=== PATIENT | male | born 1950 | race Caucasian/White ===

== ENCOUNTER 2019-09-06 13:37 | Outpatient (CLI) | payer MEDICARE, SELFPAY ==
--- NOTE | 2019-09-06 13:44 | MR_ITS ---
WS: [id number] MRI CERVICAL SPINE HISTORY: NECK PAIN COMPARISON: 11/29/2018 Very mild straightening of the normal cervical lordosis. Less than 2 mm retrolisthesis of C4. No simeon ow edema or fracture. Signal within the cervical cord is normal. Visualized posterior fossa is unremarkable. Craniocervical junction, C1 and C2 relationship, odontoid process and soft tissues are normal. C2-C3: Normal. C3-C4: Mild hypertrophic osteophytic ridging and diffuse disc bulging. Mild encroachment upon the sabrina tral thecal sac with mild bilateral foraminal stenosis. C4-C5: Mild osteophytic ridging and annular disc bulging. Mild contact on the ventral thecal sac. No displacement. Mild central with moderate bilateral foraminal narrowing. C5-C6: Mild osteophytic ridging. No significant central stenosis. Mild narrowing of the RIGHT foramen due to osteophyte and facet disease. C6-C7: Mild osteophytic ridging without significant stenosis. C7-T1: Normal. Paraspinal soft tissue are normal. Subcutaneous cyst in the posterior soft tissues at the C4 level is unchanged. MR/MR cervical spin wo con* [id number] IMPRESSION: 1. Multilevel mild spondylitic changes throughout the cervical spine. 2. Osteophytic ridging at C4-5 with mild contact on the ventral cervical cord. Similar to the prior studies. 3. Moderate bilateral foraminal stenosis at C4-5 and mild central stenosis. 4. Mild bilateral foraminal narrowing at C3-4 and on the RIGHT at C5-6.
--- NOTE | 2019-09-06 15:30 | XR_ITS ---
WS: [id number] LATERAL CERVICAL SPINE: 3 view. Lateral radiographs are performed in upright neutral, flexion and extension to the patient's toleranc e. HISTORY: Neck pain COMPARISON: 09/11/2018 Mild straightening of the normal cervical lordosis. Less than 2 mm retrolisthesis of C4. Severe disc space narrowing at C5-6 and C6-7 with moderate osteophytes. With flexion and extension C4 extends pos teriorly by 2.3 mm. There is no significant instability. Very slight retrolisthesis of C5 with extens ion. XR/XR cervical spine fl/ex [id number] IMPRESSION: 1. Minimal retrolisthesis of C4 on neutral imaging. No significant instability with flexion or extension. 2. Severe degenerative disc disease and spondylosis at C5-6 and C6-7.
== END 2019-09-06 13:38 | disposition home or self-care (01) ==
PROVIDERS: PCP Nurse Practitioner Family; Visit Provider Licensed Practical Nurse
DX: M25.78 Osteophyte, vertebrae (principal); M48.02 Spinal stenosis, cervical region; M50.323 Other cervical disc degeneration at C6-C7 level
CPT/HCPCS: 72040; 72141

== ENCOUNTER → 2019-09-20 13:16 | Outpatient (BNVA) | payer MEDICARE, SELFPAY | PROVIDERS: Referring Provider Licensed Practical Nurse; Visit Provider Anesthesiology Pain Medicine | DX: G89.29 Other chronic pain (principal); M47.812 Spondylosis without myelopathy or radiculopathy, cervical region; F17.210 Nicotine dependence, cigarettes, uncomplicated; Z79.891 Long term (current) use of opiate analgesic | CPT/HCPCS: 99204; 99999 ==

== ENCOUNTER → 2020-01-16 10:57 | Outpatient (BNVA) | payer MEDICARE, SELFPAY | PROVIDERS: Visit Provider Nurse Practitioner Family | DX: E11.9 Type 2 diabetes mellitus without complications (principal); I10 Essential (primary) hypertension | CPT/HCPCS: 80053; 80061; 82607; 83036; 84443; 85025 ==

== ENCOUNTER → 2020-01-22 15:20 | Outpatient (BNVA) | payer MEDICARE, SELFPAY | PROVIDERS: Visit Provider Nurse Practitioner Family | DX: D72.829 Elevated white blood cell count, unspecified (principal); E11.9 Type 2 diabetes mellitus without complications; E78.2 Mixed hyperlipidemia; I10 Essential (primary) hypertension; M54.30 Sciatica, unspecified side | CPT/HCPCS: 80500; 85025 ==

== ENCOUNTER 2020-02-26 14:49 | Outpatient (CLI) | payer MEDICARE, SELFPAY ==
--- NOTE | 2020-02-26 15:00 | USCV_ITS ---
Aram Alva Age: 69 Gender: M : 1950 Exam Date: 02/26/2020 14:58 Ordering Phys: Arturo Matamoros MD ([email or web address]) Technologist: Scarlett Burnham Exam Location: [facility] [place] Indication: LT LOWER EXTREMITY SWELLING HISTORY: Lower extremity swelling. PROCEDURES: Venous duplex imaging was performed in only the left lower extremity. The following venous structures were evaluated: common femoral vein, profunda vein, proximal portion of the greater saphenous vein, superficial femoral vein, and the popliteal vein. In addition, the posterior tibial and peroneal trunk were evaluated. FINDINGS: Normal 2-D Doppler and augmentation and compressibility throughout the left lower extremity venous structures. Additional imaging through the proximal calf veins also reveals no thrombus. Limited evaluation of the greater saphenous vein is patent with no thrombus.. CONCLUSIONS No evidence of left lower extremity DVT. Zurdo Echevarria MD (Electronically Signed) Final Date: 26 February 2020 17:15 S
== END 2020-02-26 14:50 | disposition home or self-care (01) ==
LOC: US 14:50
PROVIDERS: PCP Family Medicine; Visit Provider Internal Medicine Cardiovascular Disease
DX: M79.89 Other specified soft tissue disorders (principal)
CPT/HCPCS: 93971

== ENCOUNTER 2020-05-06 16:40 | Emergency (ER) | payer MEDICARE, SELFPAY ==
[2020-05-06 17:17] VITALS: BP 136/86; PULSE 73; RESP 20; TEMP 36.7; O2SAT 99; BMI 29.1
--- NOTE | 2020-05-06 17:48 | XRR_ITS ---
PROCEDURE INFORMATION: Exam: XR Chest, 1 View Exam date and time: 05/06/2020 6:33 PM Age: 69 years old Clinical indication: Type not specified; Patient HX: Chest pain and burning down left arm x 2 days TECHNIQUE: Imaging protocol: XR of the chest Views: 1 view. COMPARISON: CR Chest 1 [place] [id number] 07/10/2019 9:30 AM FINDINGS: Lungs: Unremarkable. No consolidation. Pleural space: Unremarkable. No pleural effusion. No pneumothorax. Heart/Mediastinum: Unremarkable. No cardiomegaly. Bones/joints: Unremarkable. XR/XR chest 1V portable [id number] IMPRESSION: No acute findings.
--- NOTE | 2020-05-06 17:59 | ED_ITS ---
HPI - Chest Pain General: Chief Complaint: Chest Pain Stated Complaint: cp/ sent from doc Time Seen by Provider: 05/06/20 17:38 Source: patient Mode of arrival: ambulatory Limitations: no limitations History of Present Illness: HPI narrative: 69-year-old male states he been having some burning type chest pain over the last 2 days. He states pain is been burning down his arm. He denies any shortness of breath. He denies any worsening or improving factors. Denies vomiting or diarrhea. Denies any fevers. Does have a history of a stent 2 years ago. complaint: chest pain Associated symptoms: Deny abdominal pain, dyspnea, fever(s), nausea or vomiting Review of Systems Const: Denies: fever(s), chills, body aches or change in appetite Eyes: Denies: blurry vision or eye discomfort ENMT: Denies: throat pain or dental pain Card: Reports: chest pain Resp: Denies: dyspnea GI: Denies: abdominal pain, nausea, vomiting or diarrhea : Denies: dysuria Musc: Denies: neck pain or back pain Skin/Breast: Denies: rash Neuro: Denies: headache(s) Psych: Denies: depression Clarke/Lymph: Denies: easy bruising All/Imm: Denies: urticaria PFSH ED PFSH: Medical History (Updated 05/06/20 @ 18:41 by Corazon Cummings MD) CAD (coronary artery disease) Cervical spondylosis Castillo angioma Diabetes mellitus Essential hypertension GERD (gastroesophageal reflux disease) History of colon cancer History of small bowel obstruction Hyperglycemia Migraine-cluster headache syndrome Mixed hyperlipidemia Syncope Surgical History History of angioplasty History of heart artery stent Family History Father CAD (coronary artery disease) Mother CAD (coronary artery disease) Other Heart disease Social History Smoking and tobacco status: current every day smoker cigarettes Years cigarettes smoked: 53 Alcohol intake: never Household members: spouse Marital status: Current occupational status: unemployed History of recent travel: No Physical Exam Const: COMMON NORMALS: no acute distress, patient oriented x3 and healthy appearing HENMT: COMMON NORMALS: normocephalic and atraumatic HEAD & SCALP: normocephalic and atraumatic Eye: COMMON NORMALS: Equal, round and reactive pupils present and EOMs intact bilaterally PUPIL: Yes Equal, round and reactive pupils present Neck/C-Spine: COMMON NORMALS: full ROM and supple Chest: COMMONS NORMALS: normal inspection of the chest and normal palpation of entire chest wall Resp: COMMON NORMALS: normal respiratory effort, No retractions, No use of accessory muscles and clear to auscultation bilaterally AUSCULTATION: clear to auscultation bilaterally Cardio: COMMON NORMALS: regular rate, regular rhythm and No murmurs present (Cardio) RATE: regular rate RHYTHM: regular rhythm GI: COMMON NORMALS: Normal to inspection, nondistended, normoactive bowel sounds present, Soft to palpation, non-tender and no masses PALPATION: Yes Soft to palpation Extremity: COMMON NORMALS: normal to inspection and full ROM Neuro: COMMON NORMALS: patient oriented x3, moves all extremities and no focal motor deficits Psych: COMMON NORMALS: mental status grossly normal, Normal thought process present and cooperative THOUGHT PROCESS: Normal thought process present Skin: COMMON NORMALS: no rashes or lesions noted and no wounds GENERAL SKIN EXAM: no rashes or lesions noted Course Vital Signs: Vital signs: Vital Signs Temperature 98.1 F 05/06/20 17:17 Pulse Rate 73 05/06/20 17:17 Respiratory Rate 20 H 05/06/20 17:17 Blood Pressure 136/86 05/06/20 17:17 Pulse Oximetry 99 05/06/20 17:17 MDM - Chest Pain MDM Narrative: Medical decision making narrative: Patient presents here with chest pain. His EKG and x-ray are normal. He has been pain-free here. Patient did allow us to draw his labs and he stated he had to leave. He states that he has to get up at 2 [address] to [address] a truck. I informed him he could be having a heart attack and strongly recommended him staying. He refused has decision make capacity and signed out AMA. Lab Data: Labs: Lab Results 05/06/20 Range/Units 18:15 WBC 8.3 (4.0-10.0) 10^3/ uL RBC 4.76 (4.1-5.3) 10^6/u L Hgb 15.7 (11.7-16.6) g/dL Hct 45.8 (42.0-52.0) % MCV 96.2 H (80-94) fL MCH 33.0 (28.0-34.0) pg MCHC 34.3 (30.0-36.0) g/dL RDW 11.8 L (12.1-15.1) % Plt Count 236 (130-400) 10^3/c mm MPV 11.3 H (7.4-10.4) fL Neut % (Auto) 66.9 % Lymph % (Auto) 19.2 % [place] % (Auto) 9.3 % Eos % (Auto) 2.9 % Baso % (Auto) 1.2 % Neut # (Auto) 5.57 (1.8-7.7) 10^3/u L Lymph # (Auto) 1.6 (0.8-4.8) 10^3/u L [place] # (Auto) 0.8 (0.2-0.9) 10^3/u L Eos # (Auto) 0.2 (0.0-0.8) 10^3/u L Baso # (Auto) 0.1 (0.0-0.1) 10^3/u L Nucleated RBC % (a uto) 0 % Nucleated RBCs # 0.0 /100WBC Imaging Data^: CXR: Attestation: I personally reviewed and interpreted this imaging study as follows: My impression: no acute abnormality EKG Data^: EKG 1: Attestation: I personally reviewed and interpreted this EKG as follows: EKG interpretation date: 05/06/20 EKG interpretation time: 17:21 Interpretation: nsr hr [address] or t wave abnormalities qrs 91 qtc 414 Discharge Plan Discharge Patient Disposition: Left Against Medical Advice Clinical Impression: Chest pain Qualifiers: Chest pain type: unspecified Qualified Code(s): R07.9 - Chest pain, unspecified Condition: Stable Prescriptions: No Action aspirin 81 mg tablet,delayed release (DR/EC) 81 mg PO DAILY RF: 0 tizanidine 4 mg capsule 4 mg PO BID PRN (Reason: muscle spasticity) Qty: 20 RF: 0 gabapentin 300 mg capsule 600 mg PO DAILY Qty: 60 RF: 0 methylprednisolone [Medrol (Jacob)] 4 mg tablets,dose pack See Rx Instructions PO PER PKG DIR Qty: 21 RF: 0 sulfamethoxazole-trimethoprim [Bactrim DS] 800-160 mg tablet 1 tab PO BID Qty: 3 RF: 0 tizanidine 4 mg tablet 4 mg PO BID MDD 2 PRN (Reason: muscle spasticity) Qty: 60 RF: 0 lidocaine 5 % adhesive patch,medicated 1 patch TOPICAL DAILY MDD 1 Qty: 30 RF: 0 metoprolol succinate 25 mg capsule,sprinkle,ER 24hr 25 mg PO DAILY Qty: 90 RF: 1 tramadol 50 mg tablet 50 mg PO BID PRN (Reason: pain) Qty: 20 RF: 0 clopidogrel [Plavix] 75 mg tablet 75 mg PO DAILY Qty: 90 RF: 3 Referrals: Tip Box MD [Primary Care Provider] - Discharge Date/Time: 05/06/20 18:42 Coding Level of Care Code ED Solar Energy Systems Engineer for Chg 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
[2020-05-06 18:39] LABS: Basophils # 0.1 10^3/uL (0.0-0.1); Basophils % 1.2 %; Eosinophils # 0.2 10^3/uL (0.0-0.8); Eosinophils % 2.9 %; Hematocrit 45.8 % (42.0-52.0); Hemoglobin 15.7 g/dL (11.7-16.6); Lymphocytes # 1.6 10^3/uL (0.8-4.8); Lymphocytes % 19.2 %; Mean Corpuscular HGB Conc 34.3 g/dL (30.0-36.0); Mean Corpuscular Volume 96.2 fL (80-94); Mean Platelet Volume 11.3 fL (7.4-10.4); Monocytes # 0.8 10^3/uL (0.2-0.9); Monocytes % 9.3 %; Neutrophils # 5.57 10^3/uL (1.8-7.7); Neutrophils % 66.9 %; Nucleated Red Blood Cells % 0 %; Platelet Count 236 10^3/cmm (130-400); Red Blood Count 4.76 10^6/uL (4.1-5.3); Red Cell Distribution Width 11.8 % (12.1-15.1); White Blood Count 8.3 10^3/uL (4.0-10.0)
[2020-05-06 18:59] LABS: Alanine Aminotransferase 19 U/L (0-41); Albumin Level 4.4 g/dL (3.5-5.2); Alkaline Phosphatase 79 IU/L (40-130); Anion Gap 14.1 (5-19); Aspartate Amino Transferase 21 U/L (0-40); Blood Urea Nitrogen 16 mg/dL (8-23); Calcium 9.5 mg/dL (8.5-10.5); Carbon Dioxide 24 mmol/L (22-29); Chloride 102 mmol/L (98-107); Glomerular Filtration Rate 74.5 mL/min (90-130); Glucose 95 mg/dL (65-115); Osmolality Calculated 283 mOsm/kg (285-295); Potassium 4.1 mmol/L (3.5-5.1); Sodium 136 mmol/L (136-145); Total Bilirubin 0.3 mg/dL (0.15-1.2); Total Protein 6.4 g/dL (6.6-8.7)
[2020-05-06 19:00] LABS: Troponin(5th) Baseline 6 ng/L (0-15)
--- NOTE | 2020-05-06 19:49 | ECG_ITS ---
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 Measurements Intervals [place] Rate: 69 P: 57 UT: 129 QRS: 81 QRSD: 91 T: 38 QT: 394 QTc: 424 Interpretive Statements SINUS RHYTHM Compared to ECG 07/10/2019 09:40:34 Ventricular premature complex(es) no longer present Electronically Signed On 05-06-2020 20:15:00 CDT by Kary Mcgraw M.D. [email or web address].[email or web address]/store/[id number]
== END 2020-05-06 18:42 | disposition left against medical advice (07) ==
PROVIDERS: Family Medicine; Emergency Provider Emergency Medicine; PCP Internal Medicine Cardiovascular Disease
DX: R07.9 Chest pain, unspecified (principal); Z53.21 Procedure and treatment not carried out due to patient leaving prior to being seen by health care provider; Z79.82 Long term (current) use of aspirin; Z79.02 Long term (current) use of antithrombotics/antiplatelets; I25.10 Atherosclerotic heart disease of native coronary artery without angina pectoris; E11.9 Type 2 diabetes mellitus without complications; I10 Essential (primary) hypertension; Z85.038 Personal history of other malignant neoplasm of large intestine; E78.2 Mixed hyperlipidemia; F17.210 Nicotine dependence, cigarettes, uncomplicated
CPT/HCPCS: 12345; 71045; 80053; 84484; 85025; 93005; 99282; 99283

== ENCOUNTER 2020-06-17 07:35 | Outpatient (CLI) | payer MEDICARE, SELFPAY ==
--- NOTE | 2020-06-17 07:49 | ECG_ITS ---
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 Interpretive Statements NAME OF STUDY: EXERCISE SESTAMIBI STRESS TEST INDICATION: Chest Pain, PROCEDURE: The baseline electrocardiogram showed [normal sinus rhythm with some nonspecific T wave changes and occasional supraventricular ectopics. At the baseline, the patient's blood pressure was 139/59 mm Hg with a heart rate of 89. The patient exercised for 5 minutes and 35 seconds on a standard Tavon protocol. Patient attained a maximum heart rate of 129 beats per minute(84% of the maximum predicted heart rate) with a blood pressure at the peak exercise of 167/75 mm Hg. The EKG at the peak exercise revealed no significant changes. Patient did not have any chest pain or any significant arrhythmis with the exercise Sestamibi was injected 1 minute prior to the peak exercise During the recovery phase, there were no new changes. Blood pressure at the end of the recovery phase was 155/75 mm Hg with a heart rate of 97 per minute. CONCLUSION: 1. No significant EKG changes with the treadmill exercise 2. No exercise-induced chest pain or cardiac arrhythmia 3. Good impaired exercise tolerance, attained a maximum of METs 4. Sestamibi/Sestamibi perfusion results pending; see separate report. Electronically Signed On 06-20-2020 16:36:23 DISTRIBUTION ENGINEERING TECHNOLOGIST by Tip Box M.D. [id number]
--- NOTE | 2020-06-17 07:49 | NMCV_ITS ---
NM madelin perf SPECT r/s* [id number] Aram Alva Age: 69 Gender: M : 1950 Exam Date: 06/17/2020 07:49 Ordering Phys: Tip Box MD ([email or web address]) Technologist: VINNY Urban Exam Location: [facility] Indications: SHORTNESS OF BREATH STRESS TEST Please see separate stress test report in [facility] for full findings IMAGE PROTOCOL Rest/Stress 2 Exercise Day Radiopharmaceutical Dose (mCi) Administration Site Administered by Rest: Tc-99m 10.7 IV VINNY Crowley Sestamibi Stress:Tc-99m 30.0 IV VINNY Crowley Sestamisarah Rest: 17-Jun-2020 60 Discovery 630 Stress: 18-Jun-2020 15 Discovery 630 Radiopharmaceutical was injected at 85 % maximum heart rate. Images obtained in supine and prone position. SPECT RESULTS Technical Quality: Excellent Raw Data Analysis: Normal Image Corrections: No attenuation or motion correction applied Summed Stress Score: 0 Summed Rest Score: 0 Summed Difference Score: 0 PERFUSION FINDINGS Myocardial perfusion imaging revealing, uniform tracer uptake. No significant perfusion normalities. FUNCTIONAL RESULTS (calculated via Gated SPECT) Stress Image LV EF (%): 56 Stress EDV (mL):117 TID: 1.06 Stress ESV (mL):52 FUNCTIONAL FINDINGS: Segmental wall motion analysis revealing no gross wall motion normalities IMPRESSIONS 1. Unremarkable myocardial perfusion imaging. 2. Segmental wall motion analysis revealing no gross wall motion normalities. 3. LV ejection fraction estimated to be 56%. 4. Normal LV volume. No significant coronary ischemia, based on the above findings Dr Tip Box MD [facility] (Electronically Signed) Final Date: 18 June 2020 12:07 S
[2020-06-17 07:50] VITALS: BMI 26.3
--- NOTE | 2020-06-17 08:00 | USCV_ITS ---
Anthony Alvar Age: 69 Gender: M : 1950 Exam Date: 06/17/2020 08:08 Ordering Phys: Tip Box MD ([email or web address]/[email or web address]) Technologist: Lisa Gonzalez Exam Location: [facility] [place] Indication: Bruit, ASHD Risk Factors: Unknown Previous Vascular Surgery: None Right Brachial BP: / Left Brachial BP: / Right Left Velocity (cm/s) Spectral Plaque Velocity (cm/s) Spectral Plaque Syst/Diast Broadening Syst/Diast Broadening 67.30/ 23.20 Prox CCA 76.10 / 22.10 63.90/ 24.30 Mid CCA 62.40 / 18.80 58.40/ 19.80 Distal CCA 46.10 / 17.90 52.80/ 22.50 Prox ICA 26.90 / 11.20 78.30/ 36.40 Mid ICA 53.80 / 21.40 Hetro 54.40/ 23.30 Distal ICA 83.80 / 33.10 49.70 ECA 52.00 1.16 ICA/CCA 1.10 Antegrade Vertebral Antegrade 41.90/ 17.90 cm/s 41.20/ 16.30 cm/s Bi Subclavian Bi 45.80 44.30 FINDINGS No comparison. See measurements listed above. Minimal scattered plaques of the bifurcations and internal carotid arteries bilaterally Antegrade flow in the vertebral arteries bilaterally Normal Doppler flow velocities in the external carotid arteries bilaterally CONCLUSIONS Minimal scattered plaques at the bifurcations and internal carotid arteries bilaterally. No significant stenosis, based on the above findings Dr Tip Box MD [facility] (Electronically Signed) Final Date: 18 June 2020 17:13 S
[2020-06-17 10:05] VITALS: BP 133/80; PULSE 99
--- NOTE | 2020-06-17 12:05 | PC.NURSE ---
STRESS TEST NOTE THIS NURSE WAS NOTIFIED BY LARRY ELKINS [employer] THAT THE PATIENT'S IV HAD INFILTRATED DURING HIS STRESS INJECTION. THEREFORE, THE PATIENT'S STRESS PORTION OF THE EXERCISE SESTAMIBI WILL HAVE TO BE REPEATED. THIS WAS EXPLAINED TO THE PATIENT BY INÉS NAIK [employer]. THE PATIENT WAS AGREEABLE TO COME BACK thursday JUNE 18, 2020 AT 0730 TO FINISH THE TEST. SCHEDULING AND DR METCALF WERE NOTIFIED.
--- NOTE | 2020-06-18 07:12 | ECG_ITS ---
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 Interpretive Statements NAME OF STUDY: EXERCISE SESTAMIBI STRESS TEST INDICATION: Atypical Chest Pain, PROCEDURE: The baseline electrocardiogram showed [normal sinus rhythm with some nonspecific T wave changes in the inferior leads. At the baseline, the patient's blood pressure was 139/81 mm Hg with a heart rate of 61. The patient exercised for 6 minutes on a standard Tavon protocol. Patient attained a maximum heart rate of 136 beats per minute( 88 % of the maximum predicted heart rate) with a blood pressure at the peak exercise of 176/91 mm Hg. The EKG at the peak exercise revealed no significant changes. Patient did not have any chest pain or any significant arrhythmis with the exercise Sestamibi was injected 1 minute prior to the peak exercise During the recovery phase, there were no new changes. Blood pressure at the end of the recovery phase was 161/95 mm Hg with a heart rate of 91 per minute. CONCLUSION: 1. No significant EKG changes with the EKG response to treadmill exercise 2. No exercise-induced chest pain or cardiac arrhythmia 3. Good impaired exercise tolerance, attained a maximum of METs 4. Sestamibi/Sestamibi perfusion results pending; see separate report. Electronically Signed On 06-20-2020 16:49:44 TIRE REGROOVING MACHINE OPERATOR by Tip Box M.D. [id number]
[2020-06-18 08:01] VITALS: BP 161/95; PULSE 96
== END 2020-06-17 07:36 | disposition home or self-care (01) ==
PROVIDERS: PCP Internal Medicine Cardiovascular Disease; Visit Provider Internal Medicine Cardiovascular Disease
DX: R06.02 Shortness of breath (principal); R07.89 Other chest pain; I65.29 Occlusion and stenosis of unspecified carotid artery; R09.89 Other specified symptoms and signs involving the circulatory and respiratory systems; I25.10 Atherosclerotic heart disease of native coronary artery without angina pectoris
CPT/HCPCS: 78452; 93017; 93880; A9500

== ENCOUNTER 2020-06-26 10:24 | Emergency (ER) | payer MEDICARE, SELFPAY ==
--- NOTE | 2020-06-26 10:28 | XR_ITS ---
WS: [id number] XR chest 1V portable [id number] REASON FOR EXAM: cp FINDINGS: Chest is unchanged compared to previous examination of 05/06/2020. The chest is Mild tortuosity thoracic aorta without significant dilatation. Heart size is normal. No active pulmonary parenchymal or pleural disease noted. Mild degenerative changes in the thoracic spine. XR/XR chest 1V portable [id number] IMPRESSION: No acute chest abnormality.
--- NOTE | 2020-06-26 10:28 | ECG_ITS ---
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 Measurements Intervals [place] Rate: 89 P: 69 DE: 118 QRS: 77 QRSD: 92 T: 57 QT: 382 QTc: 466 Interpretive Statements SINUS RHYTHM WITH SHORT DE INTERVAL Compared to ECG 05/06/2020 17:21:17 Short DE interval now present Electronically Signed On 06-26-2020 21:23:02 BITUMINOUS PAVING MACHINE OPERATOR by Kary Mcgraw M.D. [id number]
[2020-06-26 10:31] VITALS: BP 135/93; PULSE 89; RESP 16; TEMP 36.3; O2SAT 98; BMI 29.2
--- NOTE | 2020-06-26 10:39 | ED_ITS ---
HPI - Chest Pain General: Chief Complaint: Chest Pain Stated Complaint: CP Time Seen by Provider: 06/26/20 10:28 Source: patient Mode of arrival: ambulatory Limitations: no limitations History of Present Illness: HPI narrative: 69-year-old male states has been having chest pain over the last 2 days. He states been a burning type pain in the center of his chest is been constant. He did have a stress test couple months ago it was normal. He denies any fever. Denies any worsening improving factors. He denies any shortness of breath. 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 CAD (coronary artery disease) Carotid bruit present Cervical spondylosis Castillo angioma Diabetes mellitus Essential hypertension GERD (gastroesophageal reflux disease) History of colon cancer History of small bowel obstruction Hyperglycemia Migraine-cluster headache syndrome Mixed hyperlipidemia Syncope Surgical History History of angioplasty History of heart artery stent Family History Father CAD (coronary artery disease) Mother CAD (coronary artery disease) Other Heart disease Social History Smoking and tobacco status: current every day smoker cigarettes Years cigarettes smoked: 53 Alcohol intake: never Household members: spouse Marital status: Current occupational status: unemployed History of recent travel: No Physical Exam Const: COMMON NORMALS: no acute distress, patient oriented x3 and healthy appearing HENMT: COMMON NORMALS: normocephalic and atraumatic HEAD & SCALP: normocephalic and atraumatic Eye: COMMON NORMALS: Equal, round and reactive pupils present and EOMs intact bilaterally PUPIL: Yes Equal, round and reactive pupils present Neck/C-Spine: COMMON NORMALS: full ROM and supple Chest: COMMONS NORMALS: normal inspection of the chest and normal palpation of entire chest wall Resp: COMMON NORMALS: normal respiratory effort, No retractions, No use of accessory muscles and clear to auscultation bilaterally AUSCULTATION: clear to auscultation bilaterally Cardio: COMMON NORMALS: regular rate, regular rhythm and No murmurs present (Cardio) RATE: regular rate RHYTHM: regular rhythm GI: COMMON NORMALS: Normal to inspection, nondistended, normoactive bowel sounds present, Soft to palpation, non-tender and no masses PALPATION: Yes Soft to palpation Extremity: COMMON NORMALS: normal to inspection and full ROM Neuro: COMMON NORMALS: patient oriented x3, moves all extremities and no focal motor deficits Psych: COMMON NORMALS: mental status grossly normal, Normal thought process present and cooperative THOUGHT PROCESS: Normal thought process present Skin: COMMON NORMALS: no rashes or lesions noted and no wounds GENERAL SKIN EXAM: no rashes or lesions noted Course Vital Signs: Vital signs: Vital Signs Temperature 97.3 F L 06/26/20 10:31 Pulse Rate 97 06/26/20 12:22 Respiratory Rate 18 06/26/20 12:22 Blood Pressure 110/44 06/26/20 12:22 Pulse Oximetry 97 06/26/20 12:22 MDM - Chest Pain MDM Narrative: Medical decision making narrative: Patient presents here with chest pain. His initial troponin here is normal. He states that he has got to get to work and does not want to stay. He would not stay for 2-hour troponin. I explained to him that with just one troponin I cannot appropriately rule him out he understands the risks. 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 Lab Data: Labs: Lab Results 06/26/20 06/26/20 06/26/20 Range/Units 11:07 11:07 11:07 WBC 10.1 H (4.0-10.0) 10^3/ uL RBC 4.54 (4.1-5.3) 10^6/u L Hgb 14.9 (11.7-16.6) g/dL Hct 43.4 (42.0-52.0) % MCV 95.6 H (80-94) fL MCH 32.8 (28.0-34.0) pg MCHC 34.3 (30.0-36.0) g/dL RDW 11.9 L (12.1-15.1) % Plt Count 215 (130-400) 10^3/c mm MPV 11.2 H (7.4-10.4) fL Neut % (Auto) 73.7 % Lymph % (Auto) 13.7 % [place] % (Auto) 9.5 % Eos % (Auto) 1.9 % Baso % (Auto) 0.9 % Neut # (Auto) 7.44 (1.8-7.7) 10^3/u L Lymph # (Auto) 1.4 (0.8-4.8) 10^3/u L [place] # (Auto) 1.0 H (0.2-0.9) 10^3/u L Eos # (Auto) 0.2 (0.0-0.8) 10^3/u L Baso # (Auto) 0.1 (0.0-0.1) 10^3/u L Nucleated RBC % (a uto) 0 % Nucleated RBCs # 0.0 /100WBC Sodium 138 (136-145) mmol/L Potassium 3.9 (3.5-5.1) mmol/L Chloride 104 (98-107) mmol/L Carbon Dioxide 26 (22-29) mmol/L Anion Gap 11.9 (5-19) BUN 14 (8-23) mg/dL Creatinine 1.1 (0.7-1.2) mg/dL GFR Calculation 66.8 L (90-130) mL/min Glucose 104 (65-115) mg/dL Calculated Osmolal ity 287 (285-295) mOsm/k g Calcium 9.1 (8.5-10.5) mg/dL Total Bilirubin 0.3 (0.15-1.2) mg/dL AST 14 (0-40) U/L ALT 11 (0-41) U/L Alkaline Phosphata se 77 (40-130) IU/L Troponin T Baselin e 6 (0-15) ng/L Total Protein 6.1 L (6.6-8.7) g/dL Albumin 4.0 (3.5-5.2) g/dL Globulin 2.1 (1.3-4.6) g/dL Imaging Data^: CXR: Radiologist's impression: Order #: [id number] Report Status: Finalized Reason: cp [place] [employer] [address] XRay Report Signed Patient: Aram Alva Unit #: [id number] : 1950 Age/Sex: 69 / M ADM Date: 06/26/20 Loc: ER Room/Bed: Attending Dr: Ordering Provider/Ordering MD: Corazon Cummings MD Date of Service: 06/26/20 Procedure(s): XR chest 1V portable [id number] Accession Number(s): [id number] Report Number: [id number] WS: [id number] XR chest 1V portable [id number] REASON FOR EXAM: cp FINDINGS: Chest is unchanged compared to previous examination of 05/06/2020. The chest is Mild tortuosity thoracic aorta without significant dilatation. Heart size is normal. No active pulmonary parenchymal or pleural disease noted. Mild degenerative changes in the thoracic spine. XR/XR chest 1V portable [id number] IMPRESSION: No acute chest abnormality. EKG Data^: EKG 1: Attestation: I personally reviewed and interpreted this EKG as follows: EKG interpretation date: 06/26/20 EKG interpretation time: 10:37 Interpretation: nsr hr [address] or t wave abnormalities qrs 92 qtc 429 EKG 2: Attestation: I personally reviewed and interpreted this EKG as follows: EKG interpretation date: 06/26/20 EKG interpretation time: 10:49 Interpretation: nsr hr [address] or t wave abnormalities qrs 193 qtc 461 Discharge Plan Discharge Patient Disposition: Left Against Medical Advice Clinical Impression: Chest pain Qualifiers: Chest pain type: unspecified Qualified Code(s): R07.9 - Chest pain, unspecified Condition: Stable Prescriptions: No Action aspirin 81 mg tablet,delayed release (DR/EC) 81 mg PO DAILY RF: 0 tizanidine 4 mg capsule 4 mg PO BID PRN (Reason: muscle spasticity) Qty: 20 RF: 0 gabapentin 300 mg capsule 600 mg PO DAILY Qty: 60 RF: 0 methylprednisolone [Medrol (Jacob)] 4 mg tablets,dose pack See Rx Instructions PO PER PKG DIR Qty: 21 RF: 0 sulfamethoxazole-trimethoprim [Bactrim DS] 800-160 mg tablet 1 tab PO BID Qty: 3 RF: 0 lidocaine 5 % adhesive patch,medicated 1 patch TOPICAL DAILY MDD 1 Qty: 30 RF: 0 metoprolol succinate 25 mg capsule,sprinkle,ER 24hr 25 mg PO DAILY Qty: 90 RF: 1 nitroglycerin 0.4 mg tablet, sublingual 0.4 mg sublingual Q5M PRN (Reason: chest pain) 30 Days Qty: 30 RF: 3 tramadol 50 mg tablet 50 mg PO BID PRN (Reason: pain) Qty: 20 RF: 0 clopidogrel [Plavix] 75 mg tablet 75 mg PO DAILY Qty: 90 RF: 3 Referrals: Tip Box MD [Primary Care Provider] - 1-3 days Discharge Diet: Advance as tolerated Discharge Activity: Resume usual activity Patient Instructions: Chest Pain (ED) Coding Level of Care Code 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
[2020-06-26 11:19] LABS: Basophils # 0.1 10^3/uL (0.0-0.1); Basophils % 0.9 %; Eosinophils # 0.2 10^3/uL (0.0-0.8); Eosinophils % 1.9 %; Hematocrit 43.4 % (42.0-52.0); Hemoglobin 14.9 g/dL (11.7-16.6); Lymphocytes # 1.4 10^3/uL (0.8-4.8); Lymphocytes % 13.7 %; Mean Corpuscular HGB Conc 34.3 g/dL (30.0-36.0); Mean Corpuscular Hemoglobin 32.8 pg (28.0-34.0); Mean Corpuscular Volume 95.6 fL (80-94); Mean Platelet Volume 11.2 fL (7.4-10.4); Monocytes % 9.5 %; Neutrophils # 7.44 10^3/uL (1.8-7.7); Neutrophils % 73.7 %; Nucleated Red Blood Cells % 0 %; Platelet Count 215 10^3/cmm (130-400); Red Blood Count 4.54 10^6/uL (4.1-5.3); Red Cell Distribution Width 11.9 % (12.1-15.1); White Blood Count 10.1 10^3/uL (4.0-10.0)
[2020-06-26 11:38] LABS: Alanine Aminotransferase 11 U/L (0-41); Alkaline Phosphatase 77 IU/L (40-130); Anion Gap 11.9 (5-19); Aspartate Amino Transferase 14 U/L (0-40); Blood Urea Nitrogen 14 mg/dL (8-23); Calcium 9.1 mg/dL (8.5-10.5); Carbon Dioxide 26 mmol/L (22-29); Chloride 104 mmol/L (98-107); Globulin 2.1 g/dL (1.3-4.6); Glomerular Filtration Rate 66.8 mL/min (90-130); Glucose 104 mg/dL (65-115); Osmolality Calculated 287 mOsm/kg (285-295); Potassium 3.9 mmol/L (3.5-5.1); Sodium 138 mmol/L (136-145); Total Bilirubin 0.3 mg/dL (0.15-1.2); Total Protein 6.1 g/dL (6.6-8.7)
[2020-06-26 11:40] LABS: Troponin(5th) Baseline 6 ng/L (0-15)
[2020-06-26 12:22] VITALS: BP 110/44; PULSE 97; RESP 18; O2SAT 97
== END 2020-06-26 12:28 | disposition left against medical advice (07) ==
PROVIDERS: Emergency Provider Emergency Medicine; PCP Internal Medicine Cardiovascular Disease
DX: R07.9 Chest pain, unspecified (principal); Z53.21 Procedure and treatment not carried out due to patient leaving prior to being seen by health care provider; Z79.82 Long term (current) use of aspirin; Z79.02 Long term (current) use of antithrombotics/antiplatelets; I25.10 Atherosclerotic heart disease of native coronary artery without angina pectoris; I25.118 Atherosclerotic heart disease of native coronary artery with other forms of angina pectoris; E11.9 Type 2 diabetes mellitus without complications; I10 Essential (primary) hypertension; Z85.038 Personal history of other malignant neoplasm of large intestine; E78.2 Mixed hyperlipidemia; F17.210 Nicotine dependence, cigarettes, uncomplicated
CPT/HCPCS: 12345; 71045; 80053; 84484; 85025; 93005; 99282; 99283

== ENCOUNTER → 2020-11-07 12:28 | Outpatient (BNVA) | payer MEDICARE, SELFPAY | PROVIDERS: PCP Family Medicine; Visit Provider Anesthesiology Pain Medicine | DX: G89.29 Other chronic pain (principal); M79.18 Myalgia, other site; M54.12 Radiculopathy, cervical region; M47.812 Spondylosis without myelopathy or radiculopathy, cervical region; F17.210 Nicotine dependence, cigarettes, uncomplicated | CPT/HCPCS: 20553; 99215; J1030; J3490 ==

== ENCOUNTER 2020-11-21 15:34 | Outpatient (CLI) | payer MEDICARE, SELFPAY ==
--- NOTE | 2020-11-21 16:00 | MR_ITS ---
WS: [id number] MRI CERVICAL SPINE NONCONTRAST HISTORY: M54.12 - Radiculopathy, cervical region COMPARISON: 09/06/2019 Technique: Multiplanar, multisequence noncontrast imaging of the cervical spine. Mild straightening and LEFT curvature of the cervical spine. 2 mm retrolisthesis of C4. No marrow vaishali ma or acute fracture. Signal within the cervical cord is normal. Visualized posterior fossa is unremarkable. Mild to modera te degeneration of the discs and narrowing throughout the cervical spine. Minimal progression since t he prior study. Craniocervical junction, C1 and C2 relationship, odontoid process and soft tissues are normal. C2-C3: Normal. C3-C4: Mild annular disc bulging and osteophytic ridging. Hypertrophic osteophytes with mild encroach ment upon the ventral thecal sac and bilateral foraminal stenosis. No change. C4-C5: Diffuse annular disc bulging with a central disc protrusion. There is disc contact upon the ve ntral cervical cord and minimal deformity of the ventral cord. Mild bilateral facet joint arthritis a nd moderate bilateral foraminal narrowing. Central disc protrusion is slightly greater compared to th e prior study. C5-C6: Mild annular disc bulging and osteophytic ridging. There is very mild central and bilateral fo raminal stenosis and facet arthritis. C6-C7: Mild annular disc bulging and osteophytic ridging with moderate facet joint arthritis. There i s increase fluid surrounding the RIGHT facet joint. Mild central and bilateral foraminal stenosis. Mi ld progression of stenosis since the prior study. C7-T1: Normal. Paraspinal soft tissue are normal. MR/MR cervical spin wo con* [id number] IMPRESSION: 1. Mild progression of degenerative facet joint arthritis and spondylosis sinc e the prior study. 2. Mild central and and moderate bilateral foraminal stenosis at C4-5. Stenosi s has not significantly changed but there is very slight increase in size of a central disc protrusion. 3. Mild central and bilateral foraminal stenosis at C3-4, C5-6 and C6-7.
== END 2020-11-21 15:35 | disposition home or self-care (01) ==
LOC: RADSHAW 15:37
PROVIDERS: PCP Family Medicine; Visit Provider Anesthesiology Pain Medicine
DX: M54.12 Radiculopathy, cervical region (principal); M48.02 Spinal stenosis, cervical region; M13.88 Other specified arthritis, other site; M47.812 Spondylosis without myelopathy or radiculopathy, cervical region
CPT/HCPCS: 72141

== ENCOUNTER → 2020-11-28 11:01 | Outpatient (BNVA) | payer MEDICARE, SELFPAY | PROVIDERS: PCP Family Medicine; Visit Provider Anesthesiology Pain Medicine | DX: G89.29 Other chronic pain (principal); M50.90 Cervical disc disorder, unspecified, unspecified cervical region; M47.812 Spondylosis without myelopathy or radiculopathy, cervical region; F17.210 Nicotine dependence, cigarettes, uncomplicated | CPT/HCPCS: 99214 ==

== ENCOUNTER → 2020-12-09 08:55 | Outpatient (BNVA) | payer MEDICARE, SELFPAY | PROVIDERS: PCP Family Medicine; Referring Provider Dermatology; Visit Provider Orthopaedic Surgery | DX: M50.90 Cervical disc disorder, unspecified, unspecified cervical region (principal); G89.29 Other chronic pain | CPT/HCPCS: 72050 ==

== ENCOUNTER → 2021-01-16 11:38 | Outpatient (BNVA) | payer MEDICARE, SELFPAY | PROVIDERS: PCP Family Medicine; Visit Provider Orthopaedic Surgery | DX: Z01.812 Encounter for preprocedural laboratory examination (principal); Z20.822 Contact with and (suspected) exposure to COVID-19 | CPT/HCPCS: 87635 ==

== ENCOUNTER 2021-01-21 05:29 | Day surgery (SDC) | payer MEDICARE, SELFPAY ==
[2021-01-16 10:55] VITALS: BMI 29.7
--- NOTE | 2021-01-16 11:31 | ANES.PREANE2 ---
Pre-Anesthetic Assessment Pre-Anesthetic Assessment: Height/Weight: Height 1.7 m Weight 86.183 kg Proposed Procedure: Operation Date: 01/21/21 07:00 Proposed Procedures p acdf 10/20/058051, 59482, 67768, 45723, 59590 M47.12(Not Applicable) - Rod Arce Jeri, DO Was Beta Elizabeth taken within 24 hours: N/A Was Clonidine taken within 24 hours: N/A Social: Social History: Tobacco and No alcohol Exam: Pre-Anes Outpt Exam: alert, oriented x 3, clear to auscultation bilaterally and regular rate & rhythm Airway: Submandibular: WNL Cervical ROM: WNL MP: 2 Additional comments: Missing several CV/HEM: CV/HEM: CAD (Stents, seen by Dr. Box for clearance 12/30), HTN, PR and PVD Comments: No CP or SOB Metabolic: Metabolic: DM and Hyperlipidemia Musc/skel: Musc/skel: OA/DJD Neuropsych: Neuropsych: Neuropathy Anesthetic Plan: ASA status: 3 Anesthesia: General Risk of > 500 ml blood loss (7ml/kg in children): No PFSH Anesthesia PFSH: Medical History Atherosclerotic heart disease of [place] coronary artery with other forms of angina pectoris Atypical chest pain The EKG done in the emergency room revealed normal sinus rhythm with a normal ST-T's. CAD (coronary artery disease) Carotid bruit present Cervical spondylosis Castillo angioma Diabetes mellitus Essential hypertension GERD (gastroesophageal reflux disease) History of colon cancer History of small bowel obstruction Hyperglycemia Migraine-cluster headache syndrome Mixed hyperlipidemia Syncope Surgical History History of angioplasty History of heart artery stent Family History Father CAD (coronary artery disease) Cancer Mother CAD (coronary artery disease) Cancer Brother Cancer Sister Cancer Other Heart disease Denies family history of Diabetes Clotting disorder Dementia Chronic kidney disease (CKD) Suicide Anesthesia complication Bleeding disorder Lung disease Stroke Social History Smoking and tobacco status: current every day smoker cigarettes Years cigarettes smoked: 53 Alcohol intake: never Household members: spouse Marital status: Current occupational status: unemployed History of recent travel: No Data Anesthesia Cardiac Studies: No Data to Display
[2021-01-21] VITALS (9 sets, daily range): BP systolic 105–147; BP diastolic 78–96; PULSE 76–90; RESP 14–20; TEMP 36.2–36.5; O2SAT 90–95
--- NOTE | 2021-01-21 | SCC_ITS ---
Procedure Done: 1. Anterior diskectomy C4/5 2. Anterior discectomy C5/6 3. Insertion of cage C4/5 4. Insertion of Cage C5/6 5. Instrumentation with anterior plate from C4-C6 6. Use of allograft 32.8 seconds of fluoroscopic guidance, for a cumulative dose of 2.39 mGy, was provided to Dr. Wilcox by the radiology department. C-arm images of the cervical spine were saved for the patient's permanent record. CASEYD
--- NOTE | 2021-01-21 06:35 | P.ANESUD_ITS ---
Pre-Anesthetic Update Pre-Anesthetic Assessment: Date of Surgery/Procedure: 01/21/21 Preop Disha gnosis: cervical spondylosi with myelopathy Proposed Procedure: Operation Date: 01/21/21 12:25 Proposed Procedures p acdf 10/[id number], 54572, 91200, 80625, 02271 M47.12(Not Applicable) - Rod Wilcox, DO Any changes to Pre-Anesthetic Assessment?: No Last Intake: Intake Last Liquid Date 01/20/21 Last Liquid Time 19:00 Last Solid Date 01/20/21 Last Solid Time 18:00 Vitals: Temperature 97.2 F L 01/21/21 06:19 Pulse Rate 76 01/21/21 06:19 Respiratory Rate 18 01/21/21 06:19 Blood Pressure 126/78 01/21/21 06:19 Blood Pressure Brianna n 94 01/21/21 06:19 Pulse Oximetry 94 01/21/21 06:19 Oxygen Delivery Me thod 01/21/21 06:19 Exam: Pre-Anes Outpt Exam: alert, oriented x 3, clear to auscultation bilaterally and regular rate & rhythm Cardiac Studies: No Data to Display
[2021-01-21] MEDS: sodium chloride 0.9% 1,000 ML 30 ML IV (06:38)
--- NOTE | 2021-01-21 06:47 | P.HP_ITS ---
Providers/Chief Complaint Primary Care Provider: Jaquelin Cee MD Chief Complaint: acdf 10/20/667412, 42503, 81369, 59588, 37122 History of Present Illness [place] Mariza Alva is a 70 year old male New 70 year old male here for evaluation of neck pain. He is ambulating with a cane at todays visit and walks with an unsteady gait. He describes multiple falls that are becoming more frequent. He states his neck pain is worse than his leg pain. Chief Complaint: Neck pain Onset: in 2019 he fell off of a 4ft retaining wall Duration: months Characteristics: constant sharp pain Severity: 10 Location: neck Radiating symptoms: leg pain and swelling Aggravating factors: getting in and out of truck Alleviating factors: nothing Neuro deficits:denies numbness, tingling, incontinence of bowel/bladder, saddle anesthesia. Prior tx: trigger point injections with no relief Review of Systems Narrative: General ROS: negative for weight changes, fever ENT ROS: negative for nasal congestion, drainage or bleeding, sore throat, dysphagia or ear pain Eyes: PERRL Hematological and Lymphatic ROS: negative for swollen glands or abnormal bleeding Endocrine ROS: negative for polyuria/polydpsia or new changes in weight Respiratory ROS: negative for cough, shortness of breath, or wheezing Cardiovascular ROS: negative for chest pain or dyspnea on exertion Gastrointestinal ROS: negative for reflux, abdominal pain, change in bowel habits, or black or bloody stools Musculoskeletal ROS: negative for back pain, neck pain, or joint pain or swelling except for current problem Neurological ROS: negative for TIA or stoke symptoms Skin: no rashes Medications/Allergies Home Medications Medication Instructions Recorded Confirmed Last Taken Type aspirin 81 mg tablet,delayed 81 mg PO DAILY tab 07/25/19 01/21/21 01/16/21 History release clopidogrel 75 mg tablet 75 mg PO DAILY #90 tab 02/27/20 01/21/21 01/16/21 Rx Allergies Allergy/AdvReac Type Severity Reaction Status Date / Time No Known Allergies Allergy Verified 01/21/21 06:19 PFSH Acute PFSH: Medical History Atherosclerotic heart disease of [place] coronary artery with other forms of angina pectoris Atypical chest pain The EKG done in the emergency room revealed normal sinus rhythm with a normal ST-T's. CAD (coronary artery disease) Carotid bruit present Cervical spondylosis Castillo angioma Diabetes mellitus Essential hypertension GERD (gastroesophageal reflux disease) History of colon cancer History of small bowel obstruction Hyperglycemia Migraine-cluster headache syndrome Mixed hyperlipidemia Syncope Surgical History History of angioplasty History of heart artery stent Family History Father CAD (coronary artery disease) Cancer Mother CAD (coronary artery disease) Cancer Brother Cancer Sister Cancer Other Heart disease Denies family history of Diabetes Clotting disorder Dementia Chronic kidney disease (CKD) Suicide Anesthesia complication Bleeding disorder Lung disease Stroke Social History Smoking and tobacco status: current every day smoker cigarettes Years ciga rettes smoked: 53 Alcohol intake: never Household members: spouse Marital status: Current occupational status: unemployed History of recent travel: No Vitals/I&O/Wt Last Vital Signs Temp 97.2 F L 01/21/21 06:19 Pulse 76 01/21/21 06:19 Resp 18 01/21/21 06:19 BP 126/78 01/21/21 06:19 Pulse Ox 94 01/21/21 06:19 Physical Exam Narrative: EXAM NARRATIVE: CONSTITUTIONAL: The patient is a normal appearing [] in no apparent distress. GENERAL: Patient in no acute distress. CARDIAC: Regular rate and rhythm. CHEST: Normal inspiratory effort, normal respiratory rate. ABDOMEN: Soft and nontender. SKIN: Clear, warm and intact. NEURO?PSYCH: The patient is alert and oriented to person, place and time. Sensorv /SILT Motor StrengthShoulder abduction C5 5/5Wrist extension C6 5/5Elbow extension C7 5/5Hand Backup Engineer C8 5/5Finger abduction T15/5 Radial/ Ulnar/ Median n intact LowerSensory (SILT)Motor StrengthHin flexion L2/3Ant/inner thigh 5/5Hip adduction L2/3 5/5Knee extension L4 Lat thigh, 5/5Toe dorsiflexion L5 5/5Ankle dorsiflexion L5/ [id number] flexion S1 5/5 DTRBleeps 2+Triceps 2+Brachioradialis 2+Patellar 2+Achilles 2+ MUSCULOSKELETAL: [] UPPEREXTREMITIES: The patient had full active ROM in fingers, wrist, elbow, and shoulder. The patient demonstrated ability to fully flex/extend/abduct/adduct fingers, make ok sign, cross 2nd/3rd digits, extend 1st digit fully.. Radial pulse 2+, CR<2 seconds. LOWER EXTREMITIES: Pt has full, active ROM of toes, ankle, knee, and hip. Dorsalis pedis/posterior tibialis pulses 2+, CR<2 seconds. SPINE: Skin warm, dry, intact. 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
--- NOTE | 2021-01-21 09:17 | XR_ITS ---
WS: [id number] Cervical spine, C-arm fluoroscopy views, 01/21/2021 Clinical Data: ACDF [id number], 06934, 26660, 43990, 86788 Comparison: Cervical spine, 12/09/2020. Findings: There is an anterior cervical disc fusion from C4 through C6. Disc spacers at C4-C5 and C5- C6 are seen. XR/XR cervical spine 3V* [id number] Impression: Anterior cervical disc fusion.
--- NOTE | 2021-01-21 09:41 | SUR.PHASEI ---
PT REMAINS SLEEPY WITH GOOD RESP EFFORT, PT AWAKES TO TOUCH BUT QUICKLY BACK TO SLEEP C COLLAR IN PLACE, DRESSING TO ANTERIOR NECK D/I NO SWELLING OR HEMATOMA NOTED PT ABLE TO MOVE BILAT HANDS AND FEET TO COMMAND, PT IS A SMOKER SO PT PLACED ON 3LNC TO KEEP SATS OVER 94% PT ENCOURAGED TO COUGH AND DEEP BREATHE.
--- NOTE | 2021-01-21 09:46 | PM.OP ---
Operative Report Date of procedure: January 21, 2021 Pre-op Diagnosis: cervical spondylosi with myelopathy Post-op diagnosis: same Procedure Done: 1. Anterior diskectomy C4/5 2. Anterior discectomy C5/6 3. Insertion of cage C4/5 4. Insertion of Cage C5/6 5. Instrumentation with anterior plate from C4-C6 6. Use of allograft Surgeon: Rod Wilcox Anesthesia: General Estimated blood loss (mL): 10 Condition: stable Disposition: PACU Procedure: 1. Anterior diskectomy C4/5 2. Anterior discectomy C5/6 3. Insertion of cage C4/5 4. Insertion of Cage C5/6 5. Instrumentation with anterior plate from C4-C6 6. Use of allograft The patient was taken to the operating room, where he underwent general endotracheal anesthesia without complications. He was then positioned supine on the operating table, and all areas of impingement were well padded. The arms were carefully padded and tucked at his sides. A roll was placed between the shoulder blades.. An x-ray was done to determine the appropriate level for the skin incision. The entire neck was then sterilely prepped and draped in the usual fashion. Neuromonitoring was attached prior to prepping. A transverse skin incision was made and carried down to the platysma muscle. This was then split in line with its fibers. Blunt dissection was carried down medial to the carotid sheath and lateral to the trachea and esophagus until the anterior cervical spine was visualized. A needle was placed into a disc and an x-ray was done to determine its location. The longus colli muscles were then elevated bilaterally with the electrocautery unit. Self-retaining retractors were placed deep to the longus colli muscle. Attention was brought to the C5/6 level that was confirmed on x-ray. A caspar pin was placed into the C5 vertebrae and the C6 vertebrae. The disk space was then distracted. The microscope was then brought in. A radical anterior discectomies were performed at C5/6. This included complete removal of the anterior annulus, nucleus, and posterior annulus. The posterior longitudinal ligament was removed as were the posterior osteophytes. Foraminotomies were then accomplished bilaterally. This was done using a high speed cheli, kerrison rongeurs and curretes Once all of this was accomplished, the curved currette was used to check for any residual compression. The central canal was wide open as were the foramen. A high-speed bur was used to remove the cartilaginous endplates above and below the interspace. Bleeding cancellous bone was exposed. The disc space were measured and appropriate size cage were placed sterilely onto the field. Allograft graft was packed into the cages. The cage was then placed and there was good juxtaposition against the bleeding decorticated surfaces and good distraction of each interspace. Attention was brought to the next interspace. Attention was brought to the C4/5 level that was confirmed on x-ray. The microscope was then brought in. A radical anterior discectomies were performed at C4/5. This included complete removal of the anterior annulus, nucleus, and posterior annulus. The posterior longitudinal ligament was removed as were the posterior osteophytes. Foraminotomies were then accomplished bilaterally. This was done using a high speed cheli, kerrison rongeurs and curretes Once all of this was accomplished, the curved currette was used to check for any residual compression. The central canal was wide open as were the foramen. A high-speed bur was used to remove the cartilaginous endplates above and below the interspace. Bleeding cancellous bone was exposed. The disc space were measured and appropriate size cage were placed sterilely onto the field. Allograft graft was packed into the cages. The cage was then placed and there was good juxtaposition against the bleeding decorticated surfaces and good distraction of each interspace. Attention was brought to the next interspace. The [place] pins were removed. Bone wax was used to prevent any bleeding from occurring at the pin sites. The appropriate size anterior cervical locking plate was chosen and bent into gentle lordosis. One screws were then placed into each of the vertebral bodies at C4, C5 and C6. There was excellent purchase. A final x-ray was done confirming good position of the hardware and Cages. The locking screws were then applied, also with excellent purchase. Following a final copious irrigation, there was good hemostasis and no dural leaks. The carotid pulse was strong. The wounds were then closed in layers using 2-0 Vicryl suture for the platysma muscle, 2-0 Vicryl suture for the subcutaneous tissue, and 4-0 monocryl suture in a subcuticular skin closure. Glue was placed followed by application of a sterile dressing. The drain was hooked to bulb suction. A soft collar was applied. The patient was then carefully returned to the supine position on his hospital bed where he was reversed and extubated and taken to the recovery room having tolerated the procedure well.
[2021-01-21] MEDS: HYDROcodone-acetaminophen 5-325 mg Tablet 1 TAB PO (10:35)
--- NOTE | 2021-01-21 14:35 | ANE.PACU2 ---
Inpatient post-anesthesia follow up: Airway intact: Yes Vital signs: Temperature 97.7 F Pulse Rate 84 Respiratory Rate 18 Blood Pressure 138/79 Pulse Oximetry 95 Oxygen Delivery Me thod Room Air Oxygen Flow Rate 2 Fraction of Inspir ed Oxygen Hydration adequate: Yes Nausea and vomiting: No Pain level: 2 Mental status: Baseline
== END 2021-01-21 10:59 | disposition home or self-care (01) ==
PROVIDERS: PCP Family Medicine; Visit Provider Orthopaedic Surgery
PROC: 0RB30ZZ Excision of Cervical Vertebral Disc, Open Approach (ICD-10-PCS; CPT 22551; principal; 2021-01-21 12:25)
DX: M47.12 Other spondylosis with myelopathy, cervical region (principal); I25.10 Atherosclerotic heart disease of native coronary artery without angina pectoris; Z95.5 Presence of coronary angioplasty implant and graft; E11.40 Type 2 diabetes mellitus with diabetic neuropathy, unspecified; I10 Essential (primary) hypertension; I25.2 Old myocardial infarction; M19.90 Unspecified osteoarthritis, unspecified site; Z80.0 Family history of malignant neoplasm of digestive organs; E78.2 Mixed hyperlipidemia; Z82.49 Family history of ischemic heart disease and other diseases of the circulatory system; F17.210 Nicotine dependence, cigarettes, uncomplicated
CPT/HCPCS: 20930; 22551; 22552; 22845; 22853; 72040; 76000; C1713; C9359; J0330; J0690; J1100; J1170; J2250; J2370; J2405; J2704; J3010; J3490; J7030; L0174

== ENCOUNTER → 2021-03-12 16:08 | Outpatient (BNVA) | payer MEDICARE, SELFPAY | PROVIDERS: PCP Family Medicine; Visit Provider Orthopaedic Surgery | DX: M50.90 Cervical disc disorder, unspecified, unspecified cervical region (principal); M54.2 Cervicalgia; G89.29 Other chronic pain; M47.12 Other spondylosis with myelopathy, cervical region; Z01.818 Encounter for other preprocedural examination; Z48.89 Encounter for other specified surgical aftercare; M50.20 Other cervical disc displacement, unspecified cervical region | CPT/HCPCS: 72040 ==

== ENCOUNTER 2021-03-20 06:24 | Emergency (ER) | payer MEDICARE, SELFPAY ==
[2021-03-20 06:38] VITALS: BP 143/87; PULSE 67; RESP 18; TEMP 36.6; O2SAT 94; BMI 28.7
[2021-03-20] MEDS: lidocaine 2% viscous 15 ML, aluminum-mag hydrox-simethicon 30 ML, sucralfate oral liq 1 GM PO (07:43)
--- NOTE | 2021-03-20 07:56 | PC.NURSE ---
patient stated felt better at this time
[2021-03-20 08:00] VITALS: BP 131/87; PULSE 60; RESP 18; O2SAT 96
--- NOTE | 2021-03-20 08:10 | W.ED.ABDPA2 ---
HPI - Abdominal Pain General: Chief Complaint: Abdominal Pain Stated Complaint: abd pain Time Seen by Provider: 03/20/21 06:55 History of Present Illness: HPI narrative: 70-year-old male with a history of reflux disease. Comes in today complaining of abdominal pain burning in nature along with diarrhea and some increasing in severity the last couple of days. No hematochezia hematemesis or coffee-ground emesis. Patient has a history of colon cancer with a resection 20+ years ago he had an incidental appendectomy at that time as well. He denies dysuria urgency or frequency. MD elicited complaint: abdominal pain Pertinent past history: none Onset (ago): day(s) Pain Consistency: constant Location: Epigastric Quality: aching Radiation: none Migration to: no migration Exacerbating factors: eating Relieving factors: nothing Associated Symptoms: Reports GI cramping, heartburn and nausea; Denies anorexia, belching, bloating, change in bowel habits, change in stool character, chills, coffee ground emesis, constipation, diarrhea, dyspepsia, dysuria, excessive flatus, fever(s), hematochezia, hematuria, hematemesis, fecal incontinence, loose stools, melena, poor appetite, syncope and vomiting Review of Systems Const: Denies: fever(s) or chills ENMT: Denies: throat pain, ear or mastoid pain, nasal discharge or nasal congestion Card: Denies: syncope Resp: Denies: dyspnea, productive cough or non-productive cough GI: Reports: nausea, heartburn and GI cramping; Denies: vomiting, hematemesis, coffee ground emesis, diarrhea, constipation, bloating, belching, excessive flatus, fecal incontinence, change in bowel habits, change in stool character, hematochezia or melena : Denies: dysuria or hematuria Skin/Breast: Denies: rash or pruritus PFSH ED PFSH: Medical History Atherosclerotic heart 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 CAD (coronary artery disease) Carotid bruit present Cervical spondylosis Castillo angioma Diabetes mellitus Essential hypertension GERD (gastroesophageal reflux disease) History of colon cancer History of small bowel obstruction Hyperglycemia Migraine-cluster headache syndrome Mixed hyperlipidemia Syncope Surgical History History of angioplasty History of heart artery stent Family History Father CAD (coronary artery disease) Cancer Mother CAD (coronary artery disease) Cancer Brother Cancer Sister Cancer Other Heart disease Denies family history of Diabetes Clotting disorder Dementia Chronic kidney disease (CKD) Suicide Anesthesia complication Bleeding disorder Lung disease Stroke Social History Smoking and tobacco status: former smoker Alcohol intake: never Household members: spouse Marital status: Current occupational status: unemployed History of recent travel: No Physical Exam Const: COMMON NORMALS: no acute distress GENERAL APPEARANCE: cooperative and comfortable ORIENTATION/CONSCIOUSNESS: Yes awake, Yes oriented to person, Yes oriented to place and Yes oriented to time HENMT: COMMON NORMALS: normocephalic, atraumatic and hearing grossly normal bilaterally HEAD & SCALP: normocephalic and atraumatic Neck/C-Spine: COMMON NORMALS: no JVD Lymph: LYMPHATIC: no lymphadenopathy noted and no lymphedema noted Resp: COMMON NORMALS: normal respiratory effort, No retractions, No use of accessory muscles and clear to auscultation bilaterally AUSCULTATION: clear to auscultation bilaterally Cardio: COMMON NORMALS: no JVD, regular rate, regular rhythm and No murmurs present (Cardio) RATE: regular rate RHYTHM: regular rhythm GI: COMMON NORMALS: Soft to palpation and No hepatosplenomegaly present AUSCULTATION: Yes normoactive bowel sounds PALPATION: Yes Soft to palpation, No Tenderness to palpation present (GI), No Guarding due to palpation present (GI) and Yes No hepatosplenomegaly present Extremity: COMMON NORMALS: normal to inspection, capillary refill normal, no clubbing, cyanosis or edema, no calf tenderness and no pedal edema Neuro: SENSORIUM/ORIENTATION: Yes oriented to person, Yes oriented to place and Yes oriented to time Skin: COMMON NORMALS: no rashes or lesions noted GENERAL SKIN EXAM: no rashes or lesions noted Course Vital Signs: Vital signs: Vital Signs Temperature 97.8 F 03/20/21 06:38 Pulse Rate 68 03/20/21 10:44 Respiratory Rate 16 03/20/21 10:44 Blood Pressure 115/78 03/20/21 10:44 Pulse Oximetry 98 03/20/21 10:44 MDM - Abdominal Pain MDM Narrative: Medical decision making narrative: Reviewed labs with the patient. He is feeling somewhat better. Working to go and start on pantoprazole and Carafate as needed. If he has any worsening or change symptoms recheck. Have him follow-up with his primary care doctor within the week. Lab Data: Labs: Lab Results 03/20/21 03/20/21 03/20/21 Range/Units 07:48 08:32 08:32 WBC 9.7 (4.0-10.0) 10^3/ uL RBC 4.73 (4.1-5.3) 10^6/u L Hgb 15.8 (11.7-16.6) g/dL Hct 46.1 (42.0-52.0) % MCV 97.5 H (80-94) fl MCH 33.4 (28.0-34.0) pg MCHC 34.3 (30.0-36.0) g/dL RDW 12.5 (12.1-15.1) % Plt Count 234 (130-400) 10^3/c mm MPV 11.3 H (7.4-10.4) fL Neut % (Auto) 77.2 % Lymph % (Auto) 12.9 % [place] % (Auto) 7.9 % Eos % (Auto) 1.2 % Baso % (Auto) 0.5 % Neut # (Auto) 7.45 (1.8-7.7) 10^3/u L Lymph # (Auto) 1.3 (0.8-4.8) 10^3/u L [place] # (Auto) 0.8 (0.2-0.9) 10^3/u L Eos # (Auto) 0.1 (0.0-0.8) 10^3/u L Baso # (Auto) 0.1 (0.0-0.1) 10^3/u L Nucleated RBC % (a uto) 0 % Nucleated RBCs # 0.0 /100WBC Sodium 138 (136-145) mmol/L Potassium 4.6 (3.5-5.1) mmol/L Chloride 102 (98-107) mmol/L Carbon Dioxide 26 (22-29) mmol/L Anion Gap 14.6 (5-19) BUN 11 (8-23) mg/dL Creatinine 1.0 (0.7-1.2) mg/dL GFR Calculation 74.3 L (90-130) mL/min Glucose 74 (65-115) mg/dL Calculated Osmolal ity 284 L (285-295) mOsm/k g Calcium 9.1 (8.5-10.5) mg/dL Total Bilirubin 0.3 (0.15-1.2) mg/dL AST 16 (0-40) U/L ALT 14 (0-41) U/L Alkaline Phosphata se 78 (40-130) IU/L Creatine Kinase 72 (39-308) U/L Total Protein 6.8 (6.6-8.7) g/dL Albumin 4.1 (3.5-5.2) g/dL Globulin 2.7 (1.3-4.6) g/dL Lipase 15 (13-60) U/L Urine Color Straw (Yellow) Urine Appearance Clear (CLEAR) Urine pH 5 (5-7) Ur Specific Gravit y 1.005 (1.005-1.030) Urine Protein Neg (Negative) Urine Glucose (UA) Norm (Normal) Urine Ketones Negative (Negative) Urine Blood 2+ H (Negative) Urine Nitrate Negative (Negative) Urine Bilirubin Neg (Negative) Urine Urobilinogen Norm (Negative) mg/dL Ur Leukocyte Liz ase Negative (Negative) Urine RBC 0-4 H (0-2) /hpf Urine WBC 0-4 H (0-5) /hpf Ur Squamous Epith Cells 0-4 H (0-5) /hpf Amorphous Sediment Not Reportable Urine Bacteria Trace (NONE) /hpf Discharge Plan Discharge Patient Disposition: Home Clinical Impression: Reflux esophagitis Condition: Stable Prescriptions: New pantoprazole 40 mg tablet,delayed release (DR/EC) 40 mg PO BID 14 Days Qty: 28 RF: 0 Carafate 1 gram tablet 1 g PO Q6H PRN (Reason: dyspepsia) Qty: 90 RF: 0 No Action aspirin 81 mg tablet,delayed release (DR/EC) 81 mg PO DAILY RF: 0 (DME) Bone Growth Stimulator E0748 See Rx Instructions .Route .MEDSUPPLY Qty: 1 RF: 0 hydrocodone-acetaminophen 5-325 mg tablet 1 - 2 tab PO .Q4-6H PRN (Reason: pain) 7 Days Qty: 40 RF: 0 clopidogrel 75 mg tablet See Rx Instructions .ROUTE .COMPLEX Qty: 90 RF: 3 Discharge Orders: Discharge ED (Routine); Ordered 03/20/21 Ordered By: Guille Lopez Referrals: Jaquelin Cee MD [Primary Care Provider] - Discharge Diet: As Directed Discharge Activity: Resume usual activity Patient Instructions: Opioid Safety Coding Level of Care Code ED Senior Automation Engineer for Chg 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
--- NOTE | 2021-03-20 08:44 | PC.NURSE ---
patient denied any pain at this time .no acute distress noted.
[2021-03-20 09:20] LABS: Basophils # 0.1 10^3/uL (0.0-0.1); Basophils % 0.5 %; Eosinophils # 0.1 10^3/uL (0.0-0.8); Eosinophils % 1.2 %; Hematocrit 46.1 % (42.0-52.0); Hemoglobin 15.8 g/dL (11.7-16.6); Lymphocytes # 1.3 10^3/uL (0.8-4.8); Lymphocytes % 12.9 %; Mean Corpuscular HGB Conc 34.3 g/dL (30.0-36.0); Mean Corpuscular Hemoglobin 33.4 pg (28.0-34.0); Mean Corpuscular Volume 97.5 fl (80-94); Mean Platelet Volume 11.3 fL (7.4-10.4); Monocytes # 0.8 10^3/uL (0.2-0.9); Monocytes % 7.9 %; Neutrophils # 7.45 10^3/uL (1.8-7.7); Neutrophils % 77.2 %; Nucleated Red Blood Cells % 0 %; Platelet Count 234 10^3/cmm (130-400); Red Blood Count 4.73 10^6/uL (4.1-5.3); Red Cell Distribution Width 12.5 % (12.1-15.1); White Blood Count 9.7 10^3/uL (4.0-10.0)
[2021-03-20 09:22] LABS: Urine Color Straw (Yellow)
[2021-03-20 09:23] LABS: Add Urine Microscopic? YES; Bilirubin Urine Neg (Negative); Blood Urine 2+ (Negative); Glucose Urine UA Norm (Normal); Ketones Urine Negative (Negative); Leukocyte Esterase Urine Negative (Negative); Nitrate Urine Negative (Negative); Protein Urine Neg (Negative); Specific Gravity, Urine 1.005 (1.005-1.030); Urine Appearance Clear (CLEAR); Urobilinogen Urine Norm (Negative); pH Urine 5 (5-7)
[2021-03-20 09:24] LABS: Add Urine Culture? No; Bacteria Urine TRACE /hpf; RBC Urine 0-4 /hpf (0-2); Squamous Epithelial Cell Urine 0-4 /hpf (0-5); WBC Urine 0-4 /hpf (0-5)
[2021-03-20 09:52] LABS: Alanine Aminotransferase 14 U/L (0-41); Albumin Level 4.1 g/dL (3.5-5.2); Alkaline Phosphatase 78 IU/L (40-130); Anion Gap 14.6 (5-19); Aspartate Amino Transferase 16 U/L (0-40); Blood Urea Nitrogen 11 mg/dL (8-23); Calcium 9.1 mg/dL (8.5-10.5); Carbon Dioxide 26 mmol/L (22-29); Chloride 102 mmol/L (98-107); Creatine Phosphokinase 72 U/L (39-308); Globulin 2.7 g/dL (1.3-4.6); Glomerular Filtration Rate 74.3 mL/min (90-130); Glucose 74 mg/dL (65-115); Lipase 15 U/L (13-60); Osmolality Calculated 284 mOsm/kg (285-295); Potassium 4.6 mmol/L (3.5-5.1); Sodium 138 mmol/L (136-145); Total Bilirubin 0.3 mg/dL (0.15-1.2); Total Protein 6.8 g/dL (6.6-8.7)
[2021-03-20 10:00] VITALS: BP 116/80; PULSE 65; RESP 16; O2SAT 97
[2021-03-20 10:44] VITALS: BP 115/78; PULSE 68; RESP 16; O2SAT 98
== END 2021-03-20 10:31 | disposition home or self-care (01) ==
PROVIDERS: Emergency Provider Family Medicine; PCP Family Medicine
DX: K21.00 Gastro-esophageal reflux disease with esophagitis, without bleeding (principal); Z79.82 Long term (current) use of aspirin; I25.10 Atherosclerotic heart disease of native coronary artery without angina pectoris; E11.9 Type 2 diabetes mellitus without complications; I10 Essential (primary) hypertension; Z85.038 Personal history of other malignant neoplasm of large intestine; E78.2 Mixed hyperlipidemia; Z87.891 Personal history of nicotine dependence
CPT/HCPCS: 80053; 81001; 82550; 83690; 85025; 99283

== ENCOUNTER → 2021-04-17 11:12 | Outpatient (BNVA) | payer MEDICARE, SELFPAY | PROVIDERS: PCP Family Medicine; Visit Provider Family Medicine | DX: M25.562 Pain in left knee (principal) | CPT/HCPCS: 73562; 73630 ==

== ENCOUNTER → 2021-04-21 15:55 | Outpatient (BNVA) | payer MEDICARE, SELFPAY | PROVIDERS: PCP Family Medicine; Visit Provider Orthopaedic Surgery | DX: Z47.89 Encounter for other orthopedic aftercare (principal); Z98.1 Arthrodesis status | CPT/HCPCS: 72040 ==

== ENCOUNTER 2021-05-26 15:59 | Outpatient (CLI) | payer MEDICARE, SELFPAY | END 2021-05-26 16:00 | disposition home or self-care (01) | LOC: SPT 15:59 | PROVIDERS: PCP Family Medicine; Visit Provider Podiatrist Foot & Ankle Surgery | DX: Z46.89 Encounter for fitting and adjustment of other specified devices (principal); M77.42 Metatarsalgia, left foot; M72.2 Plantar fascial fibromatosis; M79.673 Pain in unspecified foot | CPT/HCPCS: 97760; L4397 ==

== ENCOUNTER → 2021-07-06 13:03 | Outpatient (BNVA) | payer MEDICARE, SELFPAY | PROVIDERS: PCP Family Medicine; Referring Provider Family Medicine; Visit Provider Orthopaedic Surgery | DX: S82.209A Unspecified fracture of shaft of unspecified tibia, initial encounter for closed fracture (principal); X58.XXXA Exposure to other specified factors, initial encounter | CPT/HCPCS: 73590 ==

== ENCOUNTER → 2021-08-04 13:02 | Outpatient (BNVA) | payer MEDICARE, SELFPAY | PROVIDERS: PCP Family Medicine; Visit Provider Orthopaedic Surgery | DX: S82.122A Displaced fracture of lateral condyle of left tibia, initial encounter for closed fracture (principal); S82.209A Unspecified fracture of shaft of unspecified tibia, initial encounter for closed fracture; S82.409A Unspecified fracture of shaft of unspecified fibula, initial encounter for closed fracture; X58.XXXA Exposure to other specified factors, initial encounter | CPT/HCPCS: 73562 ==

== ENCOUNTER → 2021-09-08 13:17 | Outpatient (BNVA) | payer MEDICARE, SELFPAY | PROVIDERS: PCP Family Medicine; Visit Provider Orthopaedic Surgery | DX: S82.122A Displaced fracture of lateral condyle of left tibia, initial encounter for closed fracture (principal); X58.XXXA Exposure to other specified factors, initial encounter | CPT/HCPCS: 73560; 73565 ==

== ENCOUNTER → 2021-09-29 13:40 | Outpatient (BNVA) | payer MEDICARE, SELFPAY | PROVIDERS: PCP Family Medicine; Visit Provider Orthopaedic Surgery | DX: S82.122A Displaced fracture of lateral condyle of left tibia, initial encounter for closed fracture (principal); X58.XXXA Exposure to other specified factors, initial encounter | CPT/HCPCS: 73560 ==

== ENCOUNTER 2021-10-28 08:45 | Emergency (ER) | payer MEDICARE, SELFPAY ==
[2021-10-28 08:56] VITALS: BP 144/92; PULSE 94; RESP 15; O2SAT 99
--- NOTE | 2021-10-28 09:06 | CT_ITS ---
WS: [id number] CT HEAD NONCONTRAST HISTORY: L arm numbness yesterday; resolved now TECHNIQUE: Contiguous axial imaging performed through the brain in 2.5 mm imaging. Bone and soft tiss ue windows. Sagittal and coronal reformats reviewed. All CT scans at [facility] use at least one of these dose optimization techniques: automated exposure control; mA and/or kV adjustment per pa tient size (includes targeted exams where dose is matched to clinical indication); or iterative recon struction. DLP: 825.09 mGy.cm COMPARISON: 07/10/2019 No acute intracranial hemorrhage, midline shift or mass effect. Very mild atrophy and chronic microvascular ischemic disease. No acute or subacute infarct identified . No prior infarct. Ventricles: Normal size with no hydrocephalus. No inferior displacement of cerebellar tonsils. Paranasal sinuses: As visualized are clear. Mastoid air cells: Well pneumatized. Calvarium and scalp: Skull is intact with no soft tissue edema or swelling. CT/CT head wo con* [id number] IMPRESSION: No acute intracranial hemorrhage or edema. Very mild atrophy and small vessel ischemic disease.
--- NOTE | 2021-10-28 09:06 | ECG_ITS ---
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 Measurements Intervals [place] Rate: 99 P: 54 MN: 104 QRS: 73 QRSD: 112 T: 40 QT: 364 QTc: 468 Interpretive Statements SINUS RHYTHM WITH SHORT MN INTERVAL WITH OCCASIONAL SUPRAVENTRICULAR PREMATURE COMPLEXES MODERATE INTRAVENTRICULAR CONDUCTION DELAY [110+ ms QRS DURATION] Compared to ECG 06/26/2020 10:37:11 Intraventricular conduction delay now present Electronically Signed On 10-28-2021 23:16:57 CDT by Tip Box M.D. [email or web address]
--- NOTE | 2021-10-28 09:07 | ED_ITS ---
Documented by User: JAIME Mensah 10/28/21 11:01 HPI - Neuro Symptoms/Deficit General: Chief Complaint: General Medical Stated Complaint: sent to ER per Dr. Box's nurse Time Seen by Provider: 10/28/21 08:52 Source: patient Mode of arrival: ambulatory Limitations: no limitations History of Present Illness: Patient is a nice 71-year-old male who presents to ED today after he was seen by a nurse at Dr. Box's office and referred to the ED. Patient states he was seen Dr. Box for routine cardiology visit. He mentioned to the nurse yesterday evening around 11 PM he noticed numbness to his left arm that was present for approximately 30 minutes and then completely resolved on its own. Patient states he never had any other symptoms with the arm numbness including chest pain, shortness of breath, difficulty breathing. He did not notice any slurred speech, trouble walking, facial drooping, altered mental status, or altered sensation to right arm or legs. Patient states he has remained completely asymptomatic since. Patient states he is only here because Dr. Box's nurse told him to come here. Onset (ago): hour(s) Time: 23:00 Location: left arm History of same: No Quality: numb Relieving factors: time Exacerbating factors: none Associated symptoms: Deny chest pain, headache(s), malaise, nausea, syncope or vomiting Treatments Prior to Arrival: none Review of Systems Const: Denies: fever(s), chills, body aches, fatigue or malaise Eyes: Denies: change in vision or blurry vision Card: Denies: chest pain, palpitations, irregular heart rhythm, edema, swelling of feet/ankles, lightheadedness, syncope, pre-syncope, dyspnea on exertion or leg pain with exertion Resp: Denies: dyspnea, productive cough or pain on inspiration GI: Denies: abdominal pain, nausea, vomiting, heartburn or diarrhea : Denies: difficulty urinating, dysuria or hematuria Musc: Denies: neck pain, back pain, extremity pain, extremity swelling, joint pain, joint swelling, joint redness, joint warmth, joint stiffness, limited range of motion, muscle cramps, muscle weakness or decrease in muscle mass Skin/Breast: Denies: rash Neuro: Reports: numbness in extremities (L arm-resolved now); Denies: headache(s), weakness in extremities, difficulty walking, dizziness, confusion, behavioral changes, Slurred speech present, difficulty communicating thoughts or seizure-like activity PFSH ED PFSH: Medical History Atherosclerotic heart disease of [place] coronary artery with other forms of angina pectoris Atypical chest pain The EKG done in the emergency room revealed normal sinus rhythm with a normal ST-T's. CAD (coronary artery disease) Carotid bruit present Cervical spondylosis Castillo angioma Diabetes mellitus Essential hypertension GERD (gastroesophageal reflux disease) History of colon cancer History of small bowel obstruction Hyperglycemia Migraine-cluster headache syndrome Mixed hyperlipidemia Syncope Surgical History History of angioplasty History of heart artery stent Family History Father CAD (coronary artery disease) Cancer Mother CAD (coronary artery disease) Cancer Brother Cancer Sister Cancer Other Heart disease Denies family history of Diabetes Clotting disorder Dementia Chronic kidney disease (CKD) Suicide Anesthesia complication Bleeding disorder Lung disease Stroke Social History Smoking and tobacco status: current some day smoker cigarettes Years cigarettes smoked: 53 Alcohol intake: never Household members: spouse Marital status: Current occupational status: unemployed History of recent travel: No NIH stroke score NIHSS: Level Of Consciousness - 1a: 0 Level Of Consciousness Questions - 1b: Both Correct Level Of Consciousness Commands - 1c: Both Correct Best Gaze - 2: Normal Visual Benito - 3: No Visual Loss Facial Palsy - 4: No rmal Motor Arm Right - 5: No Drift Motor Arm Left - 5: No Drift Motor Leg Right - 6: No Drift Motor Leg Left - 6: No Drift Limb Ataxia - 7: Absent Sensory - 8: Normal Best Language - 9: No Aphasia Dysarthia - 10: Normal Extinction And Inattention - 11: 0 Score: Total Score: 0 Physical Exam Const: COMMON NORMALS: no acute distress, patient oriented x3, no limitations, alert and well nourished GENERAL APPEARANCE: cooperative ORIENTATION/CONSCIOUSNESS: Yes awake, Yes oriented to person, Yes oriented to place and Yes oriented to time HENMT: COMMON NORMALS: normocephalic and atraumatic HEAD & SCALP: normal to inspection, normocephalic and atraumatic FACE & SINUS: normal facial exam Eye: GENERAL EYE: appearance normal, both eyes and all related structures Neck/C-Spine: COMMON NORMALS: full ROM, no lymphadenopathy, supple and no me ningeal signs Chest: COMMONS NORMALS: normal inspection of the chest and normal palpation of entire chest wall Resp: COMMON NORMALS: normal respiratory effort and clear to auscultation bilaterally AUSCULTATION: clear to auscultation bilaterally Cardio: COMMON NORMALS: regular rate and regular rhythm RATE: regular rate RHYTHM: regular rhythm GI: COMMON NORMALS: Normal to inspection, nondistended, normoactive bowel sounds present, Soft to palpation, non-tender, No hepatosplenomegaly present and no masses PALPATION: Yes Soft to palpation and Yes No hepatosplenomegaly present Back/Pelvis: COMMON NORMALS: thoracic and lumbar spine normal to inspection, no thoracic nor lumbar tenderness and thoraco-lumbar ROM normal Extremity: COMMON NORMALS: normal to inspection, full ROM, capillary refill normal and no clubbing, cyanosis or edema GENERAL: Yes normal exam except as noted Neuro: ENEIDA COMA SCALE: document GCS findings Eneida coma scale eye opening: Spontaneous Eneida coma scale verbal response: Orientated Terry coma scale motor response: Obey commands Eneida coma scale total score: 15 COMMON NORMALS: patient oriented x3, CN's II-XII intact bilaterally, moves all extremities, no focal motor deficits, no sensory deficits noted and gait normal SENSORIUM/ORIENTATION: Yes alert, Yes oriented to person, Yes oriented to place and Yes oriented to time MENINGEAL SIGNS: Yes no meningeal signs COORDINATION/BALANCE: [id number] test normal SPEECH: speech normal GAIT: Yes Normal gait present MOTOR EXAM: 5/5 motor strength present throughout COORDINATION: [id number] test normal Skin: COMMON NORMALS: no rashes or lesions noted GENERAL SKIN EXAM: no rashes or lesions noted Course Vital Signs: Vital signs: Vital Signs Pulse Rate 80 10/28/21 10:27 Respiratory Rate 18 10/28/21 10:27 Blood Pressure 131/72 10/28/21 10:27 Pulse Oximetry 94 10/28/21 10:27 MDM - Neuro Symptoms/Deficit Medical Decision Making Patient is a 71-year-old male who presented to the ED today with a complaint of an episode of arm numbness occurring around 11 PM yesterday evening that lasted approximately 30 minutes before completely subsiding. He had no other neurologic symptoms at the time and has continued to be completely asymptomatic. He has an NIHSS of 0 at this time. Blood work including cardiac work-up and head CT are all negative here. Recommend patient follow-up with his primary care provider as soon as possible for further evaluation and any further outpatient work-up that needs to be completed. Strict return to ED precautions verbally given to patient. Lab Data : 10/28/21 09:11 10/28/21 09:[address] 10/28/21 09:06 IMPRESSION: No acute intracranial hemorrhage or edema. Very mild atrophy and small vessel ischemic disease. Chest X-Ray 10/28/21 09:10 IMPRESSION: Unremarkable portable chest. Laboratory Results WBC 10.1 10^3/uL (4.0-10.0) H 10/28/21 09:11 RBC 4.88 10^6/uL (4.1-5.3) 10/28/21 09:11 Hgb 16.0 g/dL (11.7-16.6) 10/28/21 09:11 Hct 46.4 % (42.0-52.0) 10/28/21 09:11 MCV 95.1 fl (80-94) H 10/28/21 09:11 MCH 32.8 pg (28.0-34.0) 10/28/21 09:11 MCHC 34.5 g/dL (30.0-36.0) 10/28/21 09:11 RDW 12.3 % (12.1-15.1) 10/28/21 09:11 Plt Count 244 10^3/cmm (130-400) 10/28/21 09:11 MPV 11.0 fL (7.4-10.4) H 10/28/21 09:11 Neut % (Auto) 75.0 % 10/28/21 09:11 Lymph % (Auto) 14.2 % 10/28/21 09:11 Towns % (Auto) 7.8 % 10/28/21 09:11 Eos % (Auto) 1.8 % 10/28/21 09:11 Baso % (Auto) 0.8 % 10/28/21 09:11 Neut # (Auto) 7.55 10^3/uL (1.8-7.7) 10/28/21 09:11 Lymph # (Auto) 1.4 10^3/uL (0.8-4.8) 10/28/21 09:11 Towns # (Auto) 0.8 10^3/uL (0.2-0.9) 10/28/21 09:11 Eos # (Auto) 0.2 10^3/uL (0.0-0.8) 10/28/21 09:11 Baso # (Auto) 0.1 10^3/uL (0.0-0.1) 10/28/21 09:11 Nucleated RBC % (auto) 0 % 10/28/21 09:11 Nucleated RBCs # 0.0 /100WBC 10/28/21 09:11 Sodium 139 mmol/L (136-145) 10/28/21 09:11 Potassium 4.0 mmol/L (3.5-5.1) 10/28/21 09:11 Chloride 103 mmol/L (98-107) 10/28/21 09:11 Carbon Dioxide 25 mmol/L (22-29) 10/28/21 09:11 Anion Gap 15.0 (5-19) 10/28/21 09:11 BUN 14 mg/dL (8-23) 10/28/21 09:11 Creatinine 1.0 mg/dL (0.7-1.2) 10/28/21 09:11 GFR Calculation 74.1 mL/min (90-130) L 10/28/21 09:11 Glucose 92 mg/dL (65-115) 10/28/21 09:11 Calculated Osmolality 288 mOsm/kg (285-295) 10/28/21 09:11 Calcium 9.3 mg/dL (8.5-10.5) 10/28/21 09:11 Total Bilirubin 0.2 mg/dL (0.15-1.2) 10/28/21 09:11 AST 19 U/L (0-40) 10/28/21 09:11 ALT 17 U/L (0-41) 10/28/21 09:11 Alkaline Phosphatase 84 IU/L (40-130) 10/28/21 09:11 Troponin T Baseline 6 ng/L (0-15) 10/28/21 09:11 Total Protein 7.2 g/dL (6.6-8.7) 10/28/21 09:11 Albumin 4.2 g/dL (3.5-5.2) 10/28/21 09:11 Globulin 3.0 g/dL (1.3-4.6) 10/28/21 09:11 Discharge Plan Discharge Patient Disposition: Home Clinical Impression: Left arm numbness Condition: Stable Prescriptions: No Action aspirin 81 mg tablet,delayed release (DR/EC) 81 mg PO DAILY 0RF (DME) Night splint to left See Rx Instructions .Route .MEDSUPPLY Qty: 1 0RF Rx Instructions: As directed (DME) Custom Molded Orthotics See Rx Instructions .Route .MEDSUPPLY Qty: 1 0RF Rx Instructions: As directed hydrocodone-acetaminophen 5-325 mg tablet 1 tab PO Q4H PRN (Reason: pain) 7 Days Qty: 30 0RF gabapentin 300 mg capsule 300 mg PO TID Qty: 90 0RF clopidogrel 75 mg tablet See Rx Instructions .ROUTE .COMPLEX Qty: 90 3RF Dose Instruction: Take 1 tablet by mouth once daily Rx Instructions: Take 1 tablet by mouth once daily Discharge Orders: Discharge ED (Routine); Ordered 10/28/21 Ordered By: Tomasa Queen Referrals: Jaquelin Cee MD [Primary Care Provider] - Coding Level of Care Code ED Director Of Adult Epilepsy for Chg 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 Documented by User: Guille Lopez DO 10/28/21 11:04 HPI - Neuro Symptoms/Deficit General: Chief Complaint: General Medical Stated Complaint: sent to ER per Dr. Box's nurse Time Seen by Provider: 10/28/21 08:52 [facility] ED PFSH: Medical History Atherosclerotic heart disease of [place] coronary artery with other forms of angina pectoris Atypical chest pain The EKG done in the emergency room revealed normal sinus rhythm with a normal ST-T's. CAD (coronary artery disease) Carotid bruit present Cervical spondylosis Castillo angioma Diabetes mellitus Essential hypertension GERD (gastroesophageal reflux disease) History of colon cancer History of small bowel obstruction Hyperglycemia Migraine-cluster headache syndrome Mixed hyperlipidemia Syncope Surgical History History of angioplasty History of heart artery stent Family History Father CAD (coronary artery disease) Cancer Mother CAD (coronary artery disease) Cancer Brother Cancer Sister Cancer Other Heart disease Denies family history of Diabetes Clotting disorder Dementia Chronic kidney disease (CKD) Suicide Anesthesia complication Bleeding disorder Lung disease Stroke Social History Smoking and tobacco status: current some day smoker cigarettes Years cigarettes smoked: 53 Alcohol intake: never Household members: spouse Marital status: Current occupational status: unemployed History of recent travel: No NIH stroke score Score: Total Score: 0 Physical Exam Neuro: ENEIDA COMA SCALE: document GCS findings Terry coma scale total score: 15 Course Vital Signs: Vital signs: Vital Signs Pulse Rate 80 10/28/21 10:27 Respiratory Rate 18 10/28/21 10:27 Blood Pressure 131/72 10/28/21 10:27 Pulse Oximetry 94 10/28/21 10:27 MDM - Neuro Symptoms/Deficit Medical Decision Making Patient is a 71-year-old male who presented to the ED today with a complaint of an episode of arm numbness occurring around 11 PM yesterday evening that lasted approximately 30 minutes before completely subsiding. He had no other neurologic symptoms at the time and has continued to be completely asymptomatic. He has an NIHSS of 0 at this time. Blood work including cardiac work-up and head CT are all negative here. Recommend patient follow-up with his primary care provider as soon as possible for further evaluation and any further outpatient work-up that needs to be completed. Strict return to ED precautions verbally given to patient. Chart reviewed and patient discussed with midlevel. Agree with assessment and plan. Lab Data : 10/28/21 09:11 10/28/21 09:[address] 10/28/21 09:06 IMPRESSION: No acute intracranial hemorrhage or edema. Very mild atrophy and small vessel ischemic disease. Chest X-Ray 10/28/21 09:10
--- NOTE | 2021-10-28 09:10 | XR_ITS ---
WS: [id number] PORTABLE CHEST HISTORY: L arm numbness COMPARISON: 06/26/2020 Lungs are clear and well expanded. No pleural effusion or pneumothorax. Cardiac size: Normal. Mediastinum/Aorta: Mild ectasia aorta. No osseous abnormality seen. XR/XR chest 1V portable [id number] IMPRESSION: Unremarkable portable chest.
[2021-10-28 09:24] LABS: Basophils # 0.1 10^3/uL (0.0-0.1); Basophils % 0.8 %; Eosinophils # 0.2 10^3/uL (0.0-0.8); Eosinophils % 1.8 %; Hematocrit 46.4 % (42.0-52.0); Lymphocytes # 1.4 10^3/uL (0.8-4.8); Lymphocytes % 14.2 %; Mean Corpuscular HGB Conc 34.5 g/dL (30.0-36.0); Mean Corpuscular Hemoglobin 32.8 pg (28.0-34.0); Mean Corpuscular Volume 95.1 fl (80-94); Monocytes # 0.8 10^3/uL (0.2-0.9); Monocytes % 7.8 %; Neutrophils # 7.55 10^3/uL (1.8-7.7); Nucleated Red Blood Cells % 0 %; Platelet Count 244 10^3/cmm (130-400); Red Blood Count 4.88 10^6/uL (4.1-5.3); Red Cell Distribution Width 12.3 % (12.1-15.1); White Blood Count 10.1 10^3/uL (4.0-10.0)
[2021-10-28 10:06] LABS: Troponin(5th) Baseline 6 ng/L (0-15)
[2021-10-28 10:07] LABS: Alanine Aminotransferase 17 U/L (0-41); Albumin Level 4.2 g/dL (3.5-5.2); Alkaline Phosphatase 84 IU/L (40-130); Aspartate Amino Transferase 19 U/L (0-40); Blood Urea Nitrogen 14 mg/dL (8-23); Calcium 9.3 mg/dL (8.5-10.5); Carbon Dioxide 25 mmol/L (22-29); Chloride 103 mmol/L (98-107); Glomerular Filtration Rate 74.1 mL/min (90-130); Glucose 92 mg/dL (65-115); Osmolality Calculated 288 mOsm/kg (285-295); Sodium 139 mmol/L (136-145); Total Bilirubin 0.2 mg/dL (0.15-1.2); Total Protein 7.2 g/dL (6.6-8.7)
[2021-10-28 10:27] VITALS: BP 131/72; PULSE 80; RESP 18; O2SAT 94
== END 2021-10-28 10:29 | disposition home or self-care (01) ==
PROVIDERS: Emergency Provider Physician Assistant; PCP Family Medicine
DX: G57.62 Lesion of plantar nerve, left lower limb (principal); R20.0 Anesthesia of skin; F17.210 Nicotine dependence, cigarettes, uncomplicated
CPT/HCPCS: 64455; 70450; 71045; 80053; 84484; 85025; 93005; 99283

== ENCOUNTER → 2021-11-25 14:07 | Outpatient (BNVA) | payer MEDICARE, SELFPAY | PROVIDERS: PCP Family Medicine; Visit Provider Orthopaedic Surgery | DX: M94.262 Chondromalacia, left knee (principal); S82.122D Displaced fracture of lateral condyle of left tibia, subsequent encounter for closed fracture with routine healing; X58.XXXD Exposure to other specified factors, subsequent encounter; F17.210 Nicotine dependence, cigarettes, uncomplicated | CPT/HCPCS: 99212 ==

== ENCOUNTER → 2021-12-07 14:01 | Outpatient (BNVA) | payer MEDICARE, SELFPAY | PROVIDERS: PCP Family Medicine; Visit Provider Internal Medicine Cardiovascular Disease | DX: I25.118 Atherosclerotic heart disease of native coronary artery with other forms of angina pectoris (principal); R60.9 Edema, unspecified; E11.9 Type 2 diabetes mellitus without complications; I10 Essential (primary) hypertension; E78.5 Hyperlipidemia, unspecified; F17.210 Nicotine dependence, cigarettes, uncomplicated; Z79.84 Long term (current) use of oral hypoglycemic drugs | CPT/HCPCS: 99214 ==

== ENCOUNTER → 2021-12-30 13:19 | Outpatient (BNVA) | payer MEDICARE, SELFPAY | PROVIDERS: PCP Family Medicine; Visit Provider Podiatrist Foot & Ankle Surgery | DX: M79.672 Pain in left foot (principal); G57.62 Lesion of plantar nerve, left lower limb | CPT/HCPCS: 99213; 99214 ==

== ENCOUNTER 2022-01-13 09:05 | Outpatient (CLI) | payer MEDICARE, SELFPAY ==
--- NOTE | 2022-01-13 09:30 | MR_ITS ---
WS: [id number] MRI LEFT KNEE NONCONTRAST TECHNIQUE: Axial PD, coronal PD fat sat, coronal PD, sagittal PD, and sagittal PD fat-sat images obta ined. CLINICAL INFORMATION: pain COMPARISON: None. FINDINGS: Again seen is the healing nondisplaced fracture involving the anterior medial tibial platea u extending posterior laterally. Mild edema within the proximal tibia and tibial plateau. Mild depres erin laterally measuring 2 mm with associated edema. Tiny amount of depression anterior medially michelle uring 1 mm. Small joint effusion. Distal quadriceps and patella tendons are intact. Hypertrophic patella. Mucoid degeneration ACL appea rs intact. Normal PCL. Mild chronic thinning of the medial and lateral meniscus. No acute appearing meniscal tears. Moderate joint space narrowing medial and lateral joint compartments. Grade II chondromalacia. Moderate chond romalacia patella. Medial and lateral patellar retinaculum appear intact. Normal medial and lateral c ollateral ligaments. Normal popliteal fossa. Normal popliteus. MR/MR knee LT wo con* [id number] IMPRESSION: 1. Again seen is the healing fracture involving the tibial plateau extending a nteromedial the posterior lateral. Residual visualized fracture line with mild residual edema worse involving the lateral tibial plateau. Mild compression inv olving the lateral tibial plateau measuring 2 mm with associated edema. 2. ACL and PCL appear intact. Mucoid degeneration of the ACL. 3. Chronic thinning of the medial and lateral meniscus. No acute appearing men iscal tears. 4. 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 5. MCL and LCL appear intact. 6. Normal popliteal fossa. Outbridge grading: grade II: blister-like swelling/fraying of articular cartila ge extending to surface
== END 2022-01-13 09:06 | disposition home or self-care (01) ==
LOC: RAD 09:07
PROVIDERS: PCP Family Medicine; Visit Provider Orthopaedic Surgery
DX: M94.262 Chondromalacia, left knee (principal); M25.562 Pain in left knee; S82.145D Nondisplaced bicondylar fracture of left tibia, subsequent encounter for closed fracture with routine healing; X58.XXXD Exposure to other specified factors, subsequent encounter
CPT/HCPCS: 73721

== ENCOUNTER → 2022-01-19 14:44 | Outpatient (BNVA) | payer MEDICARE, SELFPAY | PROVIDERS: PCP Family Medicine; Visit Provider Orthopaedic Surgery | DX: S82.102K Unspecified fracture of upper end of left tibia, subsequent encounter for closed fracture with nonunion (principal); X58.XXXD Exposure to other specified factors, subsequent encounter; M25.562 Pain in left knee | CPT/HCPCS: 73560; 99212; 99213 ==

== ENCOUNTER 2022-02-07 09:54 | Emergency (ER) | payer MEDICARE, SELFPAY ==
[2022-02-07 10:45] VITALS: BP 100/75; PULSE 74; RESP 16; TEMP 36.8; O2SAT 96; BMI 29.4
--- NOTE | 2022-02-07 12:23 | XRR_ITS ---
PROCEDURE INFORMATION: Exam: XR Lumbosacral Spine Exam date and time: 02/07/2022 12:45 PM Age: 71 years old Clinical indication: Injury or trauma; Fall; Blunt trauma (contusions or hematomas); Additional info: Back pain, fall TECHNIQUE: Imaging protocol: Radiologic exam of the lumbosacral spine. Views: 2 or 3 views. COMPARISON: CR Lumbar Spine 2-3 views* [id number] 06/16/2018 10:02 AM FINDINGS: Bones/joints: 7 degree lumbar levoscoliosis. There are degenerative changes throughout the visualized spine including marginal osteophyte formations, endplate degenerative changes, and facet arthropathy. Multilevel disc space narrowing. No visualized acute fracture. Soft tissues: Unremarkable. XR/XR lumbar spine 2-3V* [id number] IMPRESSION: There are degenerative changes as described above and a 7 degree lumbar levoscoliosis. No evidence for acute fracture.
[2022-02-07 12:24] VITALS: BP 133/81; PULSE 71; RESP 18; O2SAT 95
--- NOTE | 2022-02-07 12:24 | W.ED.BACK ---
HPI - Back Pain/Injury General: Chief Complaint: Back Pain/Injury Stated Complaint: back pain Time Seen by Provider: 02/07/22 12:18 History of Present Illness: 71-year-old presents with low back pain. States that it has been intermittent for the last 2 days. States currently has no pain. States that last week he had a mechanical fall where he fell to his knees but denies any back or head injury. Denies any IV drug use or active malignancy. Denies any fevers or chills. Denies any focal numbness weakness or tingling. Denies any urinary or fecal incontinence or retention. Denies any chest pain or anterior abdominal pain or flank pain. Review of Systems Narrative: - CONSTITUTIONAL: Denies weight loss, fever and chills. - HEENT: Denies changes in vision and hearing. - RESPIRATORY: Denies SOB and cough. - CV: Denies palpitations and CP. - GI: Denies abdominal pain, nausea, vomiting and diarrhea. - : Denies dysuria and urinary frequency. - MSK: Denies myalgia and joint pain. - SKIN: Denies rash and pruritus. - NEUROLOGICAL: Denies headache, weakness, numbness and syncope. - PSYCHIATRIC: Denies suicidal ideation PFSH ED PFSH: Medical History Atherosclerotic heart disease of [place] coronary artery with other forms of angina pectoris Atypical chest pain The EKG done in the emergency room revealed normal sinus rhythm with a normal ST-T's. CAD (coronary artery disease) Carotid bruit present Cervical spondylosis Castillo angioma Diabetes mellitus Essential hypertension GERD (gastroesophageal reflux disease) History of colon cancer History of small bowel obstruction Hyperglycemia Migraine-cluster headache syndrome Mixed hyperlipidemia Syncope Surgical History History of angioplasty History of heart artery stent Family History Father CAD (coronary artery disease) Cancer Mother CAD (coronary artery disease) Cancer Brother Cancer Sister Cancer Other Heart disease Denies family history of Diabetes Clotting disorder Dementia Chronic kidney disease (CKD) Suicide Anesthesia complication Bleeding disorder Lung disease Stroke Social History Smoking and tobacco status: current some day smoker cigarettes Years cigarettes smoked: 53 Alcohol intake: never Household members: spouse Marital status: Current occupational status: unemployed History of recent travel: No Physical Exam Narrative: EXAM NARRATIVE: - GENERAL: Alert and oriented x 3. No acute distress. Well-nourished. - EYES: EOMI. Anicteric. - HENT: Atraumatic, no C-spine tenderness. Moist mucous membranes. No scleral icterus. No cervical lymphadenopathy. - LUNGS: Clear to auscultation bilaterally. No accessory muscle use. Equal lung sounds bilaterally. No respiratory distress. - CARDIOVASCULAR: Regular rate and rhythm. No murmur. No JVD. - ABDOMEN: Soft, non-tender and non-distended. Negative CVA tenderness bilaterally, no rebound or guarding, negative Ott sign. No palpable masses. -MSK: Mild midline lumbar tenderness to palpation. No saddle anesthesia, lower extremity strength sensation reflexes intact. - SKIN: No rashes or lesions. Warm. - NEUROLOGIC: No meningismus or focal neurological deficits. CN II-XII grossly intact. - PSYCHIATRIC: Cooperative. Appropriate mood and affect. Course Vital Signs: Vital signs: Vital Signs Temperature 98.2 F 02/07/22 10:45 Pulse Rate 71 02/07/22 12:24 Respiratory Rate 18 02/07/22 12:24 Blood Pressure 133/81 02/07/22 12:24 Pulse Oximetry 95 02/07/22 12:24 MDM - Back Pain/Injury Medical Decision Making 71-year-old presents with intermittent back pain. Does report recent fall. However denies any back or head injury during the fall. Nonfocal neurologic exam. Do not see any sign of cord compression. He denies any chest pain or intra-abdominal pain. X-rays revealed degenerative changes but no fracture or dislocation. Prescription for Lidoderm patches provided. At this time I believe patient would be safe for discharge and outpatient follow-up. Return precautions provided. Plan was reviewed with the patient who expressed understanding. Questions answered. Patient will follow up with PCP. Patient discharged in stable condition. Labs Radiology Impressions Lumbar Spine X-Ray 02/07/22 12:23 IMPRESSION: There are degenerative changes as described above and a 7 degree lumbar levoscoliosis. No evidence for acute fracture. Discharge Plan Discharge Condition: Stable Prescriptions: No Action aspirin 81 mg tablet,delayed release (DR/EC) 81 mg PO DAILY 0RF (DME) Night splint to left See Rx Instructions .Route .MEDSUPPLY Qty: 1 0RF Rx Instructions: As directed (DME) Custom Molded Orthotics See Rx Instructions .Route .MEDSUPPLY Qty: 1 0RF Rx Instructions: As directed gabapentin 300 mg capsule 300 mg PO TID PRN0RF sucralfate 1 gram tablet 1 g PO Q6H PRN0RF hydrocodone-acetaminophen 10-325 mg tablet 1 tab PO Q4H PRN (Reason: pain) 0RF (DME) bone stimulator See Rx Instructions .Route .MEDSUPPLY Qty: 1 0RF Rx Instructions: As directed clopidogrel 75 mg tablet See Rx Instructions .ROUTE .COMPLEX Qty: 90 3RF Dose Instruction: Take 1 tablet by mouth once daily Rx Instructions: Take 1 tablet by mouth once daily Referrals: Jaquelin Cee MD [Primary Care Provider] - Coding Level of Care Code ED [employer]k Plant Supervisor for Lance Tavarez
[2022-02-07 13:33] VITALS: BP 137/75; PULSE 61; RESP 18; O2SAT 97
== END 2022-02-07 13:36 | disposition home or self-care (01) ==
PROVIDERS: Emergency Provider Emergency Medicine; PCP Family Medicine
DX: M54.50 Low back pain, unspecified (principal); Z79.82 Long term (current) use of aspirin; F17.210 Nicotine dependence, cigarettes, uncomplicated; I25.10 Atherosclerotic heart disease of native coronary artery without angina pectoris; E11.9 Type 2 diabetes mellitus without complications; I10 Essential (primary) hypertension; Z85.038 Personal history of other malignant neoplasm of large intestine; E78.2 Mixed hyperlipidemia
CPT/HCPCS: 72100; 99283

== ENCOUNTER → 2022-03-02 16:01 | Outpatient (BNVA) | payer MEDICARE, SELFPAY | PROVIDERS: PCP Family Medicine; Visit Provider Orthopaedic Surgery | DX: M25.562 Pain in left knee (principal) | CPT/HCPCS: 73560; 73565; 99212 ==

== ENCOUNTER → 2022-04-20 13:30 | Outpatient (BNVA) | payer MEDICARE, SELFPAY | PROVIDERS: PCP Family Medicine; Visit Provider Orthopaedic Surgery | DX: S82.102A Unspecified fracture of upper end of left tibia, initial encounter for closed fracture (principal); X58.XXXA Exposure to other specified factors, initial encounter | CPT/HCPCS: 73560; 73565; 99213 ==

== ENCOUNTER → 2022-05-11 11:15 | Outpatient (BNVA) | payer MEDICARE, SELFPAY | PROVIDERS: PCP Family Medicine; Visit Provider Orthopaedic Surgery | DX: S82.102A Unspecified fracture of upper end of left tibia, initial encounter for closed fracture (principal); X58.XXXA Exposure to other specified factors, initial encounter | CPT/HCPCS: 73560; 99213 ==

== ENCOUNTER 2022-06-03 13:19 | Emergency (ER) | payer MEDICARE, SELFPAY ==
[2022-06-03 13:59] VITALS: BMI 30.2
[2022-06-03 14:02] VITALS: BP 137/80; PULSE 83; RESP 18; TEMP 36.4; O2SAT 97
--- NOTE | 2022-06-03 14:02 | ECG_ITS ---
[facility] Test Date: 2022-06-03 Pat Name: Aram Alva Department: Room: Gender: Male Gravel Wheeler: : 1950 Requested By: Guille Haley Order Number: [id number] Karen MD: Vince Neil M.D. Measurements Intervals [place] Rate: 84 P: 70 CO: 104 QRS: 85 QRSD: 94 T: 27 QT: 389 QTc: 460 Interpretive Statements SINUS RHYTHM WITH SHORT CO INTERVAL WITH OCCASIONAL SUPRAVENTRICULAR PREMATURE COMPLEXES Compared to ECG 10/28/2021 09:00:02 Intraventricular conduction delay no longer present Electronically Signed On 06-04-2022 6:25:18 SHORE HAND DREDGE OR BARGE by Vince Neil M.D. [id number]
--- NOTE | 2022-06-03 14:43 | PC.NURSE ---
pt reports he came to ER because his left arm started burning around 0500 and then fingers went numb and then right hand fingers went numb as well. Resports symptoms lasted around 45 min and then resolved on their own. Reports cardiac hx, has 1 stent placed. Denies hx of anxiety. denies chest pain, dyspnea, dizziness, lightheadedness, nausea, vomiting, diarrhea, fevers, abdominal pain, MANDUJANO or complaints. Pt denies any current symptoms. Pt A&O, speech clear, face symmetrical, no arm or leg drift, speaking in complete sentences without difficulty, lung sounds clear bilat, bowel sounds present, skin pink/warm/dry.
--- NOTE | 2022-06-03 14:55 | ED_ITS ---
HPI - Neuro Symptoms/Deficit General: Chief Complaint: Neuro Symptoms/Deficit Stated Complaint: arms numb/burning Time Seen by Provider: 06/03/22 14:34 Source: patient Mode of arrival: ambulatory History of Present Illness: 71-year-old male presents to the emergency room with complaint of left arm numbness and burning began around 5:00 this morning. He has had this in the past. He has previously had problems with left arm rad iculopathy associated with cervical disc disease he did have a surgery at the C5-6 level. He had pain radiating down his arm all the way into his thumb and index finger burning pain sensation then became numb for a while then resolved symptoms have completely resolved now. He has had a previous coronary event and has a stent in place and is still on Plavix. His neck surgery within the last 18 months previous MRI reviewed he did have some disc disease at the C7 level as well with some central stenosis. Onset (ago): hour(s) Location: left arm History of same: Yes Severity: moderate Quality: other (Burning pain) Relieving factors: time Exacerbating factors: none Context: gradual onset On Anticoagulants: No Associated symptoms: Reports tingling; Deny chest pain, cough, diaphoresis, fevers/chills, headache(s), anorexia, malaise, nausea, seizures, short of breath, syncope, vertigo, vomiting or weakness Treatments Prior to Arrival: none Review of Systems Const: Denies: fever(s), chills, fatigue, malaise or diaphoresis ENMT: Denies: throat pain, ear or mastoid pain, nasal discharge or nasal congestion Card: Denies: chest pain or syncope Resp: Denies: dyspnea, productive cough or non-productive cough GI: Denies: abdominal pain, nausea or vomiting : Denies: flank pain, difficulty urinating, dysuria, urinary frequency or urinary urgency Musc: Reports: neck pain and extremity pain Skin/Breast: Denies: rash or pruritus Neuro: Denies: headache(s) or vertigo PFS ED PFSH: Medical History Atherosclerotic heart disease of [place] coronary artery with other forms of angina pectoris Atypical chest pain The EKG done in the emergency room revealed normal sinus rhythm with a normal ST-T's. CAD (coronary artery disease) Carotid bruit present Cervical spondylosis Castillo angioma Diabetes mellitus Essential hypertension GERD (gastroesophageal reflux disease) History of colon cancer History of small bowel obstruction Hyperglycemia Migraine-cluster headache syndrome Mixed hyperlipidemia Syncope Surgical History History of angioplasty History of heart artery stent Family History Father CAD (coronary artery disease) Cancer Mother CAD (coronary artery disease) Cancer Brother Cancer Sister Cancer Other Heart disease Denies family history of Diabetes Clotting disorder Dementia Chronic kidney disease (CKD) Suicide Anesthesia complication Bleeding disorder Lung disease Stroke Social History Smoking and tobacco status: current every day smoker (1 PPD) cigarettes Years cigarettes smoked: 53 Alcohol intake: never Household members: spouse Marital status: Current occupational status: unemployed History of recent travel: No NIH stroke score NIHSS: Level Of Consciousness - 1a: 0 Level Of Consciousness Questions - 1b: Both Correct Level Of Consciousness Commands - 1c: Both Correct Best Gaze - 2: Normal Visual [place] - 3: No Visual Loss Facial Palsy - 4: Normal Motor Arm Right - 5: No Drift Motor Arm Left - 5: No Drift Motor Leg Right - 6: No Drift Motor Leg Left - 6: No Drift Limb Ataxia - 7: Absent Sensory - 8: Normal Best Language - 9: No Aphasia Dysarthia - 10: Normal Extinction And Inattention - 11: 0 Score: Total Score: 0 Physical Exam Const: GENERAL APPEARANCE: cooperative and comfortable ORIENTATION/CONSCIOUSNESS: Yes awake, Yes oriented to person, Yes oriented to place and Yes oriented to time HENMT: COMMON NORMALS: normocephalic, atraumatic and hearing grossly normal bilaterally HEAD & SCALP: normocephalic and atraumatic Neck/C-Spine: COMMON NORMALS: full ROM, no lymphadenopathy, supple and no JVD Resp: COMMON NORMALS: normal respiratory effort, No retractions, No use of accessory muscles and clear to auscultation bilaterally AUSCULTATION: clear to auscultation bilaterally Cardio: COMMON NORMALS: no JVD, regular rate, regular rhythm and No murmurs present (Cardio) RATE: regular rate RHYTHM: regular rhythm Extremity: COMMON NORMALS: normal to inspection, capillary refill normal, no clubbing, cyanosis or edema, no calf tenderness and no pedal edema Neuro: SENSORIUM/ORIENTATION: Yes oriented to person, Yes oriented to place and Yes oriented to time Skin: COMMON NORMALS: no rashes or lesions noted GENERAL SKIN EXAM: no rashes or lesions noted Course Vital Signs: Vital signs: Vital Signs Temperature 97.5 F L 06/03/22 14:02 Pulse Rate 83 06/03/22 14:02 Respiratory Rate 18 06/03/22 14:02 Blood Pressure 137/80 06/03/22 14:02 Pulse Oximetry 97 06/03/22 14:02 Oxygen Delivery Me thod 06/03/22 14:02 MDM - Neuro Symptoms/Deficit Medical Decision Making Symptoms resolved now. He never had any chest pain. He is having arm radiculopathy. We want a course of prednisone. Have him follow-up with his primary care doctor or with Dr. Wilcox if his symptoms persist. Medical Records I reviewed the patient's medical records. Lab Data I reviewed the patient's lab results. Discharge Plan Discharge Patient Disposition: Home Clinical Impression: Cervical disc disorder with radiculopathy Condition: Stable Prescriptions: New prednisone 20 mg tablet 20 mg PO TID Qty: 15 0RF Rx Instructions: 1 p.o. 3 times daily x3 days, 1 p.o. twice daily x2 days, 1 p.o. daily x2 days No Action aspirin 81 mg tablet,delayed release (DR/EC) 81 mg PO DAILY (DME) Night splint to left See Rx Instructions .Route .MEDSUPPLY Qty: 1 0RF Rx Instructions: As directed (DME) Custom Molded Orthotics See Rx Instructions .Route .MEDSUPPLY Qty: 1 0RF Rx Instructions: As directed gabapentin 300 mg capsule 300 mg PO TID PRN sucralfate 1 gram tablet 1 g PO Q6H PRN (DME) bone stimulator See Rx Instructions .Route .MEDSUPPLY Qty: 1 0RF Rx Instructions: As directed clopidogrel 75 mg tablet See Rx Instructions .ROUTE .COMPLEX Qty: 90 3RF Dose Instruction: Take 1 tablet by mouth once daily Rx Instructions: Take 1 tablet by mouth once daily dexlansoprazole [Dexilant] 60 mg capsule,biphase delayed releas 60 mg PO DAILY Qty: 30 1RF Rx Instructions: 340 B Lidoderm 5 % adhesive patch,medicated 1 patch topical DAILY Qty: 5 0RF Rx Instructions: leave on most painful area for up to 12 hrs Discharge Orders: Discharge ED (Routine); Ordered 06/03/22 Ordered By: Guille Lopez Referrals: Jaquelin Cee MD [Primary Care Provider] - Discharge Diet: Usual diet Discharge Activity: Limit activity as instructed Patient Instructions: Opioid Safety, Pain Management Activity Restrictions/Additional Instructions: Avoid heavy lifting or straining. Start steroid pack tomorrow. Follow-up with your primary care doctor or with Dr. Wilcox if symptoms do not improve or recur. Coding Level of Care Code ED Insurance Claims Representative for Lance Tavarez
[2022-06-03] MEDS: dexamethasone 10 mg/mL INJ IM (15:08)
[2022-06-03 15:26] VITALS: BP 135/83; PULSE 60; RESP 16; O2SAT 97
== END 2022-06-03 15:28 | disposition home or self-care (01) ==
PROVIDERS: Emergency Provider Family Medicine; PCP Family Medicine
DX: M50.10 Cervical disc disorder with radiculopathy, unspecified cervical region (principal); Z79.82 Long term (current) use of aspirin; Z79.02 Long term (current) use of antithrombotics/antiplatelets; F17.210 Nicotine dependence, cigarettes, uncomplicated; I25.10 Atherosclerotic heart disease of native coronary artery without angina pectoris; E11.9 Type 2 diabetes mellitus without complications; I10 Essential (primary) hypertension; Z85.038 Personal history of other malignant neoplasm of large intestine; E78.2 Mixed hyperlipidemia
CPT/HCPCS: 93005; 96372; 99284; J1100

== ENCOUNTER → 2022-06-07 15:44 | Outpatient (BNVA) | payer MEDICARE, SELFPAY | PROVIDERS: PCP Family Medicine; Visit Provider Internal Medicine Cardiovascular Disease | DX: I25.118 Atherosclerotic heart disease of native coronary artery with other forms of angina pectoris (principal); E11.9 Type 2 diabetes mellitus without complications; Z79.84 Long term (current) use of oral hypoglycemic drugs; E78.2 Mixed hyperlipidemia; I10 Essential (primary) hypertension; M50.90 Cervical disc disorder, unspecified, unspecified cervical region; F17.210 Nicotine dependence, cigarettes, uncomplicated | CPT/HCPCS: 99214 ==

== ENCOUNTER → 2022-06-08 16:01 | Outpatient (BNVA) | payer MEDICARE, SELFPAY | PROVIDERS: PCP Family Medicine; Visit Provider Orthopaedic Surgery | DX: M50.323 Other cervical disc degeneration at C6-C7 level (principal); M48.02 Spinal stenosis, cervical region; M54.6 Pain in thoracic spine; W10.9XXA Fall (on) (from) unspecified stairs and steps, initial encounter; Z98.1 Arthrodesis status | CPT/HCPCS: 72040; 99214 ==

== ENCOUNTER 2022-06-14 05:38 | Emergency (ER) | payer MEDICARE, SELFPAY ==
[2022-06-14 05:44] VITALS: BP 155/111; PULSE 110; RESP 18; TEMP 36.4; O2SAT 96; BMI 29.1
--- NOTE | 2022-06-14 05:55 | XRR_ITS ---
PROCEDURE INFORMATION: Exam: XR Thoracic Spine Exam date and time: 06/14/2022 6:20 AM Age: 71 years old Clinical indication: Pain in thoracic spine TECHNIQUE: Imaging protocol: Radiologic exam of the thoracic spine. Views: 3 views. AP Lateral Swimmer's COMPARISON: CR (C SPINE AP, CSPINE, C-SPINE AP) 06/08/2022 4:05 PM FINDINGS: Bones/joints: There is mild rightward curvature of the mid thoracic spine. There are no fractures or subluxations. The disc spaces are unremarkable. The visualized posterior elements are unremarkable. The costovertebral junctions show mild degenerative changes. Mild degenerative disc disease changes are seen in the upper thoracic spine. Soft tissues: The anterior paraspinal soft tissues are unremarkable. Notes: If there is further concern or neurological abnormalities on clinical exam, recommend CT or MRI of the thoracic spine for complete assessment. XR/XR thoracic spine 3V* [id number] IMPRESSION: No fractures or subluxations of the thoracic spine.
[2022-06-14] MEDS: ketorolac 30 mg/mL INJ IVP (06:11)
[2022-06-14] MEDS: dexamethasone 10 mg/mL INJ IM (06:11)
--- NOTE | 2022-06-14 06:16 | XRR_ITS ---
PROCEDURE INFORMATION: Exam: XR Lumbosacral Spine Exam date and time: 06/14/2022 6:27 AM Age: 71 years old Clinical indication: Low back pain; Additional info: Pain/fall trauma TECHNIQUE: Imaging protocol: Radiologic exam of the lumbosacral spine. Views: 2 or 3 views. AP Lateral and Con[place] down lateral COMPARISON: CR XR lumbar spine 2-3V* [id number] 02/07/2022 12:45 PM FINDINGS: Bones/joints: There are 5 nonrib-bearing lumbar-type vertebrae. Mild levoconvex scoliosis of the lumbar spine is seen with apex at the L5 level. There is 0.5 cm anterolisthesis of L4 on L5. No radiographically evident fracture. The spinous processes and transverse processes appear unremarkable. Moderate to severe L4-L5 and L5-S1 degenerative facet disease changes are seen. Mild bilateral sacroiliac joint degenerative changes are seen. Soft tissues: Paraspinal soft tissues are unremarkable. Severe L4-L5 and L5-S1 disc space narrowing is seen, consistent with degenerative disc disease change. Notes: If there is further concern or neurological abnormalities on clinical exam, CT or MRI of the lumbar spine may be performed for complete assessment. XR/XR lumbar spine 2-3V* [id number] IMPRESSION: No fractures of the lumbar spine. Degenerative changes, as noted above.
--- NOTE | 2022-06-14 06:17 | XRR_ITS ---
PROCEDURE INFORMATION: Exam: XR Chest Exam date and time: 06/14/2022 6:27 AM Age: 71 years old Clinical indication: Cough; Additional info: Dyspnea/cough TECHNIQUE: Imaging protocol: Radiologic exam of the chest. Views: 1 view. COMPARISON: CR XR chest 1V portable [id number] 10/28/2021 9:23 AM FINDINGS: Lungs: Normal lung volumes. No interstitial or airspace opacities. Pleural spaces: No pleural effusion. No pneumothorax. Heart/Mediastinum: Normal heart size. There is a mildly tortuous thoracic aorta. Midline trachea. Bones/joints: No acute abnormalities. The patient is status post prior lower cervical disc fusion. XR/XR chest 1V portable [id number] IMPRESSION: No chest radiographic evidence of acute cardiopulmonary disease.
--- NOTE | 2022-06-14 06:17 | W.ED.BACK ---
HPI - Back Pain/Injury General: Chief Complaint: Back Pain/Injury Stated Complaint: Back pain Time Seen by Provider: 06/14/22 05:52 Source: patient Mode of arrival: ambulatory History of Present Illness: 71-year-old male presents emergency room complaining of mid back pain. It began about 9 days ago he fell while going down the stairs at the back of his house he landed on his left side he was not seen after this happened he denies striking his head denied any other injury. He is previously had injury to his back. Since it is progressively worsened has not really taken anything for it other than [id number] medications such as Tylenol and ibuprofen. Noted during the history and exam that the patient also had a mild nonproductive cough. He denies any chest pain. Patient is a very heavy smoker has significant amount of nicotine staining on his fingers. No hemoptysis. MD elicited complaint: back pain Pertinent past history: recent trauma Onset (ago): day(s) (9) Timing: constant Severity: moderate Quality: dull and aching Location: lumbar spine and thoracic spine Radiation: none Exacerbating factors: movement Relieving factors: supine Associated symptoms: Deny abdominal pain, arthralgias, chills, change in bowel habits, difficulty walking, dysuria, fatigue, fecal incontinence, fever(s), hematuria, myalgias, nausea, numbness, syncope, tingling/numbness/burning, urinary frequency, urinary urgency, vomiting or weakness Review of Systems Const: Denies: fever(s), chills, fatigue or malaise ENMT: Denies: throat pain, ear or mastoid pain, nasal discharge or nasal congestion Card: Denies: chest pain, palpitations or syncope Resp: Denies: dyspnea, productive cough or non-productive cough GI: Denies: abdominal pain, nausea, vomiting, fecal incontinence or change in bowel habits : Denies: difficulty urinating, dysuria, urinary frequency, urinary urgency or hematuria Musc: Reports: back pain Skin/Breast: Denies: rash or pruritus Neuro: Denies: difficulty walking PFSH ED PFSH: Medical History Atherosclerotic heart disease of [place] coronary artery with other forms of angina pectoris Atypical chest pain The EKG done in the emergency room revealed normal sinus rhythm with a normal ST-T's. CAD (coronary artery disease) Carotid bruit present Cervical spondylosis Castillo angioma Diabetes mellitus Essential hypertension GERD (gastroesophageal reflux disease) History of colon cancer History of small bowel obstruction Hyperglycemia Migraine-cluster headache syndrome Mixed hyperlipidemia Syncope Surgical History History of angioplasty History of heart artery stent Family History Father CAD (coronary artery disease) Cancer Mother CAD (coronary artery disease) Cancer Brother Cancer Sister Cancer Other Heart disease Denies family history of Diabetes Clotting disorder Dementia Chronic kidney disease (CKD) Suicide Anesthesia complication Bleeding disorder Lung disease Stroke Social History Smoking and tobacco status: current every day smoker (1 PPD) cigarettes Years cigarettes smoked: 53 Alcohol intake: never Household members: spouse Marital status: Current occupational status: unemployed History of recent travel: No Physical Exam Back/Pelvis: OTHER: Mild tenderness palpation only thoracolumbar junction no crepitus. No sign of varicella skin. Course Vital Signs: Vital signs: Vital Signs Temperature 97.6 F 06/14/22 05:44 Pulse Rate 110 H 06/14/22 05:44 Respiratory Rate 18 06/14/22 05:44 Blood Pressure 155/111 06/14/22 05:44 Pulse Oximetry 96 06/14/22 05:44 Oxygen Delivery Me thod 06/14/22 05:44 MDM - Back Pain/Injury Medical Decision Making Better after Toradol and steroids. Discharge patient home on steroid pack can use diclofenac and start Lyrica follow-up with primary care Medical Records I reviewed the patient's medical records. Labs I reviewed the patient's lab results. Radiology Impressions Thoracic Spine X-Ray 06/14/22 05:55 IMPRESSION: No fractures or subluxations of the thoracic spine. Lumbar Spine X-Ray 06/14/22 06:16 IMPRESSION: No fractures of the lumbar spine. Degenerative changes, as noted above. Chest X-Ray 06/14/22 06:17 IMPRESSION: No chest radiographic evidence of acute cardiopulmonary disease. Discharge Plan Discharge Patient Disposition: Home Clinical Impression: Back pain, thoracic Condition: Stable Prescriptions: New prednisone 20 mg tablet 20 mg PO TID Qty: 15 0RF Rx Instructions: 1 p.o. 3 times daily x3 days, 1 p.o. twice daily x2 days, 1 p.o. daily x2 days diclofenac sodium 75 mg tablet,delayed release (DR/EC) 75 mg PO Q12H PRN (Reason: pain) Qty: 20 0RF Lyrica 75 mg capsule 75 mg PO BID Qty: 60 0RF No Action aspirin 81 mg tablet,delayed release (DR/EC) 81 mg PO DAILY (DME) Night splint to left See Rx Instructions .Route .MEDSUPPLY Qty: 1 0RF Rx Instructions: As directed (DME) Custom Molded Orthotics See Rx Instructions .Route .MEDSUPPLY Qty: 1 0RF Rx Instructions: As directed gabapentin 300 mg capsule 300 mg PO TID PRN sucralfate 1 gram tablet 1 g PO Q6H PRN prednisone 20 mg tablet 20 mg PO DAILY Qty: 15 0RF Rx Instructions: 60mg on day 1,2,3 40mg 4,5 20mg 6,7 (DME) bone stimulator See Rx Instructions .Route .MEDSUPPLY Qty: 1 0RF Rx Instructions: As directed clopidogrel 75 mg tablet See Rx Instructions .ROUTE .COMPLEX Qty: 90 3RF Dose Instruction: Take 1 tablet by mouth once daily Rx Instructions: Take 1 tablet by mouth once daily dexlansoprazole [Dexilant] 60 mg capsule,biphase delayed releas 60 mg PO DAILY Qty: 30 1RF Rx Instructions: 340 B prednisone 20 mg tablet 20 mg PO TID Qty: 15 0RF Rx Instructions: 1 p.o. 3 times daily x3 days, 1 p.o. twice daily x2 days, 1 p.o. daily x2 days Discharge Orders: Discharge ED (Routine); Ordered 06/14/22 Ordered By: Guille Lopez Referrals: Jaquelin Cee MD [Primary Care Provider] - Patient Instructions: Opioid Safety, Pain Management Activity Restrictions/Additional Instructions: You were seen today for back pain. Suspect it is mostly musculoskeletal strain from the fall that you had. Start the medications prescribed if it persist follow-up with your primary care doctor. Coding Level of Care Code ED Electrician Assistant for Lance Tavarez
== END 2022-06-14 07:55 | disposition home or self-care (01) ==
PROVIDERS: Emergency Provider Family Medicine; PCP Family Medicine
DX: M54.6 Pain in thoracic spine (principal)
CPT/HCPCS: 71045; 72072; 72100; 96372; 96374; 99284; J1100; J1885

== ENCOUNTER 2022-06-18 07:33 | Outpatient (CLI) | payer MEDICARE, SELFPAY ==
--- NOTE | 2022-06-18 08:00 | CT_ITS ---
WS: [id number] NONCONTRAST CT LEFT KNEE TECHNIQUE: Noncontrast CT LEFT knee with coronal and sagittal reformatted images. CLINICAL INFORMATION: pain COMPARISON: None. DLP: 400.[address] scans at [facility] use at least one of these dose optimization techniques: automated e xposure control; mA and/or kV adjustment per patient size (includes targeted exams where dose is matc hed to clinical indication); or iterative reconstruction. FINDINGS: History of prior fracture involving the tibial plateau. Persistent visualized fracture lines involvin g the anteromedial tibial plateau and posterior lateral tibial plateau fractures. Associated subchond ral sclerosis involving the depressed lateral tibial plateau fracture. Depression measures approximat nghia 3 mm. Minimal depression involving the anterior medial tibial plateau. Associated subchondral scl erosis in this area. Slight irregularity at the tibial spines likely degenerative. No significant ruperto nt effusion. Diffuse demineralization involving the femoral condyles and tibial plateau as well as th e patella likely due to disuse osteopenia. Recommend correlation with history of metabolic bone disea se. This appears increased since the prior MRI. Subchondral cystic changes involving the medial and lateral joint compartments worse in lateral joint compartment. Advanced joint narrowing medial joint compartment with associated sclerosis. Mild soft tissue edema. CT/CT knee LT wo con* [id number] IMPRESSION: 1. Again seen is the nondisplaced tibial plateau fracture involving the anteri or medial tibial plateau extending posteriorly and laterally with incomplete he aling. 3 mm associated depression involving the posterior lateral tibial platea u. Visualized persistent fracture cleft along the anterior medial tibial platea u and posterior lateral tibial plateau. 2. Subchondral sclerosis involving the lateral tibial plateau at the area of d epression. 3. Diffuse demineralization involving the femoral condyles and tibial plateau and patella likely due to osteopenia and disuse. Recommend correlation with his tory of metabolic bone abnormalities. This appears progressed since the prior M RI. 4. No other significant changes.
== END 2022-06-18 07:34 | disposition home or self-care (01) ==
PROVIDERS: PCP Family Medicine; Visit Provider Orthopaedic Surgery
DX: M25.562 Pain in left knee (principal); S82.145A Nondisplaced bicondylar fracture of left tibia, initial encounter for closed fracture; X58.XXXA Exposure to other specified factors, initial encounter
CPT/HCPCS: 73700

== ENCOUNTER → 2022-06-22 07:35 | Outpatient (BNVA) | payer MEDICARE, SELFPAY | PROVIDERS: PCP Family Medicine; Visit Provider Nurse Practitioner Family | DX: S82.102A Unspecified fracture of upper end of left tibia, initial encounter for closed fracture; W10.9XXA Fall (on) (from) unspecified stairs and steps, initial encounter | CPT/HCPCS: 99213 ==

== ENCOUNTER 2022-06-22 10:03 | Outpatient (CLI) | payer MEDICARE, SELFPAY | END 2022-06-22 10:04 | disposition home or self-care (01) | LOC: SPT 10:04 | PROVIDERS: PCP Family Medicine; Visit Provider Nurse Practitioner Family | DX: Z46.89 Encounter for fitting and adjustment of other specified devices (principal); M25.562 Pain in left knee | CPT/HCPCS: 97760; L1812 ==

== ENCOUNTER 2022-07-13 10:51 | Outpatient (CLI) | payer MEDICARE, SELFPAY ==
--- NOTE | 2022-07-13 11:00 | MR_ITS ---
WS: [id number] MRI CERVICAL SPINE NONCONTRAST HISTORY: pain COMPARISON: 11/21/2020 Technique: Multiplanar, multisequence noncontrast imaging of the cervical spine. Mild LEFT curvature of the cervical spine. Cervical spine is straightened with anterior fusion hardwa re at C4-C6. Hardware is new since the prior study. Very mild retrolisthesis by 2 mm of C4 encroachin g upon the ventral cord. There is disc space narrowing and desiccation throughout the cervical spine. Signal within the cervical cord is normal. Visualized posterior fossa is unremarkable. Craniocervical junction, C1 and C2 relationship, odontoid process and soft tissues are normal. C2-C3: Normal. C3-C4: Mild diffuse annular disc bulging with osteophytic ridging. Facet joint arthritis is mild. Mil d central and bilateral foraminal stenosis. Similar to the prior study. C4-C5: Diffuse disc bulging and osteophytic ridging. Encroachment upon the ventral thecal sac with ef facement of CSF. Mild central and LEFT foraminal stenosis. Not significantly progressed since the [place] or study. C5-C6: Mild osteophytic ridging and facet arthritis. Mild central stenosis and foraminal stenosis. C6-C7: Mild osteophytic ridging with mild foraminal stenosis. C7-T1: Negative. Paraspinal soft tissue are normal. MR/MR cervical spin wo con* [id number] IMPRESSION: 1. New since the prior examination is an anterior cervical fusion from C4 to C 6 with interbody spacers. 2. No significant progression of stenoses since the prior examination. No foca l disc protrusions. 3. Mild central and bilateral foraminal stenosis at C3-4, C4-5 and C5-6. Mild foraminal stenosis at C6-7. No focal disc protrusions or high-grade stenosis.
== END 2022-07-13 10:52 | disposition home or self-care (01) ==
PROVIDERS: PCP Family Medicine; Visit Provider Orthopaedic Surgery
DX: M48.02 Spinal stenosis, cervical region
CPT/HCPCS: 72141

== ENCOUNTER 2022-09-15 15:01 | Outpatient (CLI) | payer MEDICARE, SELFPAY ==
--- NOTE | 2022-09-15 | MR_ITS ---
WS: [id number] MRI THORACIC SPINE WITH CONTRAST TECHNIQUE: Sagittal T1, T2 and STIR imaging. Axial T2 imaging. Post gadolinium imaging was obtained. CLINICAL INFORMATION: TUMOR ON SPINE COMPARISON: None. FINDINGS: Mild thoracic curve. No acute compression. No high-grade central canal stenosis. A few Schmorl's node s in the mid thoracic spine with mild degenerative endplate edema. No acute compression fractures. Again seen is the expansile intramedullary thoracic cord T2 hyperintense lesion extending from T7 thr ough T9 measuring approximately 6.5 cm in craniocaudal dimension. Associated peripheral thinning of t he thoracic cord. Post gadolinium images demonstrates small amount of peripheral enhancement. Low-gra de if any central enhancement. Thoracic cord signal proximal and distal to the lesion and is otherwis e normal. No significant syrinx formation. Partially visualized postoperative changes in the lower ce rvical spine. Normal caliber thoracic aorta. Adrenal glands appear normal. Normal paravertebral soft tissues. MR/MR thoracic spine wo/w [id number] IMPRESSION: 1. T2 hyperintense intramedullary lesion at T7-T9 suspicious for neoplasm. Sug gestion of a small amount of peripheral and minimal if any low-grade central en hancement. Differential considerations include ependymoma. Less likely astrocyt [place]. Consider intramedullary metastasis or intramedullary lymphoma in a patient this age. Transverse myelitis also a consideration considering relative lack o f enhancement and lack of cord edema. 2. No other acute findings. Mild thoracic curve. Mild thoracic kyphosis. No ac hopi compression fractures. 3. No other suspicious findings.
[2022-09-15] MEDS: gadobenate dimeglumine 20 mL vial IV (16:09)
== END 2022-09-15 15:02 | disposition home or self-care (01) ==
PROVIDERS: PCP Family Medicine; Visit Provider Orthopaedic Surgery
DX: D49.2 Neoplasm of unspecified behavior of bone, soft tissue, and skin (principal)
CPT/HCPCS: 72157; A9577

== ENCOUNTER → 2022-09-23 14:40 | Outpatient (BNVA) | payer MEDICARE, SELFPAY | PROVIDERS: PCP Family Medicine; Visit Provider Physician Assistant | DX: D49.7 Neoplasm of unspecified behavior of endocrine glands and other parts of nervous system (principal); C71.9 Malignant neoplasm of brain, unspecified | CPT/HCPCS: 99213 ==

== ENCOUNTER 2022-12-07 11:40 | Emergency (ER) | payer MEDICARE, SELFPAY ==
[2022-12-07 11:54] VITALS: BP 128/84; PULSE 98; RESP 16; TEMP 36.4; O2SAT 95
--- NOTE | 2022-12-07 11:59 | XRR_ITS ---
PROCEDURE INFORMATION: Exam: XR Right Ribs with PA Chest Exam date and time: 12/07/2022 12:15 PM Age: 72 years old Clinical indication: Chest wall pain; Right; Patient HX: History of colon cancer TECHNIQUE: Imaging protocol: Radiologic exam of the right ribs with PA chest. Views: 3 views COMPARISON: CR XR chest 1V portable [id number] 06/14/2022 6:27 AM FINDINGS: Lungs: Unremarkable. No consolidation. Pleural spaces: Unremarkable. No pleural effusion. No pneumothorax. Heart/Mediastinum: Unremarkable. No cardiomegaly. Bones/joints: Metallic surgical hardware is seen in the cervical spine XR/XR ribs RT mn 3V w CXR1V [id number] IMPRESSION: 1. No acute findings. 2. Metallic hardware cervical spine
--- NOTE | 2022-12-07 12:03 | ED_ITS ---
HPI - General Adult General: Chief complaint: General Medical Stated complaint: Right side rib pain Time Seen by Provider: 12/07/22 11:59 Source: patient Mode of arrival: ambulatory History of Present Illness: 72-year-old male presents emergency room planing of right-sided rib pain he refers to rib pain anterior axillary line at the level of the nipple. He was leaning over something yesterday thinks he may have leaned into his rib he does not remember any particular trauma or being hit he denies any hemoptysis denies productive cough greater than his normal baseline patient is a smoker. Denies any fever sweats or chills. Pain is reproducible with palpation he can pinpoint the area during exam. Onset (ago): day(s) Location: chest Severity: mild Quality: sharp Pain Consistency: intermittent Exacerbating factors: other (Palpation) Associated symptoms: Reports chest pain; Deny confusion, cough, diaphoresis, decreased appetite, dyspnea, fevers/chills, headache(s), malaise, nausea, rash, palpitations, seizures, short of breath, syncope, vomiting or weakness Treatments prior to arrival: none Review of Systems Const: Denies: fever(s), chills, fatigue, malaise or diaphoresis Card: Reports: chest pain; Denies: palpitations, irregular heart rhythm, edema or syncope Resp: Denies: dyspnea, productive cough or non-productive cough GI: Denies: nausea or vomiting Skin/Breast: Denies: rash Neuro: Denies: headache(s) or confusion PFSH ED PFSH: Medical History Atherosclerotic heart disease of [place] coronary artery with other forms of angina pectoris Atypical chest pain The EKG done in the emergency room revealed normal sinus rhythm with a normal ST-T's. CAD (coronary artery disease) Carotid bruit present Cervical spondylosis Castillo angioma Diabetes mellitus Essential hypertension GERD (gastroesophageal reflux disease) History of colon cancer History of small bowel obstruction Hyperglycemia Migraine-cluster headache syndrome Mixed hyperlipidemia Syncope Surgical History History of angioplasty History of heart artery stent Family History Father CAD (coronary artery disease) Cancer Mother CAD (coronary artery disease) Cancer Brother Cancer Sister Cancer Other Heart disease Denies family history of Diabetes Clotting disorder Dementia Chronic kidney disease (CKD) Suicide Anesthesia complication Bleeding disorder Lung disease Stroke Social History Smoking and tobacco status: current every day smoker (1 PPD) cigarettes Years cigarettes smoked: 53 Alcohol intake: never Substance/Drug Use: never Household members: spouse Marital status: Current occupational status: unemployed Physical Exam Const: GENERAL APPEARANCE: cooperative and comfortable ORIENTATION/CONSCIOUSNESS: Yes awake, Yes oriented to person, Yes oriented to place and Yes oriented to time HENMT: COMMON NORMALS: normocephalic, atraumatic and hearing grossly normal bilaterally HEAD & SCALP: normocephalic and atraumatic Chest: OTHER: Reproducible pain with palpation along the fourth fifth rib and anterior axillary line on the right. Resp: COMMON NORMALS: normal respiratory effort, No retractions, No use of accessory muscles and clear to auscultation bilaterally AUSCULTATION: clear to auscultation bilaterally Cardio: COMMON NORMALS: regular rate, regular rhythm and No murmurs present (Cardio) RATE: regular rate RHYTHM: regular rhythm GI: COMMON NORMALS: Soft to palpation and No hepatosplenomegaly present AUSCULTATION: Yes normoactive bowel sounds PALPATION: Yes Soft to palpation, No Tenderness to palpation present (GI), No Guarding due to palpation present (GI) and Yes No hepatosplenomegaly present Extremity: COMMON NORMALS: normal to inspection, capillary refill normal, no clubbing, cyanosis or edema, no calf tenderness and no pedal edema Neuro: SENSORIUM/ORIENTATION: Yes oriented to person, Yes oriented to place and Yes oriented to time Skin: COMMON NORMALS: no rashes or lesions noted GENERAL SKIN EXAM: no rashes or lesions noted Course Vital Signs: Vital signs: Vital Signs Temperature 97.5 F L 12/07/22 11:54 Pulse Rate 99 12/07/22 12:21 Respiratory Rate 16 12/07/22 12:21 Blood Pressure 128/84 12/07/22 12:21 Pulse Oximetry 97 12/07/22 12:21 Oxygen Delivery Me thod Room Air 12/07/22 12:21 MDM - General Adult Medical Decision Making Questionable fracture at 6/7 rib. We will gave patient few hydrocodone and diclofenac to use as needed follow-up with his primary care doctor as needed return if is worsening or changes symptoms. Medical Records I reviewed the patient's medical records. Lab Data I reviewed the patient's lab results. Radiology Impressions Ribs X-Ray 12/07/22 11:59 IMPRESSION: 1. No acute findings. 2. Metallic hardware cervical spine Discharge Plan Discharge Patient Disposition: Home Clinical Impression: Fracture of rib Condition: Stable Prescriptions: New hydrocodone-acetaminophen 5-325 mg tablet 1 tab PO Q6H PRN (Reason: pain) Qty: 10 0RF diclofenac sodium 75 mg tablet,delayed release (DR/EC) 75 mg PO Q12H PRN (Reason: pain) Qty: 20 0RF No Action aspirin 81 mg tablet,delayed release (DR/EC) 81 mg PO DAILY (DME) Night splint to left See Rx Instructions .Route .MEDSUPPLY Qty: 1 0RF Rx Instructions: As directed (DME) Custom Molded Orthotics See Rx Instructions .Route .MEDSUPPLY Qty: 1 0RF Rx Instructions: As directed gabapentin 300 mg capsule 300 mg PO TID PRN sucralfate 1 gram tablet 1 g PO Q6H PRN prednisone 20 mg tablet 20 mg PO DAILY Qty: 15 0RF Rx Instructions: 60mg on day 1,2,3 40mg 4,5 20mg 6,7 (DME) small hinge brace See Rx Instructions .Route .MEDSUPPLY Qty: 1 0RF Rx Instructions: As directed (DME) bone stimulator See Rx Instructions .Route .MEDSUPPLY Qty: 1 0RF Rx Instructions: As directed clopidogrel 75 mg tablet See Rx Instructions .ROUTE .COMPLEX Qty: 90 3RF Dose Instruction: Take 1 tablet by mouth once daily Rx Instructions: Take 1 tablet by mouth once daily dexlansoprazole [Dexilant] 60 mg capsule,biphase delayed releas 60 mg PO DAILY Qty: 30 1RF Rx Instructions: 340 B prednisone 20 mg tablet 20 mg PO TID Qty: 15 0RF Rx Instructions: 1 p.o. 3 times daily x3 days, 1 p.o. twice daily x2 days, 1 p.o. daily x2 days prednisone 20 mg tablet 20 mg PO TID Qty: 15 0RF Rx Instructions: 1 p.o. 3 times daily x3 days, 1 p.o. twice daily x2 days, 1 p.o. daily x2 days diclofenac sodium 75 mg tablet,delayed release (DR/EC) 75 mg PO Q12H PRN (Reason: pain) Qty: 20 0RF Lyrica 75 mg capsule 75 mg PO BID Qty: 60 0RF Discharge Orders: Discharge ED (Routine); Ordered 12/07/22 Ordered By: Guille Lopez Referrals: Jaquelin Cee MD [Primary Care Provider] - Discharge Diet: Usual diet Discharge Activity: Increase activity as tolerated Patient Instructions: Opioid Safety, Pain Management Activity Restrictions/Additional Instructions: You are seen today for rib pain. On the x-ray there appears to be 1 fractured rib but is nondisplaced. Radiology will overread. You are given hydrocodone and diclofenac to use as needed for the rib pain. Follow-up with your primary care doctor if you have worsening or changes symptoms. Coding Level of Care Code ED [employer] for Lance Tavarez
[2022-12-07] MEDS: HYDROcodone-acetaminophen 5-325 mg Tablet 2 TAB PO (12:19)
[2022-12-07 12:21] VITALS: BP 128/84; PULSE 99; RESP 16; O2SAT 97
== END 2022-12-07 13:09 | disposition home or self-care (01) ==
PROVIDERS: Emergency Provider Family Medicine; PCP Family Medicine
DX: S22.41XA Multiple fractures of ribs, right side, initial encounter for closed fracture (principal); Z79.82 Long term (current) use of aspirin; Z79.02 Long term (current) use of antithrombotics/antiplatelets; X58.XXXA Exposure to other specified factors, initial encounter; I25.10 Atherosclerotic heart disease of native coronary artery without angina pectoris; E11.9 Type 2 diabetes mellitus without complications; I10 Essential (primary) hypertension; Z85.038 Personal history of other malignant neoplasm of large intestine; E78.2 Mixed hyperlipidemia; F17.210 Nicotine dependence, cigarettes, uncomplicated
CPT/HCPCS: 71101; 99283

== ENCOUNTER → 2023-01-03 13:45 | Outpatient (BNVA) | payer MEDICARE, SELFPAY | PROVIDERS: PCP Family Medicine; Visit Provider Specialist | DX: I10 Essential (primary) hypertension (principal); I25.10 Atherosclerotic heart disease of native coronary artery without angina pectoris; E78.2 Mixed hyperlipidemia; F17.210 Nicotine dependence, cigarettes, uncomplicated; Z79.82 Long term (current) use of aspirin | CPT/HCPCS: 99214 ==

== ENCOUNTER 2023-03-10 14:57 | Outpatient (CLI) | payer MEDICARE, SELFPAY ==
--- NOTE | 2023-03-10 15:15 | USCV_ITS ---
Aram Alva Age: 72 Gender: M : 1950 Exam Date: 03/10/2023 15:12 Ordering Phys: Kary Mcgraw MD ([email or web address]) Technologist: Lucinda Crowder Exam Location: [facility] – [place] Indication: sob, cad, BP: 140 / 90 HR: 92 Rhythm: Other Technical Quality: Adequate MEASUREMENTS (Male / Female) Normal Values 2D ECHO LV Diastolic Diameter PLAX 4.0 cm 4.2 - 5.9 / 3.9 - 5.3 cm LV Systolic Diameter PLAX 2.7 cm IVS Diastolic Thickness 1.7 cm 0.6 - 1.0 / 0.6 - 0.9 cm IVS Systolic Thickness 1.6 cm LVPW Diastolic Thickness 1.3 cm 0.6 - 1.0 / 0.6 - 0.9 cm LVPW Systolic Thickness 2.1 cm LVOT Diameter 2.0 cm LV Ejection Fraction 2D Teich 62.1 % LV Ejection Fraction MOD 2C 71.2 % LV Ejection Fraction 2C AL 71.1 % LA Diameter 3.5 cm LA Width 3.4 cm LA Height 5.0 cm RA Width 4.2 cm RA Height 4.5 cm Aorta at Sinotubular Diameter 2.9 cm IVC Diameter 1.2 cm M-MODE Aortic Annulus Diameter 3.7 cm LA Ao Ratio MM 1.1 MV E Point Septal Separation 0.7 cm DOPPLER AV Peak Velocity 131.0 cm/s LVOT Peak Velocity 129.0 cm/s AV Area Cont Eq vti 3.2 cm squared AV Area Cont Eq pk 3.2 cm squared MV Peak Velocity 97.0 cm/s MV Area PHT 2.6 cm squared Mitral E to A Ratio 1.1 MV E' Velocity 44.0 cm/s Mitral E to MV E' Ratio 6.5 Mitral E to LV E' Lateral Ratio 5.5 Mitral E to LV E' Septal Ratio 8.0 TR Peak Velocity 114.3 cm/s TR Peak Gradient 5.2 mmHg Right Atrial Pressure 5.0 mmHg Pulmonary Artery Systolic Pressu 10.2 mmHg PV Peak Velocity 98.0 cm/s RV Acceleration Time 0.1 s RV Ejection Time 0.3 s RV AcT/ET 0.4 FINDINGS Left Ventricle Normal left ventricular cavity size and systolic function. Left ventricular ejection fraction is estimated at 60-65 %. No regional wall motion abnormalities. Normal diastolic function. Right Ventricle Normal right ventricular size and systolic function. Normal right ventricular systolic function. Right Atrium Normal right atrial size. Left Atrium Normal left atrial size. Mitral Valve Structurally normal mitral valve. No mitral valve stenosis. No mitral valve regurgitation. Aortic Valve Aortic valve not well visualized. No aortic valve stenosis. No aortic valve regurgitation. Tricuspid Valve Structurally normal tricuspid valve. Pulmonic Valve Pulmonic valve not well visualized. Pericardium No pericardial effusion. Aorta Normal size aortic root. IVC Normal IVC dimension with >50% respiratory change of the inferior vena cava. CONCLUSIONS 1. The technically difficult study. 2. Normal left ventricular cavity size and systolic function. Left ventricular ejection fraction is estimated at 65 %. No regional wall motion abnormalities. Normal diastolic function. 3. Normal right ventricular size and systolic function. 4. There may not have been any significant change when compared to study dated 07/05/2019. Kary Mcgraw MD (Electronically Signed) Final Date: 16 March 2023 16:45 S
== END 2023-03-10 14:58 | disposition home or self-care (01) ==
PROVIDERS: PCP Family Medicine; Visit Provider Internal Medicine Cardiovascular Disease
DX: R06.02 Shortness of breath (principal); I25.10 Atherosclerotic heart disease of native coronary artery without angina pectoris
CPT/HCPCS: 93306

== ENCOUNTER → 2023-04-04 18:25 | Outpatient (BNVA) | payer MEDICARE, SELFPAY | PROVIDERS: PCP Family Medicine; Visit Provider Emergency Medicine | DX: R30.0 Dysuria (principal); N20.1 Calculus of ureter; R39.9 Unspecified symptoms and signs involving the genitourinary system | CPT/HCPCS: 81003 ==

== ENCOUNTER → 2023-06-22 11:42 | Outpatient (BNVA) | payer MEDICARE, SELFPAY | PROVIDERS: PCP Family Medicine; Visit Provider Internal Medicine Cardiovascular Disease | DX: R07.9 Chest pain, unspecified (principal); I25.10 Atherosclerotic heart disease of native coronary artery without angina pectoris; E78.2 Mixed hyperlipidemia; I10 Essential (primary) hypertension; M25.562 Pain in left knee; G89.29 Other chronic pain; F17.200 Nicotine dependence, unspecified, uncomplicated; R94.31 Abnormal electrocardiogram [ECG] [EKG] | CPT/HCPCS: 93005; 99214 ==

== ENCOUNTER 2023-07-10 17:18 | Emergency (ER) | payer MEDICARE, SELFPAY ==
[2023-07-10 17:22] VITALS: BP 121/70; PULSE 79; RESP 17; TEMP 36.7; O2SAT 96
--- NOTE | 2023-07-10 17:56 | ED_ITS ---
HPI - Male Genitourinary General: Chief complaint: Urogenital-Male Stated complaint: urinary Time Seen by Provider: 07/10/23 17:54 Source: patient Mode of arrival: ambulatory Limitations: no limitations History of Present Illness: 73-year-old male who with knee replaceme nt little over a week ago states he had a Baron placed for the surgery states he has been having dysuria along with feeling like cannot control his bladder at times since then. States his dysuria is worse and he is concerned he may have a UTI denies any hematuria denies any abdominal pain denies any fevers. Associated symptoms: Reports dysuria; Deny nausea or vomiting Review of Systems Const: Denies: fever(s) or chills ENMT: Denies: throat pain or dental pain Card: Denies: chest pain Resp: Denies: dyspnea GI: Denies: abdominal pain, nausea, vomiting or diarrhea : Reports: dysuria Musc: Denies: neck pain or back pain Skin/Breast: Denies: rash Neuro: Denies: headache(s) PFSH ED PFSH: Medical History Carotid bruit present Atherosclerotic heart disease of [place] coronary artery with other forms of angina pectoris Atypical chest pain The EKG done in the emergency room revealed normal sinus rhythm with a normal ST-T's. Migraine-cluster headache syndrome History of small bowel obstruction Hyperglycemia Castillo angioma GERD (gastroesophageal reflux disease) Cervical spondylosis Syncope CAD (coronary artery disease) Essential hypertension Mixed hyperlipidemia Diabetes mellitus History of colon cancer Surgical History History of heart artery stent History of angioplasty Family History Father CAD (coronary artery disease) Cancer Mother CAD (coronary artery disease) Cancer Brother Cancer Sister Cancer Other Heart disease Denies family history of Diabetes Clotting disorder Dementia Chronic kidney disease (CKD) Suicide Anesthesia complication Bleeding disorder Lung disease Stroke Social History Smoking and tobacco/nicotine status: current every day tobacco/nicotine user (1 PPD) cigarettes Years cigarettes smoked: 53 Alcohol intake: never Substance/Drug Use: never Household members: spouse Marital status: Current occupational status: unemployed Physical Exam Const: COMMON NORMALS: no acute distress, patient oriented x3 and healthy appearing HENMT: COMMON NORMALS: normocephalic and atraumatic HEAD & SCALP: normocephalic and atraumatic Eye: COMMON NORMALS: conjunctivae normal CONJUNCTIVA: Yes conjunctivae normal Neck/C-Spine: COMMON NORMALS: full ROM and supple Chest: COMMONS NORMALS: normal inspection of the chest Resp: COMMON NORMALS: normal respiratory effort GI: COMMON NORMALS: Normal to inspection, nondistended, normoactive bowel sounds present, Soft to palpation, non-tender and no masses PALPATION: Yes Soft to palpation Extremity: COMMON NORMALS: normal to inspection and full ROM Neuro: COMMON NORMALS: patient oriented x3, moves all extremities and no focal motor deficits Psych: COMMON NORMALS: mental status grossly normal, Normal thought process present and cooperative THOUGHT PROCESS: Normal thought process present Skin: COMMON NORMALS: no rashes or lesions noted and no wounds GENERAL SKIN EXAM: no rashes or lesions noted Course Vital Signs: Vital signs: Vital Signs Temperature 98.0 F 07/10/23 17:22 Pulse Rate 79 07/10/23 17:22 Respiratory Rate 17 07/10/23 17:22 Blood Pressure 121/70 07/10/23 17:22 Pulse Oximetry 96 07/10/23 17:22 Oxygen Delivery Me thod Room Air 07/10/23 17:22 MDM - Male Medical Decision Making Patient presents here with acute cystitis did give him IM dose of Rocephin here will prescribe him Keflex for home he is stable for discharge he is to follow-up with PCP and return if worsening. Medical Records I reviewed the patient's medical records. Lab Data I reviewed the patient's lab results. Laboratory Results Urine Color Yellow (Yellow) 07/10/23 18:25 Urine Appearance Cloudy (CLEAR) A 07/10/23 18:25 Urine pH 5 (5-7) 07/10/23 18:25 Ur Specific [place] 1.015 (1.005-1.030) 07/10/23 18:25 Urine Protein 3+ (Negative) H 07/10/23 18:25 Urine Glucose (UA) Norm (Normal) 07/10/23 18:25 Urine Ketones 1+ (Negative) H 07/10/23 18:25 Urine Blood 3+ (Negative) H 07/10/23 18:25 Urine Nitrate Positive (Negative) H 07/10/23 18:25 Urine Bilirubin Neg (Negative) 07/10/23 18:25 Urine Urobilinogen Norm mg/dL (Negative) 07/10/23 18:25 Ur Leukocyte Esterase 2+ (Negative) H 07/10/23 18:25 Urine RBC 25-40 /hpf (0-2) H 07/10/23 18:25 Urine WBC 80-100 /hpf (0-5) H 07/10/23 18:25 Ur Squamous Epith Cells 0-4 /hpf (0-5) H 07/10/23 18:25 Amorphous Sediment 2+ /hpf 07/10/23 18:25 Urine Bacteria 2+ /hpf (NONE) H 07/10/23 18:25 Urine Mucus 3+ /hpf 07/10/23 18:25 No radiology studies performed this visit Discharge Plan Discharge Patient Disposition: Home Clinical Impression: Acute cystitis Condition: Stable Prescriptions: New cephalexin 500 mg capsule 500 mg PO TID 7 Days Qty: 21 0RF No Action aspirin 81 mg tablet,delayed release (DR/EC) 81 mg PO DAILY (DME) Night splint to left See Rx Instructions .Route .MEDSUPPLY Qty: 1 0RF Rx Instructions: As directed (DME) Custom Molded Orthotics See Rx Instructions .Route .MEDSUPPLY Qty: 1 0RF Rx Instructions: As directed gabapentin 300 mg capsule 300 mg PO TID PRN sucralfate 1 gram tablet 1 g PO Q6H PRN (DME) small hinge brace See Rx Instructions .Route .MEDSUPPLY Qty: 1 0RF Rx Instructions: As directed hydrocodone-acetaminophen 5-325 mg tablet 1 tab PO Q4H PRN (Reason: pain) 5 Days Qty: 20 0RF tamsulosin [Flomax] 0.4 mg capsule 0.4 mg PO Q24H Qty: 20 0RF metoprolol succinate [Toprol XL] 25 mg tablet extended release 24 hr 25 mg PO DAILY Qty: 90 2RF clopidogrel 75 mg tablet 75 mg PO DAILY Qty: 90 3RF lisinopril 10 mg tablet 10 mg PO DAILY Qty: 90 3RF hydrocodone-acetaminophen 5-325 mg tablet 1 tab PO Q6H PRN (Reason: pain) Qty: 10 0RF Discharge Orders: Discharge ED (Routine); Ordered 07/10/23 Ordered By: Corazon Cummings Referrals: Jaquelin Cee MD [Primary Care Provider] - 1-3 days Discharge Diet: Advance as tolerated Discharge Activity: Resume usual activity Patient Instructions: Urinary Tract Infection in Men (ED) Coding Level of Care Code ED [employer] for Lance Tavarez
[2023-07-10 18:52] LABS: Urine Color Yellow (Yellow)
[2023-07-10 18:53] LABS: Add Urine Microscopic? YES; Bilirubin Urine Neg (Negative); Blood Urine 3+ (Negative); Glucose Urine UA Norm (Normal); Ketones Urine 1+ (Negative); Leukocyte Esterase Urine 2+ (Negative); Nitrate Urine Positive (Negative); Protein Urine 3+ (Negative); RBC Urine 25-40 /hpf (0-2); Specific Gravity, Urine 1.015 (1.005-1.030); Urine Appearance Cloudy (CLEAR); Urobilinogen Urine Norm (Negative); pH Urine 5 (5-7)
[2023-07-10 18:54] LABS: Add Urine Culture? Yes; Amorphous Sediment Urine 2+ /hpf; Bacteria Urine 2+ /hpf; Mucus Urine 3+ /hpf; Squamous Epithelial Cell Urine 0-4 /hpf (0-5); WBC Urine 80-100 /hpf (0-5)
[2023-07-10] MEDS: cefTRIAXone 1,000 MG in water for injection-sterile 2.1 ML 1 MG IM (19:00)
[2023-07-10 19:16] VITALS: BP 125/78; PULSE 78; RESP 16; O2SAT 96
== END 2023-07-10 19:18 | disposition home or self-care (01) ==
PROVIDERS: Emergency Provider Emergency Medicine; PCP Family Medicine
DX: N30.00 Acute cystitis without hematuria (principal); Z79.02 Long term (current) use of antithrombotics/antiplatelets; Z79.82 Long term (current) use of aspirin; F17.210 Nicotine dependence, cigarettes, uncomplicated; I25.10 Atherosclerotic heart disease of native coronary artery without angina pectoris; I10 Essential (primary) hypertension; E11.9 Type 2 diabetes mellitus without complications; Z85.038 Personal history of other malignant neoplasm of large intestine; E78.2 Mixed hyperlipidemia
CPT/HCPCS: 81001; 87077; 87086; 87186; 96372; 99284; J0696

== ENCOUNTER 2023-09-13 01:14 | Emergency (ER) | payer MEDICARE, SELFPAY ==
[2023-09-13 01:48] VITALS: BP 153/89; PULSE 104; RESP 18; TEMP 36.7; O2SAT 97; BMI 28.8
--- NOTE | 2023-09-13 01:54 | ED_ITS ---
HPI - Male Genitourinary 2 General: Chief complaint: Urogenital-Male Stated complaint: Blood In Urine Time Seen by Provider: 09/13/23 01:20 History of Present Illness: Patient presents to the ER with complaints of right flank pain and gross hematuria. He says he started about 9 PM last night. Patient denies any nausea vomiting diarrhea constipation fevers chills cough cold sore throats. Patient says never had any gross hematuria like this before. 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 Patient does have a history of kidney stones in the distant past. Patient is on Plavix and aspirin. Review of Systems 2 General: Reports: 10 or more systems reviewed and unremarkable except in HPI and below PFSH ED 2 PFSH: Medical History Carotid bruit present Atherosclerotic heart disease of [place] coronary artery with other forms of angina pectoris Atypical chest pain The EKG done in the emergency room revealed normal sinus rhythm with a normal ST-T's. Migraine-cluster headache syndrome History of small bowel obstruction Hyperglycemia Castillo angioma GERD (gastroesophageal reflux disease) Cervical spondylosis Syncope CAD (coronary artery disease) Essential hypertension Mixed hyperlipidemia Diabetes mellitus History of colon cancer Surgical History History of heart artery stent History of angioplasty Family History Father CAD (coronary artery disease) Cancer Mother CAD (coronary artery disease) Cancer Brother Cancer Sister Cancer Other Heart disease Denies family history of Diabetes Clotting disorder Dementia Chronic kidney disease (CKD) Suicide Anesthesia complication Bleeding disorder Lung disease Stroke Social History Smoking and tobacco/nicotine status: current every day tobacco/nicotine user (1 PPD) cigarettes Years cigarettes smoked: 53 Alcohol intake: never Substance/Drug Use: never Household members: spouse Marital status: Current occupational status: unemployed Physical Exam 2 HENMT: COMMON NORMALS: normocephalic, atraumatic, hearing grossly normal bilaterally, external ears normal, EAC's normal, Normal external nose present, moist oral mucous membranes and oropharynx normal HEAD & SCALP: normocephalic and atraumatic NOSE: Normal external nose present EXTERNAL EAR: Yes external ears normal EXTERNAL AUDITORY CANAL: EAC's normal Neck/C-Spine: COMMON NORMALS: no JVD Chest: COMMONS NORMALS: normal inspection of the chest and normal palpation of entire chest wall Resp: COMMON NORMALS: normal respiratory effort, No retractions, No use of accessory muscles and clear to auscultation bilaterally AUSCULTATION: clear to auscultation bilaterally Cardio: COMMON NORMALS: no JVD, regular rate, regular rhythm, S1 normal heart sound present, S2 normal heart sound present, No gallops present (Cardio), No clicks present (Cardio), No murmurs present (Cardio) and No rub (Cardio) R ATE: regular rate RHYTHM: regular rhythm HEART SOUNDS: S1 normal heart sound present and S2 normal heart sound present GI: COMMON NORMALS: Normal to inspection, nondistended, normoactive bowel sounds present, Soft to palpation, non-tender, No hepatosplenomegaly present and no masses PALPATION: Yes Soft to palpation and Yes No hepatosplenomegaly present Course 2 Vital Signs: Vital signs: Vital Signs Temperature 98.0 F 09/13/23 01:48 Pulse Rate 104 H 09/13/23 01:48 Respiratory Rate 18 09/13/23 01:48 Blood Pressure 153/89 09/13/23 01:48 Pulse Oximetry 97 09/13/23 01:48 Oxygen Delivery Me thod Room Air 09/13/23 01:48 MDM - Male Medical Decision Making Patient had physical exam as well as lab work including CBC CMP PT/INR urinalysis and noncontrast CT scan of the abdomen pelvis. Blood work was essentially unremarkable except for mildly elevated creatinine 1.4 urinalysis showed 2+ leukocyte Estrace 25-40 white blood cells red blood cells too numerous to count, CT scan of the abdomen pelvis showed masslike density in the bladder marked distended urinary bladder favored to be secondary to bladder outlet obstruction by enlarged prostate or bladder neoplasm as well as a 7 mm density in the distal esophagus. These results was described and discussed with the patient in great detail. Patient says he already has a urologist in [place] and he just wants to call him up to schedule an appointment. Patient cannot remember his name. Patient be placed on antibiotics for possible urinary tract infection he was told to stop his Plavix for the next 3 to 5 days and follow-up with his urologist [facility]. Differential Diagnosis Unlikely urinary tract infection, priapism, urethritis, epididymitis, genital herpes simplex, prostatitis, acute retention of urine or inguinal hernia Medical Records I reviewed the patient's medical records. Lab Data I reviewed the patient's lab results. 09/13/23 02:01 09/13/23 02:01 Radiology Impressions Abdomen/Pelvis CT 09/13/23 02:05 IMPRESSION: 1. Masslike density in the bladder that may represent neoplasm and/or thrombus with resultant chronic obstruction of the right ureter. 2. Markedly distended urinary bladder favored to be secondary to bladder outlet obstruction by an enlarged prostate or bladder neoplasm. 3. A 7 mm nodular density in the right lateral wall of the distal esophagus or herniated gastric cardia concerning for an inflammatory or neoplastic polyp (axial image 13/4; coronal images 68-71/9). Endoscopy may be helpful for further characterization if clinically indicated. ADDENDUM: 09/13/23 0519 As of 5:14 a.m. on 09/13/2023, Florence Figueredo confirmed that Dr. Allen has received the exam report, is aware of the critical finding, and indicated no conference call was necessary to discuss the exam findings. Laboratory Results WBC 11.21 10^3/uL (3.29-11.43) 09/13/23 02:01 RBC 4.17 10^6/uL (3.85-5.65) 09/13/23 02:01 Hgb 13.60 g/dL (11.27-16.99) 09/13/23 02:01 Hct 40.8 % (37-53) 09/13/23 02:01 MCV 97.8 fl (82-101) 09/13/23 02:01 MCH 32.6 pg (27-33) 09/13/23 02:01 MCHC 33.3 g/dL (30-55) 09/13/23 02:01 RDW 13.5 % (12.1-15.1) 09/13/23 02:01 Plt Count 307 10^3/cmm (157-399) 09/13/23 02:01 MPV 9.9 fL (7.4-10.4) 09/13/23 02:01 Neut % (Auto) 79.9 % 09/13/23 02:01 Lymph % (Auto) 9.0 % 09/13/23 02:01 Whitman % (Auto) 8.0 % 09/13/23 02:01 Eos % (Auto) 2.0 % 09/13/23 02:01 Baso % (Auto) 0.7 % 09/13/23 02:01 Neut # (Auto) 8.96 10^3/uL (1.8-7.7) H 09/13/23 02:01 Lymph # (Auto) 1.0 10^3/uL (0.8-4.8) 09/13/23 02:01 Whitman # (Auto) 0.9 10^3/uL (0.2-0.9) 09/13/23 02:01 Eos # (Auto) 0.2 10^3/uL (0.0-0.8) 09/13/23 02:01 Baso # (Auto) 0.1 10^3/uL (0.0-0.1) 09/13/23 02:01 Nucleated RBC % (auto) 0 % 09/13/23 02:01 Nucleated RBCs # 0.0 /100WBC 09/13/23 02:01 PT 13.20 SECONDS (12.1-14.9) 09/13/23 02:01 INR 0.97 (0.8-1.2) 09/13/23 02:01 Sodium 140 mmol/L (136-145) 09/13/23 02:01 Potassium 4.4 mmol/L (3.5-5.1) 09/13/23 02:01 Chloride 104 mmol/L (98-107) 09/13/23 02:01 Carbon Dioxide 26 mmol/L (22-29) 09/13/23 02:01 Anion Gap 14.4 (5-19) 09/13/23 02:01 BUN 20 mg/dL (8-23) 09/13/23 02:01 Creatinine 1.4 mg/dL (0.7-1.2) H 09/13/23 02:01 GFR Calculation Not Reportable 09/13/23 02:01 Glucose 124 mg/dL (65-115) H 09/13/23 02:01 Calculated Osmolality 294 mOsm/kg (285-295) 09/13/23 02:01 Calcium 9.4 mg/dL (8.5-10.5) 09/13/23 02:01 Total Bilirubin 0.2 mg/dL (0.15-1.2) 09/13/23 02:01 AST 15 U/L (0-40) 09/13/23 02:01 ALT 16 U/L (0-41) 09/13/23 02:01 Alkaline Phosphatase 84 U/L (40-130) 09/13/23 02:01 Total Protein 7.4 g/dL (6.6-8.7) 09/13/23 02:01 Albumin 4.1 g/dL (3.5-5.2) 09/13/23 02:01 Globulin 3.3 g/dL (1.3-4.6) 09/13/23 02:01 Urine Color Red (Yellow) A 09/13/23 01:49 Urine Appearance Turbid (CLEAR) A 09/13/23 01:49 Urine pH 7 (5-7) 09/13/23 01:49 Ur Specific [place] 1.010 (1.005-1.030) 09/13/23 01:49 Urine Protein 3+ (Negative) H 09/13/23 01:49 Urine Glucose (UA) Norm (Normal) 09/13/23 01:49 Urine Ketones Negative (Negative) 09/13/23 01:49 Urine Blood 3+ (Negative) H 09/13/23 01:49 Urine Nitrate Negative (Negative) 09/13/23 01:49 Urine Bilirubin Neg (Negative) 09/13/23 01:49 Urine Urobilinogen Neg mg/dL (Negative) 09/13/23 01:49 Ur Leukocyte Esterase 2+ (Negative) H 09/13/23 01:49 Urine RBC Too numerous to cnt /hpf (0-2) H 09/13/23 01:49 Urine WBC 25-40 /hpf (0-5) H 09/13/23 01:49 Ur Squamous Epith Cells None /hpf (0-5) 09/13/23 01:49 Amorphous Sediment Not Reportable 09/13/23 01:49 Urine Bacteria 1+ /hpf (NONE) H 09/13/23 01:49 Urine Mucus 2+ /hpf 09/13/23 01:49 All radiology interpretation(s) finalized by discharge Discharge Plan Discharge Patient Disposition: Home Clinical Impression: Bladder mass, Gross hematuria, Acute kidney injury Condition: Stable Prescriptions: New ciprofloxacin HCl 500 mg tablet 500 mg PO Q12H Qty: 20 0RF No Action aspirin 81 mg tablet,delayed release (DR/EC) 81 mg PO DAILY (DME) Night splint to left See Rx Instructions .Route .MEDSUPPLY Qty: 1 0RF Rx Instructions: As directed (DME) Custom Molded Orthotics See Rx Instructions .Route .MEDSUPPLY Qty: 1 0RF Rx Instructions: As directed gabapentin 300 mg capsule 300 mg PO TID PRN sucralfate 1 gram tablet 1 g PO Q6H PRN (DME) small hinge brace See Rx Instructions .Route .MEDSUPPLY Qty: 1 0RF Rx Instructions: As directed hydrocodone-acetaminophen 5-325 mg tablet 1 tab PO Q4H PRN (Reason: pain) 5 Days Qty: 20 0RF tamsulosin [Flomax] 0.4 mg capsule 0.4 mg PO Q24H Qty: 20 0RF metoprolol succinate [Toprol XL] 25 mg tablet extended release 24 hr 25 mg PO DAILY Qty: 90 2RF clopidogrel 75 mg tablet 75 mg PO DAILY Qty: 90 3RF lisinopril 10 mg tablet 10 mg PO DAILY Qty: 90 3RF hydrocodone-acetaminophen 5-325 mg tablet 1 tab PO Q6H PRN (Reason: pain) Qty: 10 0RF Discharge Orders: Discharge ED (Routine); Ordered 09/13/23 Ordered By: Deo Allen Referrals: Jaquelin Cee MD [Primary Care Provider] - 1 week Patient Instructions: Hematuria (ED), Flank Pain (ED) Activity Restrictions/Additional Instructions: Your CT scan showed you have a large bladder mass that may be obstructing your ureter backing of urine into your kidney. This may represent cancer. Please call your urologist tomorrow tell them this and that you need a an appointment with them [facility] for further evaluation and treatment. He will be given a CD that includes the CT and radiology report please take that with you when you go to your appointment. Please stop your Plavix for the next 3 to 5 days as this makes your blood thinner makes you bleed easier. You are placed on antibiotics because you also may have a potential urinary tract infection. If your bleeding gets worse or you feel lightheaded or dizzy or feel like you are going to pass out please return to the ER Coding Level of Care Code ED Meters Superintendent for Lance Tavarez
--- NOTE | 2023-09-13 02:05 | CTR_ITS ---
PROCEDURE INFORMATION: Exam: CT Abdomen And Pelvis Without Contrast Exam date and time: 09/13/2023 2:14 AM Age: 73 years old Clinical indication: Abdominal pain; Right; Patient HX: RT flank pain with gross hematuria. History of colon cancer. ; Additional info: Gross hematuria right flank pain x 6 hours TECHNIQUE: Imaging protocol: Computed tomography of the abdomen and pelvis without contrast. Radiation optimization: All CT scans at this facility use at least one of these dose optimization techniques: automated exposure control; mA and/or kV adjustment per patient size (includes targeted exams where dose is matched to clinical indication); or iterative reconstruction. COMPARISON: CT abdomen pelvis w con* [id number] 08/07/2017 3:03 PM RADIATION DOSE METRICS: Total DLP (mGy-cm): 536.86 FINDINGS: Lungs: The visualized lung balderrama show mild bibasilar atelectasis. Mediastinal space: There is thickening of the visualized distal esophagus that may be secondary to reflux esophagitis. Diaphragm: There is a small sliding hiatal hernia. Liver: The liver is normal in size and homogeneous density. Gallbladder and bile ducts: There are multiple calcified gallstones. There is no significant gallbladder wall thickening or pericholecystic fluid. Pancreas: The pancreas is normal. Spleen: The spleen is normal in size and density. Adrenal glands: The adrenal glands are normal. Kidneys and ureters: Mild right hydronephrosis with a tortuous, moderately dilated right ureter without any obstructing calculus. Stomach and bowel: A 7 mm nodular density in the right lateral wall of the distal esophagus or herniated gastric cardia concerning for an inflammatory or neoplastic nodule (axial image 13/4; coronal images 68-71/9). There is no evidence of small bowel or colonic obstruction. Prior right hemicolectomy with a patent ileocolic anastomosis in the area of the hepatic flexure. Appendix: The appendix is surgically absent. Intraperitoneal space: No free air. No significant fluid collection. Vasculature: No abdominal aortic aneurysm. Lymph nodes: No enlarged retroperitoneal or mesenteric lymph nodes. Urinary bladder: The bladder is severely distended and contains a mass-like increased density in the dependent position at the trigone that is likely obstructing the left ureter at the ureterovesical (UVJ). (axial image 142/4) Reproductive: The prostate is enlarged, measuring 6.4 cm in transverse dimension. Bones/joints: No acute fracture. No aggressive bone lesions. Multilevel degenerative disc disease without significant spinal canal stenosis. Mild levoconvex lumbar rotoscoliosis. There are multilevel facet arthrosis and posterior hypertrophic bony changes with corresponding neural foraminal narrowing. Soft tissues: There are small bilateral nonobstructing inguinal hernias containing adipose tissue. CT/CT kidney stone [id number] IMPRESSION: 1. Masslike density in the bladder that may represent neoplasm and/or thrombus with resultant chronic obstruction of the right ureter. 2. Markedly distended urinary bladder favored to be secondary to bladder outlet obstruction by an enlarged prostate or bladder neoplasm. 3. A 7 mm nodular density in the right lateral wall of the distal esophagus or herniated gastric cardia concerning for an inflammatory or neoplastic polyp (axial image 13/4; coronal images 68-71/9). Endoscopy may be helpful for further characterization if clinically indicated.
[2023-09-13 02:06] LABS: Basophils # 0.1 10^3/uL (0.0-0.1); Basophils % 0.7 %; Eosinophils # 0.2 10^3/uL (0.0-0.8); Hematocrit 40.8 % (37-53); Mean Corpuscular HGB Conc 33.3 g/dL (30-55); Mean Corpuscular Hemoglobin 32.6 pg (27-33); Mean Corpuscular Volume 97.8 fl (82-101); Mean Platelet Volume 9.9 fL (7.4-10.4); Monocytes # 0.9 10^3/uL (0.2-0.9); Neutrophils # 8.96 10^3/uL (1.8-7.7); Neutrophils % 79.9 %; Nucleated Red Blood Cells % 0 %; Platelet Count 307 10^3/cmm (157-399); Red Blood Count 4.17 10^6/uL (3.85-5.65); Red Cell Distribution Width 13.5 % (12.1-15.1); White Blood Count 11.21 10^3/uL (3.29-11.43)
[2023-09-13 02:16] LABS: INR 0.97 (0.8-1.2)
[2023-09-13 02:24] LABS: Urine Appearance Turbid (CLEAR); Urine Color Red (Yellow)
[2023-09-13 02:25] LABS: Add Urine Microscopic? YES; Bilirubin Urine Neg (Negative); Blood Urine 3+ (Negative); Glucose Urine UA Norm (Normal); Ketones Urine Negative (Negative); Leukocyte Esterase Urine 2+ (Negative); Nitrate Urine Negative (Negative); Protein Urine 3+ (Negative); Urobilinogen Urine Neg (Negative); pH Urine 7 (5-7)
[2023-09-13 02:25] LABS: Alanine Aminotransferase 16 U/L (0-41); Albumin Level 4.1 g/dL (3.5-5.2); Alkaline Phosphatase 84 U/L (40-130); Anion Gap 14.4 (5-19); Aspartate Amino Transferase 15 U/L (0-40); Blood Urea Nitrogen 20 mg/dL (8-23); Calcium 9.4 mg/dL (8.5-10.5); Carbon Dioxide 26 mmol/L (22-29); Chloride 104 mmol/L (98-107); Creatinine Clr Calc Pharmacy 50.0006; Globulin 3.3 g/dL (1.3-4.6); Glucose 124 mg/dL (65-115); Osmolality Calculated 294 mOsm/kg (285-295); Potassium 4.4 mmol/L (3.5-5.1); Sodium 140 mmol/L (136-145); Total Bilirubin 0.2 mg/dL (0.15-1.2); Total Protein 7.4 g/dL (6.6-8.7)
[2023-09-13 02:26] LABS: RBC Urine TOO NUMEROUS TO CNT /hpf (0-2); WBC Urine 25-40 /hpf (0-5)
[2023-09-13 02:27] LABS: Add Urine Culture? Yes; Bacteria Urine 1+ /hpf; Mucus Urine 2+ /hpf
[2023-09-13 03:00] VITALS: BP 146/91; PULSE 101; O2SAT 100
[2023-09-13 03:30] VITALS: BP 145/95; PULSE 106; O2SAT 100
[2023-09-13 05:35] VITALS: BP 127/105; PULSE 139; RESP 18; O2SAT 95
== END 2023-09-13 05:35 | disposition home or self-care (01) ==
PROVIDERS: Emergency Provider Emergency Medicine; PCP Family Medicine
DX: R31.0 Gross hematuria (principal); N32.9 Bladder disorder, unspecified; Z79.82 Long term (current) use of aspirin; N17.9 Acute kidney failure, unspecified; Z79.02 Long term (current) use of antithrombotics/antiplatelets; F17.210 Nicotine dependence, cigarettes, uncomplicated; I25.10 Atherosclerotic heart disease of native coronary artery without angina pectoris; I10 Essential (primary) hypertension; E78.2 Mixed hyperlipidemia; E11.9 Type 2 diabetes mellitus without complications; Z85.038 Personal history of other malignant neoplasm of large intestine
CPT/HCPCS: 74176; 80053; 81001; 85025; 85610; 87077; 87086; 87186; 99284

== ENCOUNTER 2023-10-04 08:04 | Emergency (ER) | payer MEDICARE, SELFPAY ==
--- NOTE | 2023-10-04 08:07 | CT_ITS ---
WS: [id number] CT HEAD TECHNIQUE: Noncontrast CT of the head obtained from the skullbase to the vertex. CLINICAL INFORMATION: Symptoms of acute stroke COMPARISON: CT head 10/28/2021 DLP: [address] scans at [facility] use at least one of these dose optimization techniques: automated e xposure control; mA and/or kV adjustment per patient size (includes targeted exams where dose is matc hed to clinical indication); or iterative reconstruction. FINDINGS: No evidence of intracranial hemorrhage or mass effect. Ventricular system and basal cisterns are hunt nt. Mild small vessel changes with mild parenchymal volume loss. No extra-axial fluid collections. No evidence of mass or mass effect. Paranasal sinuses and mastoid air cells are well aerated. .Normal visualized soft tissues. IMPRESSION: 1. No evidence of intracranial hemorrhage or mass effect. 2. No acute intracranial findings. Notified Guille Lopez DO at 10/04/2023 8:42 AM.
--- NOTE | 2023-10-04 08:07 | ECG_ITS ---
[facility] Test Date: 2023-10-04 Pat Name: Aram Alva Department: Room: Gender: Male Special Delivery Messenger: : [phone] Requested By: Guille Haley Order Number: [id number] Karen MD: Vince Neil M.D. Measurements Intervals [place] Rate: 75 P: 75 MS: 136 QRS: 73 QRSD: 78 T: 56 QT: 388 QTc: 433 Interpretive Statements SINUS RHYTHM WITH OCCASIONAL SUPRAVENTRICULAR PREMATURE COMPLEXES Compared to ECG 06/22/2023 11:46:03 T-wave abnormality no longer present Electronically Signed On 10-04-2023 21:34:02 CDT by Vince Neil M.D. [id number]
[2023-10-04 08:35] VITALS: BP 144/90; PULSE 87; RESP 16; TEMP 36.8; O2SAT 100; BMI 29.0
--- NOTE | 2023-10-04 08:56 | ED_ITS ---
HPI - Headache 2 General: Chief Complaint: Headache Stated Complaint: headache, left arm tingle Time Seen by Provider: 10/04/23 08:06 Source: patient Mode of arrival: ambulatory History of Present Illness: 73-year-old male presents to the emergen cy room with complaints of headache and shakes began this morning. He had a similar symptoms yesterday got better after he took his blood pressure medicines. Denies chest pain or abdominal pain. He recently did have a left knee arthroplasty has some pain in the left knee but denies any shortness of breath no fever sweats or chills. MD elicited complaint: headache Associated symptoms: Deny chest pain, fever(s) or rash Review of Systems 2 Const: Denies: fever(s) or chills Card: Denies: chest pain Resp: Denies: dyspnea GI: Denies: abdominal pain : Denies: dysuria, urinary frequency or urinary urgency Musc: Denies: neck pain or back pain Skin/Breast: Denies: rash PFSH ED 2 PFSH: Medical History Carotid bruit present Atherosclerotic heart disease of [place] coronary artery with other forms of angina pectoris Atypical chest pain The EKG done in the emergency room revealed normal sinus rhythm with a normal ST-T's. Migraine-cluster headache syndrome History of small bowel obstruction Hyperglycemia Castillo angioma GERD (gastroesophageal reflux disease) Cervical spondylosis Syncope CAD (coronary artery disease) Essential hypertension Mixed hyperlipidemia Diabetes mellitus History of colon cancer Surgical History History of heart artery stent History of angioplasty Family History Father CAD (coronary artery disease) Cancer Mother CAD (coronary artery disease) Cancer Brother Cancer Sister Cancer Other Heart disease Denies family history of Diabetes Clotting disorder Dementia Chronic kidney disease (CKD) Suicide Anesthesia complication Bleeding disorder Lung disease Stroke Social History Smoking and tobacco/nicotine status: current every day tobacco/nicotine user (1 PPD) cigarettes Years cigarettes smoked: 53 Alcohol intake: never Substance/Drug Use: never Household members: spouse Marital status: Current occupational status: unemployed Physical Exam 2 Const: COMMON NORMALS: no acute distress GENERAL APPEARANCE: cooperative and comfortable ORIENTATION/CONSCIOUSNESS: Yes awake, Yes oriented to person, Yes oriented to place and Yes oriented to time HENMT: COMMON NORMALS: normocephalic, atraumatic and hearing grossly normal bilaterally HEAD & SCALP: normocephalic and atraumatic Resp: COMMON NORMALS: normal respiratory effort, No retractions, No use of accessory muscles and clear to auscultation bilaterally AUSCULTATION: clear to auscultation bilaterally Cardio: COMMON NORMALS: regular rate, regular rhythm and No murmurs present (Cardio) RATE: regular rate RHYTHM: regular rhythm GI: COMMON NORMALS: Soft to palpation and No hepatosplenomegaly present A USCULTATION: Yes normoactive bowel sounds PALPATION: Yes Soft to palpation, No Tenderness to palpation present (GI), No Guarding due to palpation present (GI) and Yes No hepatosplenomegaly present Extremity: COMMON NORMALS: normal to inspection, capillary refill normal, no clubbing, cyanosis or edema, no calf tenderness and no pedal edema Neuro: SENSORIUM/ORIENTATION: Yes oriented to person, Yes oriented to place and Yes oriented to time Skin: COMMON NORMALS: no rashes or lesions noted GENERAL SKIN EXAM: no rashes or lesions noted Course 2 Vital Signs: Vital signs: Vital Signs Temperature 98.2 F 10/04/23 08:35 Pulse Rate 87 10/04/23 08:35 Respiratory Rate 16 10/04/23 08:35 Blood Pressure 144/90 10/04/23 08:35 Pulse Oximetry 100 10/04/23 08:35 Oxygen Delivery Me thod Room Air 10/04/23 08:35 MDM - Headache Medical Decision Making Symptoms are completely resolved blood pressure is elevated while he is here improved with medications given will increase his lisinopril to 20 mg daily he is currently on aspirin and clopidogrel. Follow-up with his primary care doctor. He had no focal neurologic deficits while here. No chest pain. EKG done in the emergency room today showed normal sinus rhythm with occasional PACs heart rate of 75 normal [place] and QT intervals no acute ST changes. Encouraged to return if he has recurrent symptoms Medical Records I reviewed the patient's medical records. Lab Data I reviewed the patient's lab results. 10/04/23 09:02 10/04/23 09:02 Laboratory Results WBC 10.34 10^3/uL (3.29-11.43) 10/04/23 09:02 RBC 3.55 10^6/uL (3.85-5.65) L 10/04/23 09:02 Hgb 11.50 g/dL (11.27-16.99) 10/04/23 09:02 Hct 34.7 % (37-53) L 10/04/23 09:02 MCV 97.7 fl (82-101) 10/04/23 09:02 MCH 32.4 pg (27-33) 10/04/23 09:02 MCHC 33.1 g/dL (30-55) 10/04/23 09:02 RDW 13.2 % (12.1-15.1) 10/04/23 09:02 Plt Count 302 10^3/cmm (157-399) 10/04/23 09:02 MPV 10.2 fL (7.4-10.4) 10/04/23 09:02 Neut % (Auto) 80.1 % 10/04/23 09:02 Lymph % (Auto) 10.6 % 10/04/23 09:02 [place] % (Auto) 6.8 % 10/04/23 09:02 Eos % (Auto) 1.4 % 10/04/23 09:02 Baso % (Auto) 0.8 % 10/04/23 09:02 Neut # (Auto) 8.29 10^3/uL (1.8-7.7) H 10/04/23 09:02 Lymph # (Auto) 1.1 10^3/uL (0.8-4.8) 10/04/23 09:02 [place] # (Auto) 0.7 10^3/uL (0.2-0.9) 10/04/23 09:02 Eos # (Auto) 0.1 10^3/uL (0.0-0.8) 10/04/23 09:02 Baso # (Auto) 0.1 10^3/uL (0.0-0.1) 10/04/23 09:02 Nucleated RBC % (auto) 0 % 10/04/23 09:02 Nucleated RBCs # 0.0 /100WBC 10/04/23 09:02 PT 13.10 SECONDS (12.1-14.9) 10/04/23 09:02 INR 0.96 (0.8-1.2) 10/04/23 09:02 APTT 30.7 SECONDS (23.9-36.7) 10/04/23 09:02 Sodium 138 mmol/L (136-145) 10/04/23 09:02 Potassium 4.8 mmol/L (3.5-5.1) 10/04/23 09:02 Chloride 105 mmol/L (98-107) 10/04/23 09:02 Carbon Dioxide 25 mmol/L (22-29) 10/04/23 09:02 Anion Gap 12.8 (5-19) 10/04/23 09:02 BUN 13 mg/dL (8-23) 10/04/23 09:02 Creatinine 1.1 mg/dL (0.7-1.2) 10/04/23 09:02 GFR Calculation Not Reportable 10/04/23 09:02 Glucose 100 mg/dL (65-115) 10/04/23 09:02 POC Glucose 100 mg/dL (70-110) 10/04/23 09:08 Calculated Osmolality 286 mOsm/kg (285-295) 10/04/23 09:02 Calcium 9.2 mg/dL (8.5-10.5) 10/04/23 09:02 Total Bilirubin 0.2 mg/dL (0.15-1.2) 10/04/23 09:02 AST 21 U/L (0-40) 10/04/23 09:02 ALT 18 U/L (0-41) 10/04/23 09:02 Alkaline Phosphatase 85 U/L (40-130) 10/04/23 09:02 Total Protein 6.8 g/dL (6.6-8.7) 10/04/23 09:02 Albumin 4.1 g/dL (3.5-5.2) 10/04/23 09:02 Globulin 2.7 g/dL (1.3-4.6) 10/04/23 09:02 Urine Color Yellow (Yellow) 10/04/23 09:19 Urine Appearance Clear (CLEAR) 10/04/23 09:19 Urine pH 6 (5-7) 10/04/23 09:19 Ur Specific [place] 1.005 (1.005-1.030) 10/04/23 09:19 Urine Protein Neg (Negative) 10/04/23 09:19 Urine Glucose (UA) Norm (Normal) 10/04/23 09:19 Urine Ketones Negative (Negative) 10/04/23 09:19 Urine Blood Neg (Negative) 10/04/23 09:19 Urine Nitrate Negative (Negative) 10/04/23 09:19 Urine Bilirubin Neg (Negative) 10/04/23 09:19 Urine Urobilinogen Norm mg/dL (Negative) 10/04/23 09:19 Ur Leukocyte Esterase Trace (Negative) H 10/04/23 09:19 Urine RBC 0-4 /hpf (0-2) H 10/04/23 09:19 Urine WBC 10-15 /hpf (0-5) H 10/04/23 09:19 Ur Squamous Epith Cells 0-4 /hpf (0-5) H 10/04/23 09:19 Amorphous Sediment Not Reportable 10/04/23 09:19 Urine Bacteria Trace /hpf (NONE) 10/04/23 09:19 Urine Opiates Screen Negative ng/mL (Negative) 10/04/23 09:19 Ur Barbiturates Screen Negative ng/mL (Negative) 10/04/23 09:19 Ur Phencyclidine Scrn Negative ng/mL (Negative) 10/04/23 09:19 Ur Amphetamines Screen Negative ng/mL (Negative) 10/04/23 09:19 U Benzodiazepines Scrn Negative ng/mL (Negative) 10/04/23 09:19 Urine Cocaine Screen Negative ng/mL (Negative) 10/04/23 09:19 U Marijuana (THC) Screen Negative ng/mL (Negative) 10/04/23 09:19 All radiology interpretation(s) finalized by discharge Discharge Plan Discharge Patient Disposition: Home Clinical Impression: Essential hypertension Condition: Stable Prescriptions: New lisinopril 20 mg tablet 20 mg PO DAILY Qty: 30 0RF Discontinued lisinopril 10 mg tablet 10 mg PO QAM No Action aspirin 81 mg tablet,delayed release (DR/EC) 81 mg PO QAM (DME) Night splint to left See Rx Instructions .Route .MEDSUPPLY Qty: 1 0RF Rx Instructions: As directed (DME) Custom Molded Orthotics See Rx Instructions .Route .MEDSUPPLY Qty: 1 0RF Rx Instructions: As directed (DME) small hinge brace See Rx Instructions .Route .MEDSUPPLY Qty: 1 0RF Rx Instructions: As directed tamsulosin [Flomax] 0.4 mg capsule 0.4 mg PO Q24H Qty: 20 0RF clopidogrel 75 mg tablet 75 mg PO QAM metoprolol succinate 25 mg tablet extended release 24 hr 25 mg PO QAM Discharge Orders: Discharge ED (Routine); Ordered 10/04/23 Ordered By: Guille Lopez Referrals: Jaquelin Cee MD [Primary Care Provider] - Discharge Diet: Usual diet Discharge Activity: Increase activity as tolerated Patient Instructions: Opioid Safety, Pain Management Activity Restrictions/Additional Instructions: Thank you for choosing [facility] for your healthcare needs today. Please realize this is an emergency room and that we are providing you with a medical screening exam and this may not be complete and all inclusive of all the testing and or work up that you may need to determine your ailment or severity of your illness. It is very important that you follow up as instructed or that you return to the Emergency Department should you have concerns or if your condition changes or worsens in any way. You were seen today for headache and tremor. These symptoms resolved as her blood pressure improved. Recommend continuing metoprolol increasing her lisinopril to 20 mg daily continue all of your other medications and follow-up with your primary care doctor within the next week to reevaluate your blood pressure. Return to the emergency room if you have any further problems. Coding Level of Care Code ED Math And Physics Instructor for Lance Tavarez NIH stroke score NIHSS Level Of Consciousness - 1a: 0 Level Of Consciousness Questions - 1b: Both Correct Level Of Consciousness Commands - 1c: Both Correct Best Gaze - 2: Normal Visual [place] - 3: No Visual Loss Facial Palsy - 4: Normal Motor Arm Right - 5: No Drift Motor Arm Left - 5: No Drift Motor Leg Right - 6: No Drift Motor Leg Left - 6: No Drift Limb Ataxia - 7: Absent Sensory - 8: Normal Best Language - 9: No Aphasia Dysarthia - 10: Normal Extinction And Inattention - 11: 0 Score Total Score: 0
[2023-10-04 09:14] LABS: Basophils # 0.1 10^3/uL (0.0-0.1); Basophils % 0.8 %; Eosinophils # 0.1 10^3/uL (0.0-0.8); Eosinophils % 1.4 %; Hematocrit 34.7 % (37-53); Lymphocytes # 1.1 10^3/uL (0.8-4.8); Lymphocytes % 10.6 %; Mean Corpuscular HGB Conc 33.1 g/dL (30-55); Mean Corpuscular Hemoglobin 32.4 pg (27-33); Mean Corpuscular Volume 97.7 fl (82-101); Mean Platelet Volume 10.2 fL (7.4-10.4); Monocytes # 0.7 10^3/uL (0.2-0.9); Monocytes % 6.8 %; Neutrophils # 8.29 10^3/uL (1.8-7.7); Neutrophils % 80.1 %; Nucleated Red Blood Cells % 0 %; Platelet Count 302 10^3/cmm (157-399); Red Blood Count 3.55 10^6/uL (3.85-5.65); Red Cell Distribution Width 13.2 % (12.1-15.1); White Blood Count 10.34 10^3/uL (3.29-11.43)
[2023-10-04 09:17] LABS: Glucose Point of Care 100 mg/dL (70-110)
[2023-10-04 09:24] LABS: INR 0.96 (0.8-1.2)
[2023-10-04 09:25] LABS: Partial Thromboplastin Time 30.7 SECONDS (23.9-36.7)
[2023-10-04 09:34] LABS: Alanine Aminotransferase 18 U/L (0-41); Albumin Level 4.1 g/dL (3.5-5.2); Alkaline Phosphatase 85 U/L (40-130); Anion Gap 12.8 (5-19); Aspartate Amino Transferase 21 U/L (0-40); Blood Urea Nitrogen 13 mg/dL (8-23); Calcium 9.2 mg/dL (8.5-10.5); Carbon Dioxide 25 mmol/L (22-29); Chloride 105 mmol/L (98-107); Creatinine Clr Calc Pharmacy 63.7954; Globulin 2.7 g/dL (1.3-4.6); Glucose 100 mg/dL (65-115); Osmolality Calculated 286 mOsm/kg (285-295); Potassium 4.8 mmol/L (3.5-5.1); Sodium 138 mmol/L (136-145); Total Bilirubin 0.2 mg/dL (0.15-1.2); Total Protein 6.8 g/dL (6.6-8.7)
[2023-10-04 10:44] LABS: Amphetamines Screen Urine Negative (Negative); Barbiturates Screen Urine Negative (Negative); Benzodiazepines Screen Urine Negative (Negative); Cocaine Screen Urine Negative (Negative); Opiate Screen Urine Negative (Negative); PCP Screen Urine Negative (Negative); THC Screen Urine Negative (Negative)
[2023-10-04 11:01] LABS: Urine Appearance Clear (CLEAR); Urine Color Yellow (Yellow)
[2023-10-04 11:02] LABS: Add Urine Culture? No; Add Urine Microscopic? YES; Bacteria Urine TRACE /hpf; Bilirubin Urine Neg (Negative); Blood Urine Neg (Negative); Glucose Urine UA Norm (Normal); Ketones Urine Negative (Negative); Leukocyte Esterase Urine Trace (Negative); Nitrate Urine Negative (Negative); Protein Urine Neg (Negative); RBC Urine 0-4 /hpf (0-2); Specific Gravity, Urine 1.005 (1.005-1.030); Squamous Epithelial Cell Urine 0-4 /hpf (0-5); Urobilinogen Urine Norm (Negative); pH Urine 6 (5-7)
== END 2023-10-04 10:31 | disposition home or self-care (01) ==
PROVIDERS: Emergency Provider Family Medicine; PCP Family Medicine
DX: I10 Essential (primary) hypertension (principal); Z79.02 Long term (current) use of antithrombotics/antiplatelets; Z79.82 Long term (current) use of aspirin; F17.210 Nicotine dependence, cigarettes, uncomplicated; I25.10 Atherosclerotic heart disease of native coronary artery without angina pectoris; E78.2 Mixed hyperlipidemia; E11.9 Type 2 diabetes mellitus without complications; Z85.038 Personal history of other malignant neoplasm of large intestine; Z79.899 Other long term (current) drug therapy
CPT/HCPCS: 36415; 36416; 70450; 80053; 80306; 81001; 82962; 85025; 85610; 85730; 93005; 99284

== ENCOUNTER 2023-10-16 04:17 | Emergency (ER) | payer MEDICARE, SELFPAY ==
[2023-10-16 04:20] VITALS: BP 126/85; PULSE 118; RESP 22; TEMP 37; O2SAT 97; BMI 29.0
--- NOTE | 2023-10-16 04:47 | XRR_ITS ---
PROCEDURE INFORMATION: Exam: XR Chest Exam date and time: 10/16/2023 4:56 AM Age: 73 years old Clinical indication: Prior surgery; Surgery date: 6+ months; Surgery type: Coronary stent; Patient HX: Cough with epigastric pain TECHNIQUE: Imaging protocol: Radiologic exam of the chest. Views: 1 view. COMPARISON: CR XR ribs RT mn 3V w CXR1V [id number] 12/07/2022 12:15 PM FINDINGS: Lungs: The lung parenchyma is clear. Pleural spaces: No pneumothorax. No large pleural effusion. Heart/Mediastinum: The cardiomediastinal silhouette is within normal limits. Bones/joints: Unremarkable. XR/XR chest 1V portable [id number] IMPRESSION: No acute cardiopulmonary abnormality.
--- NOTE | 2023-10-16 04:47 | CTR_ITS ---
PROCEDURE INFORMATION: Exam: CT Abdomen And Pelvis With Contrast Exam date and time: 10/16/2023 5:14 AM Age: 73 years old Clinical indication: Abdominal pain; Prior surgery; Surgery date: 6+ months; Surgery type: Bowel; Patient HX: C/O epigastric pain. History of colon cancer. TECHNIQUE: Imaging protocol: Computed tomography of the abdomen and pelvis with contrast. Radiation optimization: All CT scans at this facility use at least one of these dose optimization techniques: automated exposure control; mA and/or kV adjustment per patient size (includes targeted exams where dose is matched to clinical indication); or iterative reconstruction. Contrast material: OMNI 350; Contrast volume: 100 ml; Contrast route: INTRAVENOUS (IV); COMPARISON: CT kidney stone [id number] 09/13/2023 2:14 AM RADIATION DOSE METRICS: Total DLP (mGy-cm): 563.44 FINDINGS: Lungs: Mild bilateral lower lobe bronchiectasis. Minimal linear bibasilar atelectasis. Liver: The liver is normal in size and contour. Gallbladder and bile ducts: The gallbladder appears unremarkable. No intra- or extra-hepatic biliary ductal dilatation. Pancreas: The pancreas appears normal. Spleen: The spleen appears normal. Adrenal glands: The adrenals appear normal. Kidneys and ureters: Right-sided hydronephrosis/hydroureter similar to prior exam. No distal ureteral stones identified. No left-sided hydronephrosis or hydroureter. Stomach and bowel: The stomach appears unremarkable. The small bowel loops are not abnormally dilated. The large bowel loops are not abnormally dilated. Postsurgical changes in the proximal colon. Appendix: No signs of appendicitis. Intraperitoneal space: No ascites or significant fluid collection. Vasculature: The aorta is nonaneurysmal. The IVC appears normal. Lymph nodes: There are no enlarged lymph nodes. Urinary bladder: Prominently distended urinary bladder, similar to prior exam. Reproductive: Prostatomegaly similar to prior exam. Bones/joints: Multilevel degenerative changes in the spine. Degenerative disc disease at L3-L4, L4-L5, and L5-S1. Leftward curvature of the lumbar spine centered at L3. Soft tissues: Unremarkable. CT/CT abdomen pelvis w con* [id number] IMPRESSION: 1. Right-sided hydronephrosis/hydroureter similar to prior exam. 2. Prominently distended urinary bladder, similar to prior exam. 3. Prostatomegaly similar to prior exam.
--- NOTE | 2023-10-16 04:48 | ECG_ITS ---
[facility] Test Date: 2023-10-16 Pat Name: Aram Alva Department: Room: Gender: Male Demand Manager: : 1950 Requested By: Remigio Vazquez Order Number: [id number] Karen MD: Tip Box M.D. Measurements Intervals [place] Rate: 115 P: 63 ND: 96 QRS: 69 QRSD: 85 T: 52 QT: 328 QTc: 455 Interpretive Statements SINUS TACHYCARDIA WITH SHORT ND INTERVAL NONSPECIFIC T-WAVE ABNORMALITY ABNORMAL RHYTHM ECG Compared to ECG 10/04/2023 08:34:02 Short ND interval now present T-wave abnormality now present Sinus rhythm no longer present Electronically Signed On 10-16-2023 18:37:50 CDT by Tip Box M.D. [id number] asad
--- NOTE | 2023-10-16 04:51 | ED_ITS ---
HPI - Abdominal Pain 2 General: Chief Complaint: Abdominal Pain Stated Complaint: Back and Chest Pain Time Seen by Provider: 10/16/23 04:22 History of Present Illness: 73-year-old male gentleman presenting wi th epigastric discomfort. He evidently has a history of heart disease. Pain radiates into his back. No nausea or vomiting. No fever. No significant shortness of breath. No leg swelling. He has had a history of a colectomy. Associated Symptoms: Denies chills, diarrhea, fever(s), nausea and vomiting Review of Systems 2 Const: Denies: fever(s) or chills ENMT: Denies: throat pain Card: Denies: chest pain or palpitations Resp: Denies: dyspnea, productive cough or non-productive cough GI: Reports: abdominal pain; Denies: nausea, vomiting or diarrhea Musc: Reports: back pain PFSH ED 2 PFSH: Medical History Carotid bruit present Atherosclerotic heart disease of [place] coronary artery with other forms of angina pectoris Atypical chest pain The EKG done in the emergency room revealed normal sinus rhythm with a normal ST-T's. Migraine-cluster headache syndrome History of small bowel obstruction Hyperglycemia Castillo angioma GERD (gastroesophageal reflux disease) Cervical spondylosis Syncope CAD (coronary artery disease) Essential hypertension Mixed hyperlipidemia Diabetes mellitus History of colon cancer Surgical History History of heart artery stent History of angioplasty Family History Father CAD (coronary artery disease) Cancer Mother CAD (coronary artery disease) Cancer Brother Cancer Sister Cancer Other Heart disease Denies family history of Diabetes Clotting disorder Dementia Chronic kidney disease (CKD) Suicide Anesthesia complication Bleeding disorder Lung disease Stroke Social History Smoking and tobacco/nicotine status: current every day tobacco/nicotine user (1 PPD) cigarettes Years cigarettes smoked: 53 Alcohol intake: never Substance/Drug Use: never Household members: spouse Marital status: Current occupational status: unemployed Physical Exam 2 Const: COMMON NORMALS: no acute distress GENERAL APPEARANCE: cooperative; not ill appearing and not frail appearing HENMT: COMMON NORMALS: normocephalic, atraumatic and Normal external nose present HEAD & SCALP: normocephalic and atraumatic FACE & SINUS: normal facial exam and face symmetric NOSE: Normal external nose present Eye: COMMON NORMALS: Equal, round and reactive pupils present and EOMs intact bilaterally PUPIL: Yes Equal, round and reactive pupils present Neck/C-Spine: GENERAL: Yes trachea midline Chest: CHEST: Yes Symmetrical chest wall rise Resp: COMMON NORMALS: normal respiratory effort, No retractions, No use of accessory muscles and clear to auscultation bilaterally AUSCULTATION: clear to auscultation bilaterally Cardio: COMMON NORMALS: regular rate and regular rhythm RATE: regular rate RHYTHM: regular rhythm GI: COMMON NORMALS: Normal to inspection, nondistended, normoactive bowel sounds present Extremity: COMMON NORMALS: no pedal edema Neuro: ENEIDA COMA SCALE: document GCS findings Tyro coma scale eye opening: Spontaneous [place] coma scale verbal response: Orientated Eneida coma scale motor response: Obey commands Eneida coma scale total score: 15 S ENSORY EXAM: Yes extremities (intact) Psych: COMMON NORMALS: speech normal SPEECH: Yes normal speech Skin: COMMON NORMALS: no rashes or lesions noted GENERAL SKIN EXAM: no rashes or lesions noted Course 2 Vital Signs: Vital signs: Vital Signs Temperature 98.6 F 10/16/23 04:20 Pulse Rate 98 10/16/23 06:25 Respiratory Rate 18 10/16/23 06:25 Blood Pressure 126/85 10/16/23 06:25 Pulse Oximetry 99 10/16/23 06:25 Oxygen Delivery Me thod Room Air 10/16/23 04:20 MDM - Abdominal Pain Medical Decision Making Pain is resolved after GI cocktail here in the ER. He feels much better and would like to go home. CT reveals right-sided hydronephrosis and hydroureter without obvious obstruction from stone. There is prostate enlargement that is similar to prior as well. He knows of this, and is asymptomatic with that essentially. His chest x-ray is negative. His CBC and BMP are not remarkable. His first troponin is 12. CRP is 3. BNP is 87. EKG shows no acute ST wave changes. He will be allowed discharge. He knows to return for return of his symptoms. Lab Data 10/16/23 04:27 10/16/23 04:27 Labs/Radiology: Radiology Impressions Abdomen/Pelvis CT 10/16/23 04:47 IMPRESSION: 1. Right-sided hydronephrosis/hydroureter similar to prior exam. 2. Prominently distended urinary bladder, similar to prior exam. 3. Prostatomegaly similar to prior exam. Chest X-Ray 10/16/23 04:47 IMPRESSION: No acute cardiopulmonary abnormality. Laboratory Results WBC 6.05 10^3/uL (3.29-11.43) 10/16/23 04:27 RBC 3.84 10^6/uL (3.85-5.65) L 10/16/23 04:27 Hgb 12.10 g/dL (11.27-16.99) 10/16/23 04:27 Hct 35.7 % (37-53) L 10/16/23 04:27 MCV 93.0 fl (82-101) 10/16/23 04:27 MCH 31.5 pg (27-33) 10/16/23 04:27 MCHC 33.9 g/dL (30-55) 10/16/23 04:27 RDW 12.7 % (12.1-15.1) 10/16/23 04:27 Plt Count 220 10^3/cmm (157-399) 10/16/23 04:27 MPV 11.1 fL (7.4-10.4) H 10/16/23 04:27 Neut % (Auto) 75.5 % 10/16/23 04:27 Lymph % (Auto) 11.6 % 10/16/23 04:27 [place] % (Auto) 11.1 % 10/16/23 04:27 Eos % (Auto) 0.8 % 10/16/23 04:27 Baso % (Auto) 0.7 % 10/16/23 04:27 Neut # (Auto) 4.57 10^3/uL (1.8-7.7) 10/16/23 04:27 Lymph # (Auto) 0.7 10^3/uL (0.8-4.8) L 10/16/23 04:27 [place] # (Auto) 0.7 10^3/uL (0.2-0.9) 10/16/23 04:27 Eos # (Auto) 0.1 10^3/uL (0.0-0.8) 10/16/23 04:27 Baso # (Auto) 0.0 10^3/uL (0.0-0.1) 10/16/23 04:27 Nucleated RBC % (auto) 0 % 10/16/23 04:27 Nucleated RBCs # 0.0 /100WBC 10/16/23 04:27 PT 13.00 SECONDS (12.1-14.9) 10/16/23 04:27 INR 0.96 (0.8-1.2) 10/16/23 04:27 APTT 31.8 SECONDS (23.9-36.7) 10/16/23 04:27 Sodium 135 mmol/L (136-145) L 10/16/23 04:27 Potassium 4.1 mmol/L (3.5-5.1) 10/16/23 04:27 Chloride 101 mmol/L (98-107) 10/16/23 04:27 Carbon Dioxide 22 mmol/L (22-29) 10/16/23 04:27 Anion Gap 16.1 (5-19) 10/16/23 04:27 BUN 14 mg/dL (8-23) 10/16/23 04:27 Creatinine 1.1 mg/dL (0.7-1.2) 10/16/23 04:27 GFR Calculation Not Reportable 10/16/23 04:27 Glucose 105 mg/dL (65-115) 10/16/23 04:27 Calculated Osmolality 281 mOsm/kg (285-295) L 10/16/23 04:27 Lactic Acid 0.7 mmol/L (0.5-2.2) 10/16/23 04:27 Calcium 9.1 mg/dL (8.5-10.5) 10/16/23 04:27 Total Bilirubin 0.2 mg/dL (0.15-1.2) 10/16/23 04:27 AST 14 U/L (0-40) 10/16/23 04:27 ALT 12 U/L (0-41) 10/16/23 04:27 Alkaline Phosphatase 85 U/L (40-130) 10/16/23 04:27 Troponin T Baseline 12 ng/L (0-15) 10/16/23 04:27 C-Reactive Protein 3.0 mg/L (0.0-4.9) 10/16/23 04:27 NT-Pro-B Natriuret Pep 87 pg/mL (0-125) 10/16/23 04:27 Total Protein 7.3 g/dL (6.6-8.7) 10/16/23 04:27 Albumin 4.1 g/dL (3.5-5.2) 10/16/23 04:27 Globulin 3.2 g/dL (1.3-4.6) 10/16/23 04:27 Lipase 25 U/L (13-60) 10/16/23 04:27 Urine Color Yellow (Yellow) 10/16/23 05:09 Urine Appearance Sl hazy (CLEAR) A 10/16/23 05:09 Urine pH 7 (5-7) 10/16/23 05:09 Ur Specific [place] 1.005 (1.005-1.030) 10/16/23 05:09 Urine Protein Neg (Negative) 10/16/23 05:09 Urine Glucose (UA) Norm (Normal) 10/16/23 05:09 Urine Ketones Negative (Negative) 10/16/23 05:09 Urine Blood 2+ (Negative) H 10/16/23 05:09 Urine Nitrate Negative (Negative) 10/16/23 05:09 Urine Bilirubin Neg (Negative) 10/16/23 05:09 Urine Urobilinogen Neg mg/dL (Negative) 10/16/23 05:09 Ur Leukocyte Esterase Negative (Negative) 10/16/23 05:09 Urine RBC 5-10 /hpf (0-2) H 10/16/23 05:09 Urine WBC 0-4 /hpf (0-5) H 10/16/23 05:09 Ur Squamous Epith Cells 0-4 /hpf (0-5) H 10/16/23 05:09 Amorphous Sediment Not Reportable 10/16/23 05:09 Urine Bacteria Trace /hpf (NONE) 10/16/23 05:09 All radiology interpretation(s) finalized by discharge Discharge Plan Discharge Patient Disposition: Home Clinical Impression: GERD without esophagitis Condition: Stable Prescriptions: New Prevacid 30 mg capsule,delayed release(DR/EC) 30 mg PO DAILY Qty: 30 0RF No Action aspirin 81 mg tablet,delayed release (DR/EC) 81 mg PO QAM (DME) Night splint to left See Rx Instructions .Route .MEDSUPPLY Qty: 1 0RF Rx Instructions: As directed (DME) Custom Molded Orthotics See Rx Instructions .Route .MEDSUPPLY Qty: 1 0RF Rx Instructions: As directed (DME) small hinge brace See Rx Instructions .Route .MEDSUPPLY Qty: 1 0RF Rx Instructions: As directed tamsulosin [Flomax] 0.4 mg capsule 0.4 mg PO Q24H Qty: 20 0RF clopidogrel 75 mg tablet 75 mg PO QAM metoprolol succinate 25 mg tablet extended release 24 hr 25 mg PO QAM lisinopril 20 mg tablet 20 mg PO DAILY Qty: 30 0RF Discharge Orders: Discharge ED (Routine); Ordered 10/16/23 Ordered By: Remigio Baird Referrals: Jaquelin Cee MD [Primary Care Provider] - 1-3 days Patient Instructions: Urinary Retention in Men (ED), GERD (Gastroesophageal Reflux Disease) (ED), Esophageal Spasm (ED), Opioid Safety, Pain Management Activity Restrictions/Additional Instructions: Medication as directed. Return for any return of pain, fever, vomiting, any other concerning symptoms. See your doctor next week. Coding Level of Care Code ED Machine Brush Maker for Lance Tavarez
[2023-10-16 04:56] LABS: Basophils % 0.7 %; Eosinophils # 0.1 10^3/uL (0.0-0.8); Eosinophils % 0.8 %; Hematocrit 35.7 % (37-53); Lymphocytes # 0.7 10^3/uL (0.8-4.8); Lymphocytes % 11.6 %; Mean Corpuscular HGB Conc 33.9 g/dL (30-55); Mean Corpuscular Hemoglobin 31.5 pg (27-33); Mean Platelet Volume 11.1 fL (7.4-10.4); Monocytes # 0.7 10^3/uL (0.2-0.9); Monocytes % 11.1 %; Neutrophils # 4.57 10^3/uL (1.8-7.7); Neutrophils % 75.5 %; Nucleated Red Blood Cells % 0 %; Platelet Count 220 10^3/cmm (157-399); Red Blood Count 3.84 10^6/uL (3.85-5.65); Red Cell Distribution Width 12.7 % (12.1-15.1); White Blood Count 6.05 10^3/uL (3.29-11.43)
[2023-10-16 05:00] VITALS: RESP 18
[2023-10-16] MEDS: morphine 4 mg/mL SDV 1 mL IVP (05:00)
[2023-10-16] MEDS: lidocaine 2% viscous 15 ML, aluminum-mag hydrox-simethicon 30 ML, sucralfate oral liq 1 GM PO (05:01)
[2023-10-16] MEDS: ondansetron 2 mg/ML SDV 2 mL 4 MG IVP (05:01)
[2023-10-16 05:03] LABS: INR 0.96 (0.8-1.2)
[2023-10-16 05:04] LABS: Partial Thromboplastin Time 31.8 SECONDS (23.9-36.7)
[2023-10-16 05:12] LABS: Lactic Sepsis W/Reflex 0.7 mmol/L (0.5-2.2)
[2023-10-16 05:13] LABS: Troponin(5th) Baseline 12 ng/L (0-15)
[2023-10-16] MEDS: iohexol 350 mg/mL 500 mL Btl (per mL) IV (05:14)
[2023-10-16 05:23] LABS: Alanine Aminotransferase 12 U/L (0-41); Albumin Level 4.1 g/dL (3.5-5.2); Alkaline Phosphatase 85 U/L (40-130); Anion Gap 16.1 (5-19); Aspartate Amino Transferase 14 U/L (0-40); Blood Urea Nitrogen 14 mg/dL (8-23); Calcium 9.1 mg/dL (8.5-10.5); Carbon Dioxide 22 mmol/L (22-29); Chloride 101 mmol/L (98-107); Creatinine Clr Calc Pharmacy 63.7954; Globulin 3.2 g/dL (1.3-4.6); Glucose 105 mg/dL (65-115); Lipase 25 U/L (13-60); NT Pro B Type Natriuretic Pept 87 pg/mL (0-125); Osmolality Calculated 281 mOsm/kg (285-295); Potassium 4.1 mmol/L (3.5-5.1); Sodium 135 mmol/L (136-145); Total Bilirubin 0.2 mg/dL (0.15-1.2); Total Protein 7.3 g/dL (6.6-8.7)
[2023-10-16 05:28] LABS: Add Urine Microscopic? YES; Bacteria Urine TRACE /hpf; Bilirubin Urine Neg (Negative); Blood Urine 2+ (Negative); Glucose Urine UA Norm (Normal); Ketones Urine Negative (Negative); Leukocyte Esterase Urine Negative (Negative); Nitrate Urine Negative (Negative); Protein Urine Neg (Negative); Specific Gravity, Urine 1.005 (1.005-1.030); Squamous Epithelial Cell Urine 0-4 /hpf (0-5); Urine Appearance SL Hazy (CLEAR); Urine Color Yellow (Yellow); Urobilinogen Urine Neg (Negative); WBC Urine 0-4 /hpf (0-5); pH Urine 7 (5-7)
[2023-10-16 06:25] VITALS: BP 126/85; PULSE 98; RESP 18; O2SAT 99
== END 2023-10-16 06:34 | disposition home or self-care (01) ==
PROVIDERS: Emergency Provider Emergency Medicine; PCP Family Medicine
DX: K21.9 Gastro-esophageal reflux disease without esophagitis (principal); Z79.02 Long term (current) use of antithrombotics/antiplatelets; Z79.82 Long term (current) use of aspirin; F17.210 Nicotine dependence, cigarettes, uncomplicated; I25.10 Atherosclerotic heart disease of native coronary artery without angina pectoris; I10 Essential (primary) hypertension; E78.2 Mixed hyperlipidemia; E11.9 Type 2 diabetes mellitus without complications; Z85.038 Personal history of other malignant neoplasm of large intestine
CPT/HCPCS: 71045; 74177; 80053; 81001; 83605; 83690; 83880; 84484; 85025; 85610; 85730; 86140; 93005; 96374; 96375; 99285; J2270; J2405; Q9967

== ENCOUNTER → 2023-10-18 17:07 | Outpatient (BNVA) | payer MEDICARE, SELFPAY | PROVIDERS: PCP Family Medicine; Visit Provider Family Medicine | DX: N39.0 Urinary tract infection, site not specified (principal) | CPT/HCPCS: 81000 ==

== ENCOUNTER 2024-04-04 11:06 | Emergency (ER) | payer MEDICARE, SELFPAY ==
[2024-04-04 11:17] VITALS: BP 147/90; PULSE 114; RESP 18; TEMP 36.8; O2SAT 96; BMI 29.1
[2024-04-04 11:20] VITALS: BP 147/90; PULSE 106; RESP 18; O2SAT 96
[2024-04-04] MEDS: tetanus-dipt-pertussis 0.5 mL SDV IM (11:30)
--- NOTE | 2024-04-04 11:36 | ED_ITS ---
HPI - Wound/Laceration General: Chief Complaint: Wound/Laceration Stated Complaint: anton wire stuck in arm Time Seen by Provider: 04/04/24 11:11 History of Present Illness: 73-year-old man presents emergency room with a piece of barbed wire stuck in his arm. 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 Does not know when his last tetanus was. He is on a blood thinner. Plavix. He has several small puncture wounds. Related Data Home Medications Medication Instructions Recorded Confirmed aspirin 81 mg tablet,delayed 81 mg PO QAM 07/25/19 02/28/24 release clopidogrel 75 mg tablet 75 mg PO QAM 10/04/23 02/28/24 metoprolol succinate 25 mg 25 mg PO QAM 10/04/23 02/28/24 tablet,extended release 24 hr Previous Rx's Medication Instructions Recorded Custom Molded Orthotics #1 ea 05/26/21 Night splint to left #1 ea 05/26/21 small hinge brace #1 ea 06/22/22 tamsulosin 0.4 mg capsule (Flomax) 0.4 mg PO Q24H #20 caps 04/04/23 lisinopril 20 mg tablet 20 mg PO DAILY #30 tabs 10/04/23 sucralfate 1 gram tablet (Carafate) 1 g PO TID #90 tabs 10/18/23 doxycycline hyclate 100 mg capsule 100 mg PO BID 10 days #20 caps 02/28/24 ibuprofen 800 mg tablet 800 mg PO Q8H PRN pain or fever 02/28/24 #30 tabs lansoprazole 30 mg capsule,delayed 30 mg PO BID #60 caps 03/08/24 release (Prevacid) cephalexin 500 mg capsule 500 mg PO BID 5 days #10 caps 04/04/24 Allergies Allergy/AdvReac Type Severity Reaction Status Date / Time No Known Allergies Allergy Verified 02/28/24 14:29 Review of Systems Narrative: Constitutional symptoms: Negative except as documented in HPI. Skin symptoms: Negative except as documented in HPI. Eye symptoms: Negative except as documented in HPI. ENMT symptoms: Negative except as documented in HPI. Respiratory symptoms: Negative except as documented in HPI. Cardiovascular symptoms: Negative except as documented in HPI. Gastrointestinal symptoms: Negative except as documented in HPI. Genitourinary symptoms: Negative except as documented in HPI. Musculoskeletal symptoms: Negative except as documented in HPI. Neurologic symptoms: Negative except as documented in HPI. Psychiatric symptoms: Negative except as documented in HPI. Endocrine symptoms: Negative except as documented in HPI. PFS ED PFSH: Medical History Carotid bruit present Atherosclerotic heart disease of [place] coronary artery with other forms of angina pectoris Atypical chest pain The EKG done in the emergency room revealed normal sinus rhythm with a normal ST-T's. Migraine-cluster headache syndrome History of small bowel obstruction Hyperglycemia Castillo angioma GERD (gastroesophageal reflux disease) Cervical spondylosis Syncope CAD (coronary artery disease) Essential hypertension Mixed hyperlipidemia Diabetes mellitus History of colon cancer Surgical History History of heart artery stent History of angioplasty Family History Father CAD (coronary artery disease) Cancer Mother CAD (coronary artery disease) Cancer Brother Cancer Sister Cancer Other Heart disease Denies family history of Diabetes Clotting disorder Dementia Chronic kidney disease (CKD) Suicide Anesthesia complication Bleeding disorder Lung disease Stroke Social History Smoking and tobacco/nicotine status: current every day tobacco/nicotine user cigarettes Years cigarettes smoked: 53 Alcohol intake: never Substance/Drug Use: never Household members: spouse Marital status: Current occupational status: unemployed Physical Exam Narrative: EXAM NARRATIVE: General: Alert, no acute distress. Skin: Warm, dry. There is a piece of barbed wire with 1 prong in the left forearm. Bleeding is controlled. There are 3 other puncture wounds including 1 on his elbow with bleeding controlled and knees as well. Head: Normocephalic, atraumatic. Neck: Supple, trachea midline. Eye: Extraocular movements are intact. Ears, nose, mouth and throat: mucosa moist. Cardiovascular: Regular, Normal peripheral perfusion. Respiratory: Lungs are clear to auscultation, respirations are non-labored, breath sounds are equal, Symmetrical chest wall expansion. Gastrointestinal: Soft, Nontender, Non distended Musculoskeletal: Normal ROM, no deformity. Neurological: Alert and oriented, No focal neurological deficit observed. Psychiatric: Cooperative, appropriate mood & affect. Course Vital Signs: Vital signs: Vital Signs Temperature 98.2 F 04/04/24 11:17 Pulse Rate 106 H 04/04/24 11:20 Respiratory Rate 18 04/04/24 11:20 Blood Pressure 147/90 04/04/24 11:20 Pulse Oximetry 96 04/04/24 11:20 Oxygen Delivery Me thod Room Air 04/04/24 11:20 MDM - Wound/Laceration Medical Decision Making Procedure: Foreign body removal 6 mL 1% lidocaine with epinephrine was administered to the area. The piece of barbed wire was then removed without difficulty. Bleeding remained controlled. Assessment and plan: Foreign body in arm ?Life-saving tetanus was administered. - Discharged home - Discussed plan with patient. Answered any questions. - Evaluation and treatment of this problem were appropriate in the emergency setting. No radiology studies performed this visit Discharge Plan Discharge Patient Disposition: Home Clinical Impression: Foreign body in left forearm Condition: Stable Prescriptions: New cephalexin 500 mg capsule 500 mg PO BID 5 Days Qty: 10 0RF No Action aspirin 81 mg tablet,delayed release (DR/EC) 81 mg PO QAM (DME) Night splint to left See Rx Instructions .Route .MEDSUPPLY Qty: 1 0RF Rx Instructions: As directed (DME) Custom Molded Orthotics See Rx Instructions .Route .MEDSUPPLY Qty: 1 0RF Rx Instructions: As directed (DME) small hinge brace See Rx Instructions .Route .MEDSUPPLY Qty: 1 0RF Rx Instructions: As directed tamsulosin [Flomax] 0.4 mg capsule 0.4 mg PO Q24H Qty: 20 0RF sucralfate [Carafate] 1 gram tablet 1 g PO TID Qty: 90 3RF doxycycline hyclate 100 mg capsule 100 mg PO BID 10 Days Qty: 20 0RF ibuprofen 800 mg tablet 800 mg PO Q8H PRN (Reason: pain or fever) Qty: 30 0RF lansoprazole [Prevacid] 30 mg capsule,delayed release(DR/EC) 30 mg PO BID Qty: 60 2RF clopidogrel 75 mg tablet 75 mg PO QAM metoprolol succinate 25 mg tablet extended release 24 hr 25 mg PO QAM lisinopril 20 mg tablet 20 mg PO DAILY Qty: 30 0RF Discharge Orders: Discharge ED (Routine); Ordered 04/04/24 Ordered By: Kaye Rodney Referrals: Jaquelin Cee MD [Primary Care Provider] - Discharge Diet: Usual diet Discharge Activity: Increase activity as tolerated Patient Instructions: Puncture Wound (ED) Activity Restrictions/Additional Instructions: Thank you for choosing [facility] for your healthcare needs today. Please realize this is an emergency room and that we are providing you with a medical screening exam and this may not be complete and all inclusive of all the testing and or work up that you may need to determine your ailment or severity of your illness. You have been screened and evaluated and felt safe for discharge. Health conditions do change or evolve sometimes and as such it is important that you follow up with your Primary Doctor to be re checked, 3-5 days is a general good time frame for follow up. You are always welcome to return to the ED for re assessment if your symptoms are worsening or you have new concerns Coding Level of Care Code ED Insurance Premium Auditor for Lance Tavarez
[2024-04-04] MEDS: lidocaine-epi 1% 20 mL INJ INJECTION (11:43)
[2024-04-04 12:16] VITALS: BP 118/79; PULSE 101; RESP 16; O2SAT 97
== END 2024-04-04 12:04 | disposition home or self-care (01) ==
PROVIDERS: Emergency Provider Emergency Medicine; PCP Family Medicine
DX: S51.842A Puncture wound with foreign body of left forearm, initial encounter (principal); W26.8XXA Contact with other sharp object(s), not elsewhere classified, initial encounter; Z79.02 Long term (current) use of antithrombotics/antiplatelets; Z79.82 Long term (current) use of aspirin; F17.210 Nicotine dependence, cigarettes, uncomplicated; Z23 Encounter for immunization; I25.10 Atherosclerotic heart disease of native coronary artery without angina pectoris; I10 Essential (primary) hypertension; E78.2 Mixed hyperlipidemia; E11.9 Type 2 diabetes mellitus without complications; Z85.038 Personal history of other malignant neoplasm of large intestine
CPT/HCPCS: 90715; 99283

== ENCOUNTER 2024-04-12 13:36 | Emergency (ER) | payer MEDICARE, SELFPAY ==
[2024-04-12 13:40] VITALS: BP 172/90; PULSE 103; RESP 17; TEMP 36.6; O2SAT 100; BMI 29.2
[2024-04-12 14:06] LABS: Basophils # 0.1 10^3/uL (0.0-0.1); Basophils % 0.8 %; Eosinophils # 0.2 10^3/uL (0.0-0.8); Eosinophils % 2.5 %; Hematocrit 35.1 % (37-53); Lymphocytes # 1.3 10^3/uL (0.8-4.8); Lymphocytes % 14.1 %; Mean Corpuscular HGB Conc 31.9 g/dL (30-55); Mean Corpuscular Hemoglobin 27.7 pg (27-33); Mean Corpuscular Volume 86.7 fl (82-101); Mean Platelet Volume 10.3 fL (7.4-10.4); Monocytes # 0.8 10^3/uL (0.2-0.9); Monocytes % 8.3 %; Neutrophils # 6.98 10^3/uL (1.8-7.7); Neutrophils % 73.9 %; Nucleated Red Blood Cells % 0 %; Platelet Count 350 10^3/cmm (157-399); Red Blood Count 4.05 10^6/uL (3.85-5.65); Red Cell Distribution Width 15.6 % (12.1-15.1); White Blood Count 9.47 10^3/uL (3.29-11.43)
[2024-04-12 14:22] LABS: INR 1.02 (0.8-1.2)
[2024-04-12 14:27] LABS: Alanine Aminotransferase 7 U/L (0-41); Alkaline Phosphatase 90 U/L (40-130); Anion Gap 15.3 (5-19); Aspartate Amino Transferase 10 U/L (0-40); Blood Urea Nitrogen 21 mg/dL (8-23); Carbon Dioxide 25 mmol/L (22-29); Chloride 105 mmol/L (98-107); Creatinine Clr Calc Pharmacy 47.0151; Globulin 3.5 g/dL (1.3-4.6); Glucose 110 mg/dL (65-115); Osmolality Calculated 296 mOsm/kg (285-295); Potassium 4.3 mmol/L (3.5-5.1); Sodium 141 mmol/L (136-145); Total Bilirubin 0.2 mg/dL (0.15-1.2); Total Protein 7.5 g/dL (6.6-8.7)
--- NOTE | 2024-04-12 15:53 | CTR_ITS ---
PROCEDURE INFORMATION: Exam: CT Abdomen And Pelvis With Contrast Exam date and time: 04/12/2024 4:44 PM Age: 73 years old Clinical indication: Other: Hematuria; Additional info: Hematuria, HX of bladder mass TECHNIQUE: Imaging protocol: Computed tomography of the abdomen and pelvis with contrast. Radiation optimization: All CT scans at this facility use at least one of these dose optimization techniques: automated exposure control; mA and/or kV adjustment per patient size (includes targeted exams where dose is matched to clinical indication); or iterative reconstruction. Contrast material: [id number]; Contrast volume: 100 ml; Contrast route: INTRAVENOUS (IV); COMPARISON: CT abdomen pelvis w con* [id number] 10/16/2023 5:14 AM RADIATION DOSE METRICS: Total DLP (mGy-cm): 526 FINDINGS: Liver: There is no focal abnormality within the liver. Gallbladder and biliary ducts: There is what appears to be calcified gallstone within the gallbladder not definitely identified on the prior examinations. There is no common bile duct dilation. Pancreas: The pancreas is normal. Spleen: The spleen is normal. Adrenal glands: The adrenal glands are normal. Kidneys and ureters: There are several tiny cortical cysts in both kidneys and a 2 cm sized benign-appearing simple cyst posterior mid right kidney not significantly changed. There is severe right hydronephrosis and hydroureter. Hydronephrosis extends to the right ureterovesical junction. There is no evidence of left hydronephrosis. Stomach and bowel: Postsurgical changes are seen in the right colon. There is no evidence of colitis/diverticulitis. There is no evidence of intestinal obstruction. Appendix: Not identified Intraperitoneal space: Unremarkable. No free air. No significant fluid collection. Vasculature: The aorta demonstrates moderate atherosclerotic calcification. There is no evidence of an abdominal aortic aneurysm. Lymph nodes: There is no evidence of lymphadenopathy. Urinary bladder: There is some calcific density posterior aspect of the right side of the urinary bladder of uncertain significance. This could represent small bladder stone or calcification within bladder mass. There is a 3 x 6 x 6 cm sized lobulated mass posterior right side of the urinary bladder which may represent combination of blood clot and tumor. Further evaluation suggested. Mass is not seen on 10/16/2023. There is material in the posterior urinary bladder on 09/13/2023 likely mostly blood clot. Urinary bladder is severely dilated with a volume of approximately 1000 cc. Reproductive: The prostate demonstrates marked nonspecific enlargement. The seminal vesicles are normal. Prostate volume is approximately 85 cc. Bones/joints: There is moderate scoliosis lumbar spine concave to the right. The lumbar spine demonstrates moderate degenerative changes at multiple levels. There is no evidence of acute fracture. Soft tissues: Unremarkable. CT/CT abdomen pelvis w con* [id number] IMPRESSION: 1. Right-sided urinary bladder mass causing obstruction of the distal right ureter worrisome for invasive bladder carcinoma. 2. Severe right hydronephrosis and hydroureter. 3. Markedly distended urinary bladder 4. Enlarged prostate 5. Cholelithiasis COMMENTS: Consistent with the [place] [employer]'s Incidental Findings Committee white paper (J Am Vega Radiol 2018): Any incidental renal lesion less than 1 cm or classified as too small to characterize, or any incidental cystic renal lesion characterized as simple-appearing, is likely benign. No follow-up imaging is recommended for these lesions per consensus recommendations based on imaging criteria.
--- NOTE | 2024-04-12 16:06 | ED_ITS ---
HPI - Male Genitourinary 2 General: Chief complaint: Urogenital-Male Stated complaint: passing blood Time Seen by Provider: 04/12/24 15:48 Source: patient Mode of arrival: ambulatory Limitations: no limitations History of Present Illness: Patient is a 73-year-old male presents the emergency department complaining of hematuria onset today. States he has been diagnosed with a mass on his bladder in the past, this is routinely monitored. States suddenly this morning noticed that his urine was bright red, has had another episode since here in the emergency department. He is not reporting any dysuria, abdominal pain, nausea/vomiting, back pain, fever, or other symptoms at this time. He comments that yesterday he felt okay with no complaints at all. MD Complaint: other (Hematuria) Onset (ago): hour(s) Duration: constant Associated symptoms: Reports hematuria; Deny dysuria, nausea or vomiting Related Data Home Medications Medication Instructions Recorded Confirmed aspirin 81 mg tablet,delayed 81 mg PO QAM 07/25/19 02/28/24 release clopidogrel 75 mg tablet 75 mg PO QAM 10/04/23 02/28/24 metoprolol succinate 25 mg 25 mg PO QAM 10/04/23 02/28/24 tablet,extended release 24 hr Previous Rx's Medication Instructions Recorded Custom Molded Orthotics #1 ea 05/26/21 Night splint to left #1 ea 05/26/21 small hinge brace #1 ea 06/22/22 tamsulosin 0.4 mg capsule (Flomax) 0.4 mg PO Q24H #20 caps 04/04/23 lisinopril 20 mg tablet 20 mg PO DAILY #30 tabs 10/04/23 sucralfate 1 gram tablet (Carafate) 1 g PO TID #90 tabs 10/18/23 doxycycline hyclate 100 mg capsule 100 mg PO BID 10 days #20 caps 02/28/24 ibuprofen 800 mg tablet 800 mg PO Q8H PRN pain or fever 02/28/24 #30 tabs lansoprazole 30 mg capsule,delayed 30 mg PO BID #60 caps 03/08/24 release (Prevacid) Allergies Allergy/AdvReac Type Severity Reaction Status Date / Time No Known Allergies Allergy Verified 02/28/24 14:29 Review of Systems 2 General: Reports: 10 or more systems reviewed and unremarkable except in HPI and below Const: Denies: fever(s), chills, change in appetite, change in weight or diaphoresis ENMT: Denies: throat pain or hoarseness Card: Denies: chest pain, palpitations or lightheadedness Resp: Denies: dyspnea, productive cough or wheezing GI: Denies: abdominal pain, nausea, vomiting, diarrhea, constipation, bloating, change in stool character or hematochezia : Reports: hematuria; Denies: flank pain, difficulty urinating, dysuria, urinary frequency or urinary urgency Musc: Denies: neck pain or back pain Skin/Breast: Denies: rash or new lesions Neuro: Denies: headache(s) or dizziness PFSH ED 2 PFSH: Medical History Carotid bruit present Atherosclerotic heart disease of [place] coronary artery with other forms of angina pectoris Atypical chest pain The EKG done in the emergency room revealed normal sinus rhythm with a normal ST-T's. Migraine-cluster headache syndrome History of small bowel obstruction Hyperglycemia Castillo angioma GERD (gastroesophageal reflux disease) Cervical spondylosis Syncope CAD (coronary artery disease) Essential hypertension Mixed hyperlipidemia Diabetes mellitus History of colon cancer Surgical History History of heart artery stent History of angioplasty Family History Father CAD (coronary artery disease) Cancer Mother CAD (coronary artery disease) Cancer Brother Cancer Sister Cancer Other Heart disease Denies family history of Diabetes Clotting disorder Dementia Chronic kidney disease (CKD) Suicide Anesthesia complication Bleeding disorder Lung disease Stroke Social History Smoking and tobacco/nicotine status: current every day tobacco/nicotine user cigarettes Years cigarettes smoked: 53 Alcohol intake: never Substance/Drug Use: never Household members: spouse Marital status: Current occupational status: unemployed Physical Exam 2 Const: COMMON NORMALS: no acute distress, average body habitus, patient oriented x3, no limitations, healthy appearing, alert and well nourished G ENERAL APPEARANCE: cooperative and comfortable ORIENTATION/CONSCIOUSNESS: Yes awake HENMT: COMMON NORMALS: normocephalic, atraumatic, hearing grossly normal bilaterally, external ears normal, Normal external nose present, Normal nasal mucous membranes and turbinates present and moist oral mucous membranes HEAD & SCALP: normocephalic and atraumatic NOSE: Normal external nose present and Normal nasal mucous membranes and turbinates present EXTERNAL EAR: Yes external ears normal Eye: COMMON NORMALS: Equal, round and reactive pupils present, EOMs intact bilaterally, conjunctivae normal and normal visual balderrama by confrontation C ONJUNCTIVA: Yes conjunctivae normal PUPIL: Yes Equal, round and reactive pupils present Neck/C-Spine: COMMON NORMALS: full ROM, supple, no meningeal signs and no JVD Resp: COMMON NORMALS: normal respiratory effort, No retractions, No use of accessory muscles and clear to auscultation bilaterally AUSCULTATION: clear to auscultation bilaterally, no crackles, no rales, no rhonchi and no wheezes Cardio: COMMON NORMALS: no JVD, regular rate, regular rhythm, S1 normal heart sound present, S2 normal heart sound present, No gallops present (Cardio), No clicks present (Cardio), No murmurs present (Cardio), No rub (Cardio) and Peripheral pulses 2+ throughout RATE: regular rate RHYTHM: regular rhythm HEART SOUNDS: S1 normal heart sound present and S2 normal heart sound present PERIPHERAL PULSES: Peripheral pulses 2+ throughout GI: COMMON NORMALS: Normal to inspection, nondistended, normoactive bowel sounds present, Soft to palpation, non-tender, No hepatosplenomegaly present and no masses AUSCULTATION: Yes normoactive bowel sounds PALPATION: Yes Soft to palpation, No Guarding due to palpation present (GI), No Rigid due to palpation and Yes No hepatosplenomegaly present RECTAL EXAM: Yes deferred : COMMON NORMALS: Yes no CVA tenderness BLADDER/KIDNEY EXAM: Yes no CVA tenderness Back/Pelvis: COMMON NORMALS: no CVA tenderness Extremity: COMMON NORMALS: normal to inspection and full ROM Neuro: COMMON NORMALS: patient oriented x3, moves all extremities, no focal motor deficits and no sensory deficits noted SENSORIUM/ORIENTATION: Yes alert MENINGEAL SIGNS: Yes no meningeal signs Psych: COMMON NORMALS: mental status grossly normal, cooperative and speech normal SPEECH: Yes normal speech Skin: COMMON NORMALS: no rashes or lesions noted GENERAL SKIN EXAM: no rashes or lesions noted Course 2 Vital Signs: Vital signs: Vital Signs Temperature 97.9 F 09/26/24 13:40 Pulse Rate 71 04/12/24 18:08 Respiratory Rate 18 04/12/24 16:13 Blood Pressure 137/92 04/12/24 18:08 Pulse Oximetry 94 04/12/24 18:08 Oxygen Delivery Me thod Room Air 04/12/24 16:13 MDM - Male Medical Decision Making Patient presented with a couple episodes of hematuria today, reports history of known bladder mass that he later states was scoped in October and deemed not obstructive at that time. Labs obtained today unremarkable, however urinalysis essentially unreliable as there were too many red blood cells to count and it was obviously grossly bloody. CT of the abdomen and pelvis did show a large, almost obstructing mass to the right side of the bladder. I discussed with patient need for urgent follow-up with his urologist that is at [facility], of which she will call tomorrow to schedule appointment. He is still able to make urine which she has done more than once here in the emergency department, and has no other complaints reported. Because of this we will discharge home with strict return precautions such that if he is unable to urinate or has severe increase in pain he will return. Case discussed with Dr. Cummings. Lab Data 04/12/24 13:59 04/12/24 13:59 Radiology Impressions Abdomen/Pelvis CT 04/12/24 15:53 IMPRESSION: 1. Right-sided urinary bladder mass causing obstruction of the distal right ureter worrisome for invasive bladder carcinoma. 2. Severe right hydronephrosis and hydroureter. 3. Markedly distended urinary bladder 4. Enlarged prostate 5. Cholelithiasis COMMENTS: Consistent with the [place] [employer]'s Incidental Findings Committee white paper (J Am Vega Radiol 2018): Any incidental renal lesion less than 1 cm or classified as too small to characterize, or any incidental cystic renal lesion characterized as simple-appearing, is likely benign. No follow-up imaging is recommended for these lesions per consensus recommendations based on imaging criteria. Laboratory Results WBC 9.47 10^3/uL (3.29-11.43) 04/12/24 13:59 RBC 4.05 10^6/uL (3.85-5.65) 04/12/24 13:59 Hgb 11.20 g/dL (11.27-16.99) L 04/12/24 13:59 Hct 35.1 % (37-53) L 04/12/24 13:59 MCV 86.7 fl (82-101) 04/12/24 13:59 MCH 27.7 pg (27-33) 04/12/24 13:59 MCHC 31.9 g/dL (30-55) 04/12/24 13:59 RDW 15.6 % (12.1-15.1) H 04/12/24 13:59 Plt Count 350 10^3/cmm (157-399) 04/12/24 13:59 MPV 10.3 fL (7.4-10.4) 04/12/24 13:59 Neut % (Auto) 73.9 % 04/12/24 13:59 Lymph % (Auto) 14.1 % 04/12/24 13:59 Murray % (Auto) 8.3 % 04/12/24 13:59 Eos % (Auto) 2.5 % 04/12/24 13:59 Baso % (Auto) 0.8 % 04/12/24 13:59 Neut # (Auto) 6.98 10^3/uL (1.8-7.7) 04/12/24 13:59 Lymph # (Auto) 1.3 10^3/uL (0.8-4.8) 04/12/24 13:59 Murray # (Auto) 0.8 10^3/uL (0.2-0.9) 04/12/24 13:59 Eos # (Auto) 0.2 10^3/uL (0.0-0.8) 04/12/24 13:59 Baso # (Auto) 0.1 10^3/uL (0.0-0.1) 04/12/24 13:59 Nucleated RBC % (auto) 0 % 04/12/24 13:59 Nucleated RBCs # 0.0 /100WBC 04/12/24 13:59 PT 13.70 SECONDS (12.1-14.9) 04/12/24 13:59 INR 1.02 (0.8-1.2) 04/12/24 13:59 Sodium 141 mmol/L (136-145) 04/12/24 13:59 Potassium 4.3 mmol/L (3.5-5.1) 04/12/24 13:59 Chloride 105 mmol/L (98-107) 04/12/24 13:59 Carbon Dioxide 25 mmol/L (22-29) 04/12/24 13:59 Anion Gap 15.3 (5-19) 04/12/24 13:59 BUN 21 mg/dL (8-23) 04/12/24 13:59 Creatinine 1.5 mg/dL (0.7-1.2) H 04/12/24 13:59 GFR Calculation Not Reportable 04/12/24 13:59 Glucose 110 mg/dL (65-115) 04/12/24 13:59 Calculated Osmolality 296 mOsm/kg (285-295) H 04/12/24 13:59 Calcium 9.0 mg/dL (8.5-10.5) 04/12/24 13:59 Total Bilirubin 0.2 mg/dL (0.15-1.2) 04/12/24 13:59 AST 10 U/L (0-40) 04/12/24 13:59 ALT 7 U/L (0-41) 04/12/24 13:59 Alkaline Phosphatase 90 U/L (40-130) 04/12/24 13:59 Total Protein 7.5 g/dL (6.6-8.7) 04/12/24 13:59 Albumin 4.0 g/dL (3.5-5.2) 04/12/24 13:59 Globulin 3.5 g/dL (1.3-4.6) 04/12/24 13:59 Urine Color Red (Yellow) A 04/12/24 15:58 Urine Appearance Cloudy (CLEAR) A 04/12/24 15:58 Urine pH Not Reportable 04/12/24 15:58 Ur Specific [place] Not Reportable 04/12/24 15:58 Urine Protein Not tested (Negative) 04/12/24 15:58 Urine Glucose (UA) Not tested (Normal) 04/12/24 15:58 Urine Ketones Not tested (Negative) H 04/12/24 15:58 Urine Blood Not tested (Negative) A 04/12/24 15:58 Urine Nitrate Not tested (Negative) A 04/12/24 15:58 Urine Bilirubin Not tested (Negative) 04/12/24 15:58 Urine Urobilinogen Not tested mg/dL (Negative) A 04/12/24 15:58 Ur Leukocyte Esterase Not tested (Negative) A 04/12/24 15:58 Urine RBC Too numerous to cnt /hpf (0-2) H 04/12/24 15:58 Urine WBC >100 /hpf (0-5) H 04/12/24 15:58 Ur Squamous Epith Cells 0-4 /hpf (0-5) H 04/12/24 15:58 Amorphous Sediment Not Reportable 04/12/24 15:58 Urine Bacteria Trace /hpf (NONE) 04/12/24 15:58 Urine Mucus Trace /hpf 04/12/24 15:58 All radiology interpretation(s) finalized by discharge Discharge Plan Discharge Patient Disposition: Home Clinical Impression: Mass of bladder Hematuria Qualifiers: Hematuria type: unspecified type Qualified Code(s): R31.9 - Hematuria, unspecified Condition: Stable Prescriptions: No Action aspirin 81 mg tablet,delayed release (DR/EC) 81 mg PO QAM (DME) Night splint to left See Rx Instructions .Route .MEDSUPPLY Qty: 1 0RF Rx Instructions: As directed (DME) Custom Molded Orthotics See Rx Instructions .Route .MEDSUPPLY Qty: 1 0RF Rx Instructions: As directed (DME) small hinge brace See Rx Instructions .Route .MEDSUPPLY Qty: 1 0RF Rx Instructions: As directed tamsulosin [Flomax] 0.4 mg capsule 0.4 mg PO Q24H Qty: 20 0RF sucralfate [Carafate] 1 gram tablet 1 g PO TID Qty: 90 3RF doxycycline hyclate 100 mg capsule 100 mg PO BID 10 Days Qty: 20 0RF ibuprofen 800 mg tablet 800 mg PO Q8H PRN (Reason: pain or fever) Qty: 30 0RF lansoprazole [Prevacid] 30 mg capsule,delayed release(DR/EC) 30 mg PO BID Qty: 60 2RF clopidogrel 75 mg tablet 75 mg PO QAM metoprolol succinate 25 mg tablet extended release 24 hr 25 mg PO QAM lisinopril 20 mg tablet 20 mg PO DAILY Qty: 30 0RF Discharge Orders: Discharge ED (Routine); Ordered 04/12/24 Ordered By: Modesto Krishna Referrals: Jaquelin Cee MD [Primary Care Provider] - Discharge Diet: Usual diet Discharge Activity: Increase activity as tolerated Patient Instructions: Pain Management Activity Restrictions/Additional Instructions: Call your urologist at [facility] tomorrow to schedule urgent appointment. Continue drinking plenty of fluids and return if your condition worsens or you develop any new or concerning symptoms. Coding Level of Care Code ED Health And Wellness Director for Lance Tavarez
[2024-04-12 16:13] VITALS: BP 158/77; PULSE 68; RESP 18; O2SAT 100
[2024-04-12 16:28] LABS: Glucose Urine UA Not Tested (Normal); Protein Urine Not Tested (Negative); Urine Appearance Cloudy (CLEAR); Urine Color Red (Yellow)
[2024-04-12 16:29] LABS: Add Urine Microscopic? YES; Bilirubin Urine Not Tested (Negative); Blood Urine Not Tested (Negative); Ketones Urine Not Tested (Negative); Leukocyte Esterase Urine Not Tested (Negative); Nitrate Urine Not Tested (Negative); UA Manual Slide Review YES; UA Slide Review UA Slide Review Perf; Urobilinogen Urine Not Tested mg/dL (Negative)
[2024-04-12 16:30] LABS: RBC Urine TOO NUMEROUS TO CNT /hpf (0-2)
[2024-04-12 16:33] LABS: Bacteria Urine TRACE /hpf; Mucus Urine TRACE /hpf; Squamous Epithelial Cell Urine 0-4 /hpf (0-5); WBC Urine >100 /hpf (0-5)
[2024-04-12 16:34] LABS: Add Urine Culture? Yes
[2024-04-12] MEDS: iohexol 350 mg/mL 500 mL Btl (per mL) IV (16:47)
[2024-04-12 18:08] VITALS: BP 137/92; PULSE 71; O2SAT 94
== END 2024-04-12 18:09 | disposition home or self-care (01) ==
PROVIDERS: Emergency Medicine; Emergency Provider Physician Assistant; PCP Family Medicine
DX: R31.9 Hematuria, unspecified (principal); N32.9 Bladder disorder, unspecified
CPT/HCPCS: 74177; 80053; 81001; 85025; 85610; 87077; 87086; 87186; 99285

== ENCOUNTER 2024-04-14 04:11 | Emergency (ER) | payer MEDICARE, SELFPAY ==
[2024-04-14 04:24] VITALS: BP 131/100; PULSE 110; RESP 18; TEMP 36.7; O2SAT 97; BMI 26.6
[2024-04-14 04:34] VITALS: BP 131/100; O2SAT 98
--- NOTE | 2024-04-14 04:53 | W.ED.MALEGU ---
HPI - Male Genitourinary General: Chief complaint: Urogenital-Male Stated complaint: blood in urine Time Seen by Provider: 04/14/24 04:40 History of Present Illness: 73-year-old male who presents with hematuria. He states he was seen here 2 days ago and diagnosed with a bladder mass. He is referred to see urology in 2 days. He presents today because of ongoing blood in his urine, asking for something to stop the bleeding . He was placed on Flomax. He denies difficulty urinating. He denies feeling dizzy or lightheaded. He is on aspirin and Plavix for previous cardiac stent. He denies fever. He states that he is able to empty his bladder without difficulty. Associated symptoms: Reports hematuria; Deny dysuria, nausea or vomiting Related Data Home Medications Medication Instructions Recorded Confirmed aspirin 81 mg tablet,delayed 81 mg PO QAM 07/25/19 02/28/24 release clopidogrel 75 mg tablet 75 mg PO QAM 10/04/23 02/28/24 metoprolol succinate 25 mg 25 mg PO QAM 10/04/23 02/28/24 tablet,extended release 24 hr Previous Rx's Medication Instructions Recorded Custom Molded Orthotics #1 ea 05/26/21 Night splint to left #1 ea 05/26/21 small hinge brace #1 ea 06/22/22 tamsulosin 0.4 mg capsule (Flomax) 0.4 mg PO Q24H #20 caps 04/04/23 lisinopril 20 mg tablet 20 mg PO DAILY #30 tabs 10/04/23 sucralfate 1 gram tablet (Carafate) 1 g PO TID #90 tabs 10/18/23 doxycycline hyclate 100 mg capsule 100 mg PO BID 10 days #20 caps 02/28/24 ibuprofen 800 mg tablet 800 mg PO Q8H PRN pain or fever 02/28/24 #30 tabs lansoprazole 30 mg capsule,delayed 30 mg PO BID #60 caps 03/08/24 release (Prevacid) amoxicillin 875 mg-potassium 1 tab PO Q12H #20 tabs 04/14/24 clavulanate 125 mg tablet Allergies Allergy/AdvReac Type Severity Reaction Status Date / Time No Known Allergies Allergy Verified 02/28/24 14:29 Review of Systems General: Reports: 10 or more systems reviewed and unremarkable except in HPI and below Const: Denies: fever(s), chills, change in appetite, change in weight, fatigue or diaphoresis ENMT: Denies: throat pain or hoarseness Card: Denies: chest pain, palpitations or lightheadedness Resp: Denies: dyspnea, productive cough or wheezing GI: Denies: abdominal pain, nausea, vomiting, diarrhea, constipation, bloating, change in stool character or hematochezia : Reports: hematuria; Denies: flank pain, difficulty urinating, dysuria, urinary frequency, urinary urgency or oliguria Musc: Denies: neck pain or back pain Skin/Breast: Denies: rash or new lesions Neuro: Denies: headache(s) or dizziness PFSH ED PFSH: Medical History Carotid bruit present Atherosclerotic heart disease of [place] coronary artery with other forms of angina pectoris Atypical chest pain The EKG done in the emergency room revealed normal sinus rhythm with a normal ST-T's. Migraine-cluster headache syndrome History of small bowel obstruction Hyperglycemia [place] angioma GERD (gastroesophageal reflux disease) Cervical spondylosis Syncope CAD (coronary artery disease) Essential hypertension Mixed hyperlipidemia Diabetes mellitus History of colon cancer Surgical History History of heart artery stent History of angioplasty Family History Father CAD (coronary artery disease) Cancer Mother CAD (coronary artery disease) Cancer Brother Cancer Sister Cancer Other Heart disease Denies family history of Diabetes Clotting disorder Dementia Chronic kidney disease (CKD) Suicide Anesthesia complication Bleeding disorder Lung disease Stroke Social History Smoking and tobacco/nicotine status: current every day tobacco/nicotine user cigarettes Years cigarettes smoked: 53 Alcohol intake: never Substance/Drug Use: never Household members: spouse Marital status: Current occupational status: unemployed Physical Exam Const: COMMON NORMALS: no acute distress, average body habitus, patient oriented x3, no limitations, healthy appearing, alert and well nourished GENERAL APPEARANCE: cooperative and comfortable ORIENTATION/CONSCIOUSNESS: Yes awake HENMT: COMMON NORMALS: normocephalic, atraumatic, hearing grossly normal bilaterally, external ears normal, Normal external nose present, Normal nasal mucous membranes and turbinates present and moist oral mucous membranes HEAD & SCALP: normocephalic and atraumatic NOSE: Normal external nose present and Normal nasal mucous membranes and turbinates present EXTERNAL EAR: Yes external ears normal Eye: COMMON NORMALS: Equal, round and reactive pupils present, EOMs intact bilaterally, conjunctivae normal and normal visual balderrama by confrontation CONJUNCTIVA: Yes conjunctivae normal PUPIL: Yes Equal, round and reactive pupils present Neck/C-Spine: COMMON NORMALS: full ROM, supple, no meningeal signs and no JVD Resp: COMMON NORMALS: normal respiratory effort, No retractions, No use of accessory muscles and clear to auscultation bilaterally AUSCULTATION: clear to auscultation bilaterally, no crackles, no rales, no rhonchi and no wheezes Cardio: COMMON NORMALS: no JVD, regular rhythm, S1 normal heart sound present, S2 normal heart sound present, No gallops present (Cardio), No clicks present (Cardio), No murmurs present (Cardio), No rub (Cardio) and Peripheral pulses 2+ throughout; negative for regular rate (Tachycardic) RATE: abnormal rate (Tachycardic) RHYTHM: regular rhythm HEART SOUNDS: S1 normal heart sound present and S2 normal heart sound present PERIPHERAL PULSES: Peripheral pulses 2+ throughout GI: COMMON NORMALS: Normal to inspection, nondistended, normoactive bowel sounds present, Soft to palpation, non-tender, No hepatosplenomegaly present and no masses AUSCULTATION: Yes normoactive bowel sounds PALPATION: Yes Soft to palpation, No Guarding due to palpation present (GI), No Rigid due to palpation and Yes No hepatosplenomegaly present RECTAL EXAM: Yes deferred : COMMON NORMALS: Yes no CVA tenderness BLADDER/KIDNEY EXAM: Yes no CVA tenderness Back/Pelvis: COMMON NORMALS: no CVA tenderness Extremity: COMMON NORMALS: normal to inspection and full ROM Neuro: COMMON NORMALS: patient oriented x3, moves all extremities, no focal motor deficits and no sensory deficits noted SENSORIUM/ORIENTATION: Yes alert MENINGEAL SIGNS: Yes no meningeal signs Psych: COMMON NORMALS: mental status grossly normal, cooperative and speech normal SPEECH: Yes normal speech Skin: COMMON NORMALS: no rashes or lesions noted GENERAL SKIN EXAM: no rashes or lesions noted Course Vital Signs: Vital signs: Vital Signs Temperature 98.0 F 04/14/24 04:24 Pulse Rate 110 H 04/14/24 04:24 Respiratory Rate 18 04/14/24 04:24 Blood Pressure 131/100 04/14/24 04:34 Pulse Oximetry 98 04/14/24 04:34 Oxygen Delivery Me thod Room Air 04/14/24 04:34 MDM - Male Medical Decision Making 73-year-old male on aspirin and Plavix who presents with hematuria x 2 days. Patient is slightly tachycardic, heart rate of 110. He had labs obtained. His hemoglobin is 10.2. 2 days ago, his hemoglobin was 11.2 so he has had somewhat of a drop but not significant enough to warrant transfusion. On urinalysis, the patient does have greater than 100 white blood cells as well as greater than 100 red blood cells on his urinalysis in addition to 3+ bacteria consistent with urinary tract infection. Will treat the patient with Augmentin 875 twice daily x 10 days. Will have him hold his aspirin x 48 hours given the antibiotics prime to work.-Follow-up as scheduled with urology, return if his symptoms worsen Lab Data 04/14/24 04:50 Laboratory Results WBC 12.03 10^3/uL (3.29-11.43) H 04/14/24 04:50 RBC 3.60 10^6/uL (3.85-5.65) L 04/14/24 04:50 Hgb 10.20 g/dL (11.27-16.99) L 04/14/24 04:50 Hct 29.7 % (37-53) L 04/14/24 04:50 MCV 82.5 fl (82-101) 04/14/24 04:50 MCH 28.3 pg (27-33) 04/14/24 04:50 MCHC 34.3 g/dL (30-55) 04/14/24 04:50 RDW 15.7 % (12.1-15.1) H 04/14/24 04:50 Plt Count 313 10^3/cmm (157-399) 04/14/24 04:50 MPV 10.2 fL (7.4-10.4) 04/14/24 04:50 Neut % (Auto) 79.5 % 04/14/24 04:50 Lymph % (Auto) 8.5 % 04/14/24 04:50 [place] % (Auto) 9.9 % 04/14/24 04:50 Eos % (Auto) 1.2 % 04/14/24 04:50 Baso % (Auto) 0.6 % 04/14/24 04:50 Neut # (Auto) 9.56 10^3/uL (1.8-7.7) H 04/14/24 04:50 Lymph # (Auto) 1.0 10^3/uL (0.8-4.8) 04/14/24 04:50 [place] # (Auto) 1.2 10^3/uL (0.2-0.9) H 04/14/24 04:50 Eos # (Auto) 0.2 10^3/uL (0.0-0.8) 04/14/24 04:50 Baso # (Auto) 0.1 10^3/uL (0.0-0.1) 04/14/24 04:50 Nucleated RBC % (auto) 0 % 04/14/24 04:50 Nucleated RBCs # 0.0 /100WBC 04/14/24 04:50 Urine Color Red (Yellow) A 04/14/24 04:26 Urine Appearance Turbid (CLEAR) A 04/14/24 04:26 Urine pH 5.0 (5-7) 04/14/24 04:26 Ur Specific [place] 1.018 (1.005-1.030) 04/14/24 04:26 Urine Protein 1+ (Negative) A 04/14/24 04:26 Urine Glucose (UA) Negative (Normal) 04/14/24 04:26 Urine Ketones Negative (Negative) 04/14/24 04:26 Urine Blood 1+ (Negative) A 04/14/24 04:26 Urine Nitrate Positive (Negative) A 04/14/24 04:26 Urine Bilirubin 1+ (Negative) H 04/14/24 04:26 Urine Urobilinogen 1.0 mg/dL (Negative) 04/14/24 04:26 Ur Leukocyte Esterase 3+ (Negative) A 04/14/24 04:26 Urine RBC Too numerous to cnt /hpf (0-2) H 04/14/24 04:26 Urine WBC Too numerous to cnt /hpf (0-5) H 04/14/24 04:26 Ur Squamous Epith Cells 0-4 /hpf (0-5) H 04/14/24 04:26 Amorphous Sediment Not Reportable 04/14/24 04:26 Urine Bacteria 3+ /hpf (NONE) H 04/14/24 04:26 No radiology studies performed this visit Discharge Plan Discharge Patient Disposition: Home Clinical Impression: Urinary tract infection, Hematuria, Chronic anticoagulation, Anemia Condition: Stable Prescriptions: New amoxicillin-pot clavulanate 875-125 mg tablet 1 tab PO Q12H Qty: 20 0RF No Action aspirin 81 mg tablet,delayed release (DR/EC) 81 mg PO QAM (DME) Night splint to left See Rx Instructions .Route .MEDSUPPLY Qty: 1 0RF Rx Instructions: As directed (DME) Custom Molded Orthotics See Rx Instructions .Route .MEDSUPPLY Qty: 1 0RF Rx Instructions: As directed (DME) small hinge brace See Rx Instructions .Route .MEDSUPPLY Qty: 1 0RF Rx Instructions: As directed tamsulosin [Flomax] 0.4 mg capsule 0.4 mg PO Q24H Qty: 20 0RF sucralfate [Carafate] 1 gram tablet 1 g PO TID Qty: 90 3RF doxycycline hyclate 100 mg capsule 100 mg PO BID 10 Days Qty: 20 0RF ibuprofen 800 mg tablet 800 mg PO Q8H PRN (Reason: pain or fever) Qty: 30 0RF lansoprazole [Prevacid] 30 mg capsule,delayed release(DR/EC) 30 mg PO BID Qty: 60 2RF clopidogrel 75 mg tablet 75 mg PO QAM metoprolol succinate 25 mg tablet extended release 24 hr 25 mg PO QAM lisinopril 20 mg tablet 20 mg PO DAILY Qty: 30 0RF Discharge Orders: Discharge ED (Routine); Ordered 04/14/24 Ordered By: Mely Bennett Discharge Diet: Advance as tolerated Discharge Activity: Resume usual activity Patient Instructions: Opioid Safety, Pain Management, Hematuria (ED), Hematuria - Male, Urinary Tract Infection - Men, Anemia Activity Restrictions/Additional Instructions: Hold your baby aspirin for 48 hours. Take the antibiotics twice daily. Make sure you are drinking plenty of fluids. Return if your symptoms are worsening. Follow-up as scheduled with urology Coding Level of Care Code ED Matching Machine Operator for Lance Tavarez
[2024-04-14 04:55] LABS: Basophils # 0.1 10^3/uL (0.0-0.1); Basophils % 0.6 %; Eosinophils # 0.2 10^3/uL (0.0-0.8); Eosinophils % 1.2 %; Hematocrit 29.7 % (37-53); Lymphocytes % 8.5 %; Mean Corpuscular HGB Conc 34.3 g/dL (30-55); Mean Corpuscular Hemoglobin 28.3 pg (27-33); Mean Corpuscular Volume 82.5 fl (82-101); Mean Platelet Volume 10.2 fL (7.4-10.4); Monocytes # 1.2 10^3/uL (0.2-0.9); Monocytes % 9.9 %; Neutrophils # 9.56 10^3/uL (1.8-7.7); Neutrophils % 79.5 %; Nucleated Red Blood Cells % 0 %; Platelet Count 313 10^3/cmm (157-399); Red Cell Distribution Width 15.7 % (12.1-15.1); White Blood Count 12.03 10^3/uL (3.29-11.43)
[2024-04-14 05:09] LABS: Bilirubin Urine 1+ (Negative); Blood Urine 1+ (Negative); Glucose Urine UA Negative (Normal); Ketones Urine Negative (Negative); Leukocyte Esterase Urine 3+ (Negative); Nitrate Urine Positive (Negative); Protein Urine 1+ (Negative); Specific Gravity, Urine 1.018 (1.005-1.030); Urine Appearance Turbid (CLEAR)
[2024-04-14 05:15] LABS: Add Urine Culture? Yes; Add Urine Microscopic? YES; Bacteria Urine 3+ /hpf; RBC Urine TOO NUMEROUS TO CNT /hpf (0-2); Squamous Epithelial Cell Urine 0-4 /hpf (0-5); Urine Color Red (Yellow); WBC Urine TOO NUMEROUS TO CNT /hpf (0-5)
[2024-04-14 05:35] VITALS: BP 131/100; PULSE 85; O2SAT 96
[2024-04-14] MEDS: amoxicillin-clav 875-125 mg Tablet 1 TAB PO (05:37)
== END 2024-04-14 05:40 | disposition home or self-care (01) ==
PROVIDERS: Emergency Provider Emergency Medicine
DX: N39.0 Urinary tract infection, site not specified (principal); R31.9 Hematuria, unspecified; Z79.01 Long term (current) use of anticoagulants; D64.9 Anemia, unspecified; Z79.02 Long term (current) use of antithrombotics/antiplatelets; Z79.82 Long term (current) use of aspirin; F17.210 Nicotine dependence, cigarettes, uncomplicated; I25.10 Atherosclerotic heart disease of native coronary artery without angina pectoris; I10 Essential (primary) hypertension; E78.2 Mixed hyperlipidemia; E11.9 Type 2 diabetes mellitus without complications
CPT/HCPCS: 81001; 85025; 87077; 87086; 87186; 99283

== ENCOUNTER → 2024-05-09 15:35 | Outpatient (BNVA) | payer MEDICARE, SELFPAY | PROVIDERS: Visit Provider Internal Medicine Cardiovascular Disease | DX: I25.10 Atherosclerotic heart disease of native coronary artery without angina pectoris (principal); I10 Essential (primary) hypertension; E78.2 Mixed hyperlipidemia; E11.9 Type 2 diabetes mellitus without complications; R68.89 Other general symptoms and signs; Z87.891 Personal history of nicotine dependence | CPT/HCPCS: 99214 ==

== ENCOUNTER 2024-05-30 10:12 | Outpatient (CLI) | payer MEDICARE, SELFPAY ==
--- NOTE | 2024-05-30 10:52 | NMCV_ITS ---
NM madelin perf SPECT r/s* [id number] Aram Alva Age: 73 Gender: M : 1950 Exam Date: 05/30/2024 11:16 Ordering Phys: Tip Box MD ([email or web address]) Technologist: VINNY Singleton Exam Location: [facility] Indications: cp STRESS TEST Please see separate stress test report in [facility] for full findings IMAGE PROTOCOL Rest/Stress 1 Lexiscan Day Radiopharmaceutical Dose (mCi) Administration Site Administered by Rest: Tc-99m 10.8 IV Radha Hare PAPER SALES MANAGER Sestamibi Stress:Tc-99m 32.7 IV Radha Hare, PAPER SALES MANAGER Sestamibi Rest: 30-May-2024 60 Discovery 630 Stress: 30-May-2024 30 Discovery 630 0.4mg Lexiscan. Supine position only as patient was unable to lay prone. SPECT RESULTS Technical Quality: Good Raw Data Analysis: Normal Image Corrections: No attenuation or motion correction applied Summed Stress Score: 0 Summed Rest Score: 0 Summed Difference Score: 0 PERFUSION FINDINGS Fairly uniform myocardial tracer uptake with no significant Perfusion abnormalities FUNCTIONAL RESULTS (calculated via Gated SPECT) Stress Image LV EF (%): 66 Stress EDV (mL):116 TID: 0.91 Stress ESV (mL):40 FUNCTIONAL FINDINGS: Segmental wall motion analysis revealing no gross wall motion abnormalities IMPRESSIONS 1. Myocardial perfusion imaging revealing uniform myocardial tracer uptake with no significant perfusion abnormalities. 2. Normal LV ejection fraction of 66%. 3. LV wall motion analysis revealing no gross wall motion abnormalities. 4. Normal LV volume Low probability for coronary ischemia, based on the above findings Compared to study from 03/11/2019, there may not be a significant change Dr Tip Box MD [facility] (Electronically Signed) Final Date: 31 May 2024 13:08 S
--- NOTE | 2024-05-30 10:52 | ECG_ITS ---
[employer] Test Date: 2024-05-30 Pat Name: Aram Alva Department: Room: Gender: Male Plaster Patternmaker: : 1950 Requested By: Tip Box Order Number: [id number] Karen MD: Tip Box M.D. Interpretive Statements Intraprocedure shortess of breath; Symptoms resoled by discharge; Lung unchanged pre/post procedure PROCEDURE: At the baseline, the EKG revealed normal sinus rhythm with nonspecific ST-T changes in the inferior and lateral leads. Q waves in the inferior leads suggestive of old inferior wall SD. Short CO interval.. The baseline heart was 68 bpm with a blood pressue of 138/75 mm of Hg Lexiscan was infused over a period of 20 seconds. A total of 0.4 milligrams of Lexiscan was infused. The stress phase was continued for a total of 5 minutes. Heart rate at the end of the stress phase was 110 bpm with a blood pressure 135/72 mm of Hg. The EKG at the peak infusion revealed no significant changes. Sestamibi was injected 20 seconds after the Lexiscan infusion. Heart rate at the end of the recovery phase was 105 bpm with a blood pressure of 142/65 mm of Hg. CONCLUSION: 1. No significant EKG changes with the LexiScan infusion 2. No LexiScan induced chest pain or cardiac arrhythmia 3. Normal blood pressure and heart rate response 4. Sestamibi/sestamibi perfusion scan pending; see separate report. Electronically Signed On 06-02-2024 12:08:52 MINING TEACHER by Tip Box M.D. [email or web address]
[2024-05-30] MEDS: regadenoson 0.4 Mg/5 ml Syringe IVP (11:59)
[2024-05-30 12:21] VITALS: BP 135/72; PULSE 105
== END 2024-05-30 10:13 | disposition home or self-care (01) ==
PROVIDERS: Visit Provider Internal Medicine Cardiovascular Disease
DX: Z98.61 Coronary angioplasty status (principal); R06.02 Shortness of breath
CPT/HCPCS: 36415; 78452; 93017; 96374; A9500; J2785

== ENCOUNTER → 2024-06-21 14:01 | Outpatient (BNVA) | payer MEDICARE, SELFPAY | PROVIDERS: Visit Provider Specialist | DX: Z96.652 Presence of left artificial knee joint (principal); M25.562 Pain in left knee; G89.29 Other chronic pain | CPT/HCPCS: 73560; 73565; 99204 ==

== ENCOUNTER 2024-07-13 07:22 | Outpatient (CLI) | payer MEDICARE, SELFPAY ==
--- NOTE | 2024-07-13 08:00 | NM_ITS ---
WS: [id number] THREE-PHASE BONE SCAN HISTORY: pain, LEFT knee pain. COMPARISON: Radiograph 06/21/2024 Patient is is injected with 25.6 mCi Tc99m HDP intravenously. Immediate angiographic phase imaging is performed over the area of concern. Static blood pool imaging also performed. Two-hour whole-body sc intigrams performed in anterior and posterior projections. Additional large field of view imaging sub mitted as necessary. Angiographic and blood pool phase imaging centered over the knees. Photopenic defect LEFT knee at the site of the prior knee replacement. There is normal uptake on angiographic and blood pool phase imag ing. No areas of cellulitis. On the delayed imaging there is mild uptake surrounding the LEFT knee prosthesis. Uptake along the ti bial plateau and short intramedullary yeimi and also surrounding the femoral component. Mild degenerative changes at the AC joints. Patient has a known RIGHT renal obstruction. The RIGHT re nal pelvis is full with delayed excretion. This corresponds to the prior CT of 04/12/2024. Patient has a known bladder mass. Tiny focus of increased uptake mid sternum. NM/NM bone 3 phase 52964 IMPRESSION: 1. Mild increase uptake surrounding the LEFT knee prosthesis. This can be seen with loosening. If the prosthesis placement is less than 1 year old this may b e normal postoperative change. 2. No cellulitis. 3. 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 4. Obstructed RIGHT ureter. Hydronephrosis is noted with delayed excretion fro m the RIGHT kidney. 5. Focus of increased uptake in the midsternum. This could potentially represe nt a metastatic bone lesion.
== END 2024-07-13 07:23 | disposition home or self-care (01) ==
LOC: RAD 07:23
PROVIDERS: PCP Nurse Practitioner Family; Visit Provider Specialist
DX: M17.12 Unilateral primary osteoarthritis, left knee (principal); Z98.890 Other specified postprocedural states; R93.89 Abnormal findings on diagnostic imaging of other specified body structures; N13.1 Hydronephrosis with ureteral stricture, not elsewhere classified
CPT/HCPCS: 78315; A9561

== ENCOUNTER 2024-08-08 08:45 | Inpatient (IN) | payer MEDICARE, SELFPAY ==
[2024-08-08] VITALS (25 sets, daily range): BP systolic 112–165; BP diastolic 72–98; PULSE 53–100; RESP 17–22; TEMP 36.4–36.7; O2SAT 67–100; BMI 29.2
--- NOTE | 2024-08-08 08:46 | ECG_ITS ---
[facility] Test Date: 2024-08-08 Pat Name: Aram Alva Department: Room: Gender: Male Peace Officer: : 1950 Requested By: Guille Haley Order Number: [id number] Karen MD: Vince Neil M.D. Measurements Intervals [place] Rate: 106 P: 50 NM: 128 QRS: 65 QRSD: 98 T: 24 QT: 350 QTc: 465 Interpretive Statements SINUS TACHYCARDIA NONSPECIFIC ST & T-WAVE ABNORMALITY Compared to ECG 10/16/2023 04:25:03 Short NM interval no longer present T-wave abnormality still present Electronically Signed On 08-11-2024 23:14:37 MULTIPLE SPINDLE SCREW MACHINE OPERATOR by Vince Neil M.D. [email or web address]
--- NOTE | 2024-08-08 09:05 | ED_ITS ---
HPI - Chest Pain 2 General: Chief Complaint: Chest Pain Stated Complaint: chest pain Time Seen by Provider: 08/08/24 08:52 History of Present Illness: 73-year-old male presents to the emergen cy room with a complaint of chest pain that began about 30 minutes prior to arrival. He has a known history of coronary artery disease and previously had a stent placed he said sometime back around 2018. He still is on aspirin and clopidogrel. He has not been having any other episodes of chest pain recently. He rates pain 10 of 10 on the left side crushing radiating to his neck and his arm and his back. He is somewhat short of breath with it. Patient does smoke. He states he did take a nitro prior to arrival it helped a little bit but did not alleviate his symptoms. He has a baseline chronic cough that is unchanged she has not had any fever sweats or chills no hemoptysis Associated symptoms: Deny abdominal pain, dyspnea or fever(s) Related Data Home Medications Medication Instructions Recorded Confirmed aspirin 81 mg tablet,delayed 81 mg PO QAM 07/25/19 08/08/24 release clopidogrel 75 mg tablet 75 mg PO QAM 10/04/23 08/08/24 metoprolol succinate 25 mg 25 mg PO QAM 10/04/23 08/08/24 tablet,extended release 24 hr lansoprazole 30 mg capsule,delayed 30 mg PO BID PRN Acid Reflux 08/08/24 08/08/24 release (Prevacid) Previous Rx's Medication Instructions Recorded Custom Molded Orthotics #1 ea 05/26/21 Night splint to left #1 ea 05/26/21 small hinge brace #1 ea 06/22/22 tamsulosin 0.4 mg capsule (Flomax) 0.4 mg PO Q24H #20 caps 04/04/23 nitroglycerin 0.4 mg sublingual 0.4 mg sublingual Q5M PRN chest 05/09/24 tablet pain 30 days #30 tabs atorvastatin 40 mg tablet 40 mg PO DAILY 30 days #30 tabs 08/11/24 levofloxacin 750 mg tablet 750 mg PO Q48H 3 days #2 tabs 08/11/24 Allergies Allergy/AdvReac Type Severity Reaction Status Date / Time No Known Allergies Allergy Verified 06/21/24 14:21 Review of Systems 2 Const: Denies: fever(s) or chills Card: Denies: chest pain Resp: Denies: dyspnea GI: Denies: abdominal pain : Denies: dysuria, urinary frequency or urinary urgency Musc: Denies: neck pain or back pain Skin/Breast: Denies: rash PFSH ED 2 PFSH: Medical History Carotid bruit present Atherosclerotic heart disease of [place] coronary artery with other forms of angina pectoris Atypical chest pain The EKG done in the emergency room revealed normal sinus rhythm with a normal ST-T's. Migraine-cluster headache syndrome History of small bowel obstruction Hyperglycemia Castillo angioma GERD (gastroesophageal reflux disease) Cervical spondylosis Syncope CAD (coronary artery disease) Essential hypertension Mixed hyperlipidemia Diabetes mellitus History of colon cancer Surgical History History of heart artery stent History of angioplasty Family History Father CAD (coronary artery disease) Cancer Mother CAD (coronary artery disease) Cancer Brother Cancer Sister Cancer Other Heart disease Denies family history of Diabetes Clotting disorder Dementia Chronic kidney disease (CKD) Suicide Anesthesia complication Bleeding disorder Lung disease Stroke Social History Smoking and tobacco/nicotine status: former use of tobacco/nicotine Alcohol intake: never Substance/Drug Use: never Household members: spouse Marital status: Current occupational status: unemployed Physical Exam 2 Const: GENERAL APPEARANCE: cooperative ORIENTATION/CONSCIOUSNESS: Yes awake, Yes oriented to person, Yes oriented to place and Yes oriented to time HENMT: COMMON NORMALS: normocephalic, atraumatic and hearing grossly normal bilaterally HEAD & SCALP: normocephalic and atraumatic Resp: COMMON NORMALS: normal respiratory effort, No retractions, No use of accessory muscles and clear to auscultation bilaterally AUSCULTATION: clear to auscultation bilaterally Cardio: COMMON NORMALS: regular rate, regular rhythm and No murmurs present (Cardio) RATE: regular rate RHYTHM: regular rhythm GI: COMMON NORMALS: Soft to palpation and No hepatosplenomegaly present A USCULTATION: Yes normoactive bowel sounds PALPATION: Yes Soft to palpation, No Tenderness to palpation present (GI), No Guarding due to palpation present (GI) and Yes No hepatosplenomegaly present Extremity: COMMON NORMALS: normal to inspection, capillary refill normal, no clubbing, cyanosis or edema, no calf tenderness and no pedal edema Neuro: SENSORIUM/ORIENTATION: Yes oriented to person, Yes oriented to place and Yes oriented to time Skin: COMMON NORMALS: no rashes or lesions noted GENERAL SKIN EXAM: no rashes or lesions noted Course 2 Vital Signs: Vital signs: Vital Signs Temperature 98.6 F 08/11/24 14:31 Pulse Rate 79 08/11/24 14:31 Respiratory Rate 12 08/11/24 14:31 Blood Pressure 143/80 08/11/24 14:31 Pulse Oximetry 96 08/11/24 14:31 Oxygen Delivery Me thod Room Air 08/11/24 12:00 MDM - Chest Pain Medical Decision Making Concerning the patient has chest pain that began at rest relieved by nitro. He is pain-free now with IV nitro. Will does admit to hospitalist orders written. Consult cardiology Medical Records I reviewed the patient's medical records. Lab Data I reviewed the patient's lab results. 08/11/24 06:20 08/11/24 06:20 Radiology Impressions Chest X-Ray 08/08/24 09:48 Impression: Atherosclerosis. Abdomen/Pelvis CT 08/08/24 11:15 IMPRESSION: 1. Long-term severe RIGHT hydroureteronephrosis. 2. No significant dilatation of the LEFT renal pelvis. There is a small extrarenal pelvis. The distal ureter is dilated. The distal LEFT ureteral dilatation may be due to the overly distended urinary bladder resulting in decreased emptying of the ureter. 3. Markedly distended urinary bladder with severe prostate gland enlargement. Consider outlet obstruction. 4. Surgical anastomosis near the hepatic flexure stable with constipation. No recurrent mass identified. 5. Cholelithiasis without acute cholecystitis. Renal Ultrasound 08/09/24 10:14 IMPRESSION: 1. Severe RIGHT hydronephrosis. Similar to the recent CT of 08/08/2024. 2. Mild LEFT hydronephrosis. 3. Markedly enlarged urinary bladder with low-level echoes. Debris within the urinary bladder. Chest/Abdomen/Pelvis CT 08/10/24 08:17 IMPRESSION: 1. Significant but incomplete improvement in the severe RIGHT hydroureteronephrosis since 08/08/2024 after urinary bladder catheterization. There is still moderate dilatation and tortuosity of the RIGHT ureter. 2. Resolved LEFT hydronephrosis. Distal LEFT ureter continues to be slightly dilated. 3. Diffuse bladder wall thickening. Baron catheter present within the bladder. 4. Prostate enlargement. 5. No destructive lesion within the sternum. Patient did provide a history of prior sternal fracture. Increased uptake on the bone scan may be from the prior fracture with healing. Laboratory Results WBC 9.23 10^3/uL (3.29-11.43) 08/08/24 09:03 RBC 4.59 10^6/uL (3.85-5.65) 08/08/24 09:03 Hgb 10.60 g/dL (11.27-16.99) L 08/08/24 09:03 Hct 35.6 % (37-53) L 08/08/24 09:03 MCV 77.6 fl (82-101) L 08/08/24 09:03 MCH 23.1 pg (27-33) L 08/08/24 09:03 MCHC 29.8 g/dL (30-55) L 08/08/24 09:03 RDW 16.1 % (12.1-15.1) H 08/08/24 09:03 Plt Count 352 10^3/cmm (157-399) 08/08/24 09:03 MPV 10.3 fL (7.4-10.4) 08/08/24 09:03 Neut % (Auto) 73.3 % 08/08/24 09:03 Lymph % (Auto) 15.3 % 08/08/24 09:03 [place] % (Auto) 7.7 % 08/08/24 09:03 Eos % (Auto) 2.3 % 08/08/24 09:03 Baso % (Auto) 1.1 % 08/08/24 09:03 Neut # (Auto) 6.77 10^3/uL (1.8-7.7) 08/08/24 09:03 Lymph # (Auto) 1.4 10^3/uL (0.8-4.8) 08/08/24 09:03 [place] # (Auto) 0.7 10^3/uL (0.2-0.9) 08/08/24 09:03 Eos # (Auto) 0.2 10^3/uL (0.0-0.8) 08/08/24 09:03 Baso # (Auto) 0.1 10^3/uL (0.0-0.1) 08/08/24 09:03 Nucleated RBC % (auto) 0 % 08/08/24 09:03 Nucleated RBCs # 0.0 /100WBC 08/08/24 09:03 Sodium 139 mmol/L (136-145) 08/08/24 09:03 Potassium 3.9 mmol/L (3.5-5.1) 08/08/24 09:03 Chloride 101 mmol/L (98-107) 08/08/24 09:03 Carbon Dioxide 23 mmol/L (22-29) 08/08/24 09:03 Anion Gap 18.9 (5-19) 08/08/24 09:03 BUN 19 mg/dL (8-23) 08/08/24 09:03 Creatinine 1.6 mg/dL (0.7-1.2) H 08/08/24 09:03 GFR Calculation Not Reportable 08/08/24 09:03 Glucose 104 mg/dL (65-115) 08/08/24 09:03 Calculated Osmolality 291 mOsm/kg (285-295) 08/08/24 09:03 Calcium 9.6 mg/dL (8.5-10.5) 08/08/24 09:03 Total Bilirubin 0.2 mg/dL (0.15-1.2) 08/08/24 09:03 AST 10 U/L (0-40) 08/08/24 09:03 ALT 7 U/L (0-41) 08/08/24 09:03 Alkaline Phosphatase 93 U/L (40-130) 08/08/24 09:03 Troponin T Baseline 14 ng/L (0-15) 08/08/24 09:03 Troponin T 120 Minute 7.88 ng/L (0-15) 08/08/24 11:12 Delta Troponin T -6.12 ABS# (0-10) L 08/08/24 11:12 Total Protein 7.2 g/dL (6.6-8.7) 08/08/24 09:03 Albumin 4.2 g/dL (3.5-5.2) 08/08/24 09:03 Globulin 3.0 g/dL (1.3-4.6) 08/08/24 09:03 Urine Color [place] (Yellow) A 08/08/24 10:22 Urine Appearance Turbid (CLEAR) A 08/08/24 10:22 Urine pH 6.0 (5-7) 08/08/24 10:22 Ur Specific [place] 1.012 (1.005-1.030) 08/08/24 10:22 Urine Protein Trace (Negative) A 08/08/24 10:22 Urine Glucose (UA) Negative (Normal) 08/08/24 10:22 Urine Ketones Negative (Negative) 08/08/24 10:22 Urine Blood 2+ (Negative) A 08/08/24 10:22 Urine Nitrate Positive (Negative) A 08/08/24 10:22 Urine Bilirubin Negative (Negative) 08/08/24 10:22 Urine Urobilinogen 0.2 mg/dL (Negative) 08/08/24 10:22 Ur Leukocyte Esterase 3+ (Negative) A 08/08/24 10:22 Urine RBC 0-2 /hpf (0-2) 08/08/24 10:22 Urine WBC >100 /hpf (0-5) H 08/08/24 10:22 Ur Squamous Epith Cells 0-5 /hpf (0-5) 08/08/24 10:22 Amorphous Sediment Not Reportable 08/08/24 10:22 Urine Bacteria 4+ /hpf (NONE) H 08/08/24 10:22 Hyaline Casts 2.05 /lpf 08/08/24 10:22 All radiology interpretation(s) finalized by discharge EKG Data EKG 1: Interpretation: Initial EKG at 8:54 AM shows a sinus tachycardia normal IN interval rate of [address] elevation. Small Q waves in 2 3 and aVF EKG 2: Interpretation: EKG 9:02 AM rate of 94. Normal sinus rhythm. No acute ST changes Q waves again noted small in 2 3 and aVF Discharge Plan Discharge Patient Disposition: Admitted As Inpatient Admit Provider: Mason Alcazar Clinical Impression: Unstable angina, CAD (coronary artery disease), History of heart artery stent, Diabetes mellitus Condition: Stable Discharge Diet: Cardiac Discharge Activity: Resume usual activity Coding Level of Care Code ED Director Of Guidance for Chg Corby
[2024-08-08 09:08] LABS: Basophils # 0.1 10^3/uL (0.0-0.1); Basophils % 1.1 %; Eosinophils # 0.2 10^3/uL (0.0-0.8); Eosinophils % 2.3 %; Hematocrit 35.6 % (37-53); Lymphocytes # 1.4 10^3/uL (0.8-4.8); Lymphocytes % 15.3 %; Mean Corpuscular HGB Conc 29.8 g/dL (30-55); Mean Corpuscular Hemoglobin 23.1 pg (27-33); Mean Corpuscular Volume 77.6 fl (82-101); Mean Platelet Volume 10.3 fL (7.4-10.4); Monocytes # 0.7 10^3/uL (0.2-0.9); Monocytes % 7.7 %; Neutrophils # 6.77 10^3/uL (1.8-7.7); Neutrophils % 73.3 %; Nucleated Red Blood Cells % 0 %; Platelet Count 352 10^3/cmm (157-399); Red Blood Count 4.59 10^6/uL (3.85-5.65); Red Cell Distribution Width 16.1 % (12.1-15.1); White Blood Count 9.23 10^3/uL (3.29-11.43)
--- NOTE | 2024-08-08 09:10 | PC.PHAR ---
Pt states he did take his Metoprolol this morning. Pt and daughter verified current med list.
[2024-08-08] MEDS: aspirin 81 mg Chew Tablet 324 MG PO (09:13)
[2024-08-08] MEDS: clopidogrel 300 mg Tablet PO (09:13)
[2024-08-08] MEDS: heparin 5,000 unit/mL INJ 1 mL 4000 UNIT IVP (09:13)
[2024-08-08] MEDS: nitroglycerin drip 50 MG/250 ML PREMIX IV (09:13)
--- NOTE | 2024-08-08 09:15 | ECG_ITS ---
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 Measurements Intervals [place] Rate: 81 P: 73 CA: 135 QRS: 62 QRSD: 88 T: 16 QT: 362 QTc: 423 Interpretive Statements SINUS RHYTHM MINIMAL ST DEPRESSION [0.025+ mV ST DEPRESSION] INTERPRETATION BASED ON A DEFAULT AGE OF 40 YEARS Compared to ECG 08/08/2024 08:54:53 ST (T wave) deviation now present Sinus tachycardia no longer present T-wave abnormality no longer present Electronically Signed On 08-11-2024 23:34:49 SECURITIES CONSULTANT by Vince Neil M.D. [id number]
[2024-08-08] MEDS: morphine 4 mg/mL SDV 1 mL IVP (09:22)
[2024-08-08 09:33] LABS: Alanine Aminotransferase 7 U/L (0-41); Albumin Level 4.2 g/dL (3.5-5.2); Alkaline Phosphatase 93 U/L (40-130); Anion Gap 18.9 (5-19); Aspartate Amino Transferase 10 U/L (0-40); Blood Urea Nitrogen 19 mg/dL (8-23); Calcium 9.6 mg/dL (8.5-10.5); Carbon Dioxide 23 mmol/L (22-29); Chloride 101 mmol/L (98-107); Creatinine Clr Calc Pharmacy 44.0766; Glucose 104 mg/dL (65-115); Osmolality Calculated 291 mOsm/kg (285-295); Potassium 3.9 mmol/L (3.5-5.1); Sodium 139 mmol/L (136-145); Total Bilirubin 0.2 mg/dL (0.15-1.2); Total Protein 7.2 g/dL (6.6-8.7); Troponin(5th) Baseline 14 ng/L (0-15)
--- NOTE | 2024-08-08 09:48 | XR_ITS ---
WS: [id number] Portable AP upright chest, 08/08/2024 Clinical Data: Chest pain Comparison: Portable chest, 10/16/2023 Findings: No nodules, masses or effusions are seen. The heart is normal. The pulmonary vascularity is not increased. No pneumonia or pneumothorax is seen. The aortic arch and descending thoracic aorta s how mild tortuosity. There are monitor leads on the chest wall. There is an anterior cervical disc fu erin. XR/XR chest 1V portable [id number] Impression: Atherosclerosis.
[2024-08-08 10:35] LABS: Bilirubin Urine Negative (Negative); Blood Urine 2+ (Negative); Glucose Urine UA Negative (Normal); Ketones Urine Negative (Negative); Leukocyte Esterase Urine 3+ (Negative); Nitrate Urine Positive (Negative); Protein Urine Trace (Negative); Specific Gravity, Urine 1.012 (1.005-1.030); Urine Appearance Turbid (CLEAR); Urobilinogen Urine 0.2 mg/dL (Negative)
[2024-08-08 10:41] LABS: Add Urine Microscopic? YES; Bacteria Urine 4+ /hpf; Hyaline Casts Urine 2.05 /lpf; RBC Urine 0-2 /hpf (0-2); Squamous Epithelial Cell Urine 0-5 /hpf (0-5); WBC Urine >100 /hpf (0-5)
--- NOTE | 2024-08-08 10:53 | ECG_ITS ---
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 Measurements Intervals [place] Rate: 63 P: 67 WV: 116 QRS: 65 QRSD: 90 T: 53 QT: 415 QTc: 428 Interpretive Statements SINUS RHYTHM WITH SHORT WV INTERVAL Compared to ECG 08/08/2024 08:54:53 Short [place] interval now present Sinus tachycardia no longer present T-wave abnormality no longer present Electronically Signed On 08-11-2024 23:34:12 ACTOR UNDERSTUDY by Vince Neil M.D. [email or web address]
[2024-08-08 10:57] LABS: Urine Color Orange (Yellow)
[2024-08-08 10:58] LABS: Add Urine Culture? Yes
--- NOTE | 2024-08-08 11:15 | CT_ITS ---
WS: [id number] CT ABDOMEN AND PELVIS NONCONTRAST HISTORY: flank pain TECHNIQUE: Imaging performed through the abdomen and pelvis. Coronal and sagittal reformats are submi tted. All CT scans at [facility] use at least one of these dose optimization techniques: auto mated exposure control; mA and/or kV adjustment per patient size (includes targeted exams where dose is matched to clinical indication); or iterative reconstruction. DLP: 555.96 mGy.cm COMPARISON: 04/12/2024 Lower thorax: Hyperexpanded lungs and emphysema. Mild cardiomegaly. Small hiatal hernia. Liver: Normal size liver. No mass or bile duct dilatation. Gallbladder: Normally distended with cholelithiasis. No acute cholecystitis. Normal common bile duct. Pancreas: Normal size and attenuation. Normal pancreatic duct. No pancreatitis or mass. Spleen: Normal. Adrenal glands: Normal. No mass. Right kidney: Chronic severe hydro ureter nephrosis. Tortuous dilated RIGHT ureter to the bladder. Left kidney: Small extrarenal pelvis but no hydronephrosis. Distal LEFT ureter is dilated, similar to prior studies. Aorta: Mild atherosclerosis abdominal aorta with no aneurysm. No free fluid, intraperitoneal air or significant lymphadenopathy. GI tract: No small bowel or stomach obstruction. Anastomotic sutures near the hepatic flexure. Consti pation but no obstruction. Abdominal wall: Negative. No hernia. Pelvis: Markedly distended urinary bladder. Both of the distal ureters are dilated. Ureters may be di lated due to the distended urinary bladder and outlet obstruction. There is markedly enlarged heterog eneous prostate gland. These findings have been previously described. Bladder mass is not identified today. Osseous structures: Advanced degenerative disc disease at L3-4 through L5-S1. CT/CT kidney stone [id number] IMPRESSION: 1. Long-term severe RIGHT hydroureteronephrosis. 2. No significant dilatation of the LEFT renal pelvis. There is a small extrar enal pelvis. The distal ureter is dilated. The distal LEFT ureteral dilatation may be due to the overly distended urinary bladder resulting in decreased empty ing of the ureter. 3. Markedly distended urinary bladder with severe prostate gland enlargement. Consider outlet obstruction. 4. Surgical anastomosis near the hepatic flexure stable with constipation. No recurrent mass identified. 5. Cholelithiasis without acute cholecystitis.
[2024-08-08 11:36] LABS: Troponin 5 2HR 7.88 ng/L (0-15)
[2024-08-08 11:43] LABS: Troponin 5 2HR Delta -6.12 ABS# (0-10)
[2024-08-08] MEDS: heparin drip 25,000 UNIT/500 ML PREMIX 24 UNIT IV (11:56)
[2024-08-08] MEDS: morphine 4 mg/mL SDV 1 mL 2 MG IVP (11:59)
[2024-08-08] MEDS: cefTRIAXone 1,000 mg SDV 1000 MG IVP (12:00)
--- NOTE | 2024-08-08 12:15 | PC.NURSE ---
pt left to go to CT at approx @1200
--- NOTE | 2024-08-08 13:50 | P.HP_ITS ---
Providers/Chief Complaint 2 Admitting Physician: Mason Alcazar Primary Care Provider: KEVIN Pacheco Chief Complaint: chest pain History of Present Illness Pleasant 73-year-old gentleman with history of CAD, 2 prior stents, still smoking some, HTN, HLD, history of diabetes, GERD presented to ER complaining of chest pain, partially relieved with nitroglycerin given earlier, subsequently started on nitroglycerin drip with pain resolution. Baseline troponin not elevated at 14. EKG with mild sinus tachycardia 106. He does report having some cough and that it also hurts when he takes deep breaths. Denies hemoptysis. Coughing up some yellowish phlegm. Review of Systems 2 Const: Denies: fever(s), chills, body aches or malaise Card: Reports: chest pain; Denies: edema, pre-syncope or dyspnea on exertion Resp: Reports: productive cough and pain on inspiration; Denies: dyspnea, change in phlegm color or hemoptysis GI: Denies: abdominal pain, nausea, vomiting, diarrhea, constipation, hematochezia or melena : Denies: flank pain, difficulty urinating, urinary frequency or hematuria Musc: Denies: back pain, joint swelling or joint redness Skin/Breast: Denies: rash Neuro: Denies: headache(s) Medications/Allergies Home Medications Medication Instructions Recorded Confirmed Last Taken Type aspirin 81 mg tablet,delayed 81 mg PO [facility] 07/25/19 08/08/24 08/07/24 History release Custom Molded Orthotics #1 ea 05/26/21 08/08/24 Unknown Rx Night splint to left #1 ea 05/26/21 08/08/24 Unknown Rx small hinge brace #1 ea 06/22/22 08/08/24 Unknown Rx tamsulosin 0.4 mg capsule (Flomax) 0.4 mg PO Q24H #20 caps 04/04/23 08/08/24 08/07/24 Rx clopidogrel 75 mg tablet 75 mg PO QAM 10/04/23 08/08/24 08/07/24 History metoprolol succinate 25 mg 25 mg PO QAM 10/04/23 08/08/24 08/08/24 History tablet,extended release 24 hr nitroglycerin 0.4 mg sublingual 0.4 mg sublingual Q5M PRN chest 05/09/24 08/08/24 Unknown Rx tablet pain 30 days #30 tabs lansoprazole 30 mg capsule,delayed 30 mg PO BID PRN Acid Reflux 08/08/24 08/08/24 Unknown History release (Prevacid) Allergies Allergy/AdvReac Type Severity Reaction Status Date / Time No Known Allergies Allergy Verified 06/21/24 14:21 PFSH Acute 2 PFSH: Medical History Carotid bruit present Atherosclerotic heart disease of [place] coronary artery with other forms of angina pectoris Atypical chest pain The EKG done in the emergency room revealed normal sinus rhythm with a normal ST-T's. Migraine-cluster headache syndrome History of small bowel obstruction Hyperglycemia Castillo angioma GERD (gastroesophageal reflux disease) Cervical spondylosis Syncope CAD (coronary artery disease) Essential hypertension Mixed hyperlipidemia Diabetes mellitus History of colon cancer Surgical History History of heart artery stent History of angioplasty Family History Father CAD (coronary artery disease) Cancer Mother CAD (coronary artery disease) Cancer Brother Cancer Sister Cancer Other Heart disease Denies family history of Diabetes Clotting disorder Dementia Chronic kidney disease (CKD) Suicide Anesthesia complication Bleeding disorder Lung disease Stroke Social History Smoking and tobacco/nicotine status: former use of tobacco/nicotine Alcohol intake: never Substance/Drug Use: never Household members: spouse Marital status: Current occupational status: unemployed Vitals/I&O/Wt Last Vital Signs Temp 97.8 F 08/08/24 09:00 Pulse 66 08/08/24 12:53 Resp 19 H 08/08/24 12:53 BP 112/72 08/08/24 12:53 Pulse Ox 99 08/08/24 12:53 O2 Del Method Room Air 08/08/24 12:53 Weight last 48 hrs Weight 84.822 kg Physical Exam 2 Narrative: Accompanied by his . Const: COMMON NORMALS: patient oriented x3 and alert GENERAL APPEARANCE: c ooperative ORIENTATION/CONSCIOUSNESS: Yes awake HENMT: COMMON NORMALS: oropharynx normal Neck/C-Spine: COMMON NORMALS: no JVD Resp: COMMON NORMALS: normal respiratory effort and clear to auscultation bilaterally AUSCULTATION: clear to auscultation bilaterally Cardio: COMMON NORMALS: no JVD, regular rhythm, S1 normal heart sound present, S2 normal heart sound present and No murmurs present (Cardio) RHYTHM: regular rhythm HEART SOUNDS: S1 normal heart sound present and S2 normal heart sound present GI: COMMON NORMALS: Normal to inspection, nondistended, normoactive bowel sounds present, Soft to palpation and non-tender PALPATION: Yes Soft to palpation Extremity: COMMON NORMALS: no joint enlargement and no pedal edema Neuro: COMMON NORMALS: patient oriented x3 and moves all extremities S ENSORIUM/ORIENTATION: Yes alert Skin: COMMON NORMALS: no rashes or lesions noted GENERAL SKIN EXAM: no rashes or lesions noted Data 08/08/24 09:03 08/08/24 09:03 Micro: Microbiology 08/08/24 11:20 Blood Culture - Preliminary Blood SPECIMEN COLLECTED 08/08/24 11:32 Blood Culture - Preliminary Blood SPECIMEN COLLECTED A&P Assessment and plan (1) Chest pain: Experiencing chest pain on presentation, central, partially relieved by nitroglycerin, with history of CAD, 2 times stents in 2018, continues on aspirin and Plavix. Relieved with nitroglycerin drip. Does report productive cough, and states it also hurts when he takes a deep breath. Saturation 100% on room air. With ANTONIA on CKD, creatinine at 1.6. Reviewed vitals, CBC, CMP, baseline interval troponin, UA, chest x-ray, CT abdomen pelvis, EKG. ER provider note, discussed with ER provider. Complete troponin EKG series. Monitor telemetry with risk of arrhythmia. Continue aspirin, Plavix, metoprolol, appears is not on atorvastatin. I do not see a listed allergy. Will add atorvastatin, will need to confirm if there is a reason he had not been on statin previously. Anticoagulation with heparin. Monitor for risk of bleeding. Assess TTE. Pending cardiology consultation. Per discussion as he is currently chest pain-free can eat for now. Cardiology will decide on further assessment and treatment. D-dimer would not be useful in the setting of ANTONIA on CKD. For now he is empiric anticoagulated with possible unstable angina. Requested VQ scan. Qualifiers: Chest pain type: unspecified Qualified Code(s): R07.9 - Chest pain, unspecified (2) Acute kidney injury: BUN 19, creatinine up 1.6. Baseline previously around 1.1. Most recently 1.5 in March. Also with UTI, urine more than 100 WBC. 4+ bacteria. CT kidney stone protocol has been requested. Reviewed. Noted long-term severe right hydronephrosis. No significant dilation of left renal pelvis. Small extrarenal pelvis. Dilated distal ureter. Possibly secondary to urinary bladder overdistention. Markedly distended bladder, severe prostate gland enlargement. Consider outlet obstruction. (3) Urinary tract infection: More than 100 WBC in urine, 4+ bacteria, positive nitrate. Condition obstructive. Follow-up urine culture. Reviewed CT abdomen pelvis. Place Baron for urinary bladder decompression. Continue Flomax. Plan Cholelithiasis: Incidentally noted on CT. Will need follow-up. CAD, as above HTN: Continue metoprolol BPH: Continue tamsulosin Attestations 2 Medical Necessity Statement*: Admission over 2 midnights anticipated for assessment management of possible unstable angina additionally with underlying coronary disease, also with ANTONIA on CKD, UTI, bladder outlet obstruction. Diagnoses Chest pain R07.9 Chest pain type: unspecified Acute kidney injury N17.9 Urinary tract infection N39.0
--- NOTE | 2024-08-08 14:11 | PC.NURSE ---
Patient arrived on the floor at 1400 via gurney from ER. Report taken from shanelle Manzano RN.
[2024-08-08] MEDS: sodium chloride 0.9% 1,000 ML 125 ML IV ×2 (15:28→23:44)
[2024-08-08] MEDS: tamsulosin 0.4 mg Capsule PO (15:29)
[2024-08-08] MEDS: acetaminophen 325 mg Tablet 650 MG PO (15:35)
--- NOTE | 2024-08-08 16:09 | PC.NURSE ---
Patient refused martinez catheter.
--- NOTE | 2024-08-08 16:23 | PC.NURSE ---
patient refused to put on gown. He currently has on jeans and when asked if he would like put on pajama pants that he brought from home, he said no.
--- NOTE | 2024-08-08 16:30 | P.CONIM_ITS ---
<Statement entered by Vince Neil M.D - 08/08/24 23:14> Patient was evaluated and cared for in conjunction with an advanced practice practitioner. I personally examined the patient and reviewed the chart and all pertinent data including imaging, telemetry, and laboratory results. I discussed the patient in detail with the advanced practice practitioner. Please see their note for complete consult note, results and agreed upon plan of care for the patient. Patient has a history of CAD. Has presented with chest pain that resolved with multiple nitros. Troponins have not trended up significantly. Had a stress test a few months back that did not reveal ischemia. GENERAL: Patient is alert and oriented HEART: Regular S1 and S2 LUNGS: Clear to auscultation bilaterally EXTREMITIES: Lower extremities with 1+ edema 1) Chest pain 2) Coronary artery disease Patient has chest pain symptoms with typical features. It resolved with nitros. Given his risk factors and prior CAD history, we will proceed with coronary angiogram. He continues having chest pain despite of stress test not showing signficant ischemia. Creatinine is elevated. IV fluids. If creatinine improves, we will proceed with coronary angiogram tomrorow. NPO past midnight Thank you for involving us with care of this patient. We will continue to follow. Please call with questions. Providers/Reason For Consult 2 Consulting Physician/Specialty*: Dr Neil, cardiology Reason for Consult*: Chest pain Requesting Physician: Dr. Lopez Attending Physician: Mason Alcazar Primary Care Provider: KEVIN Pacheco History of Present Illness History of Present Illness [place] Mariza Alva is a 73 year old male past medical history of hypertension CAD diabetes dyslipidemia. He typically follows with Dr. Box in the cardiology clinic. He presented to the emergency room earlier today with complaints of burning chest pain 10 out of 10 in the center of his chest without radiation, began at rest and remained constant until he was started on nitroglycerin. He has not had any chest pain in the recent months preceding this, no worsening shortness of breath or edema. EKG did not show significant ischemic ST or T wave changes, no STEMI present. Baseline troponin 14 -> 7 -> 7. He has history of coronary angiogram in 2018-at that time previously placed stent to the LAD was patent and no other disease noted. He had a Lexiscan stress test in May which did not show ischemia. Hemoglobin 10.6, creatinine 1.6 (baseline usually 1.1). Review of Systems 2 Const: Denies: fever(s), chills, change in weight, fatigue or diaphoresis Eyes: Denies: change in vision ENMT: Denies: epistaxis Card: Reports: chest pain (reproducible tenderness anterior chest with palpation); Denies: palpitations, irregular heart rhythm, edema, syncope, pre-syncope, dyspnea on exertion, orthopnea or leg pain with exertion Resp: Denies: dyspnea, productive cough or wheezing GI: Denies: nausea, vomiting, hematemesis, hematochezia or melena : Denies: hematuria Musc: Denies: extremity swelling Clarke/Lymph: Denies: easy bruising or easy bleeding Medications/Allergies Home Medications Medication Instructions Recorded Confirmed Last Taken Type aspirin 81 mg tablet,delayed 81 mg PO QAM 07/25/19 08/08/24 08/07/24 History release Custom Molded Orthotics #1 ea 05/26/21 08/08/24 Unknown Rx Night splint to left #1 ea 05/26/21 08/08/24 Unknown Rx small hinge brace #1 ea 06/22/22 08/08/24 Unknown Rx tamsulosin 0.4 mg capsule (Flomax) 0.4 mg PO Q24H #20 caps 04/04/23 08/08/24 08/07/24 Rx clopidogrel 75 mg tablet 75 mg PO QAM 10/04/23 08/08/24 08/07/24 History metoprolol succinate 25 mg 25 mg PO QAM 10/04/23 08/08/24 08/08/24 History tablet,extended release 24 hr nitroglycerin 0.4 mg sublingual 0.4 mg sublingual Q5M PRN chest 05/09/24 08/08/24 Unknown Rx tablet pain 30 days #30 tabs lansoprazole 30 mg capsule,delayed 30 mg PO BID PRN Acid Reflux 08/08/24 08/08/24 Unknown History release (Prevacid) Allergies Allergy/AdvReac Type Severity Reaction Status Date / Time No Known Allergies Allergy Verified 06/21/24 14:21 Current Medications Generic Name Dose Route Start Last Admin Trade Name Freq PRN Reason Stop Dose Admin Acetaminophen 650 mg 08/08/24 13:50 08/08/24 15:35 Acetaminophen 325 Mg Tablet PO 650 mg Q6H PRN Administration Mild/Mod Pain Or Temp >/= 101 Nitroglycerin/Dextrose 50 mg in 250 mls @ 0 mls/hr 08/08/24 09:15 08/08/24 09:13 Nitroglycerin Drip IV 10 mcg/min .Q0M CASEY 3 mls/hr Administration Protocol Per Protocol Heparin Sodium/Sodium Chloride 25,000 unit in 500 mls @ 0 mls/hr 08/08/24 11:30 08/08/24 11:56 Heparin Drip IV 14.15 unit/kg/hr CONT CASEY 24 mls/hr Administration Protocol Per Protocol Sodium Chloride 1,000 mls @ 125 mls/hr 08/08/24 13:05 08/08/24 15:28 Sodium Chloride 0.9% IV 125 mls/hr .Q8H CASEY Administration Tamsulosin HCl 0.4 mg 08/08/24 14:00 08/08/24 15:29 Tamsulosin 0.4 Mg Capsule PO 0.4 mg Q24H CASEY Administration PFSH Acute 2 PFSH: Medical History Carotid bruit present Atherosclerotic heart disease of [place] coronary artery with other forms of angina pectoris Atypical chest pain The EKG done in the emergency room revealed normal sinus rhythm with a normal ST-T's. Migraine-cluster headache syndrome History of small bowel obstruction Hyperglycemia Castillo angioma GERD (gastroesophageal reflux disease) Cervical spondylosis Syncope CAD (coronary artery disease) Essential hypertension Mixed hyperlipidemia Diabetes mellitus History of colon cancer Surgical History History of heart artery stent History of angioplasty Family History Father CAD (coronary artery disease) Cancer Mother CAD (coronary artery disease) Cancer Brother Cancer Sister Cancer Other Heart disease Denies family history of Diabetes Clotting disorder Dementia Chronic kidney disease (CKD) Suicide Anesthesia complication Bleeding disorder Lung disease Stroke Social History Smoking and tobacco/nicotine status: former use of tobacco/nicotine Alcohol intake: never Substance/Drug Use: never Household members: spouse Marital status: Current occupational status: unemployed Vitals/I&O/Wt Last Vital Signs Temp 97.8 F 08/08/24 09:00 Pulse 54 L 08/08/24 14:45 Resp 19 H 08/08/24 12:53 BP 129/77 08/08/24 14:45 Pulse Ox 100 08/08/24 14:45 O2 Del Method Room Air 08/08/24 14:10 Weight last 48 hrs Weight 187 lb Weight 187 lb Physical Exam 2 Const: COMMON NORMALS: no acute distress and patient oriented x3 GENERAL APPEARANCE: cooperative and comfortable ORIENTATION/CONSCIOUSNESS: Yes awake, Yes oriented to person, Yes oriented to place and Yes oriented to time Chest: COMMONS NORMALS: normal inspection of the chest and normal palpation of entire chest wall CHEST: Yes Symmetrical chest wall rise OTHER: Tenderness in the area of the third and fourth rib just to the left of the sternum with palpation Resp: COMMON NORMALS: normal respiratory effort, No retractions, No use of accessory muscles and clear to auscultation bilaterally EFFORT & INSPECTION: Yes symmetric chest movement AUSCULTATION: clear to auscultation bilaterally Cardio: COMMON NORMALS: regular rate, regular rhythm, S1 normal heart sound present, S2 normal heart sound present, No gallops present (Cardio), No clicks present (Cardio), No murmurs present (Cardio) and No rub (Cardio) RATE: r egular rate RHYTHM: regular rhythm HEART SOUNDS: S1 normal heart sound present and S2 normal heart sound present PERIPHERAL PULSES: radial pulses present Extremity: COMMON NORMALS: no pedal edema Neuro: COMMON NORMALS: patient oriented x3 and moves all extremities S ENSORIUM/ORIENTATION: Yes oriented to person, Yes oriented to place and Yes oriented to time Data 08/08/24 09:03 08/08/24 09:03 Micro: Microbiology 08/08/24 11:20 Blood Culture - Preliminary Blood SPECIMEN COLLECTED 08/08/24 11:32 Blood Culture - Preliminary Blood SPECIMEN COLLECTED A&P Assessment and plan (1) CAD (coronary artery disease): The chest pain responded to nitroglycerin and appears to be currently resolved. He will require an echocardiogram and coronary angiogram to further evaluate his coronary status. Since creatinine is 1.6 and he is currently chest pain-free, will start IV fluid to reduce risk of contrast-induced nephropathy prior to coronary angiography tomorrow. N.p.o. after midnight. Continue aspirin, Plavix, metoprolol succinate. (2) Dyslipidemia (high LDL; low HDL): (3) Essential hypertension: (4) History of heart artery stent: (5) Diabetes mellitus: Qualifiers: Diabetes mellitus complication status: without complication Diabetes mellitus intermediate designer insulin use: without intermediate designer use Diabetes mellitus type: t ype 2 Qualified Code(s): E11.9 - Type 2 diabetes mellitus without complications Consult Attestations 2 Medical Necessity Statement: chest pain, ischemic workup Coding Level of Care Code Acute Code for [facility] Diagnoses CAD (coronary artery disease) I25.10 Dyslipidemia (high LDL; low HDL) E78.5 Essential hypertension I10 History of heart artery stent Z95.5 Type 2 diabetes mellitus without complication, without long-term current use of insulin E11.9 Diabetes mellitus complication status: without complication Diabetes mellitus intermediate designer insulin use: without intermediate designer use Diabetes mellitus type: type 2
--- NOTE | 2024-08-08 16:45 | USCV_ITS ---
Aram Alva Age: 73 Gender: M : 1950 Exam Date: 08/08/2024 17:19 Ordering Phys: Jackie Lala Technologist: CT Exam Location: [facility] [place]_ Indication: cp BP: 126 / 81 HR: 59 Rhythm: Sinus Technical Quality: Adequate MEASUREMENTS (Male / Female) Normal Values 2D ECHO LVOT Diameter 2.0 cm LV Ejection Fraction MOD 4C 68.6 % LV Ejection Fraction MOD 2C 67.5 % LV Ejection Fraction 2C AL 68.8 % LA Diameter 4.3 cm RA Systolic Volume 4C AL 54.1 ml RA Systolic Volume 4C MOD 51.8 ml LA Sys Volume AL 61.1 cm cubed LA Sys Volume Index AL 30.8 cm cubed/m squared Aorta at Sinotubular Diameter 2.7 cm M-MODE LA Ao Ratio MM 1.6 AV Cusp Separation MM 1.4 cm DOPPLER AV Peak Velocity 147.0 cm/s LVOT Peak Velocity 91.0 cm/s AV Area Cont Eq vti 2.3 cm squared AV Area Cont Eq pk 2.0 cm squared MV Peak Velocity 79.0 cm/s MV Area PHT 2.8 cm squared Mitral E to A Ratio 1.0 TR Peak Velocity 224.0 cm/s TR Peak Gradient 20.1 mmHg TV Peak E Velocity 69.0 cm/s PV Peak Velocity 114.0 cm/s FINDINGS Left Ventricle Normal left ventricular size, systolic function and wall thickness, with no regional wall motion abnormalities. Left ventricular ejection fraction is estimated at 60 %. Grade I/IV diastolic dysfunction (abnormal relaxation filling pattern), normal to mildly elevated filling pressures. Right Ventricle The right ventricle is normal in size and function. Right Atrium The right atrium is normal in size. Left Atrium The left atrium is normal in size. Mitral Valve Structurally normal mitral valve without significant stenosis or prolapse. There is no mitral regurgitation. Aortic Valve Structurally normal aortic valve without significant sclerosis or stenosis. There is no aortic regurgitation. Tricuspid Valve Structurally normal tricuspid valve without significant stenosis or regurgitation. Pulmonary artery systolic pressure is normal. Pulmonic Valve Structurally normal pulmonic valve without significant stenosis. There is no pulmonic regurgitation. Pericardium Normal pericardium without effusion. Aorta Normal ascending aorta dimension. IVC The inferior vena cava appears normal. CONCLUSIONS Normal left ventricular size, systolic function and wall thickness, with no regional wall motion abnormalities. Left ventricular ejection fraction is estimated at 60 %. Grade I/IV diastolic dysfunction (abnormal relaxation filling pattern), normal to mildly elevated filling pressures. There is no pericardial effusion. No significant valve abnormalities. Pulmonary artery systolic pressure is within normal limits. Right atrial pressure is around 5 mm of mercury. Woodrow Montaño MD (Electronically Signed) Final Date: 09 August 2024 09:46 S
[2024-08-08] MEDS: atorvastatin 40 mg Tablet PO (20:18)
[2024-08-08 21:15] LABS: Blood Urea Nitrogen 19 mg/dL (8-23); Calcium 8.9 mg/dL (8.5-10.5); Carbon Dioxide 22 mmol/L (22-29); Chloride 103 mmol/L (98-107); Creatinine Clr Calc Pharmacy 50.3733; Glucose 111 mg/dL (65-115); Osmolality Calculated 289 mOsm/kg (285-295); Partial Thromboplastin Time 25.9 SECONDS (23.9-36.7); Sodium 138 mmol/L (136-145)
[2024-08-08 21:19] LABS: Anion Gap 17.2 (5-19); Potassium 4.2 mmol/L (3.5-5.1)
[2024-08-08 21:29] LABS: Basophils # 0.1 10^3/uL (0.0-0.1); Basophils % 1.1 %; Eosinophils # 0.2 10^3/uL (0.0-0.8); Eosinophils % 2.7 %; Hematocrit 30.3 % (37-53); Lymphocytes # 1.1 10^3/uL (0.8-4.8); Lymphocytes % 17.4 %; Mean Corpuscular Hemoglobin 23.5 pg (27-33); Mean Corpuscular Volume 78.1 fl (82-101); Mean Platelet Volume 10.7 fL (7.4-10.4); Monocytes # 0.7 10^3/uL (0.2-0.9); Monocytes % 10.5 %; Neutrophils # 4.46 10^3/uL (1.8-7.7); Nucleated Red Blood Cells % 0 %; Platelet Count 266 10^3/cmm (157-399); Red Blood Count 3.88 10^6/uL (3.85-5.65); White Blood Count 6.56 10^3/uL (3.29-11.43)
[2024-08-08] MEDS: heparin 5,000 unit/mL INJ 1 mL IVP (21:29)
[2024-08-09] VITALS (8 sets, daily range): BP systolic 119–149; BP diastolic 73–90; PULSE 55–99; RESP 13–25; TEMP 36.7–36.9; O2SAT 91–100
[2024-08-09 03:48] LABS: Basophils # 0.1 10^3/uL (0.0-0.1); Basophils % 1.3 %; Eosinophils # 0.2 10^3/uL (0.0-0.8); Eosinophils % 4.2 %; Lymphocytes % 17.6 %; Mean Corpuscular Hemoglobin 23.4 pg (27-33); Mean Corpuscular Volume 77.9 fl (82-101); Mean Platelet Volume 10.4 fL (7.4-10.4); Monocytes # 0.5 10^3/uL (0.2-0.9); Monocytes % 9.6 %; Neutrophils # 3.63 10^3/uL (1.8-7.7); Neutrophils % 66.7 %; Nucleated Red Blood Cells % 0 %; Platelet Count 269 10^3/cmm (157-399); Red Blood Count 3.98 10^6/uL (3.85-5.65); Red Cell Distribution Width 16.1 % (12.1-15.1); White Blood Count 5.44 10^3/uL (3.29-11.43)
[2024-08-09 04:07] LABS: Anion Gap 14.4 (5-19); Blood Urea Nitrogen 20 mg/dL (8-23); Calcium 8.6 mg/dL (8.5-10.5); Carbon Dioxide 23 mmol/L (22-29); Chloride 106 mmol/L (98-107); Creatinine Clr Calc Pharmacy 47.0151; Glucose 122 mg/dL (65-115); Osmolality Calculated 292 mOsm/kg (285-295); Potassium 4.4 mmol/L (3.5-5.1); Sodium 139 mmol/L (136-145)
[2024-08-09 04:08] LABS: Partial Thromboplastin Time 132.9 SECONDS (23.9-36.7)
[2024-08-09] MEDS: clopidogrel 75 mg Tablet PO (05:12)
[2024-08-09] MEDS: metoprolol succinate ER (24 HR) 25 mg Tablet PO (05:12)
[2024-08-09] MEDS: heparin drip 25,000 UNIT/500 ML PREMIX 24 UNIT IV (06:56)
[2024-08-09] MEDS: sodium chloride 0.9% 1,000 ML 100 ML IV ×2 (07:43→17:51)
[2024-08-09] MEDS: cefTRIAXone 1,000 mg SDV 1000 MG IVP (08:49)
[2024-08-09] MEDS: ondansetron 2 mg/ML SDV 2 mL 4 MG IVP (08:53)
--- NOTE | 2024-08-09 09:55 | P.PN_ITS ---
<Statement entered by Vince Neil M.D - 08/09/24 23:21> Patient was evaluated and cared for in conjunction with an advanced practice practitioner. I personally reviewed the chart and all pertinent data including imaging, telemetry, and laboratory results. I discussed the patient in detail with the advanced practice practitioner. Please see their note for complete progress note, results and agreed upon plan of care for the patient. Subjective 2 Subjective: No chest pain overnight, precordium not tender to palpation today. Will request help from the hospitalist regarding nephrology given he was to see them today as an outpatient. Creatinine this morning 1.5. Will discuss risk versus benefits for coronary angiography with the patient and qa engineer. Patient did have a UTI, hospitalist is managing antibiotic therapy. Vitals/I&O/Wt Last Vital Signs Temp 98.1 F 08/09/24 07:41 Pulse 73 08/09/24 07:41 Resp 13 08/09/24 07:41 BP 149/79 08/09/24 07:41 Pulse Ox 100 08/09/24 07:41 O2 Del Method Room Air 08/09/24 04:00 08/08/24 08/09/24 08/09/24 22:59 06:59 14:59 Intake Total 675.85 / 9176.967 5505.583 / 1941.433 Output Total 100 / 500 400 / 500 Balance 575.85 / 1441.433 865.583 / 1441.433 Weight last 48 hrs Weight 187 lb Weight 187 lb Weight 187 lb Physical Exam 2 Const: COMMON NORMALS: no acute distress and patient oriented x3 GENERAL APPEARANCE: cooperative and comfortable ORIENTATION/CONSCIOUSNESS: Yes awake, Yes oriented to person, Yes oriented to place and Yes oriented to time Chest: COMMONS NORMALS: normal inspection of the chest and normal palpation of entire chest wall CHEST: Yes Symmetrical chest wall rise Resp: COMMON NORMALS: normal respiratory effort, No retractions, No use of accessory muscles and clear to auscultation bilaterally EFFORT & INSPECTION: Yes symmetric chest movement AUSCULTATION: clear to auscultation bilaterally Cardio: COMMON NORMALS: regular rate, regular rhythm, S1 normal heart sound present, S2 normal heart sound present, No gallops present (Cardio), No clicks present (Cardio), No murmurs present (Cardio) and No rub (Cardio) RATE: r egular rate RHYTHM: regular rhythm HEART SOUNDS: S1 normal heart sound present and S2 normal heart sound present PERIPHERAL PULSES: radial pulses present Extremity: COMMON NORMALS: no pedal edema Neuro: COMMON NORMALS: patient oriented x3 and moves all extremities S ENSORIUM/ORIENTATION: Yes oriented to person, Yes oriented to place and Yes oriented to time Data 08/09/24 03:25 08/09/24 03:25 Micro: Microbiology 08/08/24 10:22 Urine Culture - Preliminary Urine,Clean Catch Gram Negative Rods 08/08/24 11:20 Blood Culture - Preliminary Blood SPECIMEN COLLECTED 08/08/24 11:32 Blood Culture - Preliminary Blood SPECIMEN COLLECTED A&P Assessment and plan (1) CAD (coronary artery disease): Patient will be evaluated by nephrology today, plan for possible coronary angiogram tomorrow. He may resume his regular diet today and n.p.o. after midnight tonight. (2) Essential hypertension: (3) Mixed hyperlipidemia: Attestations 2 Medical Necessity Statement*: Evaluation of chest pain with coronary angiography Coding Level of Care Code Acute Code for [facility] Diagnoses CAD (coronary artery disease) I25.10 Essential hypertension I10 Mixed hyperlipidemia E78.2
--- NOTE | 2024-08-09 10:14 | US_ITS ---
WS: [id number] RENAL ULTRASOUND HISTORY: shayan COMPARISON: CT 08/06/2024 TECHNIQUE: 2-D and color Doppler imaging of the kidney submitted. Right kidney: 13.9 cm x 5.7 cm x 7.0 cm. Cortex: 0.9 cm Severe hydronephrosis. Marked dilatation of the calyces and renal pelvis. Diffuse cortical thinning. Left kidney: 11.8 cm x 4.2 cm x 5.4 cm. Cortex: 1.0 cm Mild hydronephrosis. Minimal calyceal dilatation. There is mild dilatation of the central renal pelvi s. Aorta: Normal. Urinary Bladder: Urinary bladder is dilated and enlarged with low-level echoes. Bladder measures at l east 15.2 x 11.8 x 11.0 cm. Prevoid volume of 1046 mL. US/US renal BI* [id number] IMPRESSION: 1. Severe RIGHT hydronephrosis. Similar to the recent CT of 08/08/2024. 2. Mild LEFT hydronephrosis. 3. Markedly enlarged urinary bladder with low-level echoes. Debris within the urinary bladder.
[2024-08-09] MEDS: levoFLOXacin 750 mg Tablet PO (10:24)
[2024-08-09] MEDS: aspirin 81 mg EC Tablet PO (10:24)
[2024-08-09 11:37] LABS: Partial Thromboplastin Time 58.3 SECONDS (23.9-36.7)
[2024-08-09] MEDS: tamsulosin 0.4 mg Capsule PO (14:36)
--- NOTE | 2024-08-09 15:10 | P.PN_ITS ---
Subjective 2 Subjective: Patient was seen this morning, currently chest pain-free, no shortness of breath, no nausea, no vomiting, no abdominal pain, we discussed the risks and benefits of coronary angiography, discussed his chest pain, his CKD, he CT abdomen and pelvis findings, I am highly suspicious with his enlarged prostate he has chronic bladder outlet obstruction, however he will eventually have to have urology evaluation, we will do a renal ultrasound, bladder ultrasound Vitals/I&O/Wt Last Vital Signs Temp 98.3 F 08/09/24 11:40 Pulse 99 08/09/24 11:40 Resp 22 H 08/09/24 11:40 BP 119/73 08/09/24 11:40 Pulse Ox 100 08/09/24 11:40 O2 Del Method Room Air 08/09/24 11:40 08/09/24 08/09/24 08/09/24 06:59 14:59 22:59 Intake Total 1265.583 / 1941.433 138 / 138 Output Total 400 / 500 900 / 900 Balance 865.583 / 1441.433 -762 / -762 Weight last 48 hrs Weight 84.822 kg Weight 84.822 kg Weight 84.822 kg Physical Exam 2 Const: COMMON NORMALS: no acute distress and patient oriented x3 Resp: COMMON NORMALS: normal respiratory effort, No retractions, No use of accessory muscles and clear to auscultation bilaterally AUSCULTATION: clear to auscultation bilaterally Cardio: COMMON NORMALS: regular rate, regular rhythm, S1 normal heart sound present and S2 normal heart sound present RATE: regular rate RHYTHM: r egular rhythm HEART SOUNDS: S1 normal heart sound present and S2 normal heart sound present GI: COMMON NORMALS: Normal to inspection, nondistended, normoactive bowel sounds present and non-tender Extremity: COMMON NORMALS: no pedal edema Neuro: COMMON NORMALS: patient oriented x3, CN's II-XII intact bilaterally and moves all extremities Psych: COMMON NORMALS: mental status grossly normal Data 08/09/24 03:25 08/09/24 03:25 Micro: Microbiology 08/08/24 10:22 Urine Culture - Preliminary Urine,Clean Catch Gram Negative Rods 08/08/24 11:20 Blood Culture - Preliminary Blood SPECIMEN COLLECTED 08/08/24 11:32 Blood Culture - Preliminary Blood SPECIMEN COLLECTED A&P Assessment and plan (1) Chest pain: -Denies active chest pain -History of CAD with stent placement in 2018 -Cardiac echo CONCLUSIONS Normal left ventricular size, systolic function and wall thickness, with no regional wall motion abnormalities. Left ventricular ejection fraction is estimated at 60 %. Grade I/IV diastolic dysfunction (abnormal relaxation filling pattern), normal to mildly elevated filling pressures. There is no pericardial effusion. No significant valve abnormalities. Pulmonary artery systolic pressure is within normal limits. Right atrial pressure is around 5 mm of mercury. Plan ? Aspirin, Plavix, beta-daren -Telemetry monitoring -Heparin drip -Cardiology consulted -ANTONIA, creatinine 1.5, -Discussed risks and benefits of coronary angiography, risk of renal failure, dialysis -Consult nephrology Qualifiers: Chest pain type: unspecified Qualified Code(s): R07.9 - Chest pain, unspecified (2) Acute kidney injury: -Creatinine 1.5 -History of CKD -CT scan of abdomen CCESSION #: [id number] CT/CT kidney stone [id number] IMPRESSION: 1. Long-term severe RIGHT hydroureteronephrosis. 2. No significant dilatation of the LEFT renal pelvis. There is a small extrarenal pelvis. The distal ureter is dilated. The distal LEFT ureteral dilatation may be due to the overly distended urinary bladder resulting in decreased emptying of the ureter. 3. Markedly distended urinary bladder with severe prostate gland enlargement. Consider outlet obstruction. -Patient's right hydroureteronephrosis, also has distal left ureteral dilatation -Highly suspicious for chronic bladder outlet obstruction from enlarged prostate -Certainly patient will need urology evaluation for right hydroureteronephrosis -Plan ? Monitor urine output, monitor creatinine -IV fluids -Order renal ultrasound -Has evidence of UTI Levaquin -Nephrology consulted -Levaquin for UTI -Continue Flomax (3) Urinary tract infection: - Levaquin for UTI Plan Cholelithiasis: Incidentally noted on CT. Will need follow-up. CAD, as above HTN: Continue metoprolol BPH: Continue tamsulosin Attestations 2 Medical Necessity Statement*: Patient requires hospitalization for chest pain, ANTONIA Diagnoses Chest pain R07.9 Chest pain type: unspecified Acute kidney injury N17.9 Urinary tract infection N39.0
[2024-08-09 17:38] LABS: Partial Thromboplastin Time 55.5 SECONDS (23.9-36.7)
[2024-08-09] MEDS: atorvastatin 40 mg Tablet PO (21:00)
[2024-08-09 23:19] LABS: Partial Thromboplastin Time 58.9 SECONDS (23.9-36.7)
[2024-08-10] VITALS (9 sets, daily range): BP systolic 131–154; BP diastolic 75–91; PULSE 57–112; RESP 16–26; TEMP 36.6–37; O2SAT 94–98
[2024-08-10 02:28] LABS: Basophils # 0.1 10^3/uL (0.0-0.1); Basophils % 0.9 %; Eosinophils # 0.2 10^3/uL (0.0-0.8); Eosinophils % 2.7 %; Hematocrit 29.1 % (37-53); Lymphocytes % 16.3 %; Mean Corpuscular HGB Conc 30.6 g/dL (30-55); Mean Corpuscular Hemoglobin 23.4 pg (27-33); Mean Corpuscular Volume 76.6 fl (82-101); Mean Platelet Volume 10.5 fL (7.4-10.4); Monocytes # 0.7 10^3/uL (0.2-0.9); Monocytes % 10.8 %; Neutrophils # 4.42 10^3/uL (1.8-7.7); Neutrophils % 69.1 %; Nucleated Red Blood Cells % 0 %; Platelet Count 258 10^3/cmm (157-399); Red Cell Distribution Width 15.9 % (12.1-15.1); White Blood Count 6.39 10^3/uL (3.29-11.43)
[2024-08-10 02:55] LABS: Anion Gap 16.2 (5-19); Blood Urea Nitrogen 20 mg/dL (8-23); Calcium 8.4 mg/dL (8.5-10.5); Carbon Dioxide 21 mmol/L (22-29); Chloride 105 mmol/L (98-107); Creatinine Clr Calc Pharmacy 39.1792; Glucose 101 mg/dL (65-115); Osmolality Calculated 289 mOsm/kg (285-295); Potassium 4.2 mmol/L (3.5-5.1); Sodium 138 mmol/L (136-145)
[2024-08-10] MEDS: heparin drip 25,000 UNIT/500 ML PREMIX 24 UNIT IV (03:25)
[2024-08-10] MEDS: sodium chloride 0.9% 1,000 ML 100 ML IV ×2 (03:26→15:27)
[2024-08-10 05:58] LABS: Partial Thromboplastin Time 60.6 SECONDS (23.9-36.7)
[2024-08-10] MEDS: clopidogrel 75 mg Tablet PO (06:30)
[2024-08-10] MEDS: metoprolol succinate ER (24 HR) 25 mg Tablet PO (06:30)
--- NOTE | 2024-08-10 07:14 | P.CONIM_ITS ---
Providers/Reason For Consult 2 Consulting Physician/Specialty*: [place]/Nephrology Reason for Consult*: ANTONIA Attending Physician: Riley Jones MD Primary Care Provider: KEVIN Pacheco History of Present Illness History of Present Illness [place] Mariza Alva is a 73 year old male patient is a 73-year-old male with past medical history of coronary artery disease with stents hypertension dyslipidemia diabetes GERD presented to the emergency department due to chest pain. Noted to have elevated troponin. CT abdomen was done in the ED that showed severe right hydroureteronephrosis. And also has prostatic enlargement. Patient's creatinine has been in the mid 1 range since admission. Baron catheter placed and patient now polyuric. Review of Systems 2 Narrative: Negative Medications/Allergies Home Medications Medication Instructions Recorded Confirmed Last Taken Type aspirin 81 mg tablet,delayed 81 mg PO QAM 07/25/19 08/08/24 08/07/24 History release Custom Molded Orthotics #1 ea 05/26/21 08/08/24 Unknown Rx Night splint to left #1 ea 05/26/21 08/08/24 Unknown Rx small hinge brace #1 ea 06/22/22 08/08/24 Unknown Rx tamsulosin 0.4 mg capsule (Flomax) 0.4 mg PO Q24H #20 caps 04/04/23 08/08/24 08/07/24 Rx clopidogrel 75 mg tablet 75 mg PO QAM 10/04/23 08/08/24 08/07/24 History metoprolol succinate 25 mg 25 mg PO QAM 10/04/23 08/08/24 08/08/24 History tablet,extended release 24 hr nitroglycerin 0.4 mg sublingual 0.4 mg sublingual Q5M PRN chest 05/09/24 08/08/24 Unknown Rx tablet pain 30 days #30 tabs lansoprazole 30 mg capsule,delayed 30 mg PO BID PRN Acid Reflux 08/08/24 08/08/24 Unknown History release (Prevacid) Allergies Allergy/AdvReac Type Severity Reaction Status Date / Time No Known Allergies Allergy Verified 06/21/24 14:21 Current Medications Generic Name Dose Route Start Last Admin Trade Name Freq PRN Reason Stop Dose Admin Acetaminophen 650 mg 08/08/24 13:50 08/08/24 15:35 Acetaminophen 325 Mg Tablet PO 650 mg Q6H PRN Administration Mild/Mod Pain Or Temp >/= 101 Aspirin 81 mg 08/09/24 10:15 08/09/24 10:24 Aspirin 81 Mg Ec Tablet PO 81 mg DAILY CASEY Administration Atorvastatin Calcium 40 mg 08/08/24 21:00 08/09/24 21:00 Atorvastatin 40 Mg Tablet PO 40 mg BEDTIME CASEY Administration Clopidogrel Bisulfate 75 mg 08/09/24 06:00 08/10/24 06:30 Clopidogrel 75 Mg Tablet PO 75 mg QAM CASEY Administration Heparin Sodium (Porcine) 0 unit 08/08/24 11:17 08/08/24 21:29 Heparin 5,000 Unit/Ml Inj 1 Ml IVP 4,300 unit PRN PRN Administration Heparin Weight Based Protocol -Subsequent Bolus Protocol Nitroglycerin/Dextrose 50 mg in 250 mls @ 0 mls/hr 08/08/24 09:15 08/08/24 19:10 Nitroglycerin Drip IV 0 mcg/min .Q0M CASEY 0 mls/hr Titration Protocol Per Protocol Heparin Sodium/Sodium Chloride 25,000 unit in 500 mls @ 0 mls/hr 08/08/24 11:30 08/10/24 06:06 Heparin Drip IV 14.15 unit/kg/hr CONT CASEY 24 mls/hr Titration Protocol Per Protocol Sodium Chloride 1,000 mls @ 100 mls/hr 08/09/24 06:00 08/10/24 03:26 Sodium Chloride 0.9% IV 100 mls/hr .Q10H CASEY Administration Metoprolol Succinate 25 mg 08/09/24 06:00 08/10/24 06:30 Metoprolol Succinate Er (24 Hr) 25 Mg Tablet PO 25 mg QAM CASEY Administration Ondansetron HCl 4 mg 08/08/24 13:05 08/09/24 08:53 Ondansetron 2 Mg/Ml Sdv 2 Ml IVP 4 mg Q6H PRN Administration NAUSEA AND VOMITING Tamsulosin HCl 0.4 mg 08/08/24 14:00 08/09/24 14:36 Tamsulosin 0.4 Mg Capsule PO 0.4 mg Q24H CASEY Administration PFSH Acute 2 PFSH: Medical History Carotid bruit present Atherosclerotic heart disease of [place] coronary artery with other forms of angina pectoris Atypical chest pain The EKG done in the emergency room revealed normal sinus rhythm with a normal ST-T's. Migraine-cluster headache syndrome History of small bowel obstruction Hyperglycemia Castillo angioma GERD (gastroesophageal reflux disease) Cervical spondylosis Syncope CAD (coronary artery disease) Essential hypertension Mixed hyperlipidemia Diabetes mellitus History of colon cancer Surgical History History of heart artery stent History of angioplasty Family History Father CAD (coronary artery disease) Cancer Mother CAD (coronary artery disease) Cancer Brother Cancer Sister Cancer Other Heart disease Denies family history of Diabetes Clotting disorder Dementia Chronic kidney disease (CKD) Suicide Anesthesia complication Bleeding disorder Lung disease Stroke Social History Smoking and tobacco/nicotine status: former use of tobacco/nicotine Alcohol intake: never Substance/Drug Use: never Household members: spouse Marital status: Current occupational status: unemployed Vitals/I&O/Wt Last Vital Signs Temp 98.6 F 08/10/24 04:00 Pulse 81 08/10/24 05:34 Resp 16 08/10/24 04:00 BP 146/86 08/10/24 04:00 Pulse Ox 98 08/10/24 04:00 O2 Del Method Room Air 08/10/24 04:00 08/09/24 08/10/24 08/10/24 22:59 06:59 14:59 Intake Total 2917.6 / 3055.6 1536.4 / 4592.0 Output Total 2850 / 3750 1900 / 5650 Balance 67.6 / -694.4 -363.6 / -1058.0 Weight last 48 hrs Weight 84.822 kg Weight 84.822 kg Weight 84.822 kg Weight 84.822 kg Physical Exam 2 Narrative: awake alert, no distress PERRLA S1-S2 regular rate rhythm per 4 Lungs clear per report No pedal edema Urinary Catheter Management: Coude: Cath Placed During This Visit: yes Reason for Continuing Indwelling Catheter: Acute Urinary Retention or Obstruction Urinary Catheter Date of Insertion: 08/09/24 Urinary Catheter Time of Insertion: 17:42 Data 08/10/24 02:17 08/10/24 13:21 Micro: Microbiology 08/08/24 11:32 Blood Culture - Preliminary Blood NEGATIVE TO DATE 08/08/24 11:20 Blood Culture - Preliminary Blood NEGATIVE TO DATE 08/08/24 10:22 Urine Culture - Preliminary Urine,Clean Catch Gram Negative Rods A&P Assessment and plan (1) Acute kidney injury: 1. Acute on CKD 3 : Creatinine in the mid 1 range , likely due to chronic obstruction. Baron catheter placed. Patient now polyuric-postobstructive diuresis. -He needs urology evaluation and DC home on Baron catheter until seen by urology. -Avoid IV contrast or nephrotoxins Polyuria : Postobstructive diuresis, continue IV fluids-decrease rate to 75 cc/hr. Metabolic acidosis : Mild , monitor Anemia : Hb 8.9 , check iron studies pt evaluated using audiovisual cart. Time spent 40 min (2) Urinary obstruction: Consult Attestations 2 Medical Necessity Statement: per medicine Coding Level of Care Code Acute Code for [facility] Diagnoses Acute kidney injury N17.9 Urinary obstruction N13.9
--- NOTE | 2024-08-10 08:17 | CT_ITS ---
WS: [id number] CT CHEST, ABDOMEN AND PELVIS NONCONTRAST HISTORY: sternal mass?? compare bone scan TECHNIQUE: Contiguous 5 mm axial imaging performed through the chest, abdomen and pelvis without IV c ontrast, oral contrast has no been provided. Coronal and sagittal reformats chest. Coronal and sagitt al reformats through the abdomen and pelvis. All CT scans at [facility] use at least one of t hese dose optimization techniques: automated exposure control; mA and/or kV adjustment per patient si ze (includes targeted exams where dose is matched to clinical indication); or iterative reconstructio n. CONTRAST: None DLP: 782.78 mGy.cm COMPARISON: Prior CT 08/08/2024, 04/12/2024, bone scan 07/13/[address]: Mild dependent changes and subsegmental atelectasis at the lung bases. No pneumonia. Micron odule in the periphery of the RIGHT middle lobe. No mass or pneumonia. Mildly ectatic aorta. Normal s ize pulmonary artery. No mediastinal or hilar adenopathy identified. Normal size heart. Small hiatal hernia. Mild rotary scoliosis of the thoracic spine. No destructive process within the mid sternal body. Ther e is very slight widening. Patient did provide a history of remote fracture involving the sternum. Abdomen CT: Normal size liver and spleen. Cholelithiasis without acute cholecystitis. Limited visuali zation of the pancreas but no abnormality. Mild atherosclerosis aorta. RIGHT kidney: Recently described severe RIGHT hydro ureteronephrosis has significantly improved after catheterization of the urinary bladder. There is still mild dilatation of the renal pelvis and urete r. RIGHT ureter is tortuous and elongated. LEFT kidney: Resolved dilatation of the LEFT renal pelvis. Distal LEFT ureter was also dilated which has also significantly improved. Nondistended stomach. No small bowel obstruction. Constipation. Surgical anastomosis near the hepatic flexure is identified. No recurrent mass. No ascites or adenopathy appreciated on this unenhanced exam. Pelvic CT: Urinary bladder has been decompressed status post catheterization. There is air in the uri nary bladder and diffuse bladder wall thickening. CT/[place] [id number] IMPRESSION: 1. Significant but incomplete improvement in the severe RIGHT hydroureteroneph rosis since 08/08/2024 after urinary bladder catheterization. There is still mod erate dilatation and tortuosity of the RIGHT ureter. 2. Resolved LEFT hydronephrosis. Distal LEFT ureter continues to be slightly d ilated. 3. Diffuse bladder wall thickening. Baron catheter present within the bladder. 4. Prostate enlargement. 5. No destructive lesion within the sternum. Patient did provide a history of prior sternal fracture. Increased uptake on the bone scan may be from the prior fracture with healing.
--- NOTE | 2024-08-10 09:16 | PC.SOCIAL ---
IMM Update pg 2 of IMM updated and reviewed w/ patient. Copy provided and copy dated, initialed and placed in chart.
[2024-08-10] MEDS: aspirin 81 mg EC Tablet PO (10:15)
[2024-08-10 14:43] LABS: Blood Urea Nitrogen 18 mg/dL (8-23); Calcium 8.7 mg/dL (8.5-10.5); Carbon Dioxide 21 mmol/L (22-29); Chloride 104 mmol/L (98-107); Creatinine Clr Calc Pharmacy 44.0766; Glucose 123 mg/dL (65-115); Osmolality Calculated 287 mOsm/kg (285-295); Sodium 137 mmol/L (136-145)
[2024-08-10] MEDS: tamsulosin 0.4 mg Capsule PO (15:12)
--- NOTE | 2024-08-10 15:19 | P.PN_ITS ---
<Statement entered by Vince Neil M.D - 08/10/24 20:53> Patient was evaluated and cared for in conjunction with an advanced practice practitioner. I personally reviewed the chart and all pertinent data including imaging, telemetry, and laboratory results. I discussed the patient in detail with the advanced practice practitioner. Please see their note for complete progress note, and following update. As patient's creatinine is trending down this afternoon and if continues to do so, can plan for angiogram tomorrow. Discussed with primary team. Subjective 2 Subjective: Patient was seen this morning. He has done well overnight with no chest pain. Blood pressure is well-controlled. Creatinine increased to 1.8 this morning. Since he is chest pain-free we will defer coronary angiogram at this time. The hospitalist has has consulted with nephrology on the CKD. Vitals/I&O/Wt Last Vital Signs Temp 98.0 F 08/10/24 12:00 Pulse 70 08/10/24 12:00 Resp 24 H 08/10/24 12:00 BP 137/77 08/10/24 12:00 Pulse Ox 98 08/10/24 12:00 O2 Del Method Room Air 08/10/24 12:00 08/10/24 08/10/24 08/10/24 06:59 14:59 22:59 Intake Total 1536.4 / 4592.0 480 / 1480 1000 / 1480 Output Total 1900 / 5650 730 / 730 Balance -363.6 / -1058.0 -250 / 750 1000 / 750 Weight last 48 hrs Weight 187 lb Weight 187 lb Physical Exam 2 Const: COMMON NORMALS: no acute distress and patient oriented x3 GENERAL APPEARANCE: cooperative and comfortable ORIENTATION/CONSCIOUSNESS: Yes awake, Yes oriented to person, Yes oriented to place and Yes oriented to time Chest: COMMONS NORMALS: normal inspection of the chest and normal palpation of entire chest wall CHEST: Yes Symmetrical chest wall rise Resp: COMMON NORMALS: normal respiratory effort, No retractions, No use of accessory muscles and clear to auscultation bilaterally EFFORT & INSPECTION: Yes symmetric chest movement AUSCULTATION: clear to auscultation bilaterally Cardio: COMMON NORMALS: regular rate, regular rhythm, S1 normal heart sound present, S2 normal heart sound present, No gallops present (Cardio), No clicks present (Cardio), No murmurs present (Cardio) and No rub (Cardio) RATE: r egular rate RHYTHM: regular rhythm HEART SOUNDS: S1 normal heart sound present and S2 normal heart sound present PERIPHERAL PULSES: radial pulses present Extremity: COMMON NORMALS: no pedal edema Neuro: COMMON NORMALS: patient oriented x3 and moves all extremities S ENSORIUM/ORIENTATION: Yes oriented to person, Yes oriented to place and Yes oriented to time Urinary Catheter Management: Coude: Cath Placed During This Visit: yes Reason for Continuing Indwelling Catheter: Acute Urinary Retention or Obstruction Urinary Catheter Date of Insertion: 08/09/24 Urinary Catheter Time of Insertion: 17:42 Data 08/10/24 02:17 08/10/24 13:21 Micro: Microbiology 08/08/24 11:32 Blood Culture - Preliminary Blood NEGATIVE TO DATE 08/08/24 11:20 Blood Culture - Preliminary Blood NEGATIVE TO DATE A&P Assessment and plan (1) CAD (coronary artery disease): Chest pain-free today. Due to ANTONIA on CKD will defer angiogram until later date. Continue aspirin, Plavix, metoprolol succinate, atorvastatin. Qualifiers: Coronary Disease-Associated Artery/Lesion type: [place] artery [place] vs. transplanted heart: [place] heart Associated angina: without angina Qualified Code(s): I25.10 - Atherosclerotic heart disease of [place] coronary artery without angina pectoris (2) Essential hypertension: (3) Mixed hyperlipidemia: Attestations 2 Medical Necessity Statement*: Per hospitalist Coding Level of Care Code Acute Code for [facility] Diagnoses Coronary artery disease involving [place] coronary artery of [place] heart without angina pectoris I25.10 Coronary Disease-Associated Artery/Lesion type: [place] artery [place] vs. transplanted heart: [place] heart Associated angina: without angina Essential hypertension I10 Mixed hyperlipidemia E78.2
--- NOTE | 2024-08-10 15:43 | P.PN_ITS ---
Subjective 2 Subjective: - Patient was examined multiple times th roughout the morning and into the afternoon -Early in the morning he was seen, and C T scan, denies any chest pain, no palpitations, no shortness of breath, abdominal pain -Reviewed his chart, patient has a histo ry of right hydroureteronephrosis with concerns for bladder mass since August 2023 he was referred to urology, patient denied seeing a urologist -However after talking to [facility] in [place] patient did see urologist Dr. Zapata, I was told he had a cystoscopy which did not show any significant evidence of bladder mass there was plans on a TURP for enlarged prostate and a ureteroscope he back in May 2024 however surgery did not come perforation due to his chest pain complaints in him undergoing stress testing he is supposed to see Dr. Zapata yesterday but he was here in the hospital -Discussed repeating his CT scan, to see if his right hydroureteronephrosis has improved after Baron catheter has been placed to decompress the bladder -Repeat [place] scan CT/[place] [id number] IMPRESSION: 1. Significant but incomplete improveme nt in the severe RIGHT hydroureteronephrosis since 08/08/2024 after urinary bladder catheterization. There is still moderate dilatation and tortuosity of the RIGHT ureter. 2. Resolved LEFT hydronephrosis. Distal LEFT ureter continues to be slightly dilated. 3. Diffuse bladder wall thickening. Fol ey catheter present within the bladder. 4. Prostate enlargement. 5. No destructive lesion within the steven rnum. Patient did provide a history of prior sternal fracture. Increased uptake on the bone scan may be from the prior fracture with healing. -Spoke to radiologist, patient had a bon e scan that showed area in the sternum that was concerning however on CT scan no destructive lesion was seen -Right hydroureteronephrosis has signifi cantly proved but does have some persisting, no significant bladder mass seen but does have bladder wall thickening, does have UTI currently -Discussed findings with nephrology -Repeat BMP this afternoon creatinine do wn to 1.6 -Spoke to cardiology, creatinine down to 1.6, patient's heart right hydroureteronephrosis likely from bladder outlet obstruction from enlarged prostate, improved on scans after Baron catheter was placed, creatinine down to 1.6. However he is going to need just follow-up with urology as outpatient for ureteroscope and TURP, will likely keep Baron catheter in place, will keep n.p.o. over midnight plan on cardiac catheterization for tomorrow as per discussion with cardiology -I had a family meeting with patient and this afternoon -Discussed findings as above, what repea t CAT scans after bladder decompression have shown - does confirm that he saw Dr. Orquidea kulkarni at [facility] he did a cystoscopy which did not show any evidence of a bladder mass or malignancy but he was supposed to have a ureteroscope and a TURP procedure however after his chest pain complaints, it never came to fruition, but there is plans on him undergoing a TURP in her uteroscope he in the near future -Discussed that as he has chest pain, jeanette pegueroout a good answer for his chest pain and his stress testing in May, he will likely need to have cardiac evaluation before undergoing these procedures and he is here in the hospital for chest pain -Discussed that doing the coronary angio graphy carries risks and benefits, this is shared decision making, we want to optimize his kidney function to proceed with the coronary angiography, however understanding they are risks associate with coronary angiography and him and his have to accept these risks specifically of worsening kidney function end-stage renal disease on dialysis -But ultimately is going to be a shared decision making between him and cardiology and they would have to accept the risks -The goal here in the hospital is to opt imize him medically to undergo that procedure -After discussing the risk and benefits, shared decision making, [place] and his voiced understanding, all consents are, agreed to proceed with coronary angiography tomorrow if his creatinine is reasonable -Discussed that he needs to follow-up [facility] urology for his ureteroscope he because he still has some degree of right hydronephrosis, and he needs to have a TURP for his enlarged prostate and likely can to keep the Baron catheter in place on discharge, due to chronic bladder outlet obstruction, he voiced understanding, all questions answered -Reviewed all prior records, imaging, sp nadir to [facility] transfer line, spoke to nephrology, spoke to cardiology spoke to nursing staff Vitals/I&O/Wt Last Vital Signs Temp 98.0 F 08/10/24 12:00 Pulse 70 08/10/24 12:00 Resp 24 H 08/10/24 12:00 BP 137/77 08/10/24 12:00 Pulse Ox 98 08/10/24 12:00 O2 Del Method Room Air 08/10/24 12:00 08/10/24 08/10/24 08/10/24 06:59 14:59 22:59 Intake Total 1536.4 / 4592.0 480 / 480 1000 / 1480 Output Total 1900 / 5650 730 / 730 700 / 1430 Balance -363.6 / -1058.0 -250 / -250 300 / 50 Weight last 48 hrs Weight 84.822 kg Weight 84.822 kg Physical Exam 2 Const: COMMON NORMALS: no acute distress and patient oriented x3 Resp: COMMON NORMALS: normal respiratory effort, No retractions, No use of accessory muscles and clear to auscultation bilaterally AUSCULTATION: clear to auscultation bilaterally Cardio: COMMON NORMALS: regular rate, regular rhythm, S1 normal heart sound present and S2 normal heart sound present RATE: regular rate RHYTHM: r egular rhythm HEART SOUNDS: S1 normal heart sound present and S2 normal heart sound present GI: COMMON NORMALS: Normal to inspection, nondistended, normoactive bowel sounds present and non-tender Extremity: COMMON NORMALS: no pedal edema Neuro: COMMON NORMALS: patient oriented x3 Psych: COMMON NORMALS: mental status grossly normal Urinary Catheter Management: Coude: Cath Placed During This Visit: yes Reason for Continuing Indwelling Catheter: Acute Urinary Retention or Obstruction Urinary Catheter Date of Insertion: 08/09/24 Urinary Catheter Time of Insertion: 17:42 Data 08/10/24 02:17 08/10/24 13:21 Micro: Microbiology 08/08/24 11:32 Blood Culture - Preliminary Blood NEGATIVE TO DATE 08/08/24 11:20 Blood Culture - Preliminary Blood NEGATIVE TO DATE A&P Assessment and plan (1) Chest pain: -Denies active chest pain -History of CAD with stent placement in 2018 -Cardiac echo CONCLUSIONS Normal left ventricular size, systolic function and wall thickness, with no regional wall motion abnormalities. Left ventricular ejection fraction is estimated at 60 %. Grade I/IV diastolic dysfunction (abnormal relaxation filling pattern), normal to mildly elevated filling pressures. There is no pericardial effusion. No significant valve abnormalities. Pulmonary artery systolic pressure is within normal limits. Right atrial pressure is around 5 mm of mercury. Plan ? Aspirin, Plavix, beta-daren -Telemetry monitoring -Heparin drip -Cardiology consulted -ANTONIA, creatinine 1.5, -Discussed risks and benefits of coronary angiography, risk of renal failure, dialysis -Consult nephrology Qualifiers: Chest pain type: unspecified Qualified Code(s): R07.9 - Chest pain, unspecified (2) Acute kidney injury: -Creatinine 1.6 -History of CKD -Bladder outlet obstruction from enlarged prostate -Some degree of chronic right hydroureteronephrosis persists, will have to have a ureteroscope he has outpatient -CT scan of abdomen CT/[place] [id number] IMPRESSION: 1. Significant but incomplete improvement in the severe RIGHT hydroureteronephrosis since 08/08/2024 after urinary bladder catheterization. There is still moderate dilatation and tortuosity of the RIGHT ureter. 2. Resolved LEFT hydronephrosis. Distal LEFT ureter continues to be slightly dilated. 3. Diffuse bladder wall thickening. Baron catheter present within the bladder. 4. Prostate enlargement. 5. No destructive lesion within the sternum. Patient did provide a history of prior sternal fracture. Increased uptake on the bone scan may be from the prior fracture with healing. -Plan ? Monitor urine output, monitor creatinine -IV fluids -Has evidence of UTI Levaquin -Nephrology consulted -Levaquin for UTI -Continue Flomax (3) Urinary tract infection: - Levaquin for UTI (4) Bladder outlet obstruction: [place] [id number] IMPRESSION: 1. Significant but incomplete improvement in the severe RIGHT hydroureteronephrosis since 08/08/2024 after urinary bladder catheterization. There is still moderate dilatation and tortuosity of the RIGHT ureter. 2. Resolved LEFT hydronephrosis. Distal LEFT ureter continues to be slightly dilated. 3. Diffuse bladder wall thickening. Baron catheter present within the bladder. 4. Prostate enlargement. 5. No destructive lesion within the sternum. Patient did provide a history of prior sternal fracture. Increased uptake on the bone scan may be from the prior fracture with healing. -Will have to follow-up with urology as outpatient for hydroureter nephrosis on the right, for uteroscopy and for TURP for enlarged prostate -However given his chest pain complaints, he will likely need full cardiac evaluation before they proceed with surgery, (5) Hydroureteronephrosis: (6) BPH (benign prostatic hyperplasia): Plan Cholelithiasis: Incidentally noted on CT. Will need follow-up. CAD, as above HTN: Continue metoprolol BPH: Continue tamsulosin Attestations 2 Medical Necessity Statement*: Patient requires hospitalization for ANTONIA, chest pain, right hydronephrosis, right chronic bladder outlet obstruction Diagnoses Chest pain R07.9 Chest pain type: unspecified Acute kidney injury N17.9 Urinary tract infection N39.0 Bladder outlet obstruction N32.0 Hydroureteronephrosis N13.30 BPH (benign prostatic hyperplasia) N40.0
[2024-08-10 17:19] LABS: Partial Thromboplastin Time 51.4 SECONDS (23.9-36.7)
[2024-08-10] MEDS: heparin 5,000 unit/mL INJ 1 mL IVP (17:34)
[2024-08-10] MEDS: morphine 4 mg/mL SDV 1 mL 2 MG IVP (19:58)
[2024-08-10] MEDS: atorvastatin 40 mg Tablet PO (20:02)
[2024-08-11] VITALS: BP 163/95; PULSE 88; RESP 17; TEMP 36.7; O2SAT 93
[2024-08-11] MEDS: sodium chloride 0.9% 1,000 ML 100 ML IV ×2 (01:05→13:06)
[2024-08-11] MEDS: heparin drip 25,000 UNIT/500 ML PREMIX 26 UNIT IV (01:05)
[2024-08-11 04:00] VITALS: BP 164/95; PULSE 95; RESP 22; TEMP 36.6; O2SAT 96
[2024-08-11] MEDS: clopidogrel 75 mg Tablet PO (05:16)
[2024-08-11] MEDS: metoprolol succinate ER (24 HR) 25 mg Tablet PO (05:16)
[2024-08-11 05:26] VITALS: PULSE 74
[2024-08-11 06:26] LABS: Basophils # 0.1 10^3/uL (0.0-0.1); Basophils % 0.6 %; Eosinophils # 0.2 10^3/uL (0.0-0.8); Eosinophils % 2.1 %; Hematocrit 30.9 % (37-53); Lymphocytes % 12.2 %; Mean Corpuscular HGB Conc 30.1 g/dL (30-55); Mean Corpuscular Hemoglobin 23.4 pg (27-33); Mean Corpuscular Volume 77.8 fl (82-101); Mean Platelet Volume 10.7 fL (7.4-10.4); Monocytes # 0.7 10^3/uL (0.2-0.9); Monocytes % 8.7 %; Neutrophils # 6.38 10^3/uL (1.8-7.7); Nucleated Red Blood Cells % 0 %; Platelet Count 257 10^3/cmm (157-399); Red Blood Count 3.97 10^6/uL (3.85-5.65); White Blood Count 8.39 10^3/uL (3.29-11.43)
[2024-08-11 06:48] LABS: Anion Gap 14.9 (5-19); Blood Urea Nitrogen 15 mg/dL (8-23); Calcium 8.5 mg/dL (8.5-10.5); Carbon Dioxide 22 mmol/L (22-29); Chloride 104 mmol/L (98-107); Glucose 100 mg/dL (65-115); Osmolality Calculated 285 mOsm/kg (285-295); Potassium 3.9 mmol/L (3.5-5.1); Sodium 137 mmol/L (136-145)
[2024-08-11 06:59] LABS: Creatinine Clr Calc Pharmacy 47.0151
[2024-08-11 07:54] VITALS: BP 152/88; PULSE 95; RESP 22; TEMP 36.5; O2SAT 91
[2024-08-11] MEDS: levoFLOXacin 750 mg Tablet PO (09:59)
[2024-08-11] MEDS: aspirin 81 mg EC Tablet PO (09:59)
--- NOTE | 2024-08-11 10:19 | XACV_ITS ---
Exam Room: 2 Ht: 170 cm Wt: 85 kg BSA: 2.03 m2 Gender: Male : 1950 Any Known Allergies: No known allergies Exam Priority: Routine Procedure(s): Procedure Description: Diagnostic procedure Procedure Description: Left ventriculography Procedure Description: Coronary Angiography Diagnostic Cath Status: Urgent Diagnostic Findings * Patent prior LAD stent. * No disease noted in the Left Main, Left Anterior Descending, Right, or Circumflex coronary arteries. * Coronary angiography shows right dominance. Conclusions 1. No disease noted in the Left Main, Left Anterior Descending, Right, or Circumflex coronary arteries. Recommendations * Aggressive risk factor modification. * Outpatient follow up in 2 weeks. Interventional RX Recommendation: medical therapy and/or counseling Diagnostic RX Recommendation: medical therapy and/or counseling Anticoagulation: Heparin Pressures Phase:Rest AO : 107 / 78 ( 93 ) @ 11:00:00 AM 143 / 84 ( 109 ) @ 11:03:00 AM 146 / 86 ( 111 ) @ 11:03:00 AM LV : 160 / -16 / 5 @ 11:02:00 AM 162 / -16 / 5 @ 11:03:00 AM Valves Phase:DefaultPhase AV : 19.0 @ 11:09:43 AM AV Mean Gradient: 20.0 @ 11:09:43 AM Clinical Evaluation EBL: 5mL-10mL Procedural Details Procedure Consent Obtained. Pre-Procedure Time Out. Identified patient by full name and date of as verbalized by the patient/guarantor. Does the consent match the physician's order: Yes. Accurate & Complete Informed Consent: Yes. Inpatient/Outpatient History & Physical on Chart: Yes. If H&P is completed, is and addenduem needed: No. Visualize and Verify Site with Patient/Guarantor: N/A. Relevant Radiology Images available: Yes. The risks, benefits, and alternatives of sedation and/or procedure were discussed by physician. The patient agrees to continue. Procedure started. [facility] Clinical Fraility Score: 6: Moderately Frail. Crystal Machining Coordinator Indications: Worsening Angina. Chest Pain Symptom Assessment: Typical Angina Symptoms. Cardiovascular Instability: No. Correct patient, site and procedure confirmed by cath team. PERRLA. Strong, equal hand program director substance abuse bilaterally. Lungs clear x 5 lobes. IV Site on Arrival: 20 gauge in the right hand. IV Fluids: 0.9% NaCl at KVO. 900 mL infused prior to greenskeeper laborer. Pre Procedural Pulses: bilateral dorsalis pedis was Doppled. Pre Procedural Pulses: bilateral posterior tibial was Doppled. Pre Procedural Pulses: bilateral radial was 3+. Oxygen started at 2liters/min via nasal canula. A 20 gauge IV was started in the right anticubital using aseptic technique. right groin was prepped with chloroprep then draped in the usual sterile fashion. right radial was prepped with chloroprep then draped in the usual sterile fashion. Baseline sample Acquired. HR: 112 BPM. Physician notified. Patient's family unavailable. Equipment: 6F - Radial. Cardiac Cath Pack. ACIST Manifold Kit Model BT 2000. Heparinized Saline (2 units/mL), 1000 mL bag. Physician arrived. Physician scrubbed in. Immediate Pre-Procedure Time Out. Correct Patient: Yes; Correct Procedure: Yes; Correct Site: Yes; Correct Patient Position: Yes; Correct Supplies: Yes; Dried Flammable Prep: Yes; Blood Products Available: N/A;. Lidocaine 1% infiltrated to the right radial. Arterial access obtained. A 5 tajik TIG catheter in over the exchange J wire. Multiple views taken of left coronary artery. Catheter redirected to the RCA. Multiple views taken of right coronary artery. Catheter removed over the exchange J wire. A 5 tajik Angled Pig catheter in over wire. EDP Sample taken: LV 160/-17,5; HR: 110 BPM; SpO2: 97%. Pullback taken: LV 162/-17,5; AO 143/84(109); Mean: 20mmHg, Peak to Peak: 19mmHg, SEP: 21sec/min; HR: 108 BPM; SpO2: 97%. Catheter removed over the exchange J wire. Dr. Neil scrubbed out. A TR Band was successful obtaining hemostatsis at the Right Radial artery insertion site. Post Procedure: Pulses reassessed and unchanged. PERRLA. Strong, equal hand program director substance abuse bilaterally. No VTE prophylaxis required. Medication's Wasted: Lidocaine 1% = 18 mL. Medication's Wasted: Nitro = 49.8 mg. Medication's Wasted: Heparin = 3000 units. Medication's Wasted: Other = Fentanyl 75 mcg. Total IV fluids: 50 mL. Post-op diagnosis: Non-obst CAD. Complications: none. Vital chart was stopped. Estimated blood loss: 5mL-10mL. Responsiveness - Normal response to verbal stimuli; alert and oriented, PERRLA. Airway - Unaffected, no intervention required; spontaneous ventilation. Circulation: W/N/L, pulses unchanged. Nausea/Vomiting: No. Procedure completed. Patient transferred by bed to 1st floor. Access Site Site: Right Radial artery Sheath Size: 6 Fr Hemostasis Method: TR Band Hemostasis Success: Successful Procedure Medications Start: 10:50 AM Stop: 10:50 AM Medication: Versed Amount: 1 mg Route: I.V. Start: 10:50 AM Stop: 10:50 AM Medication: Fentanyl Amount: 25 mcg Route: I.V. Start: 10:51 AM Stop: 10:51 AM Medication: Versed Amount: 1 mg Route: I.V. Start: 10:57 AM Stop: 10:57 AM Medication: Nitrogylcerin Amount: 200 mcg Route: I.A. Start: 10:58 AM Stop: 10:58 AM Medication: Heparin Amount: 3000 units Route: I.V. I, the attending physician, have reviewed and verified all procedure medications. Yes, all medications given per verbal order History/Risk Factors Hypertension: Yes Dyslipidemia: Yes Peripheral Arterial Disease (PAD): No Myocardial Infarction (CA): No Obesity: No Renal Disease: No Tobacco Use: Current/Recent(w/in 1 year) Prior Interventions PCI: Yes CABG: No Valve Surgery: No Report Signatures Finalized by Vince Neil MD on 08/12/2024 11:47 AM
--- NOTE | 2024-08-11 10:37 | W.PM.OPSUD ---
Surgery/Procedure H&P Update DATE OF PROCEDURE: August 11, 2024 DATE H&P PERFORMED: 08/08/24 H&P UPDATE INFORMATION: I have reviewed H&P completed within last 30 days, I have examined patient prior to procedure and No changes to prior documentation PREOP DIAGNOSIS: Worsening angina PRIMARY INDICATION FOR PROCEDURE: Worsening angina PLANNED PROCEDURE: Operation Date: 08/11/24 08:30 Proposed Procedures p Cardiac Catheterization(Left) - Vince Neil M.D Possible percutaneous coronary intervention PATIENT REASSESSED PRIOR TO SEDATION, WITH NO CHANGE NOTED: Yes PHYSICAL EXAM: alert, oriented x 3, clear to auscultation bilaterally and regular rate & rhythm AIRWAY EVAL/ANESTHESIA PLAN: normal airway, ASA III, Local Anesthesia, Risks, benefits & alternatives of sedation and/or procedure discussed and Patient agrees to continue as planned ADDITIONAL INFORMATION: Moderate sedation
--- NOTE | 2024-08-11 11:06 | PM.PROC ---
Procedure Note: Date of procedure: 08/11/24 Pre-procedure diagnosis: Worsening angina Post-procedure diagnosis: other (Non obstructive coronary artery disease/ patent prior stent) Procedure: Left heart cath: Patent coronary arteries and prior stent Aggressive risk factor modification Op report anesthesia: None Performing Provider: Vince Neil Estimated blood loss (mL): 10 Complications: None Condition: stable Disposition: floor Coding Level of Care Code Acute Code for [facility] Fwd
--- NOTE | 2024-08-11 11:07 | PM.PN ---
Subjective Subjective: Patient is doing well. no chest pain Vitals/I&O/Wt Last Vital Signs Temp 97.7 F 08/11/24 07:54 Pulse 95 08/11/24 07:54 Resp 22 H 08/11/24 07:54 BP 152/88 08/11/24 07:54 Pulse Ox 91 08/11/24 07:54 O2 Del Method Room Air 08/11/24 07:54 08/10/24 08/11/24 08/11/24 22:59 06:59 14:59 Intake Total 1550.8 / 2030.8 1126.566 / 3157.366 Output Total 1150 / 1880 1800 / 3680 Balance 400.8 / 150.8 -673.434 / -522.634 Weight last 48 hrs Weight 187 lb Weight 187 lb Physical Exam Const: COMMON NORMALS: no acute distress and patient oriented x3 GENERAL APPEARANCE: cooperative and comfortable ORIENTATION/CONSCIOUSNESS: Yes awake, Yes oriented to person, Yes oriented to place and Yes oriented to time Chest: COMMONS NORMALS: normal inspection of the chest and normal palpation of entire chest wall CHEST: Yes Symmetrical chest wall rise Resp: COMMON NORMALS: normal respiratory effort, No retractions, No use of accessory muscles and clear to auscultation bilaterally EFFORT & INSPECTION: Yes symmetric chest movement AUSCULTATION: clear to auscultation bilaterally Cardio: COMMON NORMALS: regular rate, regular rhythm, S1 normal heart sound present, S2 normal heart sound present, No gallops present (Cardio), No clicks present (Cardio), No murmurs present (Cardio) and No rub (Cardio) RATE: regular rate RHYTHM: regular rhythm HEART SOUNDS: S1 normal heart sound present and S2 normal heart sound present PERIPHERAL PULSES: radial pulses present Extremity: COMMON NORMALS: no pedal edema Neuro: COMMON NORMALS: patient oriented x3 and moves all extremities SENSORIUM/ORIENTATION: Yes oriented to person, Yes oriented to place and Yes oriented to time Urinary Catheter Management: Coude: Cath Placed During This Visit: yes Reason for Continuing Indwelling Catheter: Acute Urinary Retention or Obstruction Urinary Catheter Date of Insertion: 08/09/24 Urinary Catheter Time of Insertion: 17:42 Data 08/11/24 06:20 08/11/24 06:20 Micro: Microbiology 08/08/24 10:22 Urine Culture - Final Urine,Clean Catch Enterobacter cloacae A&P Assessment and plan (1) CAD (coronary artery disease): Qualifiers: Coronary Disease-Associated Artery/Lesion type: [place] artery [place] vs. transplanted heart: [place] heart Associated angina: without angina Qualified Code(s): I25.10 - Atherosclerotic heart disease of [place] coronary artery without angina pectoris (2) Essential hypertension: (3) Mixed hyperlipidemia: Plan Patent coronary arteries and prior stent. Continue medical therapy. Monitor renal function Attestations Medical Necessity Statement*: Care expected to cross 2 midnights. Coding Level of Care Code Acute Code for [facility] Diagnoses Coronary artery disease involving [place] coronary artery of [place] heart without angina pectoris I25.10 Coronary Disease-Associated Artery/Lesion type: [place] artery [place] vs. transplanted heart: [place] heart Associated angina: without angina Essential hypertension I10 Mixed hyperlipidemia E78.2
--- NOTE | 2024-08-11 11:25 | P.PN_ITS ---
Subjective 2 Subjective: s/p LHC today Medications: Reviewed: Yes Vitals/I&O/Wt Last Vital Signs Temp 97.7 F 08/11/24 07:54 Pulse 95 08/11/24 07:54 Resp 22 H 08/11/24 07:54 BP 152/88 08/11/24 07:54 Pulse Ox 91 08/11/24 07:54 O2 Del Method Room Air 08/11/24 07:54 08/10/24 08/11/24 08/11/24 22:59 06:59 14:59 Intake Total 1550.8 / 2030.8 1126.566 / 3157.366 Output Total 1150 / 1880 1800 / 3680 Balance 400.8 / 150.8 -673.434 / -522.634 Weight last 48 hrs Weight 84.822 kg Weight 84.822 kg Physical Exam 2 Narrative: awake alert, no distress PERRLA S1-S2 regular rate rhythm per 4 Lungs clear per report No pedal edema Urinary Catheter Management: Coude: Cath Placed During This Visit: yes Reason for Continuing Indwelling Catheter: Acute Urinary Retention or Obstruction Urinary Catheter Date of Insertion: 08/09/24 Urinary Catheter Time of Insertion: 17:42 Data 08/11/24 06:20 08/11/24 06:20 Micro: Microbiology 08/08/24 10:22 Urine Culture - Final Urine,Clean Catch Enterobacter cloacae A&P Assessment and plan (1) Acute kidney injury: 1. Acute on CKD 3 : Creatinine in the mid 1 range , likely due to chronic obstruction. Baron catheter placed. Patient now polyuric-postobstructive diuresis. -He needs urology evaluation and DC home on Baron catheter until seen by urology. -Avoid IV contrast or nephrotoxins -Cr stable Polyuria : Postobstructive diuresis, continue IV fluids-decrease rate to 75 cc/hr. Metabolic acidosis : Mild , monitor Anemia : Hb 9.3 , check iron studies Angina : s/p LHC today pt evaluated using audiovisual cart. Time spent 40 min (2) Urinary obstruction: Attestations 2 Medical Necessity Statement*: per medicine Coding Level of Care Code Acute Code for [facility] Diagnoses Acute kidney injury N17.9 Urinary obstruction N13.9
--- NOTE | 2024-08-11 11:46 | PC.NURSE ---
Patient arrived back on CSU from dental laboratory technician apprentice at 1118. TR band in place with 14ml of air. No hematoma noted.
[2024-08-11 12:00] VITALS: BP 143/80; PULSE 98; RESP 24; TEMP 36.4; O2SAT 93
--- NOTE | 2024-08-11 14:13 | PC.NURSE ---
Patient removed his own TR band without the nurse releasing any air at 1230. No hematoma noted at that time.
[2024-08-11] MEDS: tamsulosin 0.4 mg Capsule PO (14:17)
--- NOTE | 2024-08-11 14:22 | PM.DCS ---
Discharge Providers Date of Admission: 08/08/24 12:42 Date of Discharge: August 11, 2024 Attending Provider at Admission: Mason Alcazar Attending Provider at Discharge: Riley Jones MD Primary Care Provider: KEVIN Pacheco Diagnoses at Discharge Discharge Diagnosis (1) Acute kidney injury: Status: Inactive (2) Urinary obstruction: Status: Acute Reason for Visit Reason for Visit: chest pain Hospital Course Hospital Course This is a 73-year-old male with a past medical history of BPH, history of cystoscopy for concern for bladder mass according to patient no acute findings of cancer, with plans a ureteroscopy for right hydronephrosis, and TURP for prostate enlargement however failed to follow-up due to chest pain concerns back in May 2024, underwent stress testing then, history of CAD, hypertension, hyperlipidemia diabetes who presents to [facility] for concerns for chest pain Patient was admitted to [facility] for chest pain, managed on a heparin drip, aspirin, statin, Plavix, cardiology was consulted -Cardiac echo CONCLUSIONS Normal left ventricular size, systolic function and wall thickness, with no regional wall motion abnormalities. Left ventricular ejection fraction is estimated at 60 %. Grade I/IV diastolic dysfunction (abnormal relaxation filling pattern), normal to mildly elevated filling pressures. There is no pericardial effusion. No significant valve abnormalities. Pulmonary artery systolic pressure is within normal limits. Right atrial pressure is around 5 mm of mercury. -Cardiology was consulted, nephrology was consulted, for medical optimization before cardiac cath due to ANTONIA, for his bladder outlet obstruction, Baron catheter placed, received IV fluids -Overall creatinine proved to 1.5 -Underwent coronary angiography with no acute findings, patent coronary arteries, prior stent -Tolerated procedure well -Patient declined further inpatient stay for IV fluids -Recommended for him to drink at least 1 to 2 L of fluid a day -See primary care to recheck kidney function on Tuesday -Continue his home medications aspirin, statin, Plavix, with a close follow-up cardiology as outpatient For patient's bladder outlet obstruction secondary to BPH, Baron catheter placed, will discharge with Baron catheter in place, with close follow-up with urology as outpatient For his UTI he will be discharged on 3 remaining days of Levaquin therapy For his right hydroureteronephrosis, follow-up with urology for ureteroscopy For his BPH, follow-up with urology for TURP procedure For his ANTONIA recheck kidney function on Tuesday Physical Exam Const: COMMON NORMALS: no acute distress and patient oriented x3 Resp: COMMON NORMALS: normal respiratory effort, No retractions, No use of accessory muscles and clear to auscultation bilaterally AUSCULTATION: clear to auscultation bilaterally Cardio: COMMON NORMALS: regular rate, regular rhythm, S1 normal heart sound present and S2 normal heart sound present RATE: regular rate RHYTHM: regular rhythm HEART SOUNDS: S1 normal heart sound present and S2 normal heart sound present GI: COMMON NORMALS: Normal to inspection, nondistended, normoactive bowel sounds present and non-tender Extremity: COMMON NORMALS: no pedal edema Neuro: COMMON NORMALS: patient oriented x3 Psych: COMMON NORMALS: mental status grossly normal Urinary Catheter Management: Coude: Cath Placed During This Visit: yes Reason for Continuing Indwelling Catheter: Acute Urinary Retention or Obstruction Urinary Catheter Date of Insertion: 08/09/24 Urinary Catheter Time of Insertion: 17:42 Discharge Data Studies Completed and Pending Completed Studies During Hospitalization Category [place] [id number] Routine Cat Scan 08/10/24 08:[address] kidney stone [id number] Stat Cat Scan 08/08/24 11:15 Completed XR chest 1V portable [id number] Stat Exams 08/08/24 09:48 Completed CV. echo complete* [id number] Routine Ultrasound 08/08/24 16:45 Completed US kidney bilateral [US renal BI* [id number]] Routine Ultrasound 08/09/24 10:14 Completed Pending at discharge Category Date Time Status FOOD AND BEVERAGE CASHIER request for service Routine Exams 08/11/24 10:19 Ordered Blood Culture Stat Lab 08/08/24 11:20 Results Platelet Count Q2D Lab 08/12/24 04:00 Ordered Radiology Impressions Chest X-Ray 08/08/24 09:48 Impression: Atherosclerosis. Abdomen/Pelvis CT 08/08/24 11:15 IMPRESSION: 1. Long-term severe RIGHT hydroureteronephrosis. 2. No significant dilatation of the LEFT renal pelvis. There is a small extrarenal pelvis. The distal ureter is dilated. The distal LEFT ureteral dilatation may be due to the overly distended urinary bladder resulting in decreased emptying of the ureter. 3. Markedly distended urinary bladder with severe prostate gland enlargement. Consider outlet obstruction. 4. Surgical anastomosis near the hepatic flexure stable with constipation. No recurrent mass identified. 5. Cholelithiasis without acute cholecystitis. Renal Ultrasound 08/09/24 10:14 IMPRESSION: 1. Severe RIGHT hydronephrosis. Similar to the recent CT of 08/08/2024. 2. Mild LEFT hydronephrosis. 3. Markedly enlarged urinary bladder with low-level echoes. Debris within the urinary bladder. Chest/Abdomen/Pelvis CT 08/10/24 08:17 IMPRESSION: 1. Significant but incomplete improvement in the severe RIGHT hydroureteronephrosis since 08/08/2024 after urinary bladder catheterization. There is still moderate dilatation and tortuosity of the RIGHT ureter. 2. Resolved LEFT hydronephrosis. Distal LEFT ureter continues to be slightly dilated. 3. Diffuse bladder wall thickening. Baron catheter present within the bladder. 4. Prostate enlargement. 5. No destructive lesion within the sternum. Patient did provide a history of prior sternal fracture. Increased uptake on the bone scan may be from the prior fracture with healing. Laboratory Results WBC 8.39 10^3/uL (3.29-11.43) 08/11/24 06:20 Corrected WBC Cancelled 08/08/24 19:47 RBC 3.97 10^6/uL (3.85-5.65) 08/11/24 06:20 Hgb 9.30 g/dL (11.27-16.99) L 08/11/24 06:20 Hct 30.9 % (37-53) L 08/11/24 06:20 MCV 77.8 fl (82-101) L 08/11/24 06:20 MCH 23.4 pg (27-33) L 08/11/24 06:20 MCHC 30.1 g/dL (30-55) 08/11/24 06:20 RDW 16.0 % (12.1-15.1) H 08/11/24 06:20 Plt Count 257 10^3/cmm (157-399) 08/11/24 06:20 MPV 10.7 fL (7.4-10.4) H 08/11/24 06:20 Gran % Cancelled 08/08/24 19:47 Neut % (Auto) 76.0 % 08/11/24 06:20 Lymph % (Auto) 12.2 % 08/11/24 06:20 [place] % (Auto) 8.7 % 08/11/24 06:20 Eos % (Auto) 2.1 % 08/11/24 06:20 Baso % (Auto) 0.6 % 08/11/24 06:20 Neut # (Auto) 6.38 10^3/uL (1.8-7.7) 08/11/24 06:20 Lymph # (Auto) 1.0 10^3/uL (0.8-4.8) 08/11/24 06:20 [place] # (Auto) 0.7 10^3/uL (0.2-0.9) 08/11/24 06:20 Eos # (Auto) 0.2 10^3/uL (0.0-0.8) 08/11/24 06:20 Baso # (Auto) 0.1 10^3/uL (0.0-0.1) 08/11/24 06:20 Absolute Gran (auto) Cancelled 08/08/24 19:47 Nucleated RBC % (auto) 0 % 08/11/24 06:20 Nucleated RBCs # 0.0 /100WBC 08/11/24 06:20 APTT 64.0 SECONDS (23.9-36.7) H 08/11/24 06:20 Sodium 137 mmol/L (136-145) 08/11/24 06:20 Potassium 3.9 mmol/L (3.5-5.1) 08/11/24 06:20 Chloride 104 mmol/L (98-107) 08/11/24 06:20 Carbon Dioxide 22 mmol/L (22-29) 08/11/24 06:20 Anion Gap 14.9 (5-19) 08/11/24 06:20 BUN 15 mg/dL (8-23) 08/11/24 06:20 Creatinine 1.5 mg/dL (0.7-1.2) H 08/11/24 06:20 GFR Calculation Not Reportable 08/11/24 06:20 Glucose 100 mg/dL (65-115) 08/11/24 06:20 Calculated Osmolality 285 mOsm/kg (285-295) 08/11/24 06:20 Calcium 8.5 mg/dL (8.5-10.5) 08/11/24 06:20 Total Bilirubin 0.2 mg/dL (0.15-1.2) 08/08/24 09:03 AST 10 U/L (0-40) 08/08/24 09:03 ALT 7 U/L (0-41) 08/08/24 09:03 Alkaline Phosphatase 93 U/L (40-130) 08/08/24 09:03 Troponin T Baseline 14 ng/L (0-15) 08/08/24 09:03 Troponin T 120 Minute 7.88 ng/L (0-15) 08/08/24 11:12 Delta Troponin T -6.12 ABS# (0-10) L 08/08/24 11:12 Troponin T Hi Sens 6Hr 7.80 ng/L (0-15) 08/08/24 15:31 Troponin T Hi Sens 6Hr Delta -6.20 ng/L (0-12) L 08/08/24 15:31 Total Protein 7.2 g/dL (6.6-8.7) 08/08/24 09:03 Albumin 4.2 g/dL (3.5-5.2) 08/08/24 09:03 Globulin 3.0 g/dL (1.3-4.6) 08/08/24 09:03 Urine Color [place] (Yellow) A 08/08/24 10:22 Urine Appearance Turbid (CLEAR) A 08/08/24 10:22 Urine pH 6.0 (5-7) 08/08/24 10:22 Ur Specific [place] 1.012 (1.005-1.030) 08/08/24 10:22 Urine Protein Trace (Negative) A 08/08/24 10:22 Urine Glucose (UA) Negative (Normal) 08/08/24 10:22 Urine Ketones Negative (Negative) 08/08/24 10:22 Urine Blood 2+ (Negative) A 08/08/24 10:22 Urine Nitrate Positive (Negative) A 08/08/24 10:22 Urine Bilirubin Negative (Negative) 08/08/24 10:22 Urine Urobilinogen 0.2 mg/dL (Negative) 08/08/24 10:22 Ur Leukocyte Esterase 3+ (Negative) A 08/08/24 10:22 Urine RBC 0-2 /hpf (0-2) 08/08/24 10:22 Urine WBC >100 /hpf (0-5) H 08/08/24 10:22 Ur Squamous Epith Cells 0-5 /hpf (0-5) 08/08/24 10:22 Amorphous Sediment Not Reportable 08/08/24 10:22 Urine Bacteria 4+ /hpf (NONE) H 08/08/24 10:22 Hyaline Casts 2.05 /lpf 08/08/24 10:22 Vitals Last Vital Signs Temp 97.6 F 08/11/24 12:00 Pulse 98 08/11/24 12:00 Resp 24 H 08/11/24 12:00 BP 143/80 08/11/24 12:00 Pulse Ox 93 08/11/24 12:00 O2 Del Method Room Air 08/11/24 12:00 Discharge Plan Discharge Patient Disposition: Home Condition: Stable Prescriptions: New levofloxacin 750 mg Tablet 750 mg PO Q48H 3 Days Qty: 2 0RF Rx Instructions: start 08/13/2024 Continued aspirin 81 mg tablet,delayed release (DR/EC) 81 mg PO QAM (DME) Night splint to left See Rx Instructions .Route .MEDSUPPLY Qty: 1 0RF Rx Instructions: As directed (DME) Custom Molded Orthotics See Rx Instructions .Route .MEDSUPPLY Qty: 1 0RF Rx Instructions: As directed (DME) small hinge brace See Rx Instructions .Route .MEDSUPPLY Qty: 1 0RF Rx Instructions: As directed tamsulosin [Flomax] 0.4 mg capsule 0.4 mg PO Q24H Qty: 20 0RF nitroglycerin 0.4 mg tablet, sublingual 0.4 mg sublingual Q5M PRN (Reason: chest pain) 30 Days Qty: 30 3RF Rx Instructions: until response; do not exceed 3 doses per episode clopidogrel 75 mg tablet 75 mg PO QAM metoprolol succinate 25 mg tablet extended release 24 hr 25 mg PO QAM lansoprazole [Prevacid] 30 mg capsule,delayed release(DR/EC) 30 mg PO BID PRN (Reason: Acid Reflux) Discharge Orders: Discharge Order (Routine); Ordered 08/11/24 Ordered By: Riley Jones Referrals: Clarissa Stearns FNP [Primary Care Provider] - Discharge Diet: Cardiac Discharge Activity: Resume usual activity Patient Instructions: Opioid Safety Activity Restrictions/Additional Instructions: -Follow-up with urology in 1 weeks, with Baron catheter in place, for urinary retention -Follow-up with urology for TURP and ureteroscopy -Please hydrate well -Repeat BMP Tuesday next week Discharge Attestations Time Spent in Discharge Care*: greater than 30 min Quality Metrics Clinical Quality Measures [ No reported AMI, CVA or VTE this stay] Coding Level of Care Code 97495 Total time (in minutes) for Discharge: 45 Diagnoses Acute kidney injury N17.9 Urinary obstruction N13.9
[2024-08-11 14:31] VITALS: BP 143/80; PULSE 79; RESP 12; TEMP 37; O2SAT 96
== END 2024-08-11 14:59 | disposition home or self-care (01) | DRG 287 ==
LOC: ER 09:10 → ER IP 12:43 → CSU 13:36
PROVIDERS: Internal Medicine; Nurse Practitioner Family; Admitting Provider Internal Medicine; Emergency Provider Family Medicine; PCP Nurse Practitioner Family; Visit Provider Family Medicine
PROC: 4A023N7 Measurement of Cardiac Sampling and Pressure, Left Heart, Percutaneous Approach (ICD-10-PCS; principal; 2024-08-11 10:30)
DX: I25.10 Atherosclerotic heart disease of native coronary artery without angina pectoris (principal); N17.9 Acute kidney failure, unspecified; N13.8 Other obstructive and reflux uropathy; N39.0 Urinary tract infection, site not specified; N13.1 Hydronephrosis with ureteral stricture, not elsewhere classified; E87.20 Acidosis, unspecified; N40.1 Benign prostatic hyperplasia with lower urinary tract symptoms; I12.9 Hypertensive chronic kidney disease with stage 1 through stage 4 chronic kidney disease, or unspecified chronic kidney disease; E11.22 Type 2 diabetes mellitus with diabetic chronic kidney disease; N18.30 Chronic kidney disease, stage 3 unspecified; E78.2 Mixed hyperlipidemia; K21.9 Gastro-esophageal reflux disease without esophagitis; K80.20 Calculus of gallbladder without cholecystitis without obstruction; D64.9 Anemia, unspecified; Z95.5 Presence of coronary angioplasty implant and graft; Z87.891 Personal history of nicotine dependence; Z79.82 Long term (current) use of aspirin; Z79.02 Long term (current) use of antithrombotics/antiplatelets
CPT/HCPCS: 36415; 71045; 71250; 74176; 76770; 80048; 80053; 81001; 84484; 85025; 85730; 87040; 87077; 87086; 87186; 93005; 93306; 93458; 96365; 96366; 96367; 96374; 96375; 96376; 99152; 99153; 99285; C1769; C1887; C1894; J0696; J1644; J2250; J2270; J2405; J3010; J3490; J7030; Q9967

== ENCOUNTER 2024-08-22 04:16 | Emergency (ER) | payer MEDICARE, SELFPAY ==
[2024-08-22 04:22] VITALS: BP 164/90; PULSE 117; RESP 18; TEMP 36.3; O2SAT 97; BMI 28.1
[2024-08-22 04:25] VITALS: BP 164/90; PULSE 115; RESP 20; O2SAT 95
--- NOTE | 2024-08-22 04:28 | XRR_ITS ---
PROCEDURE INFORMATION: Exam: XR Abdomen Exam date and time: 08/22/2024 4:59 AM Age: 74 years old Clinical indication: Abdominal pain; Localized; Other: All over; Additional info: Constipation TECHNIQUE: Imaging protocol: Radiologic exam of the abdomen. Views: Frontal supine view of the abdomen. 1 View. COMPARISON: CT chest abdpel [id number] 10/08/2024 08:36 FINDINGS: Gastrointestinal tract: Nonobstructive bowel gas pattern. Large amount of stool is seen throughout the colon. Bones/joints: Mild levocurvature of the spine and multilevel degenerative changes seen. XR/XR abdomen 1V* [id number] IMPRESSION: Large amount of stool throughout the colon, suggestive of constipation.
--- NOTE | 2024-08-22 04:29 | W.ED.ABDPA2 ---
HPI - Abdominal Pain General: Chief Complaint: Abdominal Pain Stated Complaint: Cant Poop Time Seen by Provider: 08/22/24 04:18 History of Present Illness: Patient presents to the ER with complaints of constipation. Patient says that his constipated for about a week however he did have a bowel movement last night after using [id number] laxatives and enema. Patient still says he seems full and distended. Patient denies any abdominal pain nausea vomiting diarrhea fevers Related Data Home Medications ?Medication ?Instructions ?Recorded ?Confirmed aspirin 81 mg tablet,delayed 81 mg PO QAM 07/25/19 08/08/24 release clopidogrel 75 mg tablet 75 mg PO QAM 10/04/23 08/08/24 metoprolol succinate 25 mg 25 mg PO QAM 10/04/23 08/08/24 tablet,extended release 24 hr lansoprazole 30 mg capsule,delayed 30 mg PO BID PRN Acid Reflux 08/08/24 08/08/24 release (Prevacid) Previous Rx's ?Medication ?Instructions ?Recorded Custom Molded Orthotics #1 ea 05/26/21 Night splint to left #1 ea 05/26/21 small hinge brace #1 ea 06/22/22 tamsulosin 0.4 mg capsule (Flomax) 0.4 mg PO Q24H #20 caps 04/04/23 nitroglycerin 0.4 mg sublingual 0.4 mg sublingual Q5M PRN chest 05/09/24 tablet pain 30 days #30 tabs atorvastatin 40 mg tablet 40 mg PO DAILY 30 days #30 tabs 08/11/24 polyethylene glycol 3350 17 4 g PO BID PRN constipation #119 08/22/24 gram/dose oral powder (Miralax) grams Allergies Allergy/AdvReac Type Severity Reaction Status Date / Time No Known Allergies Allergy Verified 08/22/24 04:25 Review of Systems General: Reports: 10 or more systems reviewed and unremarkable except in HPI and below PFSH ED PFSH: Medical History Carotid bruit present Atherosclerotic heart disease of [place] coronary artery with other forms of angina pectoris Atypical chest pain The EKG done in the emergency room revealed normal sinus rhythm with a normal ST-T's. Migraine-cluster headache syndrome History of small bowel obstruction Hyperglycemia Castillo angioma GERD (gastroesophageal reflux disease) Cervical spondylosis Syncope CAD (coronary artery disease) Essential hypertension Mixed hyperlipidemia Diabetes mellitus History of colon cancer Surgical History History of heart artery stent History of angioplasty Family History Father CAD (coronary artery disease) Cancer Mother CAD (coronary artery disease) Cancer Brother Cancer Sister Cancer Other Heart disease Denies family history of Diabetes Clotting disorder Dementia Chronic kidney disease (CKD) Suicide Anesthesia complication Bleeding disorder Lung disease Stroke Social History Smoking and tobacco/nicotine status: former use of tobacco/nicotine Alcohol intake: never Substance/Drug Use: never Household members: spouse Marital status: Current occupational status: unemployed Physical Exam Const: COMMON NORMALS: no acute distress, average body habitus, patient oriented x3, no limitations, healthy appearing, alert and well nourished HENMT: COMMON NORMALS: normocephalic, atraumatic, hearing grossly normal bilaterally, external ears normal and Normal external nose present HEAD & SCALP: normocephalic and atraumatic NOSE: Normal external nose present EXTERNAL EAR: Yes external ears normal Neck/C-Spine: COMMON NORMALS: full ROM, no lymphadenopathy, supple, no meningeal signs, no JVD and Thyroid normal THYROID: Thyroid normal Chest: COMMONS NORMALS: normal inspection of the chest and normal palpation of entire chest wall Resp: COMMON NORMALS: normal respiratory effort, No retractions, No use of accessory muscles and clear to auscultation bilaterally AUSCULTATION: clear to auscultation bilaterally Cardio: COMMON NORMALS: no JVD, regular rhythm, S1 normal heart sound present, S2 normal heart sound present, No gallops present (Cardio), No clicks present (Cardio), No murmurs present (Cardio) and No rub (Cardio); negative for regular rate (Mildly tachycardic) RATE: abnormal rate (Mildly tachycardic) RHYTHM: regular rhythm HEART SOUNDS: S1 normal heart sound present and S2 normal heart sound present GI: COMMON NORMALS: Normal to inspection, nondistended, normoactive bowel sounds present (Bowel sounds present in all 4 quadrants slightly diminished), Soft to palpation, non-tender, No hepatosplenomegaly present and no masses PALPATION: Yes Soft to palpation and Yes No hepatosplenomegaly present Neuro: COMMON NORMALS: patient oriented x3 SENSORIUM/ORIENTATION: Yes alert MENINGEAL SIGNS: Yes no meningeal signs Course Vital Signs: Vital signs: Vital Signs Temperature 97.4 F L 08/22/24 04:22 Pulse Rate 110 H 08/22/24 04:55 Respiratory Rate 20 H 08/22/24 04:25 Blood Pressure 154/88 08/22/24 04:55 Pulse Oximetry 98 08/22/24 04:55 Oxygen Delivery Me thod Room Air 08/22/24 04:55 MDM - Abdominal Pain Medical Decision Making Lab work reviewed, stable, hemoglobin 9.6, BUN/creatinine eighteen 1.5, abdominal x-ray preliminary read by myself is negative other than full of stool. Patient will be prescribed MiraLAX and given Dulcolax here to take when he gets home. Medical Records I reviewed the patient's medical records. Lab Data I reviewed the patient's lab results. 08/22/24 04:44 08/22/24 04:44 Labs/Radiology: Laboratory Results WBC 7.10 10^3/uL (3.29-11.43) 08/22/24 04:44 RBC 4.11 10^6/uL (3.85-5.65) 08/22/24 04:44 Hgb 9.60 g/dL (11.27-16.99) L 08/22/24 04:44 Hct 31.9 % (37-53) L 08/22/24 04:44 MCV 77.6 fl (82-101) L 08/22/24 04:44 MCH 23.4 pg (27-33) L 08/22/24 04:44 MCHC 30.1 g/dL (30-55) 08/22/24 04:44 RDW 16.7 % (12.1-15.1) H 08/22/24 04:44 Plt Count 335 10^3/cmm (157-399) 08/22/24 04:44 MPV 10.4 fL (7.4-10.4) 08/22/24 04:44 Neut % (Auto) 61.3 % 08/22/24 04:44 Lymph % (Auto) 20.0 % 08/22/24 04:44 [place] % (Auto) 12.5 % 08/22/24 04:44 Eos % (Auto) 4.5 % 08/22/24 04:44 Baso % (Auto) 1.3 % 08/22/24 04:44 Neut # (Auto) 4.35 10^3/uL (1.8-7.7) 08/22/24 04:44 Lymph # (Auto) 1.4 10^3/uL (0.8-4.8) 08/22/24 04:44 [place] # (Auto) 0.9 10^3/uL (0.2-0.9) 08/22/24 04:44 Eos # (Auto) 0.3 10^3/uL (0.0-0.8) 08/22/24 04:44 Baso # (Auto) 0.1 10^3/uL (0.0-0.1) 08/22/24 04:44 Nucleated RBC % (auto) 0 % 08/22/24 04:44 Nucleated RBCs # 0.0 /100WBC 08/22/24 04:44 Sodium 137 mmol/L (136-145) 08/22/24 04:44 Potassium 4.0 mmol/L (3.5-5.1) 08/22/24 04:44 Chloride 102 mmol/L (98-107) 08/22/24 04:44 Carbon Dioxide 23 mmol/L (22-29) 08/22/24 04:44 Anion Gap 16.0 (5-19) 08/22/24 04:44 BUN 18 mg/dL (8-23) 08/22/24 04:44 Creatinine 1.5 mg/dL (0.7-1.2) H 08/22/24 04:44 GFR Calculation Not Reportable 08/22/24 04:44 Glucose 106 mg/dL (65-115) 08/22/24 04:44 Calculated Osmolality 286 mOsm/kg (285-295) 08/22/24 04:44 Calcium 8.8 mg/dL (8.5-10.5) 08/22/24 04:44 Total Bilirubin 0.2 mg/dL (0.15-1.2) 08/22/24 04:44 AST 13 U/L (0-40) 08/22/24 04:44 ALT 11 U/L (0-41) 08/22/24 04:44 Alkaline Phosphatase 80 U/L (40-130) 08/22/24 04:44 Total Protein 6.3 g/dL (6.6-8.7) L 08/22/24 04:44 Albumin 3.6 g/dL (3.5-5.2) 08/22/24 04:44 Globulin 2.7 g/dL (1.3-4.6) 08/22/24 04:44 All radiology interpretation(s) finalized by discharge Discharge Plan Discharge Patient Disposition: Home Clinical Impression: Constipation Condition: Stable Prescriptions: New polyethylene glycol 3350 [Miralax] 17 gram/dose powder 4 g PO BID PRN (Reason: constipation) Qty: 119 0RF No Action aspirin 81 mg tablet,delayed release (DR/EC) 81 mg PO QAM (DME) Night splint to left See Rx Instructions .Route .MEDSUPPLY Qty: 1 0RF Rx Instructions: As directed (DME) Custom Molded Orthotics See Rx Instructions .Route .MEDSUPPLY Qty: 1 0RF Rx Instructions: As directed (DME) small hinge brace See Rx Instructions .Route .MEDSUPPLY Qty: 1 0RF Rx Instructions: As directed tamsulosin [Flomax] 0.4 mg capsule 0.4 mg PO Q24H Qty: 20 0RF nitroglycerin 0.4 mg tablet, sublingual 0.4 mg sublingual Q5M PRN (Reason: chest pain) 30 Days Qty: 30 3RF Rx Instructions: until response; do not exceed 3 doses per episode clopidogrel 75 mg tablet 75 mg PO QAM metoprolol succinate 25 mg tablet extended release 24 hr 25 mg PO QAM lansoprazole [Prevacid] 30 mg capsule,delayed release(DR/EC) 30 mg PO BID PRN (Reason: Acid Reflux) atorvastatin 40 mg tablet 40 mg PO DAILY 30 Days Qty: 30 0RF Discharge Orders: Discharge ED (Routine); Ordered 08/22/24 Ordered By: Deo Allen Referrals: Clarissa Stearns FNP [Primary Care Provider] - 1 week Patient Instructions: Constipation - Adult Activity Restrictions/Additional Instructions: Thank you for choosing [facility] for your healthcare needs today. Please realize that you were seen in the emergency department and that we are providing you with an emergency medical screening exam and this may not be a complete and all exclusive of all testing and/or medical workup we may need to determine your element or severity of your illness. It is very important that you follow-up as instructed with your primary care provider or specialist for the additional evaluation and to discuss your medical treatment plan. You may return to the emergency department should you have concerns or if your condition changes or worsens in any way. Print Language: Danish Coding Level of Care Code ED Collaborative Teacher for Lance Tavarez
[2024-08-22 04:48] LABS: Basophils # 0.1 10^3/uL (0.0-0.1); Basophils % 1.3 %; Eosinophils # 0.3 10^3/uL (0.0-0.8); Eosinophils % 4.5 %; Hematocrit 31.9 % (37-53); Lymphocytes # 1.4 10^3/uL (0.8-4.8); Mean Corpuscular HGB Conc 30.1 g/dL (30-55); Mean Corpuscular Hemoglobin 23.4 pg (27-33); Mean Corpuscular Volume 77.6 fl (82-101); Mean Platelet Volume 10.4 fL (7.4-10.4); Monocytes # 0.9 10^3/uL (0.2-0.9); Monocytes % 12.5 %; Neutrophils # 4.35 10^3/uL (1.8-7.7); Neutrophils % 61.3 %; Nucleated Red Blood Cells % 0 %; Platelet Count 335 10^3/cmm (157-399); Red Blood Count 4.11 10^6/uL (3.85-5.65); Red Cell Distribution Width 16.7 % (12.1-15.1)
[2024-08-22 04:55] VITALS: BP 154/88; PULSE 110; O2SAT 98
[2024-08-22 05:05] LABS: Alanine Aminotransferase 11 U/L (0-41); Albumin Level 3.6 g/dL (3.5-5.2); Alkaline Phosphatase 80 U/L (40-130); Aspartate Amino Transferase 13 U/L (0-40); Blood Urea Nitrogen 18 mg/dL (8-23); Calcium 8.8 mg/dL (8.5-10.5); Carbon Dioxide 23 mmol/L (22-29); Chloride 102 mmol/L (98-107); Creatinine Clr Calc Pharmacy 45.5341; Globulin 2.7 g/dL (1.3-4.6); Glucose 106 mg/dL (65-115); Osmolality Calculated 286 mOsm/kg (285-295); Sodium 137 mmol/L (136-145); Total Bilirubin 0.2 mg/dL (0.15-1.2); Total Protein 6.3 g/dL (6.6-8.7)
[2024-08-22] MEDS: bisacodyl 5 mg Tablet 10 MG PO (05:32)
[2024-08-22 05:35] VITALS: BP 135/91; PULSE 99; O2SAT 99
== END 2024-08-22 05:35 | disposition home or self-care (01) ==
PROVIDERS: Emergency Provider Emergency Medicine; PCP Nurse Practitioner Family
DX: K59.00 Constipation, unspecified (principal); Z79.02 Long term (current) use of antithrombotics/antiplatelets; Z87.891 Personal history of nicotine dependence; Z85.038 Personal history of other malignant neoplasm of large intestine; I25.10 Atherosclerotic heart disease of native coronary artery without angina pectoris; E11.9 Type 2 diabetes mellitus without complications; I10 Essential (primary) hypertension; E78.5 Hyperlipidemia, unspecified
CPT/HCPCS: 74018; 80053; 85025; 99284

== ENCOUNTER → 2024-08-23 15:15 | Outpatient (BNVA) | payer MEDICARE, SELFPAY | PROVIDERS: PCP Nurse Practitioner Family; Visit Provider Nurse Practitioner Family | DX: I25.10 Atherosclerotic heart disease of native coronary artery without angina pectoris (principal); I12.9 Hypertensive chronic kidney disease with stage 1 through stage 4 chronic kidney disease, or unspecified chronic kidney disease; N18.9 Chronic kidney disease, unspecified; K21.9 Gastro-esophageal reflux disease without esophagitis; F17.210 Nicotine dependence, cigarettes, uncomplicated | CPT/HCPCS: 99214 ==

== ENCOUNTER 2024-08-27 17:27 | Emergency (ER) | payer MEDICARE, SELFPAY ==
[2024-08-27 17:48] VITALS: BP 125/81; PULSE 96; RESP 18; TEMP 36.7; O2SAT 98
[2024-08-27 18:39] LABS: Covid PCR NEGATIVE (Negative); Influenza A NEGATIVE (Negative); Influenza B NEGATIVE (Negative); Respiratory Syncytial Virus Ce NEGATIVE (Negative)
--- NOTE | 2024-08-27 18:44 | ED_ITS ---
HPI - Abdominal Pain 2 General: Chief Complaint: Abdominal Pain Stated Complaint: itching on inside, cold chills , Time Seen by Provider: 08/27/24 18:27 History of Present Illness: 74-year-old man with history of coronary artery disease, migraines, hyperglycemia, GERD, diabetes and hypertension who presents emergency room with abdominal burning and itching under his skin. He says he had seen his doctor about the burning in his abdomen and they put him on some new heartburn medications. He says he mainly came to the emergency room because he felt like there was an itching deep below his skin. No nausea or vomiting. No fevers. He says he had 3 bowel movements today. Related Data Home Medications ?Medication ?Instructions ?Recorded ?Confirmed aspirin 81 mg tablet,delayed 81 mg PO QAM 07/25/1901/09 release clopidogrel 75 mg tablet 75 mg PO QAM 10/04/23 metoprolol succinate 25 mg 25 mg PO QAM 10/04/2308/23 tablet,extended release 24 hr lansoprazole 30 mg capsule,delayed 30 mg PO BID PRN Ac id Reflux 08/08/24 08/23/24 release (Prevacid) Held on 08/23/24. Instructions: Doctor's Order Previous Rx's ?Medication ?Instructions ?Recorded Custom Molded Orthotics #1 ea 05/26/21 Night splint to left #1 ea 05/26/21 small hinge brace #1 ea 06/22/22 tamsulosin 0.4 mg capsule (Flomax) 0.4 mg PO Q24H #20 caps 04/04/23 nitroglycerin 0.4 mg sublingual 0.4 mg sublingual Q5M PRN chest 05/09/24 tablet pain 30 days #30 tabs atorvastatin 40 mg tablet 40 mg PO DAILY 30 days #30 t abs 08/11/24 polyethylene glycol 3350 17 4 g PO BID PRN constipatio n #119 08/22/24 gram/dose oral powder (Miralax) grams pantoprazole 40 mg tablet,delayed 40 mg PO DAILY #90 t abs 08/23/24 release cefdinir 300 mg capsule 300 mg PO BID 5 days #10 cap s 08/27/24 hydroxyzine HCl 25 mg tablet 25 mg PO BID PRN anxiety #30 tabs 08/27/24 Allergies Allergy/AdvReac Type Severity Reaction Status Date / Time No Known Allergies Allergy Verified 08/27/24 17:54 Review of Systems 2 Narrative: Constitutional symptoms: Negative except as documented in HPI. Skin symptoms: Negative except as documented in HPI. Eye symptoms: Negative except as documented in HPI. ENMT symptoms: Negative except as documented in HPI. Respiratory symptoms: Negative except as documented in HPI. Cardiovascular symptoms: Negative except as documented in HPI. Gastrointestinal symptoms: Negative except as documented in HPI. Genitourinary symptoms: Negative except as documented in HPI. Musculoskeletal symptoms: Negative except as documented in HPI. Neurologic symptoms: Negative except as documented in HPI. Psychiatric symptoms: Negative except as documented in HPI. Endocrine symptoms: Negative except as documented in HPI. PFSH ED 2 PFSH: Medical History Carotid bruit present Atherosclerotic heart disease of [place] coronary artery with other forms of angina pectoris Atypical chest pain The EKG done in the emergency room revealed normal sinus rhythm with a normal ST-T's. Migraine-cluster headache syndrome History of small bowel obstruction Hyperglycemia Castillo angioma GERD (gastroesophageal reflux disease) Cervical spondylosis Syncope CAD (coronary artery disease) Essential hypertension Mixed hyperlipidemia Diabetes mellitus History of colon cancer Surgical History History of heart artery stent History of angioplasty Family History Father CAD (coronary artery disease) Cancer Mother CAD (coronary artery disease) Cancer Brother Cancer Sister Cancer Other Heart disease Denies family history of Diabetes Clotting disorder Dementia Chronic kidney disease (CKD) Suicide Anesthesia complication Bleeding disorder Lung disease Stroke Social History Smoking and tobacco/nicotine status: current every day tobacco/nicotine user cigarettes Years cigarettes smoked: 53 Alcohol intake: never Substance/Drug Use: never Household members: spouse Marital status: Current occupational status: unemployed Physical Exam 2 Narrative: EXAM NARRATIVE: General: Alert, no acute distress. Skin: Warm, dry. Head: Normocephalic, atraumatic. Neck: Supple, trachea midline. Eye: Extraocular movements are intact. Ears, nose, mouth and throat: mucosa moist. Cardiovascular: Regular, Normal peripheral perfusion. Respiratory: Lungs are clear to auscultation, respirations are non-labored, breath sounds are equal, Symmetrical chest wall expansion. Gastrointestinal: Soft, Nontender, Non distended Musculoskeletal: Normal ROM, no deformity. Neurological: Alert and oriented, No focal neurological deficit observed. Psychiatric: Cooperative, appropriate mood & affect. Course 2 Vital Signs: Vital signs: Vital Signs Temperature 98.0 F 08/27/24 17:48 Pulse Rate 89 08/27/24 20:47 Respiratory Rate 16 08/27/24 20:00 Blood Pressure 129/72 08/27/24 20:47 Pulse Oximetry 98 08/27/24 20:47 Oxygen Delivery Me thod Room Air 08/27/24 18:45 MDM - Abdominal Pain Medical Decision Making Lab Review: Laboratory results were reviewed and interpreted by myself the emergency room physician. Lab work is fairly unremarkable. No leukocytosis. Stable anemia. Renal function is stable at 18 and 1.5. Urinalysis shows few whites and is leukocyte Estrace positive. He does have an indwelling Baron catheter but I am placing on antibiotics for the next 5 days. I reviewed the patient's medical record. Reexamination: Patient says he feels better after receiving Benadryl and Pepcid IV. He is requesting go home. Lab work again was fairly unremarkable. He is had no increased work of breathing. No nausea or vomiting. No chest pain. No altered mental status. Assessment and plan: Pruritus Dyspepsia UTI ? IV Pepcid and IV Benadryl in the emergency room - Discharged home - Discussed plan with patient. Answered any questions. - Evaluation and treatment of this problem were appropriate in the emergency setting. Lab Data 08/27/24 18:39 08/27/24 18:39 Labs/Radiology: Laboratory Results WBC 7.38 10^3/uL (3.29-11.43) 08/27/24 18: RBC 4.16 10^6/uL (3.85-5.65) 08/27/24 18:39 Hgb 9.80 g/dL (11.27-16.99) L 08/27/24 18:39 Hct 32.7 % (37-53) L 08/27/24 18:39 MCV 78.6 fl (82-101) L 08/27/24 18:39 MCH 23.6 pg (27-33) L 08/27/24 18:39 MCHC 30.0 g/dL (30-55) 08/27/24 18:39 RDW 17.2 % (12.1-15.1) H 08/27/24 18:39 Plt Count 340 10^3/cmm (157-399) 08/27/24 18:39 MPV 10.4 fL (7.4-10.4) 08/27/24 18:39 Neut % (Auto) 61.1 % 08/27/24 18:39 Lymph % (Auto) 20.7 % 08/27/24 18:39 [place] % (Auto) 10.8 % 08/27/24 18:39 Eos % (Auto) 5.6 % 08/27/24 18:39 Baso % (Auto) 1.5 % 08/27/24 18:39 Neut # (Auto) 4.51 10^3/uL (1.8-7.7) 08/27/24 18:39 Lymph # (Auto) 1.5 10^3/uL (0.8-4.8) 08/27/24 18:39 [place] # (Auto) 0.8 10^3/uL (0.2-0.9) 08/27/24 18:39 Eos # (Auto) 0.4 10^3/uL (0.0-0.8) 08/27/24 18:39 Baso # (Auto) 0.1 10^3/uL (0.0-0.1) 08/27/24 18:39 Nucleated RBC % (auto) 0 % 08/27/24 18:39 Nucleated RBCs # 0.0 /100WBC 08/27/24 18:39 Sodium 139 mmol/L (136-145) 08/27/24 18:39 Potassium 4.4 mmol/L (3.5-5.1) 08/27/24 18:39 Chloride 103 mmol/L (98-107) 08/27/24 18:39 Carbon Dioxide 26 mmol/L (22-29) 08/27/24 18:39 Anion Gap 14.4 (5-19) 08/27/24 18:39 BUN 18 mg/dL (8-23) 08/27/24 18:39 Creatinine 1.5 mg/dL (0.7-1.2) H 02/10/25 18:39 GFR Calculation Not Reportable 08/27/24 18:39 Glucose 110 mg/dL (65-115) 08/27/24 18:39 Calculated Osmolality 291 mOsm/kg (285-295) 08/27/24 18:39 Calcium 9.5 mg/dL (8.5-10.5) 08/27/24 18:39 Total Bilirubin 0.2 mg/dL (0.15-1.2) 08/27/24 18:39 AST 17 U/L (0-40) 08/27/24 18:39 ALT 14 U/L (0-41) 08/27/24 18:39 Alkaline Phosphatase 91 U/L (40-130) 08/27/24 18:39 Total Protein 7.1 g/dL (6.6-8.7) 08/27/24 18:39 Albumin 4.1 g/dL (3.5-5.2) 08/27/24 18:39 Globulin 3.0 g/dL (1.3-4.6) 08/27/24 18:39 Lipase 33 U/L (13-60) 08/27/24 18:39 Urine Color Yellow (Yellow) 08/27/24 19:15 Urine Appearance Clear (CLEAR) 08/27/24 19:15 Urine pH 7.5 (5-7) 08/27/24 19:15 Ur Specific [place] 1.018 (1.005-1.030) 08/27/24 19:15 Urine Protein 1+ (Negative) A 08/27/24 19:15 Urine Glucose (UA) Negative (Normal) 08/27/24 19:15 Urine Ketones Negative (Negative) 08/27/24 19:15 Urine Blood Negative (Negative) 08/27/24 19:15 Urine Nitrate Negative (Negative) 08/27/24 19:15 Urine Bilirubin Negative (Negative) 08/27/24 19:15 Urine Urobilinogen 1.0 mg/dL (Negative) 08/27/24 19:15 Ur Leukocyte Esterase 1+ (Negative) A 08/27/24 19:15 Urine RBC 6-10 /hpf (0-2) 08/27/24 19:15 Urine WBC 6-10 /hpf (0-5) 08/27/24 19:15 Ur Squamous Epith Cells 0-5 /hpf (0-5) 08/27/24 19:15 Amorphous Sediment Not Reportable 08/27/24 19:15 Urine Bacteria None seen /hpf (NONE) 08/27/24 19:15 Hyaline Casts 1.65 /lpf 08/27/24 19:15 Coronavirus (PCR) Negative (Negative) 08/27/24 17:58 Influenza A (PCR) Negative (Negative) 08/27/24 17:58 Influenza Type B (PCR) Negative (Negative) 08/27/24 17:58 RSV (PCR) Negative (Negative) 08/27/24 17:58 No radiology studies performed this visit Discharge Plan Discharge Patient Disposition: Home Clinical Impression: Dyspepsia, Drug-induced pruritus Condition: Stable Prescriptions: New hydroxyzine HCl 25 mg tablet 25 mg PO BID PRN (Reason: anxiety) Qty: 30 0RF cefdinir 300 mg capsule 300 mg PO BID 5 Days Qty: 10 0RF No Action aspirin 81 mg tablet,delayed release (DR/EC) 81 mg PO QAM (DME) Night splint to left See Rx Instructions .Route .MEDSUPPLY Qty: 1 0RF Rx Instructions: As directed (DME) Custom Molded Orthotics See Rx Instructions .Route .MEDSUPPLY Qty: 1 0RF Rx Instructions: As directed (DME) small hinge brace See Rx Instructions .Route .MEDSUPPLY Qty: 1 0RF Rx Instructions: As directed tamsulosin [Flomax] 0.4 mg capsule 0.4 mg PO Q24H Qty: 20 0RF pantoprazole 40 mg tablet,delayed release (DR/EC) 40 mg PO DAILY Qty: 90 1RF nitroglycerin 0.4 mg tablet, sublingual 0.4 mg sublingual Q5M PRN (Reason: chest pain) 30 Days Qty: 30 3RF Rx Instructions: until response; do not exceed 3 doses per episode clopidogrel 75 mg tablet 75 mg PO QAM metoprolol succinate 25 mg tablet extended release 24 hr 25 mg PO QAM lansoprazole [Prevacid] 30 mg capsule,delayed release(DR/EC) 30 mg PO BID PRN (Reason: Acid Reflux) atorvastatin 40 mg tablet 40 mg PO DAILY 30 Days Qty: 30 0RF polyethylene glycol 3350 [Miralax] 17 gram/dose powder 4 g PO BID PRN (Reason: constipation) Qty: 119 0RF Discharge Orders: Discharge ED (Routine); Ordered 08/27/24 Ordered By: Kaye Rodney Referrals: Clarissa Stearns FNP [Primary Care Provider] - Discharge Diet: Usual diet Discharge Activity: Increase activity as tolerated Patient Instructions: Opioid Safety, Pain Management Activity Restrictions/Additional Instructions: Thank you for choosing [facility] for your healthcare needs today. Please realize this is an emergency room and that we are providing you with a medical screening exam and this may not be complete and all inclusive of all the testing and or work up that you may need to determine your ailment or severity of your illness. You have been screened and evaluated and felt safe for discharge. Health conditions do change or evolve sometimes and as such it is important that you follow up with your Primary Doctor to be re checked, 3-5 days is a general good time frame for follow up. You are always welcome to return to the ED for re assessment if your symptoms are worsening or you have new concerns Print Language: Montserratian Coding Level of Care Code ED Tank Builder for Lance Tavarez
[2024-08-27 18:45] VITALS: BP 131/78; PULSE 71; O2SAT 99
[2024-08-27] MEDS: famotidine 20 mg/2 mL INJ 40 MG IVP (18:45)
[2024-08-27] MEDS: diphenhydrAMINE 50 mg/mL SDV 1mL 25 MG IVP (18:47)
[2024-08-27 19:07] LABS: Basophils # 0.1 10^3/uL (0.0-0.1); Basophils % 1.5 %; Eosinophils # 0.4 10^3/uL (0.0-0.8); Eosinophils % 5.6 %; Hematocrit 32.7 % (37-53); Lymphocytes # 1.5 10^3/uL (0.8-4.8); Lymphocytes % 20.7 %; Mean Corpuscular Hemoglobin 23.6 pg (27-33); Mean Corpuscular Volume 78.6 fl (82-101); Mean Platelet Volume 10.4 fL (7.4-10.4); Monocytes # 0.8 10^3/uL (0.2-0.9); Monocytes % 10.8 %; Neutrophils # 4.51 10^3/uL (1.8-7.7); Neutrophils % 61.1 %; Nucleated Red Blood Cells % 0 %; Platelet Count 340 10^3/cmm (157-399); Red Blood Count 4.16 10^6/uL (3.85-5.65); Red Cell Distribution Width 17.2 % (12.1-15.1); White Blood Count 7.38 10^3/uL (3.29-11.43)
[2024-08-27 19:25] LABS: Alanine Aminotransferase 14 U/L (0-41); Albumin Level 4.1 g/dL (3.5-5.2); Alkaline Phosphatase 91 U/L (40-130); Anion Gap 14.4 (5-19); Aspartate Amino Transferase 17 U/L (0-40); Blood Urea Nitrogen 18 mg/dL (8-23); Calcium 9.5 mg/dL (8.5-10.5); Carbon Dioxide 26 mmol/L (22-29); Chloride 103 mmol/L (98-107); Creatinine Clr Calc Pharmacy 45.6481; Glucose 110 mg/dL (65-115); Lipase 33 U/L (13-60); Osmolality Calculated 291 mOsm/kg (285-295); Potassium 4.4 mmol/L (3.5-5.1); Sodium 139 mmol/L (136-145); Total Bilirubin 0.2 mg/dL (0.15-1.2); Total Protein 7.1 g/dL (6.6-8.7)
[2024-08-27 19:28] LABS: Bilirubin Urine Negative (Negative); Blood Urine Negative (Negative); Glucose Urine UA Negative (Normal); Ketones Urine Negative (Negative); Leukocyte Esterase Urine 1+ (Negative); Nitrate Urine Negative (Negative); Protein Urine 1+ (Negative); Specific Gravity, Urine 1.018 (1.005-1.030); Urine Appearance Clear (CLEAR); Urine Color Yellow (Yellow); pH Urine 7.5 (5-7)
[2024-08-27 19:33] LABS: Bacteria Urine None Seen /hpf; Hyaline Casts Urine 1.65 /lpf; Squamous Epithelial Cell Urine 0-5 /hpf (0-5)
[2024-08-27 20:00] VITALS: BP 129/72; PULSE 89; RESP 16; O2SAT 98
[2024-08-27 20:47] VITALS: BP 129/72; PULSE 89; O2SAT 98
== END 2024-08-27 20:48 | disposition home or self-care (01) ==
PROVIDERS: Emergency Medicine; Emergency Provider Emergency Medicine; PCP Nurse Practitioner Family
DX: R10.13 Epigastric pain (principal); L29.89 Other pruritus; Z79.82 Long term (current) use of aspirin; Z79.02 Long term (current) use of antithrombotics/antiplatelets; Z11.52 Encounter for screening for COVID-19; F17.210 Nicotine dependence, cigarettes, uncomplicated; Z85.038 Personal history of other malignant neoplasm of large intestine; I25.10 Atherosclerotic heart disease of native coronary artery without angina pectoris; E11.9 Type 2 diabetes mellitus without complications; E78.2 Mixed hyperlipidemia
CPT/HCPCS: 36415; 80053; 81001; 83690; 85025; 87637; 96374; 96375; 99284; J1200; J3490

== ENCOUNTER 2024-09-02 04:01 | Emergency (ER) | payer MEDICARE, SELFPAY ==
[2024-09-02 04:05] VITALS: BP 122/77; PULSE 121; RESP 18; TEMP 36.6; O2SAT 99; BMI 29.1
[2024-09-02 04:09] VITALS: BP 122/77; PULSE 129; O2SAT 97
[2024-09-02 04:30] VITALS: PULSE 109; O2SAT 96
--- NOTE | 2024-09-02 04:51 | W.ED.MALEGU ---
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 Patient has an indwelling Baron catheter. Patient states it was working fine yesterday. Started noticing decreased urine in his bag last night with some leakage around the catheter. Is having quite a bit of suprapubic pain now. Related Data Home Medications ?Medication ?Instructions ?Recorded ?Confirmed aspirin 81 mg tablet,delayed 81 mg PO QAM 07/25/19 08/23/24 release clopidogrel 75 mg tablet 75 mg PO QAM 10/04/23 08/23/24 metoprolol succinate 25 mg 25 mg PO QAM 10/04/23 08/23/24 tablet,extended release 24 hr lansoprazole 30 mg capsule,delayed 30 mg PO BID PRN Acid Reflux 08/08/24 08/23/24 release (Prevacid) Held on 08/23/24. Instructions: Doctor's Order Previous Rx's ?Medication ?Instructions ?Recorded Custom Molded Orthotics #1 ea 05/26/21 Night splint to left #1 ea 05/26/21 small hinge brace #1 ea 06/22/22 tamsulosin 0.4 mg capsule (Flomax) 0.4 mg PO Q24H #20 caps 04/04/23 nitroglycerin 0.4 mg sublingual 0.4 mg sublingual Q5M PRN chest 05/09/24 tablet pain 30 days #30 tabs atorvastatin 40 mg tablet 40 mg PO DAILY 30 days #30 tabs 08/11/24 polyethylene glycol 3350 17 4 g PO BID PRN constipation #119 08/22/24 gram/dose oral powder (Miralax) grams pantoprazole 40 mg tablet,delayed 40 mg PO DAILY #90 tabs 08/23/24 release hydroxyzine HCl 25 mg tablet 25 mg PO BID PRN anxiety #30 tabs 08/27/24 cefuroxime axetil 250 mg tablet 250 mg PO BID 10 days #20 tabs 09/02/24 Allergies Allergy/AdvReac Type Severity Reaction Status Date / Time No Known Allergies Allergy Verified 08/27/24 17:54 Review of Systems General: Reports: 10 or more systems reviewed and unremarkable except in HPI and below : Reports: difficulty urinating and oliguria PFSH ED PFSH: Medical History Carotid bruit present Atherosclerotic heart disease of [place] coronary artery with other forms of angina pectoris Atypical chest pain The EKG done in the emergency room revealed normal sinus rhythm with a normal ST-T's. Migraine-cluster headache syndrome History of small bowel obstruction Hyperglycemia Castillo angioma GERD (gastroesophageal reflux disease) Cervical spondylosis Syncope CAD (coronary artery disease) Essential hypertension Mixed hyperlipidemia Diabetes mellitus History of colon cancer Surgical History History of heart artery stent History of angioplasty Family History Father CAD (coronary artery disease) Cancer Mother CAD (coronary artery disease) Cancer Brother Cancer Sister Cancer Other Heart disease Denies family history of Diabetes Clotting disorder Dementia Chronic kidney disease (CKD) Suicide Anesthesia complication Bleeding disorder Lung disease Stroke Social History Smoking and tobacco/nicotine status: current every day tobacco/nicotine user cigarettes Years cigarettes smoked: 53 Alcohol intake: never Substance/Drug Use: never Household members: spouse Marital status: Current occupational status: unemployed Physical Exam Const: COMMON NORMALS: no acute distress, patient oriented x3 and no limitations GENERAL APPEARANCE: cooperative and comfortable HENMT: COMMON NORMALS: normocephalic, atraumatic, Normal nasal mucous membranes and turbinates present, moist oral mucous membranes and oropharynx normal HEAD & SCALP: normal to inspection, normocephalic and atraumatic FACE & SINUS: normal facial exam NOSE: Normal nasal mucous membranes and turbinates present Eye: COMMON NORMALS: Equal, round and reactive pupils present, EOMs intact bilaterally and conjunctivae normal GENERAL EYE: appearance normal, both eyes and all related structures CONJUNCTIVA: Yes conjunctivae normal PUPIL: Yes Equal, round and reactive pupils present Neck/C-Spine: COMMON NORMALS: supple and no JVD Chest: COMMONS NORMALS: normal inspection of the chest Resp: COMMON NORMALS: normal respiratory effort and clear to auscultation bilaterally AUSCULTATION: clear to auscultation bilaterally Cardio: COMMON NORMALS: no JVD, regular rate, regular rhythm, No gallops present (Cardio), No murmurs present (Cardio) and No rub (Cardio) RATE: regular rate RHYTHM: regular rhythm GI: COMMON NORMALS: Normal to inspection, nondistended, normoactive bowel sounds present and Soft to palpation AUSCULTATION: Yes normoactive bowel sounds PALPATION: Yes Soft to palpation OTHER: Suprapubic tenderness. Back/Pelvis: COMMON NORMALS: thoracic and lumbar spine normal to inspection Extremity: COMMON NORMALS: normal to inspection Neuro: COMMON NORMALS: patient oriented x3 and CN's II-XII intact bilaterally Psych: COMMON NORMALS: mental status grossly normal, Normal thought process present and cooperative THOUGHT PROCESS: Normal thought process present Skin: COMMON NORMALS: no rashes or lesions noted, turgor normal and no jaundice GENERAL SKIN EXAM: no rashes or lesions noted and turgor normal Course Vital Signs: Vital signs: Vital Signs Temperature 97.9 F 09/02/24 04:05 Pulse Rate 121 H 09/02/24 04:05 Respiratory Rate 18 09/02/24 04:05 Blood Pressure 122/77 09/02/24 04:05 Pulse Oximetry 99 09/02/24 04:05 Oxygen Delivery Me thod Room Air 09/02/24 04:05 MDM - Male Medical Decision Making Nursing staff changed out the Baron catheter. 1000 cc of cloudy urine drained. Patient feeling much improved. Nursing staff noted yeast infection. Patient was given 150 mg of Diflucan p.o. as well as 250 mg of Ceftin. I did prescribe Ceftin. Patient does have an appointment with his urologist coming up. He was discharged in stable condition. No radiology studies performed this visit Discharge Plan Discharge Patient Disposition: Home Clinical Impression: Acute urinary retention, Acute UTI Condition: Stable Prescriptions: New cefuroxime axetil 250 mg tablet 250 mg PO BID 10 Days Qty: 20 0RF No Action aspirin 81 mg tablet,delayed release (DR/EC) 81 mg PO QAM (DME) Night splint to left See Rx Instructions .Route .MEDSUPPLY Qty: 1 0RF Rx Instructions: As directed (DME) Custom Molded Orthotics See Rx Instructions .Route .MEDSUPPLY Qty: 1 0RF Rx Instructions: As directed (DME) small hinge brace See Rx Instructions .Route .MEDSUPPLY Qty: 1 0RF Rx Instructions: As directed tamsulosin [Flomax] 0.4 mg capsule 0.4 mg PO Q24H Qty: 20 0RF pantoprazole 40 mg tablet,delayed release (DR/EC) 40 mg PO DAILY Qty: 90 1RF nitroglycerin 0.4 mg tablet, sublingual 0.4 mg sublingual Q5M PRN (Reason: chest pain) 30 Days Qty: 30 3RF Rx Instructions: until response; do not exceed 3 doses per episode clopidogrel 75 mg tablet 75 mg PO QAM metoprolol succinate 25 mg tablet extended release 24 hr 25 mg PO QAM lansoprazole [Prevacid] 30 mg capsule,delayed release(DR/EC) 30 mg PO BID PRN (Reason: Acid Reflux) atorvastatin 40 mg tablet 40 mg PO DAILY 30 Days Qty: 30 0RF hydroxyzine HCl 25 mg tablet 25 mg PO BID PRN (Reason: anxiety) Qty: 30 0RF polyethylene glycol 3350 [Miralax] 17 gram/dose powder 4 g PO BID PRN (Reason: constipation) Qty: 119 0RF Discharge Orders: Discharge ED (Routine); Ordered 09/02/24 Ordered By: Rj White Referrals: Clarissa Stearns FNP [Primary Care Provider] - Patient Instructions: Catheter-associated Urinary Tract Infection (ED) Activity Restrictions/Additional Instructions: Follow-up with urology as scheduled. Print Language: Moroccan Coding Level of Care Code ED Executive Kitchen Manager for Lance Tavarez
[2024-09-02 05:00] VITALS: PULSE 93; O2SAT 100
[2024-09-02 05:02] LABS: Bilirubin Urine Negative (Negative); Blood Urine 2+ (Negative); Glucose Urine UA Negative (Normal); Ketones Urine Negative (Negative); Leukocyte Esterase Urine 2+ (Negative); Nitrate Urine Positive (Negative); Protein Urine 3+ (Negative); Specific Gravity, Urine 1.012 (1.005-1.030); Urine Appearance Turbid (CLEAR); Urine Color Yellow (Yellow); Urobilinogen Urine 0.2 mg/dL (Negative)
[2024-09-02] MEDS: fluconazole 100 mg Tablet 150 MG PO (05:04)
[2024-09-02] MEDS: HYDROcodone-acetaminophen 5-325 mg Tablet 2 TAB PO (05:05)
[2024-09-02 05:07] LABS: Add Urine Microscopic? YES; Bacteria Urine 4+ /hpf; RBC Urine 51-100 /hpf (0-2); Squamous Epithelial Cell Urine 0-5 /hpf (0-5); WBC Urine >100 /hpf (0-5)
[2024-09-02] MEDS: cefUROXime 250 mg Tablet PO (05:07)
[2024-09-02 05:08] LABS: Add Urine Culture? Yes
[2024-09-02] MEDS: lidocaine 2% Urojet 20 mL TOPICAL (05:08)
[2024-09-02 05:27] VITALS: BP 120/83; PULSE 108; O2SAT 96
[2024-09-02 05:45] VITALS: BP 133/84; PULSE 100; RESP 16; O2SAT 93
== END 2024-09-02 07:12 | disposition home or self-care (01) ==
PROVIDERS: Emergency Provider Emergency Medicine; PCP Nurse Practitioner Family
DX: R33.9 Retention of urine, unspecified (principal); N39.0 Urinary tract infection, site not specified; Z79.82 Long term (current) use of aspirin; Z79.02 Long term (current) use of antithrombotics/antiplatelets; F17.210 Nicotine dependence, cigarettes, uncomplicated; I25.118 Atherosclerotic heart disease of native coronary artery with other forms of angina pectoris; E11.9 Type 2 diabetes mellitus without complications; I10 Essential (primary) hypertension; E78.2 Mixed hyperlipidemia; Z85.038 Personal history of other malignant neoplasm of large intestine
CPT/HCPCS: 51702; 81001; 87077; 87086; 87186; 99283

== ENCOUNTER → 2024-09-06 14:47 | Outpatient (BNVA) | payer MEDICARE, SELFPAY | PROVIDERS: PCP Nurse Practitioner Family; Visit Provider Orthopaedic Surgery | DX: M47.12 Other spondylosis with myelopathy, cervical region (principal); T84.84XD Pain due to internal orthopedic prosthetic devices, implants and grafts, subsequent encounter; Z96.652 Presence of left artificial knee joint; M17.12 Unilateral primary osteoarthritis, left knee; X58.XXXD Exposure to other specified factors, subsequent encounter | CPT/HCPCS: 99213; 99215 ==

== ENCOUNTER 2024-09-15 16:17 | Emergency (ER) | payer MEDICARE, SELFPAY ==
[2024-09-15] VITALS (7 sets, daily range): BP systolic 128–143; BP diastolic 74–85; PULSE 79–98; RESP 14–20; TEMP 36.4; O2SAT 96–99; BMI 29.1
--- NOTE | 2024-09-15 16:35 | CTR_ITS ---
PROCEDURE INFORMATION: Exam: CT Abdomen And Pelvis With Contrast Exam date and time: 09/15/2024 5:10 PM Age: 74 years old Clinical indication: Abdominal pain; Localized; Left lower quadrant (llq); Additional info: Llq abdominal pain, diarrhea TECHNIQUE: Imaging protocol: Computed tomography of the abdomen and pelvis with contrast. Radiation optimization: All CT scans at this facility use at least one of these dose optimization techniques: automated exposure control; mA and/or kV adjustment per patient size (includes targeted exams where dose is matched to clinical indication); or iterative reconstruction. Contrast material: OMNI 350; Contrast volume: 100 ml; Contrast route: INTRAVENOUS (IV); COMPARISON: [place] [id number] 08/10/2024 8:36 AM RADIATION DOSE METRICS: Total DLP (mGy-cm): 547.28 FINDINGS: Lungs: Mild bibasilar atelectasis. Liver: Normal. No mass. Gallbladder and biliary ducts: Cholelithiasis. Pancreas: Normal. No ductal dilation. Spleen: Normal. No splenomegaly. Adrenal glands: Normal. No mass. Kidneys and ureters: 2.0 cm simple appearing right renal cysts. Additional tiny subcentimeter cortical hypodensities bilaterally, too small to characterize but likely represent simple renal cysts. Redemonstrated significant right hydroureteronephrosis. Mild left hydronephrosis. Stomach and bowel: Postsurgical changes within right colon. Appendix: No evidence of appendicitis. Intraperitoneal space: Unremarkable. No free air. No significant fluid collection. Vasculature: Moderate atherosclerosis of the abdominal aorta. Lymph nodes: Unremarkable. No enlarged lymph nodes. Urinary bladder: Urinary bladder is decompressed status post catheterization and demonstrates severe bladder wall thickening. Reproductive: Enlarged prostate. Bones/joints: Moderate dextroscoliosis of lumbar spine. No acute fracture. Soft tissues: Small fat containing bilateral inguinal hernias. CT/CT abdomen pelvis w con* [id number] IMPRESSION: 1. Persistent significant right hydronephrosis with severe right hydroureter. Persistent mild left hydronephrosis. 2. Urinary bladder is decompressed status post catheterization and demonstrates severe bladder wall thickening. 3. Prostatomegaly. 4. Cholelithiasis. COMMENTS: Consistent with the [employer]'s Incidental Findings Committee white paper (J Am Vega Radiol 2018): Any incidental renal lesion less than 1 cm or classified as too small to characterize, or any incidental cystic renal lesion characterized as simple-appearing, is likely benign. No follow-up imaging is recommended for these lesions per consensus recommendations based on imaging criteria.
--- NOTE | 2024-09-15 16:41 | ED_ITS ---
HPI - Abdominal Pain 2 General: Chief Complaint: Abdominal Pain Stated Complaint: abd pain/burning sensation Time Seen by Provider: 09/15/24 16:21 History of Present Illness: Patient is a 74-year-old gentleman who presents to the ER with complaints of 1 day of some left-sided lower abdominal pain, bloating, and diarrhea. He states his belly is rumbling. He has had watery stool multiple times this morning. No black or bloody stools. No vomiting. No fevers or chills. He does have a remote history of colon cancer with partial colectomy. MD elicited complaint: abdominal pain Onset (ago): day(s) (1) Severity: moderate Associated Symptoms: Reports diarrhea; Denies chills, fever(s), nausea and vomiting Related Data Home Medications ?Medication ?Instructions ?Recorded ?Confirmed aspirin 81 mg tablet,delayed 81 mg PO QAM 07/25/1908/11 release clopidogrel 75 mg tablet 75 mg PO QA 10/04/23 metoprolol succinate 25 mg 25 mg PO [facility] 10/04/2309/15 tablet,extended release 24 hr Previous Rx's ?Medication ?Instructions ?Recorded tamsulosin 0.4 mg capsule (Flomax) 0.4 mg PO Q24H #20 caps 04/04/23 nitroglycerin 0.4 mg sublingual 0.4 mg sublingual Q5M PRN chest 05/09/24 tablet pain 30 days #30 tabs pantoprazole 40 mg tablet,delayed 40 mg PO DAILY #90 t abs 08/23/24 release hydroxyzine HCl 25 mg tablet 25 mg PO BID PRN anxiety #30 tabs 08/27/24 dicyclomine 10 mg capsule 10 mg PO TID #14 caps loperamide 2 mg capsule (Imodium 2 mg PO QID PRN loose stool #10 09/15/24 A-D) caps Allergies Allergy/AdvReac Type Severity Reaction Status Date / Time No Known Allergies Allergy Verified 09/15/24 16:30 Review of Systems 2 Const: Denies: fever(s), chills or diaphoresis Card: Denies: chest pain Resp: Denies: dyspnea GI: Reports: abdominal pain and diarrhea; Denies: nausea or vomiting Skin/Breast: Denies: rash Neuro: Denies: headache(s) [facility] ED 2 PFS: Medical History (Updated 09/15/24 @ 18:59 by Francisco Alva MD) Carotid bruit present Atherosclerotic heart disease of [place] coronary artery with other forms of angina pectoris Atypical chest pain The EKG done in the emergency room revealed normal sinus rhythm with a normal ST-T's. Migraine-cluster headache syndrome History of small bowel obstruction Hyperglycemia Castillo angioma GERD (gastroesophageal reflux disease) Cervical spondylosis Syncope CAD (coronary artery disease) Essential hypertension Mixed hyperlipidemia Diabetes mellitus History of colon cancer Surgical History History of heart artery stent History of angioplasty Family History Father CAD (coronary artery disease) Cancer Mother CAD (coronary artery disease) Cancer Brother Cancer Sister Cancer Other Heart disease Denies family history of Diabetes Clotting disorder Dementia Chronic kidney disease (CKD) Suicide Anesthesia complication Bleeding disorder Lung disease Stroke Social History Smoking and tobacco/nicotine status: current every day tobacco/nicotine user cigarettes Years cigarettes smoked: 53 Alcohol intake: never Substance/Drug Use: never Household members: spouse Marital status: Current occupational status: unemployed Course 2 Vital Signs: Vital signs: Vital Signs Temperature 97.6 F 09/15/24 16:27 Pulse Rate 83 09/15/24 18:00 Respiratory Rate 20 H 09/15/24 18:00 Blood Pressure 133/81 09/15/24 18:00 Pulse Oximetry 99 09/15/24 18:00 Oxygen Delivery Me thod Room Air 09/15/24 16:27 MDM - Abdominal Pain Medical Decision Making Patient is a nontoxic 74-year-old gentleman who presents to the ER with complaints of some rumbling in his abdomen as well as some diarrhea multiple times a day. No nausea or vomiting. No objective fevers or chills. No black or bloody stools. His abdomen is soft and nondistended. No significant tenderness with palpation. No guarding. Basic labs were obtained which are overall unremarkable. He does have a chronic indwelling Baron due to urinary retention. CT scan of the abdomen pelvis shows persistent right hydronephrosis with severe right hydroureter and persistent mild left hydronephrosis. Bladder is decompressed. He has prostatic megaly. Urinalysis is consistent with chronic indwelling Baron with some likely chronic colonization. Given his well appearance, benign labs and stable CT I do not feel there is any indication for additional labs or imaging. Symptoms seem most consistent with some mild enteritis. I recommend supportive care and follow-up with his PCP this week. Return precautions were provided. Patient was comfortable discharge. Lab Data I reviewed the patient's lab results. 09/15/24 16:26 09/15/24 16:43 Labs/Radiology: Radiology Impressions Abdomen/Pelvis CT 09/15/24 16:35 IMPRESSION: 1. Persistent significant right hydronephrosis with severe right hydroureter. Persistent mild left hydronephrosis. 2. Urinary bladder is decompressed status post catheterization and demonstrates severe bladder wall thickening. 3. Prostatomegaly. 4. Cholelithiasis. COMMENTS: Consistent with the [employer]'s Incidental Findings Committee white paper (J Am Vega Radiol 2018): Any incidental renal lesion less than 1 cm or classified as too small to characterize, or any incidental cystic renal lesion characterized as simple-appearing, is likely benign. No follow-up imaging is recommended for these lesions per consensus recommendations based on imaging criteria. Laboratory Results WBC 7.90 10^3/uL (3.29-11.43) 09/15/24 16:26 RBC 4.57 10^6/uL (3.85-5.65) 09/15/24 16:26 Hgb 10.50 g/dL (11.27-16.99) L 09/15/24 16:26 Hct 35.1 % (37-53) L 09/15/24 16:26 MCV 76.8 fl (82-101) L 09/15/24 16:26 MCH 23.0 pg (27-33) L 09/15/24 16:26 MCHC 29.9 g/dL (30-55) L 09/15/24 16:26 RDW 16.3 % (12.1-15.1) H 09/15/24 16:26 Plt Count 305 10^3/cmm (157-399) 09/15/24 16:26 MPV 10.5 fL (7.4-10.4) H 09/15/24 16:26 Neut % (Auto) 69.2 % 09/15/24 16:26 Lymph % (Auto) 18.4 % 09/15/24 16:26 [place] % (Auto) 7.7 % 09/15/24 16:26 Eos % (Auto) 3.4 % 09/15/24 16:26 Baso % (Auto) 0.8 % 09/15/24 16:26 Neut # (Auto) 5.47 10^3/uL (1.8-7.7) 09/15/24 16:26 Lymph # (Auto) 1.5 10^3/uL (0.8-4.8) 09/15/24 16:26 [place] # (Auto) 0.6 10^3/uL (0.2-0.9) 09/15/24 16:26 Eos # (Auto) 0.3 10^3/uL (0.0-0.8) 09/15/24 16: Baso # (Auto) 0.1 10^3/uL (0.0-0.1) 09/15/24 16:26 Nucleated RBC % (auto) 0 % 09/15/24 16: Nucleated RBCs # 0.0 /100WBC 09/15/24 16:26 Sodium 138 mmol/L (136-145) 09/15/24 16:43 Potassium 4.4 mmol/L (3.5-5.1) 09/15/24 16:43 Chloride 102 mmol/L (98-107) 09/15/24 16:43 Carbon Dioxide 24 mmol/L (22-29) 09/15/24 16:43 Anion Gap 16.4 (5-19) 09/15/24 16:43 BUN 18 mg/dL (8-23) 09/15/24 16:43 Creatinine 1.5 mg/dL (0.7-1.2) H 09/15/24 16:43 GFR Calculation Not Reportable 09/15/24 16:43 Glucose 112 mg/dL (65-115) 09/15/24 16:43 Calculated Osmolality 289 mOsm/kg (285-295) 09/15/24 16:43 Lactic Acid 1.3 mmol/L (0.5-2.2) 09/15/24 16:43 Calcium 9.4 mg/dL (8.5-10.5) 09/15/24 16:43 Total Bilirubin 0.2 mg/dL (0.15-1.2) 09/15/24 16:43 AST 18 U/L (0-40) 09/15/24 16:43 ALT 19 U/L (0-41) 09/15/24 16:43 Alkaline Phosphatase 102 U/L (40-130) 09/15/24 16:43 Total Protein 7.4 g/dL (6.6-8.7) 09/15/24 16:43 Albumin 4.5 g/dL (3.5-5.2) 09/15/24 16:43 Globulin 2.9 g/dL (1.3-4.6) 09/15/24 16:43 Lipase 30 U/L (13-60) 09/15/24 16:43 Urine Color Yellow (Yellow) 09/15/24 16:49 Urine Appearance Clear (CLEAR) 09/15/24 16:49 Urine pH 5.0 (5-7) 09/15/24 16:49 Ur Specific [place] 1.021 (1.005-1.030) 09/15/24 16:49 Urine Protein 1+ (Negative) A 09/15/24 16:49 Urine Glucose (UA) Negative (Normal) 09/15/24 16:49 Urine Ketones Negative (Negative) 09/15/24 16:49 Urine Blood 2+ (Negative) A 09/15/24 16:49 Urine Nitrate Negative (Negative) 09/15/24 16:49 Urine Bilirubin Negative (Negative) 09/15/24 16:49 Urine Urobilinogen 0.2 mg/dL (Negative) 09/15/24 16:49 Ur Leukocyte Esterase 1+ (Negative) A 09/15/24 16:49 Urine RBC 10-15 /hpf (0-2) H 09/15/24 16:49 Urine WBC 5-10 /hpf (0-5) H 09/15/24 16:49 Ur Squamous Epith Cells None /hpf (0-5) 09/15/24 16:49 Amorphous Sediment Not Reportable 09/15/24 16:49 Urine Bacteria 1+ /hpf (NONE) H 09/15/24 16:49 All radiology interpretation(s) finalized by discharge Discharge Plan Discharge Patient Disposition: Home Clinical Impression: Diarrhea, Enteritis, Hydronephrosis Condition: Stable Prescriptions: New loperamide [Imodium A-D] 2 mg capsule 2 mg PO QID PRN (Reason: loose stool) Qty: 10 0RF dicyclomine 10 mg capsule 10 mg PO TID Qty: 14 0RF No Action aspirin 81 mg tablet,delayed release (DR/EC) 81 mg PO QAM tamsulosin [Flomax] 0.4 mg capsule 0.4 mg PO Q24H Qty: 20 0RF pantoprazole 40 mg tablet,delayed release (DR/EC) 40 mg PO DAILY Qty: 90 1RF nitroglycerin 0.4 mg tablet, sublingual 0.4 mg sublingual Q5M PRN (Reason: chest pain) 30 Days Qty: 30 3RF Rx Instructions: until response; do not exceed 3 doses per episode clopidogrel 75 mg tablet 75 mg PO QAM metoprolol succinate 25 mg tablet extended release 24 hr 25 mg PO QAM hydroxyzine HCl 25 mg tablet 25 mg PO BID PRN (Reason: anxiety) Qty: 30 0RF Discharge Orders: Discharge ED (Routine); Ordered 09/15/24 Ordered By: Francisco Alva Referrals: Clarissa Stearns FNP [Primary Care Provider] - Discharge Diet: Advance as tolerated Discharge Activity: Increase activity as tolerated Patient Instructions: Enteritis (ED), Opioid Safety, Pain Management Activity Restrictions/Additional Instructions: Take all medication as directed. Drink plenty of fluids to stay hydrated. Follow-up with your PCP for recheck in 2 to 3 days. Return to the ER for any new or worsening symptoms or any other concerns. Print Language: Palestinian Coding Level of Care Code ED Flour Broker for Lance Tavarez
[2024-09-15 16:48] LABS: Basophils # 0.1 10^3/uL (0.0-0.1); Basophils % 0.8 %; Eosinophils # 0.3 10^3/uL (0.0-0.8); Eosinophils % 3.4 %; Hematocrit 35.1 % (37-53); Lymphocytes # 1.5 10^3/uL (0.8-4.8); Lymphocytes % 18.4 %; Mean Corpuscular HGB Conc 29.9 g/dL (30-55); Mean Corpuscular Volume 76.8 fl (82-101); Mean Platelet Volume 10.5 fL (7.4-10.4); Monocytes # 0.6 10^3/uL (0.2-0.9); Monocytes % 7.7 %; Neutrophils # 5.47 10^3/uL (1.8-7.7); Neutrophils % 69.2 %; Nucleated Red Blood Cells % 0 %; Platelet Count 305 10^3/cmm (157-399); Red Blood Count 4.57 10^6/uL (3.85-5.65); Red Cell Distribution Width 16.3 % (12.1-15.1)
[2024-09-15] MEDS: ondansetron 2 mg/ML SDV 2 mL 4 MG IM (16:52)
[2024-09-15] MEDS: sodium chloride 0.9% 1,000 ML 999 ML IV (16:52)
[2024-09-15] MEDS: morphine 4 mg/mL SDV 1 mL IVP (16:52)
[2024-09-15 17:01] LABS: Bilirubin Urine Negative (Negative); Blood Urine 2+ (Negative); Glucose Urine UA Negative (Normal); Ketones Urine Negative (Negative); Leukocyte Esterase Urine 1+ (Negative); Nitrate Urine Negative (Negative); Protein Urine 1+ (Negative); Specific Gravity, Urine 1.021 (1.005-1.030); Urine Appearance Clear (CLEAR); Urine Color Yellow (Yellow); Urobilinogen Urine 0.2 mg/dL (Negative)
[2024-09-15 17:02] LABS: Alanine Aminotransferase 19 U/L (0-41); Albumin Level 4.5 g/dL (3.5-5.2); Alkaline Phosphatase 102 U/L (40-130); Anion Gap 16.4 (5-19); Aspartate Amino Transferase 18 U/L (0-40); Blood Urea Nitrogen 18 mg/dL (8-23); Calcium 9.4 mg/dL (8.5-10.5); Carbon Dioxide 24 mmol/L (22-29); Chloride 102 mmol/L (98-107); Creatinine Clr Calc Pharmacy 46.2193; Globulin 2.9 g/dL (1.3-4.6); Glucose 112 mg/dL (65-115); Lipase 30 U/L (13-60); Osmolality Calculated 289 mOsm/kg (285-295); Potassium 4.4 mmol/L (3.5-5.1); Sodium 138 mmol/L (136-145); Total Bilirubin 0.2 mg/dL (0.15-1.2); Total Protein 7.4 g/dL (6.6-8.7)
[2024-09-15 17:04] LABS: Lactic Sepsis W/Reflex 1.3 mmol/L (0.5-2.2)
[2024-09-15] MEDS: iohexol 350 mg/mL 500 mL Btl (per mL) IV ×2 (17:09→17:10)
[2024-09-15 17:13] LABS: Add Urine Microscopic? YES
[2024-09-15 17:14] LABS: Add Urine Culture? Yes; Bacteria Urine 1+ /hpf
== END 2024-09-15 19:33 | disposition home or self-care (01) ==
PROVIDERS: Emergency Provider Student in an Organized Health Care Education/Training Program; PCP Nurse Practitioner Family
DX: K52.9 Noninfective gastroenteritis and colitis, unspecified (principal); N13.30 Unspecified hydronephrosis; Z79.02 Long term (current) use of antithrombotics/antiplatelets; F17.210 Nicotine dependence, cigarettes, uncomplicated; I25.10 Atherosclerotic heart disease of native coronary artery without angina pectoris; E78.5 Hyperlipidemia, unspecified; I10 Essential (primary) hypertension; E11.9 Type 2 diabetes mellitus without complications; Z85.038 Personal history of other malignant neoplasm of large intestine
CPT/HCPCS: 36415; 74177; 80053; 81001; 83605; 83690; 85025; 96361; 96374; 99285; J2270; J2405; J7030

== ENCOUNTER 2024-09-19 14:01 | Emergency (ER) | payer MEDICARE, SELFPAY ==
[2024-09-19 14:04] VITALS: BP 139/78; PULSE 81; RESP 16; TEMP 37.1; O2SAT 96; BMI 29.1
--- NOTE | 2024-09-19 14:06 | XRR_ITS ---
PROCEDURE INFORMATION: Exam: XR Chest Exam date and time: 09/19/2024 2:09 PM Age: 74 years old Clinical indication: Shortness of breath TECHNIQUE: Imaging protocol: Radiologic exam of the chest. Views: 1 view. COMPARISON: [place] [id number] 08/10/2024 8:36 AM FINDINGS: Lungs: Suboptimal pulmonary expansion with associated accentuation of bronchovascular markings. No acute pulmonary pathology given technique. Pleural spaces: No pleural effusion. Heart/Mediastinum: Cardiomediastinal contours within normal limits. Bones/joints: Prior ACDF. XR/XR chest 1V portable [id number] IMPRESSION: No acute pathology or significant interval change given technique.
--- NOTE | 2024-09-19 14:07 | W.ED.URI ---
HPI - URI/Sore Throat General: Chief Complaint: Upper Respiratory Infection Stated Complaint: flu like symptoms x 2 days Time Seen by Provider: 09/19/24 14:03 History of Present Illness: 4-year-old man with history of coronary artery disease, migraines, hyperglycemia, GERD, diabetes and hypertension who presents the emergency room with malaise and weakness. He has been to the ER several times recently. He was seen 4 days ago placed on Macrobid and diagnosed with a gastroenteritis. Family had reported he was very somnolent today and they were supposed to go to an appointment but could not because he felt so bad. At that point they called 911. EMS reports he has been alert since they have been there. Related Data Home Medications ?Medication ?Instructions ?Recorded ?Confirmed aspirin 81 mg tablet,delayed 81 mg PO QAM 07/25/19 09/19/24 release clopidogrel 75 mg tablet 75 mg PO QAM 10/04/23 09/19/24 metoprolol succinate 25 mg 25 mg PO QAM 10/04/23 09/19/24 tablet,extended release 24 hr Previous Rx's ?Medication ?Instructions ?Recorded tamsulosin 0.4 mg capsule (Flomax) 0.4 mg PO Q24H #20 caps 04/04/23 nitroglycerin 0.4 mg sublingual 0.4 mg sublingual Q5M PRN chest 05/09/24 tablet pain 30 days #30 tabs pantoprazole 40 mg tablet,delayed 40 mg PO DAILY #90 tabs 08/23/24 release hydroxyzine HCl 25 mg tablet 25 mg PO BID PRN anxiety #30 tabs 08/27/24 dicyclomine 10 mg capsule 10 mg PO TID #14 caps 09/15/24 loperamide 2 mg capsule (Imodium 2 mg PO QID PRN loose stool #10 09/15/24 A-D) caps azithromycin 250 mg tablet See Rx Instructions PO .COMPLEX #6 09/19/24 (Zithromax Z-Jacob) tabs cefdinir 300 mg capsule 300 mg PO BID 7 days #14 caps 09/19/24 Allergies Allergy/AdvReac Type Severity Reaction Status Date / Time No Known Allergies Allergy Verified 09/15/24 16:30 Review of Systems Narrative: Constitutional symptoms: Negative except as documented in HPI. Skin symptoms: Negative except as documented in HPI. Eye symptoms: Negative except as documented in HPI. ENMT symptoms: Negative except as documented in HPI. Respiratory symptoms: Negative except as documented in HPI. Cardiovascular symptoms: Negative except as documented in HPI. Gastrointestinal symptoms: Negative except as documented in HPI. Genitourinary symptoms: Negative except as documented in HPI. Musculoskeletal symptoms: Negative except as documented in HPI. Neurologic symptoms: Negative except as documented in HPI. Psychiatric symptoms: Negative except as documented in HPI. Endocrine symptoms: Negative except as documented in HPI. PFSH ED PFSH: Medical History (Updated 09/19/24 @ 17:02 by Kaye Rodney MD) Carotid bruit present Atherosclerotic heart disease of [place] coronary artery with other forms of angina pectoris Atypical chest pain The EKG done in the emergency room revealed normal sinus rhythm with a normal ST-T's. Migraine-cluster headache syndrome History of small bowel obstruction Hyperglycemia Castillo angioma GERD (gastroesophageal reflux disease) Cervical spondylosis Syncope CAD (coronary artery disease) Essential hypertension Mixed hyperlipidemia Diabetes mellitus History of colon cancer Surgical History History of heart artery stent History of angioplasty Family History Father CAD (coronary artery disease) Cancer Mother CAD (coronary artery disease) Cancer Brother Cancer Sister Cancer Other Heart disease Denies family history of Diabetes Clotting disorder Dementia Chronic kidney disease (CKD) Suicide Anesthesia complication Bleeding disorder Lung disease Stroke Social History Smoking and tobacco/nicotine status: current every day tobacco/nicotine user cigarettes Years cigarettes smoked: 53 Alcohol intake: never Substance/Drug Use: never Household members: spouse Marital status: Current occupational status: unemployed Physical Exam Narrative: EXAM NARRATIVE: General: Alert, no acute distress. Skin: Warm, dry. Head: Normocephalic, atraumatic. Neck: Supple, trachea midline. Eye: Extraocular movements are intact. Ears, nose, mouth and throat: mucosa moist. Cardiovascular: Regular, Normal peripheral perfusion. Respiratory: Lungs are clear to auscultation, respirations are non-labored, breath sounds are equal, Symmetrical chest wall expansion. Gastrointestinal: Soft, Nontender, Non distended Musculoskeletal: Normal ROM, no deformity. Neurological: Alert and oriented, No focal neurological deficit observed. Psychiatric: Cooperative, appropriate mood & affect. Course Vital Signs: Vital signs: Vital Signs Temperature 98.8 F 09/19/24 14:04 Pulse Rate 77 09/19/24 15:00 Respiratory Rate 16 09/19/24 14:04 Blood Pressure 130/77 09/19/24 15:00 Pulse Oximetry 95 09/19/24 15:00 Oxygen Delivery Me thod Room Air 09/19/24 15:00 MDM - URI/Sore Throat Medical Decision Making Medical decision making: Differential diagnosis for patient presenting with generalized weakness including but not limited to and based on the above HPI, review of systems and physical exam: Sepsis. Dehydration. Renal failure. Electrolyte abnormalities. Anemia. Congestive heart failure. Hypotension. Coronary syndrome. Hepatitis. Cirrhosis. Infections such as pneumonia, urinary tract infection, [place] illness, Cellulitis, Viral infections including influenza and Covid-19. Workup: labwork and lab/exam driven imaging ordered to evaluate, rule in and rule out above pathologies. EKG: Time 1508. Rate 82. Normal sinus rhythm, No ST-T changes, no ectopy, normal OH & QRS intervals, This was reviewed and interpreted by myself the ER physician at 1515 Chest x-ray: No acute process. No infiltrate. No pneumothorax. This was reviewed and interpreted by myself the emergency room physician. I also reviewed the radiology report. Lab Review: Laboratory results were reviewed and interpreted by myself the emergency room physician. No leukocytosis. No new no anemia. Creatinine are slightly elevated but he has chronic kidney disease and this is at the top edge of his normal range. Urinalysis shows infection. I reviewed the patient's medical record. Reexamination: Patient remained stable. No increased work of breathing. No altered mental status. No focal motor deficits. Assessment and plan: UTI Upper respiratory infection ? Rocephin in the emergency room. - Discharged home - Discussed plan with patient. Answered any questions. - Evaluation and treatment of this problem were appropriate in the emergency setting. Lab Data 09/19/24 14:31 09/19/24 14:31 Radiology Impressions Chest X-Ray 09/19/24 14:06 IMPRESSION: No acute pathology or significant interval change given technique. Laboratory Results WBC 8.66 10^3/uL (3.29-11.43) 09/19/24 14:31 RBC 4.46 10^6/uL (3.85-5.65) 09/19/24 14:31 Hgb 10.10 g/dL (11.27-16.99) L 09/19/24 14:31 Hct 34.3 % (37-53) L 09/19/24 14:31 MCV 76.9 fl (82-101) L 09/19/24 14:31 MCH 22.6 pg (27-33) L 09/19/24 14: MCHC 29.4 g/dL (30-55) L 09/19/24 14: RDW 16.2 % (12.1-15.1) H 09/19/24 14: Plt Count 279 10^3/cmm (157-399) 09/19/24 14: MPV 10.5 fL (7.4-10.4) H 09/19/24 14: Neut % (Auto) 74.1 % 09/19/24 14: Lymph % (Auto) 6.2 % 09/19/24 14:31 [place] % (Auto) 10.3 % 09/19/24 14:31 Eos % (Auto) 9.1 % 09/19/24 14:31 Baso % (Auto) 0.2 % 09/19/24 14: Neut # (Auto) 6.41 10^3/uL (1.8-7.7) 09/19/24 14: Lymph # (Auto) 0.5 10^3/uL (0.8-4.8) L 09/19/24 14:31 [place] # (Auto) 0.9 10^3/uL (0.2-0.9) 09/19/24 14:31 Eos # (Auto) 0.8 10^3/uL (0.0-0.8) 09/19/24 14: Baso # (Auto) 0.0 10^3/uL (0.0-0.1) 09/19/24 14: Nucleated RBC % (auto) 0 % 09/19/24 14: Nucleated RBCs # 0.0 /100WBC 09/19/24 14:31 Specimen Type Arterial 09/19/24 14:18 Sample Site Radial, right 09/19/24 14:18 ABG pH 7.46 (7.35-7.45) H 09/19/24 14:18 ABG pCO2 34.0 mmHg (35-45) L 09/19/24 14:18 ABG pO2 63.8 mmHg (80.0-100.0) L 09/19/24 14:18 ABG PO2/FiO2 Ratio 303 09/19/24 14:18 ABG HCO3 24.1 mmol/L (22-26) 09/19/24 14:18 ABG O2 Saturation 92.8 09/19/24 14:18 ABG Base Excess 0.6 mmol/L (-2.0-2.0) 09/19/24 14:18 Curt Test Pos 09/19/24 14:18 A-a O2 Gradient 5.5 mmHg (5-10) 09/19/24 14:18 Hematocrit 31.0 % (42-52) L 09/19/24 14:18 Hgb O2 Saturation 91.1 % (95-100) L 09/19/24 14:18 Carboxyhemoglobin 1.6 %THgb (0.4-20.1) 09/19/24 14:18 Methemoglobin 0.2 % (0.4-1.5) L 09/19/24 14:18 Total Hemoglobin 10.1 g/dL (14-18) L 09/19/24 14:18 Sodium 138.0 mmol/L (131-143) 09/19/24 14:18 Potassium 3.8 mmol/L (3.5-5.0) 09/19/24 14:18 Glucose 97.0 mg/dL (70-115) 09/19/24 14:18 Ionized Calcium 1.2 mmol/L (1.1-1.4) 09/19/24 14:18 O2 Delivery Device Room air 09/19/24 14:18 FiO2 21.0 % 09/19/24 14:18 Freight Loading Supervisor ID [place] 09/19/24 14:18 Sodium 137 mmol/L (136-145) 09/19/24 14:31 Potassium 4.1 mmol/L (3.5-5.1) 09/19/24 14:31 Chloride 100 mmol/L (98-107) 09/19/24 14:31 Carbon Dioxide 23 mmol/L (22-29) 09/19/24 14:31 Anion Gap 18.1 (5-19) 09/19/24 14: BUN 15 mg/dL (8-23) 09/19/24 14: Creatinine 1.8 mg/dL (0.7-1.2) H 09/19/24 14:31 GFR Calculation Not Reportable 09/19/24 14:31 Glucose 96 mg/dL (65-115) 09/19/24 14:31 Calculated Osmolality 285 mOsm/kg (285-295) 09/19/24 14: Lactic Acid 1.0 mmol/L (0.5-2.2) 09/19/24 14: Calcium 9.5 mg/dL (8.5-10.5) 09/19/24 14: Total Bilirubin 0.3 mg/dL (0.15-1.2) 09/19/24 14: AST 11 U/L (0-40) 09/19/24 14: ALT 11 U/L (0-41) 09/19/24 14: Alkaline Phosphatase 83 U/L (40-130) 09/19/24 14:31 Total Protein 7.2 g/dL (6.6-8.7) 09/19/24 14: Albumin 4.0 g/dL (3.5-5.2) 09/19/24 14: Globulin 3.2 g/dL (1.3-4.6) 09/19/24 14:31 Urine Color Yellow (Yellow) 09/19/24 05:05 Urine Appearance Cloudy (CLEAR) A 09/19/24 05:05 Urine pH 6.5 (5-7) 09/19/24 05:05 Ur Specific [place] 1.012 (1.005-1.030) 09/19/24 05:05 Urine Protein 2+ (Negative) A 09/19/24 05:05 Urine Glucose (UA) Negative (Normal) 09/19/24 05:05 Urine Ketones 1+ (Negative) H 09/19/24 05:05 Urine Blood 1+ (Negative) A 09/19/24 05:05 Urine Nitrate Negative (Negative) 09/19/24 05:05 Urine Bilirubin Negative (Negative) 09/19/24 05:05 Urine Urobilinogen 0.2 mg/dL (Negative) 09/19/24 05:05 Ur Leukocyte Esterase 3+ (Negative) A 09/19/24 05:05 Urine RBC 10-15 /hpf (0-2) H 09/19/24 05:05 Urine WBC 40-55 /hpf (0-5) H 09/19/24 05:05 Ur Squamous Epith Cells 0-4 /hpf (0-5) H 09/19/24 05:05 Amorphous Sediment 1+ /hpf 09/19/24 05:05 Urine Bacteria 2+ /hpf (NONE) H 09/19/24 05:05 Urine Mucus Trace /hpf 09/19/24 05:05 Influenza A (PCR) Negative (Negative) 09/19/24 15:00 Influenza Type B (PCR) Negative (Negative) 09/19/24 15:00 RSV (PCR) Negative (Negative) 09/19/24 15:00 SARS-CoV-2 (PCR) Negative (Negative) 09/19/24 15:00 All radiology interpretation(s) finalized by discharge Discharge Plan Discharge Patient Disposition: Home Clinical Impression: Urinary tract infection, Upper respiratory infection Condition: Stable Prescriptions: New azithromycin [Zithromax Z-Jacob] 250 mg tablet See Rx Instructions .ROUTE .COMPLEX Qty: 6 0RF Rx Instructions: For 250 mg dose pack: take 500 mg today (day 1), then 250 mg for 4 days (days 2-5) cefdinir 300 mg capsule 300 mg PO BID 7 Days Qty: 14 0RF No Action aspirin 81 mg tablet,delayed release (DR/EC) 81 mg PO QAM tamsulosin [Flomax] 0.4 mg capsule 0.4 mg PO Q24H Qty: 20 0RF pantoprazole 40 mg tablet,delayed release (DR/EC) 40 mg PO DAILY Qty: 90 1RF nitroglycerin 0.4 mg tablet, sublingual 0.4 mg sublingual Q5M PRN (Reason: chest pain) 30 Days Qty: 30 3RF Rx Instructions: until response; do not exceed 3 doses per episode clopidogrel 75 mg tablet 75 mg PO QAM metoprolol succinate 25 mg tablet extended release 24 hr 25 mg PO QAM hydroxyzine HCl 25 mg tablet 25 mg PO BID PRN (Reason: anxiety) Qty: 30 0RF loperamide [Imodium A-D] 2 mg capsule 2 mg PO QID PRN (Reason: loose stool) Qty: 10 0RF dicyclomine 10 mg capsule 10 mg PO TID Qty: 14 0RF Discharge Orders: Discharge ED (Routine); Ordered 09/19/24 Ordered By: Kaye Rodney Referrals: Clarissa Stearns FNP [Primary Care Provider] - Discharge Diet: Usual diet Discharge Activity: Increase activity as tolerated Patient Instructions: Urinary Tract Infection in Men (ED), Opioid Safety, Pain Management Activity Restrictions/Additional Instructions: Thank you for choosing [facility] for your healthcare needs today. Please realize this is an emergency room and that we are providing you with a medical screening exam and this may not be complete and all inclusive of all the testing and or work up that you may need to determine your ailment or severity of your illness. You have been screened and evaluated and felt safe for discharge. Health conditions do change or evolve sometimes and as such it is important that you follow up with your Primary Doctor to be re checked, 3-5 days is a general good time frame for follow up. You are always welcome to return to the ED for re assessment if your symptoms are worsening or you have new concerns Print Language: Jamaican Coding Level of Care Code ED Hose Wrapper for Lance Tavarez
--- NOTE | 2024-09-19 14:08 | PC.PHAR ---
patient was seen over the weekend i did his med rec then. completed today off of that discharge
[2024-09-19 14:29] LABS: ABG PH Result 7.46 (7.35-7.45); Alveolar-Arterial Oxygen Gradi 5.5 mmHg (5-10); Base Excess ABG 0.6 mmol/L (-2.0-2.0); Blood Gas Allen Test Pos; Blood Gas Operator Identificat WALCI; Blood Gas Sample Site Radial, right; Blood Gas Sample Type Arterial; Carboxyhemoglobin 1.6 %THgb (0.4-20.1); HCO3 ABG 24.1 mmol/L (22-26); HGB O2 Sat 91.1 % (95-100); Ionized Calcium Level - ABG 1.2 mmol/L (1.1-1.4); Methemoglobin 0.2 % (0.4-1.5); Oxygen Device ROOM AIR; Oxygen Saturation ABG 92.8; PO2 ABG 63.8 mmHg (80.0-100.0); PO2 FiO2 Ratio Arterial Blood 303; Potassium Level - ABG 3.8 mmol/L (3.5-5.0); Total Hemoglobin 10.1 g/dL (14-18)
[2024-09-19 14:44] LABS: Basophils % 0.2 %; Eosinophils # 0.8 10^3/uL (0.0-0.8); Eosinophils % 9.1 %; Hematocrit 34.3 % (37-53); Lymphocytes # 0.5 10^3/uL (0.8-4.8); Lymphocytes % 6.2 %; Mean Corpuscular HGB Conc 29.4 g/dL (30-55); Mean Corpuscular Hemoglobin 22.6 pg (27-33); Mean Corpuscular Volume 76.9 fl (82-101); Mean Platelet Volume 10.5 fL (7.4-10.4); Monocytes # 0.9 10^3/uL (0.2-0.9); Monocytes % 10.3 %; Neutrophils # 6.41 10^3/uL (1.8-7.7); Neutrophils % 74.1 %; Nucleated Red Blood Cells % 0 %; Platelet Count 279 10^3/cmm (157-399); Red Blood Count 4.46 10^6/uL (3.85-5.65); Red Cell Distribution Width 16.2 % (12.1-15.1); White Blood Count 8.66 10^3/uL (3.29-11.43)
[2024-09-19 15:00] VITALS: BP 130/77; PULSE 77; O2SAT 95
[2024-09-19 15:04] LABS: Alanine Aminotransferase 11 U/L (0-41); Alkaline Phosphatase 83 U/L (40-130); Anion Gap 18.1 (5-19); Aspartate Amino Transferase 11 U/L (0-40); Blood Urea Nitrogen 15 mg/dL (8-23); Calcium 9.5 mg/dL (8.5-10.5); Carbon Dioxide 23 mmol/L (22-29); Chloride 100 mmol/L (98-107); Creatinine Clr Calc Pharmacy 38.5161; Globulin 3.2 g/dL (1.3-4.6); Glucose 96 mg/dL (65-115); Osmolality Calculated 285 mOsm/kg (285-295); Potassium 4.1 mmol/L (3.5-5.1); Sodium 137 mmol/L (136-145); Total Bilirubin 0.3 mg/dL (0.15-1.2); Total Protein 7.2 g/dL (6.6-8.7)
--- NOTE | 2024-09-19 15:08 | ECG_ITS ---
[facility] Test Date: 2024-09-19 Pat Name: Aram Alva Department: Room: Gender: Male Group Director: : 1950 Requested By: Kaye Haley Order Number: [id number] Jones MD: Vince Neil M.D. Measurements Intervals [place] Rate: 82 P: 72 SC: 127 QRS: 71 QRSD: 97 T: 12 QT: 386 QTc: 451 Interpretive Statements SINUS RHYTHM Compared to ECG 08/08/2024 10:59:32 Short SC interval no longer present Electronically Signed On 09-22-2024 18:07:58 ACQUISITIONS ANALYST by Vince Neil M.D. [email or web address]
[2024-09-19 15:28] LABS: Bilirubin Urine Negative (Negative); Blood Urine 1+ (Negative); Glucose Urine UA Negative (Normal); Ketones Urine 1+ (Negative); Leukocyte Esterase Urine 3+ (Negative); Nitrate Urine Negative (Negative); Protein Urine 2+ (Negative); Specific Gravity, Urine 1.012 (1.005-1.030); Urine Appearance Cloudy (CLEAR); Urine Color Yellow (Yellow); Urobilinogen Urine 0.2 mg/dL (Negative); pH Urine 6.5 (5-7)
[2024-09-19 15:43] LABS: Influenza A NEGATIVE (Negative); Influenza B NEGATIVE (Negative); Respiratory Syncytial Virus Ce NEGATIVE (Negative); SARS-CoV-2 PCR NEGATIVE (Negative)
[2024-09-19 16:21] LABS: Amorphous Sediment Urine 1+ /hpf; Bacteria Urine 2+ /hpf; Mucus Urine TRACE /hpf; Squamous Epithelial Cell Urine 0-4 /hpf (0-5); WBC Urine 40-55 /hpf (0-5)
[2024-09-19 16:22] LABS: Add Urine Culture? Yes
[2024-09-19] MEDS: cefTRIAXone 1,000 MG in water for injection-sterile 2.1 ML 1 MG IM (17:21)
[2024-09-19 17:49] VITALS: BP 136/78; PULSE 71; O2SAT 94
== END 2024-09-19 17:50 | disposition home or self-care (01) ==
PROVIDERS: Emergency Provider Emergency Medicine; PCP Nurse Practitioner Family
DX: N39.0 Urinary tract infection, site not specified (principal); J06.9 Acute upper respiratory infection, unspecified; Z11.52 Encounter for screening for COVID-19; Z79.82 Long term (current) use of aspirin; Z79.02 Long term (current) use of antithrombotics/antiplatelets; F17.210 Nicotine dependence, cigarettes, uncomplicated; I25.118 Atherosclerotic heart disease of native coronary artery with other forms of angina pectoris; E78.5 Hyperlipidemia, unspecified; Z85.038 Personal history of other malignant neoplasm of large intestine; E78.2 Mixed hyperlipidemia; E11.9 Type 2 diabetes mellitus without complications
CPT/HCPCS: 36415; 36600; 71045; 80051; 80053; 81001; 82330; 82805; 83605; 85025; 87040; 87077; 87086; 87186; 87637; 93005; 99285; J0696

== ENCOUNTER 2024-09-28 09:24 | Outpatient (CLI) | payer MEDICARE, SELFPAY ==
--- NOTE | 2024-09-28 09:32 | CTR_ITS ---
PROCEDURE INFORMATION: Exam: CT Abdomen And Pelvis Without And With Contrast Exam date and time: 09/28/2024 9:42 AM Age: 74 years old Clinical indication: Condition or disease; Kidney or ureter condition; Other: Hydronephrosis; Additional info: Bladder mass/hydronephrosis of R kidney TECHNIQUE: Imaging protocol: Computed tomography of the abdomen and pelvis without and with contrast. Radiation optimization: All CT scans at this facility use at least one of these dose optimization techniques: automated exposure control; mA and/or kV adjustment per patient size (includes targeted exams where dose is matched to clinical indication); or iterative reconstruction. Contrast material: OMNI 350; Contrast volume: 100 ml; Contrast route: INTRAVENOUS (IV); COMPARISON: CT abdomen pelvis w con* [id number] 09/15/2024 5:10 PM RADIATION DOSE METRICS: Total DLP (mGy-cm): 855.43 FINDINGS: Lungs: No significant lung base abnormality. Liver: Normal. No mass. Gallbladder and biliary ducts: Unchanged cholelithiasis. Otherwise, unremarkable. Pancreas: Normal. No ductal dilation. Spleen: Normal. No splenomegaly. Adrenal glands: Normal. No mass. Kidneys and ureters: A few small renal cysts are unchanged, and need no follow-up. Unchanged slightly small right kidney. Unchanged slightly diminished diffuse right nephrogram. Persistent right hydronephrosis and right hydroureter, likely secondary to the bladder pathology. Persistent wall thickening right renal pelvis and ureter. Consider right urinary tract infection and pyelonephritis. Otherwise, unremarkable kidneys and ureters. Stomach and bowel: Unchanged fairly diffuse gastric wall thickening. Otherwise, unremarkable stomach and bowel. Appendix: The appendix is not clearly identified, but there is no obvious pericecal inflammation. Intraperitoneal space: Unremarkable. No free air. No significant fluid collection. Vasculature: Unchanged tiny amounts of arterial calcification. Otherwise, unremarkable. Lymph nodes: Unremarkable. No enlarged lymph nodes. Urinary bladder: Unchanged markedly abnormal bladder. Unchanged trans urethral Baron catheter terminating in the urinary bladder. Reproductive: Unchanged markedly enlarged prostate gland. Otherwise, unremarkable reproductive structures. Bones/joints: Nothing acute. No change. Soft tissues: Otherwise, unremarkable visualized body wall. Otherwise, unremarkable soft tissues. CT/CT abdomen pelvis wo/w [id number] IMPRESSION: 1. Unchanged markedly abnormal bladder. Consider cystoscopy to evaluate for bladder neoplasm if this has not been recently done. 2. Unchanged markedly enlarged prostate gland. Please correlate with PSA levels. 3. Unchanged slightly small right kidney. Unchanged slightly diminished diffuse right nephrogram. Persistent right hydronephrosis and right hydroureter, likely secondary to the bladder pathology. Persistent wall thickening right renal pelvis and ureter. Consider right urinary tract infection and pyelonephritis. 4. Unchanged fairly diffuse gastric wall thickening. Probably gastritis, but consider upper endoscopy to evaluate for gastric neoplasm. 5. No other acute findings. 6. Additional details as above. Unchanged.
[2024-09-28] MEDS: iohexol 350 mg/mL 500 mL Btl (per mL) IV (09:58)
== END 2024-09-28 09:25 | disposition home or self-care (01) ==
LOC: RAD 09:26
PROVIDERS: PCP Nurse Practitioner Family; Visit Provider Nurse Practitioner Family
DX: N32.89 Other specified disorders of bladder (principal); N13.30 Unspecified hydronephrosis; N40.0 Benign prostatic hyperplasia without lower urinary tract symptoms; R93.421 Abnormal radiologic findings on diagnostic imaging of right kidney; N13.4 Hydroureter; K31.89 Other diseases of stomach and duodenum; K80.20 Calculus of gallbladder without cholecystitis without obstruction; N28.1 Cyst of kidney, acquired; Z96.89 Presence of other specified functional implants
CPT/HCPCS: 74178

== ENCOUNTER 2024-10-01 04:34 | Emergency (ER) | payer MEDICARE, SELFPAY ==
[2024-10-01 04:48] VITALS: BP 120/73; PULSE 93; RESP 18; TEMP 36.3; O2SAT 100; BMI 29.1
--- NOTE | 2024-10-01 04:54 | W.ED.ABDPA2 ---
HPI - Abdominal Pain General: Chief Complaint: Urogenital-Male Stated Complaint: Cathader not draining Time Seen by Provider: 10/01/24 04:54 History of Present Illness: Patient presents with concerns about martinez drainage. Reports decreased output from usual pattern, though the tube appears to be draining. Patient is unable to recall the last tube exchange date, though acknowledges being due for monthly changes. Denies fever. Patient mentions scheduled kidney surgery this coming Tuesday for extension of kidney drainage system. This morning, patient changed to a smaller collection bag from a larger one, noting the bag was approximately half full when emptied this morning, which patient indicates is less than normal output. Related Data Home Medications ?Medication ?Instructions ?Recorded ?Confirmed aspirin 81 mg tablet,delayed 81 mg PO QAM 07/25/19 09/19/24 release clopidogrel 75 mg tablet 75 mg PO QAM 10/04/23 09/19/24 metoprolol succinate 25 mg 25 mg PO QAM 10/04/23 09/19/24 tablet,extended release 24 hr Previous Rx's ?Medication ?Instructions ?Recorded tamsulosin 0.4 mg capsule (Flomax) 0.4 mg PO Q24H #20 caps 04/04/23 nitroglycerin 0.4 mg sublingual 0.4 mg sublingual Q5M PRN chest 05/09/24 tablet pain 30 days #30 tabs pantoprazole 40 mg tablet,delayed 40 mg PO DAILY #90 tabs 08/23/24 release hydroxyzine HCl 25 mg tablet 25 mg PO BID PRN anxiety #30 tabs 08/27/24 dicyclomine 10 mg capsule 10 mg PO TID #14 caps 09/15/24 loperamide 2 mg capsule (Imodium 2 mg PO QID PRN loose stool #10 09/15/24 A-D) caps azithromycin 250 mg tablet See Rx Instructions PO .COMPLEX #6 09/19/24 (Zithromax Z-Jacob) tabs Allergies Allergy/AdvReac Type Severity Reaction Status Date / Time No Known Allergies Allergy Verified 09/15/24 16:30 [facility] ED PFSH: Medical History (Updated 10/01/24 @ 05:00 by Kennedy Wood DO) Carotid bruit present Atherosclerotic heart disease of [place] coronary artery with other forms of angina pectoris Atypical chest pain The EKG done in the emergency room revealed normal sinus rhythm with a normal ST-T's. Migraine-cluster headache syndrome History of small bowel obstruction Hyperglycemia Castillo angioma GERD (gastroesophageal reflux disease) Cervical spondylosis Syncope CAD (coronary artery disease) Essential hypertension Mixed hyperlipidemia Diabetes mellitus History of colon cancer Surgical History History of heart artery stent History of angioplasty Family History Father CAD (coronary artery disease) Cancer Mother CAD (coronary artery disease) Cancer Brother Cancer Sister Cancer Other Heart disease Denies family history of Diabetes Clotting disorder Dementia Chronic kidney disease (CKD) Suicide Anesthesia complication Bleeding disorder Lung disease Stroke Social History Smoking and tobacco/nicotine status: current every day tobacco/nicotine user cigarettes Years cigarettes smoked: 53 Alcohol intake: never Substance/Drug Use: never Household members: spouse Marital status: Current occupational status: unemployed Physical Exam Narrative: EXAM NARRATIVE: General: Alert, no acute distress. Skin: Warm, dry. Head: Normocephalic, atraumatic. Neck: Supple, trachea midline. Eye: Extraocular movements are intact. Ears, nose, mouth and throat: mucosa moist. Cardiovascular: Regular, Normal peripheral perfusion. Respiratory: Lungs are clear to auscultation, respirations are non-labored, breath sounds are equal, Symmetrical chest wall expansion. Gastrointestinal: Soft, Nontender, Non distended Musculoskeletal: Normal ROM, no deformity. Neurological: Alert and oriented, No focal neurological deficit observed. Psychiatric: Cooperative, appropriate mood & affect. Course Vital Signs: Vital signs: Vital Signs Temperature 97.4 F L 10/01/24 04:48 Pulse Rate 93 10/01/24 04:48 Respiratory Rate 18 10/01/24 04:48 Blood Pressure 120/73 10/01/24 04:48 Pulse Oximetry 100 10/01/24 04:48 Oxygen Delivery Me thod Room Air 10/01/24 04:48 MDM - Abdominal Pain Medical Decision Making There is some urine probably 50 to 100 mL in the bag but he says this is not normal we will switch his catheter out and follow-up with nephrology No radiology studies performed this visit Discharge Plan Discharge Patient Disposition: Home Clinical Impression: Acute retention of urine, Martinez catheter problem Condition: Stable Prescriptions: No Action aspirin 81 mg tablet,delayed release (DR/EC) 81 mg PO QAM tamsulosin [Flomax] 0.4 mg capsule 0.4 mg PO Q24H Qty: 20 0RF pantoprazole 40 mg tablet,delayed release (DR/EC) 40 mg PO DAILY Qty: 90 1RF nitroglycerin 0.4 mg tablet, sublingual 0.4 mg sublingual Q5M PRN (Reason: chest pain) 30 Days Qty: 30 3RF Rx Instructions: until response; do not exceed 3 doses per episode clopidogrel 75 mg tablet 75 mg PO QAM metoprolol succinate 25 mg tablet extended release 24 hr 25 mg PO QAM hydroxyzine HCl 25 mg tablet 25 mg PO BID PRN (Reason: anxiety) Qty: 30 0RF loperamide [Imodium A-D] 2 mg capsule 2 mg PO QID PRN (Reason: loose stool) Qty: 10 0RF dicyclomine 10 mg capsule 10 mg PO TID Qty: 14 0RF azithromycin [Zithromax Z-Jacob] 250 mg tablet See Rx Instructions .ROUTE .COMPLEX Qty: 6 0RF Rx Instructions: For 250 mg dose pack: take 500 mg today (day 1), then 250 mg for 4 days (days 2-5) Discharge Orders: Discharge ED (Routine); Ordered 10/01/24 Ordered By: Kennedy Wood Referrals: Clarissa Stearns FNP [Primary Care Provider] - Discharge Diet: Usual diet Discharge Activity: Resume usual activity Patient Instructions: Opioid Safety, Pain Management Activity Restrictions/Additional Instructions: 1. Follow up with PCP and urology this week Print Language: Spanish Coding Level of Care Code ED Excel Specialist for Lance Tavarez
== END 2024-10-01 05:29 | disposition home or self-care (01) ==
PROVIDERS: Emergency Provider Family Medicine; PCP Nurse Practitioner Family
DX: R33.9 Retention of urine, unspecified (principal); T83.091A Other mechanical complication of indwelling urethral catheter, initial encounter; Z79.82 Long term (current) use of aspirin; F17.210 Nicotine dependence, cigarettes, uncomplicated; I25.10 Atherosclerotic heart disease of native coronary artery without angina pectoris; Z85.038 Personal history of other malignant neoplasm of large intestine; E78.2 Mixed hyperlipidemia; E11.9 Type 2 diabetes mellitus without complications; I10 Essential (primary) hypertension; X58.XXXA Exposure to other specified factors, initial encounter
CPT/HCPCS: 51702; 99283

== ENCOUNTER 2024-10-29 22:32 | Emergency (ER) | payer MEDICARE, SELFPAY ==
[2024-10-29 22:39] VITALS: BP 143/83; PULSE 74; RESP 18; TEMP 35.8; O2SAT 98
[2024-10-29 23:03] VITALS: BP 150/101; PULSE 101; O2SAT 96
--- NOTE | 2024-10-29 23:03 | W.ED.MALEGU ---
HPI - Male Genitourinary General: Chief complaint: Urogenital-Male Stated complaint: Can Not Urinate Time Seen by Provider: 10/29/24 22:48 Source: patient Mode of arrival: ambulatory Limitations: no limitations History of Present Illness: Patient is a 74-year-old male who presents the emergency department complaining of acute urinary retention. States that today he had his Baron catheter removed with urology, notes that he has issues with his kidneys and thus why the catheter was placed. He sees Dr. Marky weber at [facility] in [facility]. After removal of the catheter, states he has not urinated minus a couple of episodes of incontinence, dribbling. States he was told to present to the ED if he had any further issues, he is here for replacement of Baron catheter. Not reporting any abdominal pain, fevers, back pain, nausea/vomiting, or other symptoms at this time. Denies blood in his urine. MD Complaint: other (Acute urinary retention) Context: other (History of kidney disease, recent removal of catheter today) Associated symptoms: Reports urinary incontinence; Deny dysuria, nausea or vomiting Related Data Home Medications ?Medication ?Instructions ?Recorded ?Confirmed aspirin 81 mg tablet,delayed 81 mg PO QAM 07/25/19 09/19/24 release clopidogrel 75 mg tablet 75 mg PO QAM 10/04/23 09/19/24 metoprolol succinate 25 mg 25 mg PO QAM 10/04/23 09/19/24 tablet,extended release 24 hr Previous Rx's ?Medication ?Instructions ?Recorded tamsulosin 0.4 mg capsule (Flomax) 0.4 mg PO Q24H #20 caps 04/04/23 nitroglycerin 0.4 mg sublingual 0.4 mg sublingual Q5M PRN chest 05/09/24 tablet pain 30 days #30 tabs pantoprazole 40 mg tablet,delayed 40 mg PO DAILY #90 tabs 08/23/24 release hydroxyzine HCl 25 mg tablet 25 mg PO BID PRN anxiety #30 tabs 08/27/24 dicyclomine 10 mg capsule 10 mg PO TID #14 caps 09/15/24 loperamide 2 mg capsule (Imodium 2 mg PO QID PRN loose stool #10 09/15/24 A-D) caps azithromycin 250 mg tablet See Rx Instructions PO .COMPLEX #6 09/19/24 (Zithromax Z-Jacob) tabs ciprofloxacin HCl 500 mg tablet 500 mg PO BID 10 days #20 tabs 10/29/24 (Cipro) Allergies Allergy/AdvReac Type Severity Reaction Status Date / Time No Known Allergies Allergy Verified 10/29/24 22:42 Review of Systems General: Reports: 10 or more systems reviewed and unremarkable except in HPI and below Const: Denies: fever(s), chills, change in appetite, change in weight or diaphoresis ENMT: Denies: throat pain or hoarseness Card: Denies: chest pain, palpitations or lightheadedness Resp: Denies: dyspnea, productive cough or wheezing GI: Denies: abdominal pain, nausea, vomiting, diarrhea, constipation, bloating, change in stool character or hematochezia : Reports: oliguria and urinary incontinence; Denies: flank pain, dysuria, urinary frequency or urinary urgency Musc: Denies: neck pain or back pain Skin/Breast: Denies: rash or new lesions Neuro: Denies: headache(s) or dizziness PFSH ED PFSH: Medical History Carotid bruit present Atherosclerotic heart disease of [place] coronary artery with other forms of angina pectoris Atypical chest pain The EKG done in the emergency room revealed normal sinus rhythm with a normal ST-T's. Migraine-cluster headache syndrome History of small bowel obstruction Hyperglycemia Castillo angioma GERD (gastroesophageal reflux disease) Cervical spondylosis Syncope CAD (coronary artery disease) Essential hypertension Mixed hyperlipidemia Diabetes mellitus History of colon cancer Surgical History History of heart artery stent History of angioplasty Family History Father CAD (coronary artery disease) Cancer Mother CAD (coronary artery disease) Cancer Brother Cancer Sister Cancer Other Heart disease Denies family history of Diabetes Clotting disorder Dementia Chronic kidney disease (CKD) Suicide Anesthesia complication Bleeding disorder Lung disease Stroke Social History Smoking and tobacco/nicotine status: current every day tobacco/nicotine user cigarettes Years cigarettes smoked: 53 Alcohol intake: never Substance/Drug Use: never Household members: spouse Marital status: Current occupational status: unemployed Physical Exam Const: COMMON NORMALS: no acute distress, average body habitus, patient oriented x3, no limitations, healthy appearing, alert and well nourished GENERAL APPEARANCE: cooperative and comfortable ORIENTATION/CONSCIOUSNESS: Yes awake HENMT: COMMON NORMALS: normocephalic, atraumatic, hearing grossly normal bilaterally, external ears normal, Normal external nose present, Normal nasal mucous membranes and turbinates present and moist oral mucous membranes HEAD & SCALP: normocephalic and atraumatic NOSE: Normal external nose present and Normal nasal mucous membranes and turbinates present EXTERNAL EAR: Yes external ears normal Eye: COMMON NORMALS: Equal, round and reactive pupils present, EOMs intact bilaterally, conjunctivae normal and normal visual balderrama by confrontation CONJUNCTIVA: Yes conjunctivae normal PUPIL: Yes Equal, round and reactive pupils present Neck/C-Spine: COMMON NORMALS: full ROM, supple, no meningeal signs and no JVD Resp: COMMON NORMALS: normal respiratory effort, No retractions, No use of accessory muscles and clear to auscultation bilaterally AUSCULTATION: clear to auscultation bilaterally, no crackles, no rales, no rhonchi and no wheezes Cardio: COMMON NORMALS: no JVD, regular rate, regular rhythm, S1 normal heart sound present, S2 normal heart sound present, No gallops present (Cardio), No clicks present (Cardio), No murmurs present (Cardio), No rub (Cardio) and Peripheral pulses 2+ throughout RATE: regular rate RHYTHM: regular rhythm HEART SOUNDS: S1 normal heart sound present and S2 normal heart sound present PERIPHERAL PULSES: Peripheral pulses 2+ throughout GI: COMMON NORMALS: Normal to inspection, nondistended, normoactive bowel sounds present, Soft to palpation, No hepatosplenomegaly present and no masses AUSCULTATION: Yes normoactive bowel sounds PALPATION: Yes Soft to palpation, Yes Tenderness to palpation present (GI) (Mild lower abdominal tenderness to palpation), No Guarding due to palpation present (GI), No Rigid due to palpation and Yes No hepatosplenomegaly present RECTAL EXAM: Yes deferred : COMMON NORMALS: Yes no CVA tenderness BLADDER/KIDNEY EXAM: Yes no CVA tenderness Back/Pelvis: COMMON NORMALS: no CVA tenderness Extremity: COMMON NORMALS: normal to inspection and full ROM Neuro: COMMON NORMALS: patient oriented x3, moves all extremities, no focal motor deficits and no sensory deficits noted SENSORIUM/ORIENTATION: Yes alert MENINGEAL SIGNS: Yes no meningeal signs Psych: COMMON NORMALS: mental status grossly normal, cooperative and speech normal SPEECH: Yes normal speech Skin: COMMON NORMALS: no rashes or lesions noted GENERAL SKIN EXAM: no rashes or lesions noted Course Vital Signs: Vital signs: Vital Signs Temperature 96.5 F L 10/29/24 22:39 Pulse Rate 101 H 10/29/24 23:03 Respiratory Rate 18 10/29/24 22:39 Blood Pressure 150/101 10/29/24 23:03 Pulse Oximetry 96 10/29/24 23:03 MDM - Male Medical Decision Making Patient presenting for urinary retention, had Baron catheter removed today with urology in [place]. Has not urinated since does note some incontinence. Here labs show mild elevation of white count, chronically elevated creatinine due to his CKD and evidence on urinalysis of a urinary tract infection. Baron catheter was placed and about 150 cc of urine was drained. His exam otherwise was unremarkable he had no other symptoms to report. Vitals have been stable, will be started on Cipro for UTI and have him see his urologist in the next couple of days. Return cautions given. Lab Data 10/29/24 23:14 10/29/24 23:14 Laboratory Results WBC 13.44 10^3/uL (3.29-11.43) H 10/29/24 23:14 RBC 4.37 10^6/uL (3.85-5.65) 10/29/24 23:14 Hgb 10.60 g/dL (11.27-16.99) L 10/29/24 23:14 Hct 34.4 % (37-53) L 10/29/24 23:14 MCV 78.7 fl (82-101) L 10/29/24 23:14 MCH 24.3 pg (27-33) L 10/29/24 23:14 MCHC 30.8 g/dL (30-55) 10/29/24 23:14 RDW 20.6 % (12.1-15.1) H 10/29/24 23:14 Plt Count 272 10^3/cmm (157-399) 10/29/24 23:14 MPV 10.9 fL (7.4-10.4) H 10/29/24 23:14 Neut % (Auto) 83.5 % 10/29/24 23:14 Lymph % (Auto) 6.3 % 10/29/24 23:14 [place] % (Auto) 8.0 % 10/29/24 23:14 Eos % (Auto) 1.3 % 10/29/24 23:14 Baso % (Auto) 0.6 % 10/29/24 23:14 Neut # (Auto) 11.21 10^3/uL (1.8-7.7) H 10/29/24 23:14 Lymph # (Auto) 0.9 10^3/uL (0.8-4.8) 10/29/24 23:14 [place] # (Auto) 1.1 10^3/uL (0.2-0.9) H 10/29/24 23:14 Eos # (Auto) 0.2 10^3/uL (0.0-0.8) 10/29/24 23:14 Baso # (Auto) 0.1 10^3/uL (0.0-0.1) 10/29/24 23:14 Nucleated RBC % (auto) 0 % 10/29/24 23:14 Nucleated RBCs # 0.0 /100WBC 10/29/24 23:14 Sodium 135 mmol/L (136-145) L 10/29/24 23:14 Potassium 3.9 mmol/L (3.5-5.1) 10/29/24 23:14 Chloride 101 mmol/L (98-107) 10/29/24 23:14 Carbon Dioxide 21 mmol/L (22-29) L 10/29/24 23:14 Anion Gap 16.9 (5-19) 10/29/24 23:14 BUN 22 mg/dL (8-23) 10/29/24 23:14 Creatinine 1.5 mg/dL (0.7-1.2) H 10/29/24 23:14 GFR Calculation Not Reportable 10/29/24 23:14 Glucose 110 mg/dL (65-115) 10/29/24 23:14 Calculated Osmolality 284 mOsm/kg (285-295) L 10/29/24 23:14 Calcium 9.1 mg/dL (8.5-10.5) 10/29/24 23:14 Total Bilirubin 0.2 mg/dL (0.15-1.2) 10/29/24 23:14 AST 29 U/L (0-40) 10/29/24 23:14 ALT 30 U/L (0-41) 10/29/24 23:14 Alkaline Phosphatase 87 U/L (40-130) 10/29/24 23:14 Total Protein 7.2 g/dL (6.6-8.7) 10/29/24 23:14 Albumin 4.1 g/dL (3.5-5.2) 10/29/24 23:14 Globulin 3.1 g/dL (1.3-4.6) 10/29/24 23:14 Urine Color Yellow (Yellow) 10/29/24 23:03 Urine Appearance Cloudy (CLEAR) A 10/29/24 23:03 Urine pH 6 (5-7) 10/29/24 23:03 Ur Specific [place] 1.010 (1.005-1.030) 10/29/24 23:03 Urine Protein 3+ (Negative) A 10/29/24 23:03 Urine Glucose (UA) Norm (Normal) 10/29/24 23:03 Urine Ketones Negative (Negative) 10/29/24 23: Urine Blood 3+ (Negative) A 10/29/24 23:03 Urine Nitrate Positive (Negative) A 10/29/24 23:03 Urine Bilirubin Neg (Negative) 10/29/24 23:03 Urine Urobilinogen Norm mg/dL (Negative) 10/29/24 23:03 Ur Leukocyte Esterase 2+ (Negative) A 10/29/24 23:03 Urine RBC 11-20 /hpf (0-2) H 10/29/24 23:03 Urine WBC >100 /hpf (0-5) H 10/29/24 23:03 Ur Squamous Epith Cells 0-5 /hpf (0-5) 10/29/24 23:03 Amorphous Sediment Not Reportable 10/29/24 23:03 Urine Bacteria Trace /hpf (NONE) 10/29/24 23:03 Hyaline Casts 0.40 /lpf 10/29/24 23:03 No radiology studies performed this visit Discharge Plan Discharge Patient Disposition: Home Clinical Impression: Acute urinary retention Urinary tract infection Qualifiers: Urinary tract infection type: acute cystitis Hematuria presence: without hematuria Qualified Code(s): N30.00 - Acute cystitis without hematuria Condition: Stable Prescriptions: New ciprofloxacin HCl [Cipro] 500 mg tablet 500 mg PO BID 10 Days Qty: 20 0RF No Action aspirin 81 mg tablet,delayed release (DR/EC) 81 mg PO QAM tamsulosin [Flomax] 0.4 mg capsule 0.4 mg PO Q24H Qty: 20 0RF pantoprazole 40 mg tablet,delayed release (DR/EC) 40 mg PO DAILY Qty: 90 1RF nitroglycerin 0.4 mg tablet, sublingual 0.4 mg sublingual Q5M PRN (Reason: chest pain) 30 Days Qty: 30 3RF Rx Instructions: until response; do not exceed 3 doses per episode clopidogrel 75 mg tablet 75 mg PO QAM metoprolol succinate 25 mg tablet extended release 24 hr 25 mg PO QAM hydroxyzine HCl 25 mg tablet 25 mg PO BID PRN (Reason: anxiety) Qty: 30 0RF loperamide [Imodium A-D] 2 mg capsule 2 mg PO QID PRN (Reason: loose stool) Qty: 10 0RF dicyclomine 10 mg capsule 10 mg PO TID Qty: 14 0RF azithromycin [Zithromax Z-Jacob] 250 mg tablet See Rx Instructions .ROUTE .COMPLEX Qty: 6 0RF Rx Instructions: For 250 mg dose pack: take 500 mg today (day 1), then 250 mg for 4 days (days 2-5) Discharge Orders: Discharge ED (Routine); Ordered 10/29/24 Ordered By: Modesto Krishna Referrals: Clarissa Stearns FNP [Primary Care Provider] - Patient Instructions: Urinary Tract Infection in Men (ED) Activity Restrictions/Additional Instructions: Cipro as prescribed. Follow-up with your urologist in the next couple of days. Return with any further issues with catheter. Baron catheter in place. Print Language: German Coding Level of Care Code ED Firefighter Type One for Lance Tavarez
[2024-10-29 23:15] LABS: Bacteria Urine Trace /hpf; Squamous Epithelial Cell Urine 0-5 /hpf (0-5); WBC Urine >100 /hpf (0-5)
[2024-10-29 23:25] LABS: Blood Urine 3+ (Negative); Glucose Urine UA Norm (Normal); Ketones Urine Negative (Negative); Protein Urine 3+ (Negative); Urine Appearance Cloudy (CLEAR); Urine Color Yellow (Yellow); pH Urine 6 (5-7)
[2024-10-29 23:26] LABS: Basophils # 0.1 10^3/uL (0.0-0.1); Basophils % 0.6 %; Eosinophils # 0.2 10^3/uL (0.0-0.8); Eosinophils % 1.3 %; Hematocrit 34.4 % (37-53); Lymphocytes # 0.9 10^3/uL (0.8-4.8); Lymphocytes % 6.3 %; Mean Corpuscular HGB Conc 30.8 g/dL (30-55); Mean Corpuscular Hemoglobin 24.3 pg (27-33); Mean Corpuscular Volume 78.7 fl (82-101); Mean Platelet Volume 10.9 fL (7.4-10.4); Monocytes # 1.1 10^3/uL (0.2-0.9); Neutrophils # 11.21 10^3/uL (1.8-7.7); Neutrophils % 83.5 %; Nucleated Red Blood Cells % 0 %; Platelet Count 272 10^3/cmm (157-399); Red Blood Count 4.37 10^6/uL (3.85-5.65); Red Cell Distribution Width 20.6 % (12.1-15.1); White Blood Count 13.44 10^3/uL (3.29-11.43)
[2024-10-29 23:26] LABS: Add Urine Culture? Yes; Add Urine Microscopic? YES; Bilirubin Urine Neg (Negative); Leukocyte Esterase Urine 2+ (Negative); Nitrate Urine Positive (Negative); Urobilinogen Urine Norm (Negative)
[2024-10-29 23:42] LABS: Alanine Aminotransferase 30 U/L (0-41); Albumin Level 4.1 g/dL (3.5-5.2); Alkaline Phosphatase 87 U/L (40-130); Blood Urea Nitrogen 22 mg/dL (8-23); Calcium 9.1 mg/dL (8.5-10.5); Carbon Dioxide 21 mmol/L (22-29); Chloride 101 mmol/L (98-107); Creatinine Clr Calc Pharmacy 45.5341; Globulin 3.1 g/dL (1.3-4.6); Glucose 110 mg/dL (65-115); Osmolality Calculated 284 mOsm/kg (285-295); Sodium 135 mmol/L (136-145); Total Bilirubin 0.2 mg/dL (0.15-1.2); Total Protein 7.2 g/dL (6.6-8.7)
[2024-10-29 23:45] LABS: Anion Gap 16.9 (5-19); Aspartate Amino Transferase 29 U/L (0-40); Potassium 3.9 mmol/L (3.5-5.1)
[2024-10-30] MEDS: cefTRIAXone 1,000 MG in water for injection-sterile 2.1 ML 1 MG IM (00:12)
[2024-10-30 00:26] VITALS: BP 113/61; PULSE 66; O2SAT 94
== END 2024-10-30 00:27 | disposition home or self-care (01) ==
PROVIDERS: Emergency Provider Physician Assistant; PCP Nurse Practitioner Family
DX: R33.9 Retention of urine, unspecified (principal); N30.00 Acute cystitis without hematuria; Z79.82 Long term (current) use of aspirin; I25.10 Atherosclerotic heart disease of native coronary artery without angina pectoris; E11.9 Type 2 diabetes mellitus without complications; I10 Essential (primary) hypertension; E78.2 Mixed hyperlipidemia; Z85.038 Personal history of other malignant neoplasm of large intestine
CPT/HCPCS: 36415; 80053; 81001; 85025; 87077; 87086; 87186; 96372; 99284; J0696

== ENCOUNTER 2024-10-31 08:32 | Emergency (ER) | payer MEDICARE, SELFPAY ==
[2024-10-31 08:43] VITALS: BP 96/61; PULSE 68; RESP 18; TEMP 36.5; O2SAT 98
[2024-10-31 09:42] LABS: Basophils # 0.1 10^3/uL (0.0-0.1); Eosinophils # 0.1 10^3/uL (0.0-0.8); Eosinophils % 1.7 %; Hematocrit 33.3 % (37-53); Lymphocytes # 1.1 10^3/uL (0.8-4.8); Lymphocytes % 13.6 %; Mean Corpuscular Hemoglobin 24.2 pg (27-33); Mean Corpuscular Volume 80.6 fl (82-101); Mean Platelet Volume 11.1 fL (7.4-10.4); Monocytes % 11.8 %; Neutrophils # 5.75 10^3/uL (1.8-7.7); Neutrophils % 71.5 %; Nucleated Red Blood Cells % 0 %; Platelet Count 253 10^3/cmm (157-399); Red Blood Count 4.13 10^6/uL (3.85-5.65); White Blood Count 8.04 10^3/uL (3.29-11.43)
--- NOTE | 2024-10-31 09:48 | W.ED.MALEGU ---
HPI - Male Genitourinary General: Chief complaint: Urogenital-Male Stated complaint: blood in catheter Time Seen by Provider: 10/31/24 09:06 History of Present Illness: 74-year-old male presents emergency room with blood in his Baron catheter. Patient recently had a clot in the bladder he is unsure know what precipitated that he has seen Dr. Negro in [place] they did a cystoscopy broke up the clot and irrigated out after the procedure he was discharged home but is unable to urinate he returned to the emergency room and had a Baron catheter placed. He was also noted to have signs of infection and started on ciprofloxacin this was 2 days ago. Today he returns he starts to notice j luis blood in the Baron. He has not had any lightheadedness or dizziness no fever sweats or chills he is on aspirin and clopidogrel he has stopped the aspirin. He has a history of coronary disease had stents placed some around 2016 or 18. Associated symptoms: Deny dysuria Related Data Home Medications ?Medication ?Instructions ?Recorded ?Confirmed aspirin 81 mg tablet,delayed 81 mg PO QAM 07/25/19 10/31/24 release clopidogrel 75 mg tablet 75 mg PO QAM 10/04/23 10/31/24 metoprolol succinate 25 mg 25 mg PO QAM 10/04/23 10/31/24 tablet,extended release 24 hr atorvastatin 40 mg tablet 40 mg PO DAILY 10/31/24 10/31/24 dicyclomine 10 mg capsule 10 mg PO TID PRN ibs 10/31/24 10/31/24 polyethylene glycol 3350 17 See Rx Instructions .Route .COMPLEX 10/31/24 10/31/24 gram/dose oral powder Previous Rx's ?Medication ?Instructions ?Recorded tamsulosin 0.4 mg capsule (Flomax) 0.4 mg PO Q24H #20 caps 04/04/23 pantoprazole 40 mg tablet,delayed 40 mg PO DAILY #90 tabs 08/23/24 release ciprofloxacin HCl 500 mg tablet 500 mg PO BID 10 days #20 tabs 10/29/24 (Cipro) Allergies Allergy/AdvReac Type Severity Reaction Status Date / Time No Known Allergies Allergy Verified 10/29/24 22:42 Review of Systems Const: Denies: fever(s) or chills Card: Denies: chest pain Resp: Denies: dyspnea GI: Denies: abdominal pain : Denies: dysuria, urinary frequency or urinary urgency Musc: Denies: neck pain or back pain Skin/Breast: Denies: rash PFSH ED PFSH: Medical History Carotid bruit present Atherosclerotic heart disease of [place] coronary artery with other forms of angina pectoris Atypical chest pain The EKG done in the emergency room revealed normal sinus rhythm with a normal ST-T's. Migraine-cluster headache syndrome History of small bowel obstruction Hyperglycemia Castillo angioma GERD (gastroesophageal reflux disease) Cervical spondylosis Syncope CAD (coronary artery disease) Essential hypertension Mixed hyperlipidemia Diabetes mellitus History of colon cancer Surgical History History of heart artery stent History of angioplasty Family History Father CAD (coronary artery disease) Cancer Mother CAD (coronary artery disease) Cancer Brother Cancer Sister Cancer Other Heart disease Denies family history of Diabetes Clotting disorder Dementia Chronic kidney disease (CKD) Suicide Anesthesia complication Bleeding disorder Lung disease Stroke Social History Smoking and tobacco/nicotine status: current every day tobacco/nicotine user cigarettes Years cigarettes smoked: 53 Alcohol intake: never Substance/Drug Use: never Household members: spouse Marital status: Current occupational status: unemployed Physical Exam Const: COMMON NORMALS: no acute distress GENERAL APPEARANCE: cooperative and comfortable ORIENTATION/CONSCIOUSNESS: Yes awake, Yes oriented to person, Yes oriented to place and Yes oriented to time HENMT: COMMON NORMALS: normocephalic, atraumatic and hearing grossly normal bilaterally HEAD & SCALP: normocephalic and atraumatic Resp: COMMON NORMALS: normal respiratory effort, No retractions, No use of accessory muscles and clear to auscultation bilaterally AUSCULTATION: clear to auscultation bilaterally Cardio: COMMON NORMALS: regular rate, regular rhythm and No murmurs present (Cardio) RATE: regular rate RHYTHM: regular rhythm GI: COMMON NORMALS: Soft to palpation and No hepatosplenomegaly present AUSCULTATION: Yes normoactive bowel sounds PALPATION: Yes Soft to palpation, No Tenderness to palpation present (GI), No Guarding due to palpation present (GI) and Yes No hepatosplenomegaly present Extremity: COMMON NORMALS: normal to inspection, capillary refill normal, no clubbing, cyanosis or edema, no calf tenderness and no pedal edema Neuro: SENSORIUM/ORIENTATION: Yes oriented to person, Yes oriented to place and Yes oriented to time Skin: COMMON NORMALS: no rashes or lesions noted GENERAL SKIN EXAM: no rashes or lesions noted Course Vital Signs: Vital signs: Vital Signs Temperature 97.7 F 10/31/24 08:43 Pulse Rate 87 10/31/24 16:39 Respiratory Rate 24 H 10/31/24 15:00 Blood Pressure 106/74 10/31/24 16:39 Pulse Oximetry 97 10/31/24 16:39 Oxygen Delivery Me thod Room Air 10/31/24 13:00 MDM - Male Medical Decision Making Extensive irrigation of bladder did decrease the bleeding significantly still blood tinted urine no j luis blood. I contacted Dr. Negro he had asked that we stop the clopidogrel if cardiology concurs. Reviewed the chart patient had an angiogram earlier this year that was normal. I contacted Dr. Neil he felt that the patient could safely stop both aspirin and clopidogrel should reevaluate in a week if he is not having any issues at that point he would likely recommend that he restart medications. Dr. Arevalo will see the patient tomorrow. Will discharge home he is still having some blood-tinged urine but is significantly decreased after extensive irrigation. Continue the Cipro which was started 2 days ago checked culture results are not yet returned. If he has further problems or increased bleeding return to the emergency room Medical Records I reviewed the patient's medical records. Lab Data I reviewed the patient's lab results. 10/31/24 09:35 10/31/24 09:35 Laboratory Results WBC 8.04 10^3/uL (3.29-11.43) 10/31/24 09:35 RBC 4.13 10^6/uL (3.85-5.65) 10/31/24 09:35 Hgb 10.00 g/dL (11.27-16.99) L 10/31/24 09:35 Hct 33.3 % (37-53) L 10/31/24 09:35 MCV 80.6 fl (82-101) L 10/31/24 09:35 MCH 24.2 pg (27-33) L 10/31/24 09:35 MCHC 30.0 g/dL (30-55) 10/31/24 09:35 RDW 21.0 % (12.1-15.1) H 10/31/24 09:35 Plt Count 253 10^3/cmm (157-399) 10/31/24 09:35 MPV 11.1 fL (7.4-10.4) H 10/31/24 09:35 Neut % (Auto) 71.5 % 10/31/24 09:35 Lymph % (Auto) 13.6 % 10/31/24 09:35 [place] % (Auto) 11.8 % 10/31/24 09:35 Eos % (Auto) 1.7 % 10/31/24 09:35 Baso % (Auto) 1.0 % 10/31/24 09:35 Neut # (Auto) 5.75 10^3/uL (1.8-7.7) 10/31/24 09:35 Lymph # (Auto) 1.1 10^3/uL (0.8-4.8) 10/31/24 09:35 [place] # (Auto) 1.0 10^3/uL (0.2-0.9) H 10/31/24 09:35 Eos # (Auto) 0.1 10^3/uL (0.0-0.8) 10/31/24 09:35 Baso # (Auto) 0.1 10^3/uL (0.0-0.1) 10/31/24 09:35 Nucleated RBC % (auto) 0 % 10/31/24 09:35 Nucleated RBCs # 0.0 /100WBC 10/31/24 09:35 Sodium 137 mmol/L (136-145) 10/31/24 09:35 Potassium 4.5 mmol/L (3.5-5.1) 10/31/24 09:35 Chloride 102 mmol/L (98-107) 10/31/24 09:35 Carbon Dioxide 24 mmol/L (22-29) 10/31/24 09:35 Anion Gap 15.5 (5-19) 10/31/24 09:35 BUN 20 mg/dL (8-23) 10/31/24 09:35 Creatinine 1.6 mg/dL (0.7-1.2) H 10/31/24 09:35 GFR Calculation Not Reportable 10/31/24 09:35 Glucose 108 mg/dL (65-115) 10/31/24 09:35 Calculated Osmolality 287 mOsm/kg (285-295) 10/31/24 09:35 Calcium 9.2 mg/dL (8.5-10.5) 10/31/24 09:35 Total Bilirubin 0.2 mg/dL (0.15-1.2) 10/31/24 09:35 AST 13 U/L (0-40) 10/31/24 09:35 ALT 17 U/L (0-41) 10/31/24 09:35 Alkaline Phosphatase 70 U/L (40-130) 10/31/24 09:35 Total Protein 6.6 g/dL (6.6-8.7) 10/31/24 09:35 Albumin 3.8 g/dL (3.5-5.2) 10/31/24 09:35 Globulin 2.8 g/dL (1.3-4.6) 10/31/24 09:35 No radiology studies performed this visit Discharge Plan Discharge Patient Disposition: Home Clinical Impression: Hematuria, Cystitis Condition: Stable Prescriptions: No Action aspirin 81 mg tablet,delayed release (DR/EC) 81 mg PO QAM tamsulosin [Flomax] 0.4 mg capsule 0.4 mg PO Q24H Qty: 20 0RF pantoprazole 40 mg tablet,delayed release (DR/EC) 40 mg PO DAILY Qty: 90 1RF clopidogrel 75 mg tablet 75 mg PO QAM metoprolol succinate 25 mg tablet extended release 24 hr 25 mg PO QAM atorvastatin 40 mg tablet 40 mg PO DAILY polyethylene glycol 3350 17 gram/dose powder See Rx Instructions .ROUTE .COMPLEX Rx Instructions: MIX 4 GRAMS OF POWDER IN LIQUID AND DRINK BY MOUTH TWICE DAILY NEEDED FOR CONSTIPATION. dicyclomine 10 mg capsule 10 mg PO TID PRN (Reason: ibs) ciprofloxacin HCl [Cipro] 500 mg tablet 500 mg PO BID 10 Days Qty: 20 0RF Discharge Orders: Discharge ED (Routine); Ordered 10/31/24 Ordered By: Guille Lopez Referrals: Clarissa Stearns FNP [Primary Care Provider] - Discharge Diet: Usual diet Discharge Activity: Increase activity as tolerated Patient Instructions: Opioid Safety, Pain Management Activity Restrictions/Additional Instructions: Thank you for choosing [facility] for your healthcare needs today. It is very important that you follow up as instructed or that you return to the Emergency Department should you have concerns or if your condition changes or worsens in any way. You were seen in the emergency room with blood in your Baron catheter. The best way to relieve this is by irrigating the bladder which did slow the bleeding down. Is not unusual to still have some slight tint to the urine in the catheter and this will likely continue. Continue the antibiotics you are previously prescribed the culture result is not yet available to see if we need to adjust your antibiotic. Recommend that you contact Dr. Negro's office and follow-up with him in the next 2 days. Return if you have worsening bleeding in the Baron catheter bag. 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 Print Language: Telugu Coding Level of Care Code ED Accounting Software Specialist for Lance Tavarez
[2024-10-31 10:00] LABS: Alanine Aminotransferase 17 U/L (0-41); Albumin Level 3.8 g/dL (3.5-5.2); Alkaline Phosphatase 70 U/L (40-130); Anion Gap 15.5 (5-19); Aspartate Amino Transferase 13 U/L (0-40); Blood Urea Nitrogen 20 mg/dL (8-23); Calcium 9.2 mg/dL (8.5-10.5); Carbon Dioxide 24 mmol/L (22-29); Chloride 102 mmol/L (98-107); Creatinine Clr Calc Pharmacy 42.1527; Globulin 2.8 g/dL (1.3-4.6); Glucose 108 mg/dL (65-115); Osmolality Calculated 287 mOsm/kg (285-295); Potassium 4.5 mmol/L (3.5-5.1); Sodium 137 mmol/L (136-145); Total Bilirubin 0.2 mg/dL (0.15-1.2); Total Protein 6.6 g/dL (6.6-8.7)
[2024-10-31] MEDS: sodium chloride 0.9% 1,000 ML 999 ML IV (11:43)
[2024-10-31 13:00] VITALS: BP 119/77; PULSE 82; RESP 16; O2SAT 99
--- NOTE | 2024-10-31 13:00 | PC.NURSE ---
Per verbal order Dr Lopez
--- NOTE | 2024-10-31 13:00 | PC.NURSE ---
Assumed care of patient from Therese Das @ 1300. Pt currently getting bladder irrigation through the martinez cath he had placed in this ER 2 days ago. Pt currently has a total of 2L with output deep red. Pt tolerated well per report. @[address] Lopez for another Liter of irrigation. Pt tolerated well and currently has pink drainage. Denies pain. @ 1537- Verbal from Dr Lopez for another 2l. Pt tolerated well and has dark pink output with no clots present. Tolerated well by patient. New stat lock placed on patients left thigh d/t previous one no longer adhered to his leg.
[2024-10-31 15:00] VITALS: BP 106/72; PULSE 96; RESP 24; O2SAT 96
[2024-10-31 16:39] VITALS: BP 106/74; PULSE 87; O2SAT 97
== END 2024-10-31 16:40 | disposition home or self-care (01) ==
PROVIDERS: Emergency Provider Family Medicine; PCP Nurse Practitioner Family
DX: N30.91 Cystitis, unspecified with hematuria (principal); F17.210 Nicotine dependence, cigarettes, uncomplicated; Z85.038 Personal history of other malignant neoplasm of large intestine; E78.2 Mixed hyperlipidemia; I25.118 Atherosclerotic heart disease of native coronary artery with other forms of angina pectoris; E11.9 Type 2 diabetes mellitus without complications; I10 Essential (primary) hypertension
CPT/HCPCS: 36415; 80053; 85025; 96360; 99284; J7030

== ENCOUNTER 2024-11-03 15:51 | Emergency (ER) | payer MEDICARE, SELFPAY ==
[2024-11-03 16:13] VITALS: BP 150/87; PULSE 101; RESP 18; TEMP 36.7; O2SAT 98; BMI 29.0
--- NOTE | 2024-11-03 16:35 | W.ED.MALEGU ---
HPI - Male Genitourinary General: Chief complaint: Urogenital-Male Stated complaint: leaking catheter Time Seen by Provider: 11/03/24 16:06 History of Present Illness: 74-year-old male presents to the emergency department with a chief complaint of Baron catheter malfunction and concerns recently had a Baron catheter exchanged here earlier this week which reports is draining around the catheter in the urethra region patient reports she denies any trauma or any issues with the catheter reports no blood in it currently patient reports a known history of prostatic issues that he is scheduled to be getting surgery for patient denies any fevers or chills reports no other associated symptoms. Associated symptoms: Deny nausea or vomiting Related Data Home Medications ?Medication ?Instructions ?Recorded ?Confirmed aspirin 81 mg tablet,delayed 81 mg PO QAM 07/25/19 11/03/24 release clopidogrel 75 mg tablet 75 mg PO QAM 10/04/23 11/03/24 metoprolol succinate 25 mg 25 mg PO QAM 10/04/23 11/03/24 tablet,extended release 24 hr atorvastatin 40 mg tablet 40 mg PO DAILY 10/31/24 11/03/24 dicyclomine 10 mg capsule 10 mg PO TID PRN ibs 10/31/24 11/03/24 polyethylene glycol 3350 17 See Rx Instructions .Route .COMPLEX 10/31/24 11/03/24 gram/dose oral powder Previous Rx's ?Medication ?Instructions ?Recorded tamsulosin 0.4 mg capsule (Flomax) 0.4 mg PO Q24H #20 caps 04/04/23 pantoprazole 40 mg tablet,delayed 40 mg PO DAILY #90 tabs 08/23/24 release ciprofloxacin HCl 500 mg tablet 500 mg PO BID 10 days #20 tabs 10/29/24 (Cipro) Allergies Allergy/AdvReac Type Severity Reaction Status Date / Time No Known Allergies Allergy Verified 11/03/24 16:39 Review of Systems General: Reports: 10 or more systems reviewed and unremarkable except in HPI and below Const: Denies: fever(s), chills, fatigue or malaise Eyes: Denies: change in vision or blurry vision Card: Denies: chest pain or palpitations Resp: Denies: dyspnea or productive cough GI: Denies: abdominal pain, nausea or vomiting : Reports: other (Baron catheter leaking); Denies: flank pain Musc: Denies: extremity pain or extremity swelling Skin/Breast: Denies: rash or pruritus Neuro: Denies: headache(s) Psych: Denies: anxiety or depression Clarke/Lymph: Denies: easy bleeding All/Imm: Denies: urticaria, throat swelling or facial swelling PFSH ED PFSH: Medical History Carotid bruit present Atherosclerotic heart disease of [place] coronary artery with other forms of angina pectoris Atypical chest pain The EKG done in the emergency room revealed normal sinus rhythm with a normal ST-T's. Migraine-cluster headache syndrome History of small bowel obstruction Hyperglycemia Castillo angioma GERD (gastroesophageal reflux disease) Cervical spondylosis Syncope CAD (coronary artery disease) Essential hypertension Mixed hyperlipidemia Diabetes mellitus History of colon cancer Surgical History History of heart artery stent History of angioplasty Family History Father CAD (coronary artery disease) Cancer Mother CAD (coronary artery disease) Cancer Brother Cancer Sister Cancer Other Heart disease Denies family history of Diabetes Clotting disorder Dementia Chronic kidney disease (CKD) Suicide Anesthesia complication Bleeding disorder Lung disease Stroke Social History Smoking and tobacco/nicotine status: current every day tobacco/nicotine user cigarettes Years cigarettes smoked: 53 Alcohol intake: never Substance/Drug Use: never Household members: spouse Marital status: Current occupational status: unemployed Physical Exam Const: COMMON NORMALS: no acute distress, patient oriented x3 and healthy appearing HENMT: COMMON NORMALS: normocephalic and atraumatic HEAD & SCALP: normocephalic and atraumatic Eye: COMMON NORMALS: Equal, round and reactive pupils present and EOMs intact bilaterally PUPIL: Yes Equal, round and reactive pupils present Neck/C-Spine: COMMON NORMALS: full ROM, supple and no JVD Lymph: LYMPHATIC: no lymphadenopathy noted Chest: COMMONS NORMALS: normal inspection of the chest and normal palpation of entire chest wall Resp: COMMON NORMALS: normal respiratory effort, No retractions and clear to auscultation bilaterally EFFORT & INSPECTION: Yes able to speak in complete sentences and Yes symmetric chest movement AUSCULTATION: clear to auscultation bilaterally Cardio: COMMON NORMALS: no JVD, regular rate and regular rhythm RATE: regular rate RHYTHM: regular rhythm GI: COMMON NORMALS: Normal to inspection, nondistended, normoactive bowel sounds present, Soft to palpation and non-tender INSPECTION: Yes normal to inspection PALPATION: Yes Soft to palpation : COMMON NORMALS: Yes no CVA tenderness BLADDER/KIDNEY EXAM: Yes no CVA tenderness OTHER: Minimal leaking appreciated around the Baron catheter site no other obvious abnormality appreciated no back pain flank pain or abdominal discomfort appreciated Back/Pelvis: COMMON NORMALS: no CVA tenderness Extremity: COMMON NORMALS: normal to inspection and full ROM Neuro: COMMON NORMALS: patient oriented x3, CN's II-XII intact bilaterally, moves all extremities and no focal motor deficits Psych: COMMON NORMALS: mental status grossly normal, Normal thought process present, cooperative and normal affect THOUGHT PROCESS: Normal thought process present Skin: COMMON NORMALS: no rashes or lesions noted GENERAL SKIN EXAM: no rashes or lesions noted Course Vital Signs: Vital signs: Vital Signs Temperature 98.1 F 11/03/24 16:13 Pulse Rate 101 H 11/03/24 16:13 Respiratory Rate 18 11/03/24 16:13 Blood Pressure 150/87 11/03/24 16:13 Pulse Oximetry 98 11/03/24 16:13 Oxygen Delivery Me thod Room Air 11/03/24 16:13 MDM - Male Medical Decision Making Due to patient's symptoms and condition nursing staff will be assessed in the Baron catheter for either replacement or the evaluation we will continue to follow No radiology studies performed this visit Discharge Plan Discharge Patient Disposition: Home Clinical Impression: Malfunction of Baron catheter Condition: Stable Prescriptions: No Action aspirin 81 mg tablet,delayed release (DR/EC) 81 mg PO QAM tamsulosin [Flomax] 0.4 mg capsule 0.4 mg PO Q24H Qty: 20 0RF pantoprazole 40 mg tablet,delayed release (DR/EC) 40 mg PO DAILY Qty: 90 1RF clopidogrel 75 mg tablet 75 mg PO QAM metoprolol succinate 25 mg tablet extended release 24 hr 25 mg PO QAM atorvastatin 40 mg tablet 40 mg PO DAILY polyethylene glycol 3350 17 gram/dose powder See Rx Instructions .ROUTE .COMPLEX Rx Instructions: MIX 4 GRAMS OF POWDER IN LIQUID AND DRINK BY MOUTH TWICE DAILY NEEDED FOR CONSTIPATION. dicyclomine 10 mg capsule 10 mg PO TID PRN (Reason: ibs) ciprofloxacin HCl [Cipro] 500 mg tablet 500 mg PO BID 10 Days Qty: 20 0RF Discharge Orders: Discharge ED (Routine); Ordered 11/03/24 Ordered By: Georges Elaine Referrals: Clarissa Stearsn FNP [Primary Care Provider] - 4-7 days Patient Instructions: Baron Catheter Care, How to Change a Catheter Drainage Bag (DC) Print Language: Frisian Coding Level of Care Code ED Wood Polisher for Lance Tavarez
--- NOTE | 2024-11-03 17:38 | PC.NURSE ---
Verified proper placement of 14g martinez cath. Active leaking around the insertion site. Flushed with 50ml ns and all fluid leaked around cath. Repeated and martinez now patent and draining. provider notified.
[2024-11-03 18:04] VITALS: BP 135/79; PULSE 86; O2SAT 99
== END 2024-11-03 18:37 | disposition home or self-care (01) ==
PROVIDERS: Emergency Provider Emergency Medicine; PCP Nurse Practitioner Family
DX: T83.091A Other mechanical complication of indwelling urethral catheter, initial encounter (principal); X58.XXXA Exposure to other specified factors, initial encounter; Z79.82 Long term (current) use of aspirin; F17.210 Nicotine dependence, cigarettes, uncomplicated; I25.118 Atherosclerotic heart disease of native coronary artery with other forms of angina pectoris; E78.2 Mixed hyperlipidemia; I10 Essential (primary) hypertension
CPT/HCPCS: 99281

== ENCOUNTER 2024-11-07 06:00 | Outpatient (CLI) | payer MEDICARE, SELFPAY | END 2024-11-07 06:01 | disposition home or self-care (01) | LOC: RAD 11-09 07:28 | PROVIDERS: PCP Nurse Practitioner Family; Visit Provider Surgery | DX: I25.10 Atherosclerotic heart disease of native coronary artery without angina pectoris (principal); I10 Essential (primary) hypertension; E78.2 Mixed hyperlipidemia; E11.9 Type 2 diabetes mellitus without complications; I49.8 Other specified cardiac arrhythmias; Z79.01 Long term (current) use of anticoagulants; Z79.82 Long term (current) use of aspirin; Z72.0 Tobacco use; Z95.5 Presence of coronary angioplasty implant and graft; I49.9 Cardiac arrhythmia, unspecified | CPT/HCPCS: 93005; 99213 ==

== ENCOUNTER → 2024-12-12 08:26 | Outpatient (BNVA) | payer MEDICARE, SELFPAY | PROVIDERS: PCP Nurse Practitioner Family; Visit Provider Specialist | DX: T84.84XD Pain due to internal orthopedic prosthetic devices, implants and grafts, subsequent encounter (principal); Z96.652 Presence of left artificial knee joint; M12.562 Traumatic arthropathy, left knee; X58.XXXA Exposure to other specified factors, initial encounter | CPT/HCPCS: 73560; 73565; 99214 ==

== ENCOUNTER 2024-12-25 13:19 | Outpatient (RCR) | payer MEDICARE, SELFPAY | END 2025-01-14 23:59 | disposition home or self-care (01) | LOC: SPT 13:19 | PROVIDERS: PCP Nurse Practitioner Family; Visit Provider Specialist | DX: M25.562 Pain in left knee (principal) | CPT/HCPCS: 97110; 97161 ==

== ENCOUNTER 2025-02-25 08:28 | Outpatient (CLI) | payer MEDICARE, SELFPAY ==
--- NOTE | 2025-02-25 08:34 | NM_ITS ---
WS: [id number] NUCLEAR MEDICINE BONE SCAN 3 phase Radiopharmaceutical: 24.3 Tc-99m MDP mCi IV Injection site: Antecubital Postinjection imaging delay: 1 hr CLINICAL INFORMATION: Presence of left artificial knee joint, Pain in left knee COMPARISON: 2023 FINDINGS: Bone lesions: Stable focus of uptake in the midsternum unchanged since 2023 LEFT knee prosthesis. Normal blood flow and blood pool images. No evidence of infection. Mild periarticular uptake on the delayed bone imaging about the femoral and tibial prosthesis essentially unchanged in appearance since 2023. No evidence of progression. Soft tissue contours: Normal. Kidneys: Normal. Other findings: Thoracolumbar curve. 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 NM/NM bone 3 phase 88134 IMPRESSION: 1. No evidence of osteomyelitis. 2. Stable delayed periarticular uptake about the LEFT knee prosthesis essentia lly unchanged since 2023. This can be seen with postoperative remodeling versus loosening. Recommend correlation with clinical symptoms and age of prosthesis.
== END 2025-02-25 08:29 | disposition home or self-care (01) ==
LOC: RAD 08:30
PROVIDERS: PCP Nurse Practitioner Family; Visit Provider Nurse Practitioner Family
DX: M25.462 Effusion, left knee (principal); M19.012 Primary osteoarthritis, left shoulder; M19.011 Primary osteoarthritis, right shoulder; M17.11 Unilateral primary osteoarthritis, right knee; Z96.652 Presence of left artificial knee joint
CPT/HCPCS: 78315; A9561

== ENCOUNTER → 2025-06-11 13:00 | Outpatient (BNVA) | payer MEDICARE, SELFPAY | PROVIDERS: PCP Nurse Practitioner Family; Visit Provider Nurse Practitioner Family | DX: I25.10 Atherosclerotic heart disease of native coronary artery without angina pectoris (principal); I10 Essential (primary) hypertension; E78.2 Mixed hyperlipidemia; E11.9 Type 2 diabetes mellitus without complications; Z95.5 Presence of coronary angioplasty implant and graft; F17.210 Nicotine dependence, cigarettes, uncomplicated | CPT/HCPCS: 99213 ==

== ENCOUNTER 2025-06-19 11:38 | Emergency (ER) | payer MEDICARE, SELFPAY ==
--- OUTSIDE RECORDS SUMMARY | 2024-10-23 03:00 | XMS_ITS ---
Author Organization [facility] Address [address] [place] [address] Care Team Providers Care Specialty Food Products Supervisor Name Role Phone Cy Pryor [phone] REASON FOR VISIT Referred for thoracic pain Encounters Encounter Location Date Provider Diagnosis [facility] [place] [address] [place] [address] 10/23/2024 Cy Pryor Plan Of Treatment No Information Progress Notes * JOSEFINA SANTOS EDOB: (74 yo M)Acc No.[id number]:10/23/2024 Progress Notes Patient: JOSEFINA ORONA Provider: Tera Pryor MD :1950 A ge:74 Y S ex:Male Date:10/23/2024 Address:[address] [place], [place] [id number] Subjective: * Chief Complaints: * R eferred for thoracic pain Billing Information: * Procedure Codes: * Electronic signature of Elliott Pryor MD on 06/19/2025 at 12:29 PM INVESTMENT RECOVERY TECHNICIAN Sign off status: Pending * Provider: Tera Pryor MD Date: 0 10/23/2024 Generated for Kelly skinner/Mariia/eTransmitting on: 08/20/2024 12:29 PM INVESTMENT RECOVERY TECHNICIAN
--- OUTSIDE RECORDS SUMMARY | 2024-11-27 07:30 | XMS_ITS ---
Author Organization [facility] Address [address] [place] [address] Care Team Providers Care Precision Agriculture Technician Name Role Phone Clarissa Stearns APRN Primary Care Provider SHELLY Lopez Unavailable [phone] Chapin Candelario Unavailable [phone] REASON FOR VISIT 4 wks w/ fr/pvr/ipss Encounters Encounter Location Date Provider Diagnosis [facility] [address] [facility] [place] [address] 11/27/2024 Chapin Candelario Plan Of Treatment Next Appt Details Provider Name:NAEEM MORROW, 06/19/2025 03:10:00 PM, [address] [place], [address], Provider Name:SHELLY Otoole, 09/09/2025 09:50:00 AM, [address] [place], [address], Progress Notes * Aram SANTOS EDOB: 3 (74 yo M)Acc No.[id number]:11/27/2024 Progress Notes Patient: Aram ORONA Provider: Florinda Candelario APRN :1950 A ge:74 Y S ex:Male Date:11/27/2024 Address:[address] [place] [address] [place] [id number] Pcp:Clarissa Stearns APRN Subjective: * Chief Complaints: * 1 . 4 wks w/ fr/pvr/ipss. * Medical History: Objective: * Vitals: Assessment: Plan: * Treatment: * Billing Information: * Visit Code: * Procedure Codes: * Electronic signature of Delbert Candelario APRN on 06/19/2025 at 12:28 PM NOTEREADER Sign off status: Pending * Provider: Florinda Candelario APRN Date: 0 11/27/2024 Generated for Kelly skinner/Mariia/She on: 08/20/2024 12:28 PM NOTEREADER
--- OUTSIDE RECORDS SUMMARY | 2024-11-28 04:00 | XMS_ITS ---
Author Organization [facility] Address [address] [place] [address] Care Team Providers Care Online Facilitator Name Role Phone Clarissa Stearns APRN Primary Care Provider SHELLY Lopez [phone] REASON FOR VISIT TURP @ MAIN OR Encounters Encounter Location Date Provider Diagnosis [facility] [address] [place] [facility] [place] [address] 11/28/2024 SHELLY THAKUR Plan Of Treatment Next Appt Details Provider Name:NAEEM MORROW, 06/19/2025 03:10:00 PM, [address] [facility] [place], [address], Provider Name:SHELLY Otoole, 09/09/2025 09:50:00 AM, [address] [facility] [place], [address], Progress Notes * Aram SANTOS EDOB: 3 (74 yo M)Acc No.[id number]:11/28/2024 Patient: Aram ORONA E Provider: Laxmi THAKUR MD :1950 A ge:74 Y S ex:Male Date:11/28/2024 Address:[address] [place], [place] [id number] Pcp:Clarissa Stearns APRN * Billing Information: * Visit Code: * Procedure Codes: * Electronic signature of AUST IN MD OFE on 06/19/2025 at 12:27 PM EDUCATION DEPARTMENT REGISTRAR Sign off status: Pending * Provider: Laxmi THAKUR MD Date: 0 11/28/2024 Generated for Kelly skinner/Mariia/She on: 1 08/20/2024 12:27 PM EDUCATION DEPARTMENT REGISTRAR
--- OUTSIDE RECORDS SUMMARY | 2025-01-15 07:00 | XMS_ITS ---
Author Organization [facility] Address [address] [place] [address] Care Team Providers Care Hot Oiler Name Role Phone Cy Pryor [phone] REASON FOR VISIT thoracic Medications Medication SIG (Take, Route, Frequency, Duration) Notes Start Date End Date Status Pantoprazole Sodium 40 MG Packet 1 packet 1/2 to 1 hour before morning meal mixed with apple juice or applesauce Orally Once a day Active Nitroglycerin 0.4 MG Tablet Sublingual 1 tablet under the tongue and allow to dissolve as needed. Take every 5 minutes up to 3 times if chest pain persists Sublingual Three times a day Active Aspirin 81 81 MG Tablet Delayed Release 1 tablet Orally Once a day Active Polyethylene Glycol 3350 Active Tamsulosin HCl 0.4 MG Capsule 1 capsule Orally Once a day Active Atorvastatin Calcium 40 MG Tablet 1 tablet Orally Once a day Active hydrOXYzine HCl 25 MG Tablet 1 tablet as needed Orally Three times a day Active Lansoprazole 30 MG Tablet Delayed Release Disintegrating 1 tablet 1/2 to 1 hour before morning meal Orally Once a day Active Cefuroxime Axetil 250 MG Tablet 1 tablet Orally every 12 hrs Active Clopidogrel Bisulfate 75 MG Tablet 1 tablet Orally Once a day Active Metoprolol Succinate ER 25 MG Tablet Extended Release 24 Hour 1 tablet Orally Once a day Active Encounters Encounter Location Date Provider Diagnosis [facility] [address] [address] 01/15/2025 Cy Pryor Plan Of Treatment No Information Progress Notes * JOSEFINA SANTOS EDOB: 3 (74 yo M)Acc No.[id number]:01/15/2025 Progress Notes Patient: P OWELL, HOMER E Provider: Tera Pryor MD :1950 A ge:74 Y S ex:Male Date:01/15/2025 Address:[address] [place] [address] Samantha ORONA [id number] Subjective: * Chief Complaints: * T horacic * Medications: T akingTamsulosin HCl 0.4 MG Capsule 1 capsule Orally Once a day Polyethylene Glycol 3350 Pantoprazole Sodium 40 MG Packet 1 packet 1/2 to 1 hour before morning meal mixed with apple juice or applesauce Orally Once a day Nitroglycerin 0.4 MG Tablet Sublingual 1 tablet under the tongue and allow to dissolve as needed. Take every 5 minutes up to 3 times if chest pain persists Sublingual Three times a day Metoprolol Succinate ER 25 MG Tablet Extended Release 24 Hour 1 tablet Orally Once a day Lansoprazole 30 MG Tablet Delayed Release Disintegrating 1 tablet 1/2 to 1 hour before morning meal Orally Once a day hydrOXYzine HCl 25 MG Tablet 1 tablet as needed Orally Three times a day Clopidogrel Bisulfate 75 MG Tablet 1 tablet Orally Once a day Cefuroxime Axetil 250 MG Tablet 1 tablet Orally every 12 hrs Atorvastatin Calcium 40 MG Tablet 1 tablet Orally Once a day Aspirin 81 81 MG Tablet Delayed Release 1 tablet Orally Once a day Taking Tamsulosin HCl 0.4 MG Capsule 1 capsule Orally Once a day Taking Polyethylene Glycol 3350 Taking Pantoprazole Sodium 40 MG Packet 1 packet 1/2 to 1 hour before morning meal mixed with apple juice or applesauce Orally Once a day Taking Nitroglycerin 0.4 MG Tablet Sublingual 1 tablet under the tongue and allow to dissolve as needed. Take every 5 minutes up to 3 times if chest pain persists Sublingual Three times a day Taking Metoprolol Succinate ER 25 MG Tablet Extended Release 24 Hour 1 tablet Orally Once a day Taking Lansoprazole 30 MG Tablet Delayed Release Disintegrating 1 tablet 1/2 to 1 hour before morning meal Orally Once a day Taking hydrOXYzine HCl 25 MG Tablet 1 tablet as needed Orally Three times a day Taking Clopidogrel Bisulfate 75 MG Tablet 1 tablet Orally Once a day Taking Cefuroxime Axetil 250 MG Tablet 1 tablet Orally every 12 hrs Taking Atorvastatin Calcium 40 MG Tablet 1 tablet Orally Once a day Taking Aspirin 81 81 MG Tablet Delayed Release 1 tablet Orally Once a day Billing Information: * Procedure Codes: Care Plan Details* * Electronic signature of Elliott Pryor MD on 06/19/2025 at 12:29 PM ACID BLEACHER Sign off status: Pending * Provider: Tera Pryor MD Date: 0 01/15/2025 Generated for Kelly skinner/Mariia/She on: 08/20/2024 12:29 PM ACID BLEACHER
[2025-06-19 12:06] VITALS: BMI 34.4
[2025-06-19 12:14] VITALS: BP 131/81; PULSE 100; RESP 18; TEMP 36.6; O2SAT 93
--- OUTSIDE RECORDS SUMMARY | 2025-06-19 12:28 | XMS_ITS | Patient Health Record ---
Author Organization [facility] Address [address] [place] [address] Care Team Providers Care Rn Admission Name Role Phone Clarissa Stearns APRN Primary Care Provider Unavailhannah SAMUELSSHELLY KLINE Unavailable [phone] NAEEM DUDLEY Unavailable [phone] Delbert Candelarioel Unavailable [phone] Allergies No Known Allergies Results Component Value Reference Range Notes Basic Metabolic Panel Reviewed date:12/03/2024 04:00:52 PM Interpretation: Performing Lab: Notes/Report: Testing performed at [facility], [address] [place] [address] [place] [address]. CLIA ID#: [id number] A-zpqxqw-j-benzoquinone imine (NAPQI) is a metabolite of acetaminophen, NAPQI concentrations of apparoximately 10 mg/L correlation to toxic levels of acetaminophen demonstrates a greater than or equil to 10% change in results. NAPQI concentrations greater than this may lead to falsely depressed results for patient samples. Calculation performed from GFR calculator provided by the National Kidney Foundation. Glomerular Filtration rate(GRF) is the best overall index of kidney function. Normal GFR varies according to age,sex, body size, and declines with age. The National Kidney Foundation recommends using the CKD-EPI Creatinine Equation(2020) to estimate GFR. Testing performed at: [address] [place], [place] [address] CLIA ID [id number] Use of this assay is not recommended for patients undergoing treatment with phenindione, due to the potential for falsely depressed results. Sodium 142 136-145 MMOL/L Potassium 4.3 3.5-5.1 MMOL/L Chloride 106 98-107 MMOL/L CO2 28.4 20.0-31.0 MMOL/L Glucose Serum 99 71-110 MG/DL BUN 21 7-21 MG/DL Creat 1.36 .57-1.17 MG/DL GFR 55.2 Anion Gap 12 5-15 BUN/Creat Ratio 15.4 12.0-20.0 % Calcium 9.2 8.7-10.4 MG/DL Osmo Serum,Calculated 297 280-300 MOSM/KG CBC w/ Auto Diff Reviewed date:12/03/2024 04:00:52 PM Interpretation: Performing Lab: Notes/Report: Testing performed at: [address] [place] [address] CLIA ID [id number] WBC 6.6 4.5-11.0 X10'3 RBC 4.17 4.50-5.90 X10'6 Hgb 10.8 13.5-17.5 G/DL Hct 36.4 41.0-53.0 % MCV 87.3 80.0-100.0 FL MCH 25.9 27.0-31.0 PG MCHC 29.7 31.0-37.0 G/DL Platelet 265 150-400 X10'3 RDW-SD 66.7 35.0-49.0 FL RDW-CV 21.2 12.2-15.6 % MPV 11.1 9.2-12.0 FL Neutro Auto% 66.2 40.0-70.0 % Lymph Auto% 17.6 22.0-44.0 % [place] Auto% 10.6 3.0-7.0 % Eos Auto% 3.9 2.0-4.0 % Baso Auto% 1.4 0.0-1.0 % Imm Gran% .3 .0-.4 % Neutro Abs 4.37 .80-7.70 Absolute Neutrophil Count 4370 Lymph Abs 1.16 .10-4.10 [place]asta Abs .70 .20-1.00 Eos Abs .26 .00-.40 Baso Abs .09 .00-.20 Imm Gran Abs .02 .00-.10 NRBC# .00 .00-.20 NRBC% .00 .00-.20 /100 int act WBC's Culture Urine Reviewed date:10/01/2024 05:01:41 PM Interpretation: Performing Lab: Notes/Report: Testing performed at: [address] [place] [address] CLIA ID [id number] Culture Urine ARAM Ryan Culture Urine t: Culture Urine Culture Urine Accessio [id number] Culture Urine n: Culture Urine Microbiology Culture Urine PROCEDURE: Culture Urine [] Culture Urine SOURCE: Urine BODY SITE: Culture Urine COLLECTED DATE/TIME: 09/27/2024 11:20 CDT RECEIVED DATE/TIME: 09/27/2024 12:26 CDT Culture Urine START DATE/TIME: 09/15 12:26 CDT FREE TEXT SOURCE: Culture Urine FINAL REPORT Culture Urine Final Report [] Culture Urine Verified Date/Time: 09/29/2024 06:26 CDT Culture Urine > 10,000 cfu/ml mixe d superficial bryce Culture Urine Multiple microorgani sms present Culture Urine Probable contamination US Renal w/bladder--[id number] Reviewed date:05/02/2025 01:56:52 PM Interpretation: Performing Lab: Notes/Report: See Below For Report US Renal w/bladder Read See Below For Report UBASE - Urinary Tract Infect ion (HTRx) Reviewed date:12/13/2024 11:06:09 AM Interpretation: Performing Lab:, [facility], [address] [place], Phone - [phone], Director - [phone] Notes/Report: Real-Time polymerase chain reaction (TaqMan qPCR) was utilized for detection for all tested organisms and resistance genes. Initiation of antimicrobial therapy prior to testing may affect results and can lead to the detection of non-living microorganisms. Detection of microbes must be correlated with current/recent antibiotic usage and patient signs and symptoms. Microbial sensitivity testing is not performed at this lab. Assistant Bookkeeper to CFU/mL equivalent thresholds were established based on studies using known CFU/mL urine specimens performed at [facility] in [place], [place]. [facility] by [facility] [address]; CLIA# [id number]; Glove Cutter Charity Barrientos, PhD, FORMERLY [facility])). This test was developed, and its performance characteristics determined by [facility]. It has not been cleared or approved by the FDA. However, such approval/clearance is not required, as the laboratory is regulated and qualified under CLIA to perform high-complexity testing. This test is used for clinical purposes and should not be regarded as investigational or for research. *Approximate copies of target nucleic acid per &micro;L (Low: <2,500 copies/&micro;L, Moderate: 2,500-50,000 copies/&micro;L, High: >50,000 copies/&micro;L) National Infectious Disease Consensus Data Potentially effective oral antibiotics, based on presence of detected microbes, antimicrobial resistance genes, and national antimicrobial sensitivity data (see Summary Antibiogram). mecA 23.122 23.000 - 31.199 ppm mecA Detected 23.000 - 31.199 ppm Acinetobacter baumannii 0.000 19.961 - 24.689 p pm Acinetobacter baumannii Not Detected 19.961 - 24.689 p pm Citrobacter freundii 0.000 23.000 - 31.881 ppm Citrobacter freundii Not Detected 23.000 - 31.881 ppm Enterobacter aerogenes, cloacae 0.000 23.000 - 31.535 ppm Enterobacter aerogenes, cloacae Not Detected 23.000 - 31.535 ppm Enterococcus faecalis, faecium 0.000 26.000 - 31.575 ppm Enterococcus faecalis, faecium Not Detected 26.000 - 31.575 ppm Escherichia coli 0.000 23.000 - 28.500 ppm Escherichia coli Not Detected 23.000 - 28.500 ppm Klebsiella pneumoniae, oxytoca 0.000 23.000 - 30.500 ppm Klebsiella pneumoniae, oxytoca Not Detected 23.000 - 30.500 ppm Morganella morganii 0.000 19.961 - 24.689 ppm Morganella morganii Not Detected 19.961 - 24.689 ppm Proteus mirabilis, vulgaris 0.000 23.000 - 28.5 00 ppm Proteus mirabilis, vulgaris Not Detected 23.000 - 28.5 00 ppm Pseudomonas aeruginosa 0.000 23.000 - 28.500 pp m Pseudomonas aeruginosa Not Detected 23.000 - 28.500 pp m Staphylococcus aureus 0.000 26.000 - 30.902 ppm Staphylococcus aureus Not Detected 26.000 - 30.902 ppm Streptococcus agalactiae (Group B Strep) 0.000 26.000 - 32.222 ppm Streptococcus agalactiae (Group B Strep) Not Detected 26.000 - 32.222 ppm Sasha albicans, parapsilosis, tropicalis 0.000 19.961 - 30.770 ppm Sasha albicans, parapsilosis, tropicalis Not Detected 19.961 - 30.770 ppm Sasha glabrata (Nakaseomyces glabratus) 0.000 23.000 - 32.138 ppm Sasha glabrata (Nakaseomyces glabratus) Not Detected 23.000 - 32.138 ppm Sasha krusei (Pichia kudriavzevii) 0.000 23.000 - 32.271 ppm Sasha krusei (Pichia kudriavzevii) Not Detected 23.000 - 32.271 ppm Serratia marcescens 0.000 23.000 - 31.204 ppm Serratia marcescens Not Detected 23.000 - 31.204 ppm Streptococcus pyogenes (Grou p A strep) 0.000 19.961 - 24.689 ppm Streptococcus pyogenes (Grou p A strep) Not Detected 19.961 - 24.689 ppm Staphylococcus saprophyticus 0.000 19.961 - 24. 689 ppm Staphylococcus saprophyticus Not Detected 19.961 - 24. 689 ppm Staphylococcus coagulase-negative spp (Methicillin Resistant, MRSE) 24.361 19.961 - 24.689 ppm Staphylococcus coagulase-negative spp (Methicillin Resistant, MRSE) Detected 19.961 - 24.689 ppm Urinalysis, Routine Reviewed date:12/11/2024 03:05:29 PM Interpretation: Performing Lab: Notes/Report: Urine-Color cranberry colored Appearance clear Glucose - Bilirubin - Ketones - Specific [place] 1.010 Occult Blood 3+ pH 6.0 Urine Protein 1+ Urobilinogen,Semi-Qn - Nitrite, Urine - WBC Esterase 3+ zzzRetrograde Urography Reviewed date:10/04/2024 12:55:37 PM Interpretation: Performing Lab: Notes/Report: See Below For Report Retrograde Urography Read See Below For Report zzzCT Outside CD Reviewed date:01/16/2025 05:17:59 PM Interpretation: Performing Lab: Notes/Report: Outside Films Only. No report for these images. FINAL REPORT Read Outside Films Only. No report for these images. CBC w/ Auto Diff Reviewed date:09/28/2024 10:21:29 AM Interpretation: Performing Lab: Notes/Report: Testing performed at: [address] [place] [address] CLIA ID [id number] WBC 10.8 4.5-11.0 X10'3 RBC 4.44 4.50-5.90 X10'6 Hgb 10.2 13.5-17.5 G/DL Hct 34.2 41.0-53.0 % MCV 77.0 80.0-100.0 FL MCH 23.0 27.0-31.0 PG MCHC 29.8 31.0-37.0 G/DL Platelet 318 150-400 X10'3 RDW-SD 45.2 35.0-49.0 FL RDW-CV 16.1 12.2-15.6 % MPV 10.5 9.2-12.0 FL Neutro Auto% 81.1 40.0-70.0 % Lymph Auto% 10.7 22.0-44.0 % [place]asta Auto% 5.0 3.0-7.0 % Eos Auto% 1.8 2.0-4.0 % Baso Auto% 0.9 0.0-1.0 % Imm Gran% .5 .0-.4 % Neutro Abs 8.72 .80-7.70 Absolute Neutrophil Count 8720 Lymph Abs 1.15 .10-4.10 [place] Abs .54 .20-1.00 Eos Abs .19 .00-.40 Baso Abs .10 .00-.20 Imm Gran Abs .05 .00-.10 NRBC# .00 .00-.20 NRBC% .00 .00-.20 /100 int act WBC's Basic Metabolic Panel Reviewed date:09/28/2024 10:21:36 AM Interpretation: Performing Lab: Notes/Report: Testing performed at [facility], [address] [place] [address] [place] [address]. CLIA ID#: [id number] U-aatfje-v-benzoquinone imine (NAPQI) is a metabolite of acetaminophen, NAPQI concentrations of apparoximately 10 mg/L correlation to toxic levels of acetaminophen demonstrates a greater than or equil to 10% change in results. NAPQI concentrations greater than this may lead to falsely depressed results for patient samples. Calculation performed from GFR calculator provided by the National Kidney Foundation. Glomerular Filtration rate(GRF) is the best overall index of kidney function. Normal GFR varies according to age,sex, body size, and declines with age. The National Kidney Foundation recommends using the CKD-EPI Creatinine Equation(2020) to estimate GFR. Testing performed at: [address], [place] [address] CLIA ID [id number] Use of this assay is not recommended for patients undergoing treatment with phenindione, due to the potential for falsely depressed results. Sodium 136 136-145 MMOL/L Potassium 4.2 3.5-5.1 MMOL/L Chloride 102 98-107 MMOL/L CO2 26.7 20.0-31.0 MMOL/L Glucose Serum 93 71-110 MG/DL BUN 20 7-21 MG/DL Creat 1.64 .57-1.17 MG/DL GFR 44.2 Anion Gap 12 5-15 BUN/Creat Ratio 12.2 12.0-20.0 % Calcium 10.1 8.7-10.4 MG/DL Osmo Serum,Calculated 284 280-300 MOSM/KG Urinalysis, Routine Reviewed date:05/06/2025 08:51:14 AM Interpretation: Performing Lab: Notes/Report: Urine-Color pale yellow Appearance clear Glucose - Bilirubin - Ketones - Specific [place] 1.0005 Occult Blood - pH 6.0 Urine Protein - Urobilinogen,Semi-Qn - Nitrite, Urine - WBC Esterase - Reason For Referral No Information Medications Medication SIG (Take, Route, Frequency, Duration) Notes Start Date End Date Status Omeprazole 20 MG 1 capsule 1/2 to 1 hour before morning meal Orally Once a day Active Iron (Ferrous Sulfate) 325 (65 Fe) MG 1 tablet Orally once a day Active Tamsulosin HCl 0.4 MG 1 capsule Orally Once a day Active Aspirin 81 81 MG 1 tablet Orally Once a day on hold 10/31 Active Atorvastatin Calcium 40 MG 1 tablet Orally Once a day Active Metoprolol Tartrate 25 MG 1 tablet with food Orally Twice a day Active Clopidogrel Bisulfate 75 MG 1 tablet Orally Once a day on hold since 10/31 Active Lansoprazole 30 MG 1 capsule 1/2 to 1 hour before morning meal Orally Once a day Active Azithromycin 250 MG as directed Orally Active Social History Tobacco Use: Social History Observation Description Date Details (start date - stop date) Current Smoker NA - NA Tobacco Control (Standard) Question Answer Notes Tobacco use: Current smoker How often do you smoke cigarettes? Every day How many cigarettes a day do you smoke? 6-10 Additional Findings: Tobacco user Heavy cigarett e smoker (20-39 cigs/day) AUDIT-C (Standard) Question Answer Notes Did you have a drink containing alcohol in the p ast year? No Points 0 Interpretation Negative Problems Problem Type SNOMED Code ICD Code Onset Dates Problem Status W/U Status Risk Notes Problem Benign prostatic hyperplasia (172469265) BPH (benign prostatic hyperplasia) (N40.0) Active confirmed Problem Essential hypertension (42643706) Hypertension, unspecified type (I10) Active confirmed Problem Tobacco use and exposure (968163684) Current tobacco use (Z72.0) Active confirmed Problem Hydronephrosis (47133963) Hydronephrosis of right kidney (N13.30) Active confirmed Problem Acute urinary retention (789903245) Acute urinary retention (R33.8) Active confirmed Problem Bladder mass (361505671) Bladder mass (N32.89) Active confirmed Problem Benign prostatic hypertrophy with outflow obstruction (245064291) BPH loc w urin obs/LUTS (N40.1) Active confirmed Vital Signs Heart Rate 100 /min 05/06/2025 Height-cm 170.18 cm 05/06/2025 Blood pressure diastolic 91 mm Hg 05/06/2025 Weight-kg 99.79 kg 05/06/2025 Height 67 in 05/06/2025 Blood pressure systolic 115 mm Hg 05/06/2025 Weight 220 lbs 05/06/2025 BMI 34.45 kg/m2 05/06/2025 Procedures Procedure Date Ordered Date Performed Result Body Sit e Bladder Scan 09/27/2024 N/A Voiding Trial 10/29/2024 N/A Voiding Trial 12/03/2024 12/03/2024 N/A UroFlow 01/07/2025 N/A Bladder Scan 01/07/2025 01/07/2025 N/A Bladder Scan 05/06/2025 N/A Encounters Encounter Location Date Provider Diagnosis [facility], [facility] [address] [place] [address] 10/03/2024 [facility], [facility] 140 [facility] [address] [place] [address] 11/28/2024 [facility], [facility] 140 [facility] [address] [place] [address] 09/27/2024 NAEEM DUDLEY Bladder mass N32.89 ; Hydronephrosis of right kidney N13.30 ; Current tobacco use Z72.0 and Surgical counseling visit Z71.89 [facility], [facility] [address] [place] [address] 10/29/2024 SHELLY THAKUR BPH loc w urin obs/L UTS N40.1 ; Hydronephrosis of right kidney N13.30 ; Current tobacco use Z72.0 ; Acute urinary retention R33.8 and Catheter (urine) change required Z46.6 [facility], [facility] [address] [place] [address], [place] [address] 11/01/2024 NAEEM DANA Urinary retention R3 3.9 ; Gross hematuria R31.0 and Surgical counseling visit Z71.89 [facility], [facility] [address] [place] [address], [place] [address] 12/03/2024 SHELLY SAMUELSER Catheter (urine) nik nge required Z46.6 and BPH loc w urin obs/LUTS N40.1 [facility], [facility] [address] [place] [address] 12/11/2024 NAEEM DUDLEY BPH loc w urin obs/L UTS N40.1 and Dysuria R30.0 [facility], [facility] [address] [place] [address] 01/07/2025 [facility] Urinary retention R3 3.9 and Gross hematuria R31.0 [facility], [facility] [address] [place] [address], [place] [address] 05/06/2025 NAEEM DUDLEY BPH (benign prostati c hyperplasia) N40.0 and Hydronephrosis of right kidney N13.30 [facility] [address] [place] [address] 07/30/2024 SHELLY THAKUR [facility] [address] [place] [address] 09/27/2024 SHELLY THAKUR Bladder mass N32.89 ; Hydronephrosis of right kidney N13.30 and Pre-op evaluation Z01.818 [facility] [address] [place] [address] 09/27/2024 NAEEM STEVES [facility] [address] [place] [address] 09/27/2024 SHELLY THAKUR [facility] [address] [place] [address] 09/27/2024 NAEEM DANA [facility] [address] [place] [address] 10/08/2024 SHELLY THAKUR [facility] [address] [place] [address] 10/16/2024 SHELLY THAKUR [facility] [address] [place] [address] 10/30/2024 SHELLY THAKUR [facility] [address] [place] [address] 11/22/2024 SHELLY THAKUR [facility] [address] [place] [address] 11/23/2024 SHELLY THAKUR [facility] [address] [place] [address] 11/26/2024 SHELLY THAKUR BPH loc w urin obs/L UTS N40.1 ; Pre-op evaluation Z01.818 and Hypertension, unspecified type I10 [facility] [address] [place] [address] 12/14/2024 SHELLY THAKUR [facility] [address] [place] [address] 03/28/2025 SHELLY THAKUR Hydronephrosis of ri ght kidney N13.30 [facility] [address] [place] [address] 06/19/2025 SHELLY THAKUR Assessments Encounter Date Diagnosis (ICD Code) Assessment Notes Treatment Notes Treatment Clinical Notes Section Notes 09/27/2024 Hydronephrosis of right kidney (ICD-10 - N13.30) Pt with CT A/P from 04/12/24 ordered for gross hematuria by his local ER reported large bladder mass with right hydronephrosis and bladder distention. He has not had any surgical intervention. He does have a martinez. I do not have any records from Dr. Zapata who has seen the patient and had surgery planned. Recommend proceeding urgently to the OR for cystoscopy with possible TURBT, possible right ureteral stent placement, and any other indicated procedure. Will check lab today as well as repeat CT A/P prior to OR. He will need to hold Plavix and ASA starting today. (Last cardiac intervention was 2016. He reports normal cardiology workup at [facility] in July.) Plan for OR on Tuesday10/03/24 at [facility] OR with Dr. Thakur. How procedure is performed was reviewed along with risks, benefits, alternatives, and postprocedural expectations. All questions were sought and answered to pt and his 's satisfaction and pt is agreeable to proceed. 09/27/2024 Bladder mass (ICD-10 - N32.89) Pt with CT A/P from 04/12/24 ordered for gross hematuria by his local ER reported large bladder mass with right hydronephrosis and bladder distention. He has not had any surgical intervention. He does have a martinez. I do not have any records from Dr. Zapata who has seen the patient and had surgery planned. Recommend proceeding urgently to the OR for cystoscopy with possible TURBT, possible right ureteral stent placement, and any other indicated procedure. Will check lab today as well as repeat CT A/P prior to OR. He will need to hold Plavix and ASA starting today. (Last cardiac intervention was 2016. He reports normal cardiology workup at [facility] in July.) Plan for OR on Tuesday10/03/24 at [facility] OR with Dr. Thakur. How procedure is performed was reviewed along with risks, benefits, alternatives, and postprocedural expectations. All questions were sought and answered to pt and his 's satisfaction and pt is agreeable to proceed. 09/27/2024 Bladder mass (ICD-10 - N32.89) 10/29/2024 Hydronephrosis of right kidney (ICD-10 - N13.30) 74 y/o M with [place] of Right kidney, BPH with LUTS and h/o ANTONIA. He is s/p cysto with bilateral RPGs in OR on 10/03. He has a 2.4cm trilobar obstructing prostate. [place] likely from bladder outlet obstruction. Discussed BPH surgical procedures with PVP, Rezum, TURP(pamphlets given today). Will remove Martinez today for VT. He will return in 4weeks with noninvasive urodynamics. Return sooner with any concerns Plan: VT today -Continue Flomax BID -RTC in 4weeks with IPSS, FR, PVR and see Chapin Candelario APRN I, Anel Tolbert, am scribing for, and in the presence of, Dr. Thakur. I, Dr. Shelly Thakur, personally performed the services prescribed in this documentation, as scribed by Cassie Alves, in my presence, and it is both accurate and complete. 10/29/2024 BPH loc w urin obs/LUTS (ICD-10 - N40.1) 74 y/o M with [place] of Right kidney, BPH with LUTS and h/o ANTONIA. He is s/p cysto with bilateral RPGs in OR on 10/03. He has a 2.4cm trilobar obstructing prostate. [place] likely from bladder outlet obstruction. Discussed BPH surgical procedures with PVP, Rezum, TURP(pamphlets given today). Will remove Martinez today for VT. He will return in 4weeks with noninvasive urodynamics. Return sooner with any concerns Plan: VT today -Continue Flomax BID -RTC in 4weeks with IPSS, FR, PVR and see Chapin Candelario APRN Cassie Ortiz Scribe, am scribing for, and in the presence of, Dr. Thakur. I, Dr. Shelly Thakur, personally performed the services prescribed in this documentation, as scribed by Cassie Alves, in my presence, and it is both accurate and complete. 11/01/2024 Gross hematuria (ICD-10 - R31.0) 11/01/2024 Urinary retention (ICD-10 - R33.9) Pt failed v/t requiring catheter replacement several hours after leaving clinic. He now has recurrent gross hematuria most likely from martinez trauma and anti-coagulation therapy. It is clear and draining well currently. Recommed scheduling for TURP. How procedure is performed was reviewed along with risks, benefits, alternatives, and postprocedural expectations. All questions were sought and answered to pt satisfaction and pt is agreeable to proceed. Will schedule next available. He will need to hold ASA and Plavis 5 days prior to procedure. Requesting records from [facility] yesterday for review. Pt is to continue cefdinir they started him on yesterday. 12/11/2024 BPH loc w urin obs/LUTS (ICD-10 - N40.1) Pt here today for possible uti. Pt stated that this morning he woke and was having dysuria and cranberry colored urine. UA in office shows 3+ blood, 1+ protein, and 3+ leukocytes. Per Jennifer Dudley APRN, send pts urine for HT pcr, and pt can take cystex, until pcr results come back. These symptoms could signify infection, but can also be normal after the procedure that he had. 01/07/2025 Gross hematuria (ICD-10 - R31.0) 1. Status post transurethral resection of prostate - Z98.51 2. Benign prostatic hyperplasia - N40.0 3. Post-void residual urine - R39.12 4. Kidney pain - N23 5. History of knee replacement - Z96.651 This is a 74-year-old male presenting for post-operative follow-up 5 weeks after TURP for BPH. Patient shows good recovery with improved urinary flow (24 mL/sec) but has persistent post-void residual of 215 mL and reports intermittent kidney pain. 01/07/2025 Urinary retention (ICD-10 - R33.9) 1. Status post transurethral resection of prostate - Z98.51 2. Benign prostatic hyperplasia - N40.0 3. Post-void residual urine - R39.12 4. Kidney pain - N23 5. History of knee replacement - Z96.651 This is a 74-year-old male presenting for post-operative follow-up 5 weeks after TURP for BPH. Patient shows good recovery with improved urinary flow (24 mL/sec) but has persistent post-void residual of 215 mL and reports intermittent kidney pain. 03/28/2025 Hydronephrosis of right kidney (ICD-10 - N13.30) 05/06/2025 BPH (benign prostatic hyperplasia) (ICD-10 - N40.0) Pt doing very well s/p TURP without recurrent retention and stable PVR. His hydronephrosis from J-hooking has significantly improved and now LUISANA just shows mild dilation of the proximal ureter. He is asymptomatic. Will have him RTC in 4-6m with Mag3 renal scan and UA/PVR with Dr. Thakur. 05/06/2025 Hydronephrosis of right kidney (ICD-10 - N13.30) I have independently reviewed imaging, along with radiologic report. I reviewed images and discussed findings with patient in the exam room. Pt doing very well s/p TURP without recurrent retention and stable PVR. His hydronephrosis from J-hooking has significantly improved and now LUISANA just shows mild dilation of the proximal ureter. He is asymptomatic. Will have him RTC in 4-6m with Mag3 renal scan and UA/PVR with Dr. Thakur. 11/26/2024 BPH loc w urin obs/LUTS (ICD-10 - N40.1) 12/03/2024 Catheter (urine) change required (ICD-10 - Z46.6) pt. here today for a vt will keep scheduled follow up appt . on 01/07/2025 Instilled 240 ml via martinez. Upon strong urge to void, 10ml balloon was deflated and martinez was removed without complication. Pt voided 140 ml. pt. tolerated well 12/03/2024 BPH loc w urin obs/LUTS (ICD-10 - N40.1) pt. here today for a vt will keep scheduled follow up appt . on 01/07/2025 Instilled 240 ml via martinez. Upon strong urge to void, 10ml balloon was deflated and martinez was removed without complication. Pt voided 140 ml. pt. tolerated well 12/11/2024 Dysuria (ICD-10 - R30.0) Pt here today for possible uti. Pt stated that this morning he woke and was having dysuria and cranberry colored urine. UA in office shows 3+ blood, 1+ protein, and 3+ leukocytes. Per Jennifer Dudley APRN, send pts urine for HT pcr, and pt can take cystex, until pcr results come back. These symptoms could signify infection, but can also be normal after the procedure that he had. 10/29/2024 Current tobacco use (ICD-10 - Z72.0) 74 y/o M with [place] of Right kidney, BPH with LUTS and h/o ANTONIA. He is s/p cysto with bilateral RPGs in OR on 10/03. He has a 2.4cm trilobar obstructing prostate. [place] likely from bladder outlet obstruction. Discussed BPH surgical procedures with PVP, Rezum, TURP(pamphlets given today). Will remove Martinez today for VT. He will return in 4weeks with noninvasive urodynamics. Return sooner with any concerns Plan: VT today -Continue Flomax BID -RTC in 4weeks with IPSS, FR, PVR and see Chapin Candelario APRN I, Cassie Alves, Scribe, am scribing for, and in the presence of, Dr. Thakur. I, Dr. Shelly Thakur, personally performed the services prescribed in this documentation, as scribed by Cassie Alves, in my presence, and it is both accurate and complete. 11/26/2024 Pre-op evaluation (ICD-10 - Z01.818) 11/01/2024 Surgical counseling visit (ICD-10 - Z71.89) 09/27/2024 Current tobacco use (ICD-10 - Z72.0) Pt with CT A/P from 04/12/24 ordered for gross hematuria by his local ER reported large bladder mass with right hydronephrosis and bladder distention. He has not had any surgical intervention. He does have a martinez. I do not have any records from Dr. Zapata who has seen the patient and had surgery planned. Recommend proceeding urgently to the OR for cystoscopy with possible TURBT, possible right ureteral stent placement, and any other indicated procedure. Will check lab today as well as repeat CT A/P prior to OR. He will need to hold Plavix and ASA starting today. (Last cardiac intervention was 2017. He reports normal cardiology workup at [facility] in July.) Plan for OR on Tuesday10/03/24 at [facility] OR with Dr. Thakur. How procedure is performed was reviewed along with risks, benefits, alternatives, and postprocedural expectations. All questions were sought and answered to pt and his 's satisfaction and pt is agreeable to proceed. 09/27/2024 Hydronephrosis of right kidney (ICD-10 - N13.30) 09/27/2024 Pre-op evaluation (ICD-10 - Z01.818) 09/27/2024 Surgical counseling visit (ICD-10 - Z71.89) Pt with CT A/P from 04/12/24 ordered for gross hematuria by his local ER reported large bladder mass with right hydronephrosis and bladder distention. He has not had any surgical intervention. He does have a martinez. I do not have any records from Dr. Zapata who has seen the patient and had surgery planned. Recommend proceeding urgently to the OR for cystoscopy with possible TURBT, possible right ureteral stent placement, and any other indicated procedure. Will check lab today as well as repeat CT A/P prior to OR. He will need to hold Plavix and ASA starting today. (Last cardiac intervention was 2016. He reports normal cardiology workup at [facility] in July.) Plan for OR on Tuesday10/03/24 at [facility] OR with Dr. Thakur. How procedure is performed was reviewed along with risks, benefits, alternatives, and postprocedural expectations. All questions were sought and answered to pt and his 's satisfaction and pt is agreeable to proceed. 10/29/2024 Acute urinary retention (ICD-10 - R33.8) 74 y/o M with [place] of Right kidney, BPH with LUTS and h/o ANTONIA. He is s/p cysto with bilateral RPGs in OR on 10/03. He has a 2.4cm trilobar obstructing prostate. [place] likely from bladder outlet obstruction. Discussed BPH surgical procedures with PVP, Rezum, TURP(pamphlets given today). Will remove Martinez today for VT. He will return in 4weeks with noninvasive urodynamics. Return sooner with any concerns Plan: VT today -Continue Flomax BID -RTC in 4weeks with IPSS, FR, PVR and see Chapin Candelario APRN I, Anel Tolbert, am scribing for, and in the presence of, Dr. Thakur. I, Dr. Shelly Thakur, personally performed the services prescribed in this documentation, as scribed by Cassie Alves, in my presence, and it is both accurate and complete. 11/26/2024 Hypertension, unspecified type (ICD-10 - I10) 10/29/2024 Catheter (urine) change required (ICD-10 - Z46.6) 74 y/o M with [place] of Right kidney, BPH with LUTS and h/o ANTONIA. He is s/p cysto with bilateral RPGs in OR on 10/03. He has a 2.4cm trilobar obstructing prostate. [place] likely from bladder outlet obstruction. Discussed BPH surgical procedures with PVP, Rezum, TURP(pamphlets given today). Will remove Martinez today for VT. He will return in 4weeks with noninvasive urodynamics. Return sooner with any concerns Plan: VT today -Continue Flomax BID -RTC in 4weeks with IPSS, FR, PVR and see Chapin Candelario APRN [place], Scribe, am scribing for, and in the presence of, Dr. Thakur. I, Dr. Shelly Thakur, personally performed the services prescribed in this documentation, as scribed by Cassie Alves, in my presence, and it is both accurate and complete. 01/07/2025 Other # Status post TURP Pathology results from prostate tissue confirmed benign findings, no evidence of malignancy. Good urinary flow rate at 24 mL/second, which is a significant improvement. Post-void residual of 215 mL noted, which is improved from pre-operative status but will continue to monitor. Follow-up in 4 months with nurse practitioner Jennifer Dudley APRN to reassess urinary function. # Kidney Pain Will order renal ultrasound to assess kidney drainage and rule out hydronephrosis or nephrolithiasis. Patient unable to take NSAIDs due to blood thinners for cardiac stent. Advised to report worsening pain for potential antibiotic treatment if infection suspected. # Knee Issues Noted patient's concerns about fluid in knee post-replacement . This is being addressed separately with orthopedics; patient awaiting bone scan results. Your prostate surgery from November 28 is healing well. The tissue we removed was not cancerous. Your urine flow has improved greatly. You still have some urine left in your bladder after you pee, but this is better than before surgery. For your kidney pain: - We will check your kidneys with an ultrasound - Avoid ibuprofen as discussed due to your heart stent - Call us if the pain gets worse or you develop fever Please return in 4 months for your follow-up appointment. We will check how your urinary system is working and review your kidney ultrasound results. Continue following up with your orthopedic doctor about your knee issues. 1. Status post transurethral resection of prostate - Z98.51 2. Benign prostatic hyperplasia - N40.0 3. Post-void residual urine - R39.12 4. Kidney pain - N23 5. History of knee replacement - Z96.651 This is a 74-year-old male presenting for post-operative follow-up 5 weeks after TURP for BPH. Patient shows good recovery with improved urinary flow (24 mL/sec) but has persistent post-void residual of 215 mL and reports intermittent kidney pain. Plan Of Treatment Pending Test Test Name Order Date CT Abd & Pelvis W & [place] contrast [id number] 09/27/2024 Urinalysis, Routine 09/27/2024 Voiding Trial 10/29/2024 Bladder Scan 05/06/2025 Bladder Scan 09/27/2024 UroFlow 01/07/2025 Blood Urea Nitrogen (BUN) 09/27/2024 Creatinine Serum 09/27/2024 Culture Urine Reflex 09/27/2024 Culture Urine Reflex 11/26/2024 Electrocardiogram, 12 Lead Tracing-[id number] 11/26/2024 Electrocardiogram, 12 Lead Tracing-[id number] 09/27/2024 Next Appt Details Provider Name:NAEEM MORROW, 06/19/2025 03:10:00 PM, [address] [place], [address], Provider Name:SHELLY Otoole, 09/09/2025 09:50:00 AM, [address] [place], [address], Insurance Providers Payer Name Payer Address Payer Phone Subscriber Number Group Number Insured Name Patient Relationship to Insured Coverage Start Date Coverage End Date [facility] Medicare Advantage PPO [address] [address] [place], [place] [id number] Artie, [place] Self - patient is the insured Medical (General) History Medical History History ICD Code colon cancer HTN Coronary Artery Disease Myocardial Infarction (2017) Hypercholesterolemia GERD Surgical History Surgery Date(Month/Year) Cysto with RGP Left Knee Replacement Cervical fracture repair Colon Resection Hospitalization History Reason Date(Month/Year) see prior sx hx
--- OUTSIDE RECORDS SUMMARY | 2025-06-19 12:28 | XMS_ITS | Patient Health Record ---
Author Organization [facility] Address [address] [place] [address] Care Team Providers Care Membership Sales Representative Name Role Phone Cy Pryor [phone] Results Component Value Reference Range Notes MRI Thoracic Spine w/ + w/o Cont-[id number] Reviewed date:06/04/2025 11:19:37 AM Interpretation: Performing Lab: Notes/Report: [id number] Schedule Confirmation Reviewed date:06/04/2025 11:19:37 AM Interpretation: Performing Lab: Notes/Report: MRI Thoracic Spine w/ + w/o Cont MRI Thoracic Spine w/ + w/o Cont-[id number] Reviewed date:06/04/2025 11:19:37 AM Interpretation: Performing Lab: Notes/Report: See Below For Report MRI Thoracic Spine w/ + w/o Cont Diagnosis Description: Disease of spinal cord, unspecified Read See Below For Report zzzCT Outside CD Reviewed date:06/04/2025 11:19:37 AM Interpretation: Performing Lab: Notes/Report: [id number] Schedule Confirmation Reviewed date:06/04/2025 11:19:37 AM Interpretation: Performing Lab: Notes/Report: MRI Thoracic Spine w/ + w/o Cont Schedule Confirmation Reviewed date:06/04/2025 11:19:37 AM Interpretation: Performing Lab: Notes/Report: MRI Thoracic Spine w/ + w/o Cont Reason For Referral No Information Medications Medication SIG (Take, Route, Frequency, Duration) Notes Start Date End Date Status Clopidogrel Bisulfate 75 MG Tablet 1 tablet Orally Once a day Active hydrOXYzine HCl 25 MG Tablet 1 tablet as needed Orally Three times a day Active Lansoprazole 30 MG Tablet Delayed Release Disintegrating 1 tablet 1/2 to 1 hour before morning meal Orally Once a day Active Metoprolol Succinate ER 25 MG Tablet Extended Release 24 Hour 1 tablet Orally Once a day Active Aspirin 81 81 MG Tablet Delayed Release 1 tablet Orally Once a day Active Atorvastatin Calcium 40 MG Tablet 1 tablet Orally Once a day Active Cefuroxime Axetil 250 MG Tablet 1 tablet Orally every 12 hrs Active Nitroglycerin 0.4 MG Tablet Sublingual 1 tablet under the tongue and allow to dissolve as needed. Take every 5 minutes up to 3 times if chest pain persists Sublingual Three times a day Active Pantoprazole Sodium 40 MG Packet 1 packet 1/2 to 1 hour before morning meal mixed with apple juice or applesauce Orally Once a day Active Polyethylene Glycol 3350 Active Tamsulosin HCl 0.4 MG Capsule 1 capsule Orally Once a day Active Social History Tobacco Use: Social History Observation Description Date Details (start date - stop date) Current Smoker NA - NA Social History Tobacco Use: Social Info Question Answer Notes Tobacco Control (Standard) Tobacco use: Current smoker How often do you smoke cigarettes? 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 Vital Signs Heart Rate 94 /min 02/05/2025 Temperature 97.6 degrees Fahrenheit 02/05/2025 Respiratory Rate 20 /min 02/05/2025 Height-cm 172.72 cm 02/05/2025 Oximetry 96 % 02/05/2025 Blood pressure diastolic 74 mm Hg 02/05/2025 Weight-kg 85.73 kg 02/05/2025 Height 68 in 02/05/2025 Blood pressure systolic 136 mm Hg 02/05/2025 Weight 189 lbs 02/05/2025 BMI 28.73 kg/m2 02/05/2025 Encounters Encounter Location Date Provider Diagnosis [facility] [place] [address] 02/05/2025 Cy Pryor Spinal cord mass G95.89 and Left knee pain, unspecified chronicity M25.562 [facility] [place] [address] 10/23/2024 Cy Pryor Spinal cord lesion G95.9 and Thoracic spine pain M54.6 [facility] [place] [address] [place] [place] [address] 01/16/2025 Cy Pryor Spinal cord lesion G95.9 and Thoracic spine pain M54.6 Assessments Encounter Date Diagnosis (ICD Code) Assessment Notes Treatment Notes Treatment Clinical Notes Section Notes 01/16/2025 Spinal cord lesion (ICD-10 - G95.9) 02/05/2025 Left knee pain, unspecified chronicity (ICD-10 - M25.562) 02/05/2025 Spinal cord mass (ICD-10 - G95.89) Clinical findings were reviewed. He is complaining of left knee pain. He even has pain while lying down. He does have swelling in the left knee and ankle. MRI thoracic spine reveals nonenhancing mass in the thoracic spinal cord that measures about 7.7 cm superior to inferior from T6 to T9. His symptoms he is describing are not consistent with diagnosis even if related to myelopathy. There is no correlation with the left ankle and left knee swelling. I would not recommend surgery. I feel his knee complaints are orthopedic related. He tells me he is currently seeing an orthopedic doctor in [place], but he is complaining they are taking a long time calling him regarding testing and follow-up. I can see if one of the local orthopedic doctors can see the patient. Questions were asked and answered to the patient's satisfaction. Patient to call if there are any changes in condition. ROS reviewed I Sharon Magana RN am scribing for, and in the presence of Cy Pryor MD. I, Cy Pryor, personally performed the services described in this documentation, as scribed by Sharon Magana RN in my presence, and it is both accurate and complete. 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 The lesion does not appear to enhance with gadolinium and does not appear to be invasive. The patient appears to be asymptomatic at this time. The imaging was discussed with the patient. My suspicion is the lesion is either a syrinx or a benign tumor. I explained to the patient that I need to order a new MRI of the thoracic spine with contrast for comparison to the previous imaging. I had a discussion with the patient, even if there is a problem, what are we going to do about it? Surgery in the thoracic spine is not without major risks. We will have that discussion after I review the new imaging. The patient was reassured the lesion has no association with his knee pain. All the patient's questions and concerns were addressed. ROS reviewed I Ave Solorio LPN am scribing for, and in the presence of Cy Pryor MD. I, Cy Pryor, personally performed the services described in this documentation, as scribed by Ave Solorio LPN in my presence, and it is both accurate and complete. ADDENDUM: The patient requests the MRI to be ordered at [facility] in [place]. Prior authorization is not required per Sweta Seymour with [facility], 10/24/24 at 2:15 pm. Reference # is [id number] 01/16/2025 Thoracic spine pain (ICD-10 - M54.6) Plan Of Treatment Pending Test Test Name Order Date Blood Urea Nitrogen (BUN) 86858 10/24/19 25 Creatinine (B) 09965 10/23/2024 Insurance Providers Payer Name Payer Address Payer Phone Subscriber Number Group Number Insured Name Patient Relationship to Insured Coverage Start Date Coverage End Date [employer] [address] [address] [place] [phone] [id number] JOSEFINA SANTOS Self - patient is the insured Medical (General) History Medical History History ICD Code Heart disease Bladder Infection Cancer Surgical History Surgery Date(Month/Year) Colon Cancer 1999 Knee
--- OUTSIDE RECORDS SUMMARY | 2025-06-19 12:28 | XMS_ITS | Data Portability ---
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 He is trying to get in to see ortho in [facility] but they need his records from [facility]. He will see about trying to get them down to them. CCA form completed at today's visit. Not available 04/09/2025 12:06:24 06/04/2025 06/04/2025 Patient reports he has been waking up in a sweat recently. His belly has been bothering him but otherwise he is at his baseline. He walks with a walker still due to his knee. He no longer has a catheter in. Not available 06/06/2025 09:36:43 Plan of Treatment Reminders Order Date Submit Date Provider Last Modified By Organization Details Last Modified Time Details Appointments [id number] 2025 08:20A M KEVIN VALDIVIA Not available Not available Not available Lab hemoglobi n A1C/hemog lobin total, QN, blood 2024 025 [email or web address] [facility], [address], [facility] [address], [place], [address], 06/11/2025 09:21:07 urinalysi s, complete 2024 025 [facility], [address], [address], [place], [address], 06/04/2025 11:39:19 culture, urine 2024 025 [email or web address], [address] [facility] [address], [place], [address], 06/08/2025 13:51:14 CMP, serum or plasma [address] [facility], [address], [address], [place], [address], 06/04/2025 11:41:49 CBC [address] [facility], [address], [address], [place], [address], 06/04/2025 11:25:48 microalbu min/creat inine, mass ratio, urine 2024 025 [email or web address] [facility], [address] [facility] [address], [address], [place], [address], 05/09/2025 10:33:24 hemoglobi n A1C/hemog lobin total, QN, blood [address] [facility], [address], [address], [place], [address], 05/02/2025 11:12:20 CMP, serum or plasma [address] [facility], [address], [address], [place], [address], 04/09/2025 12:37:53 CBC [address] [facility], [address], [address], [place], [address], 04/09/2025 12:24:32 lipid panel, blood 2024 025 [facility], [address] [facility] [address], [address], [place], [address], 04/09/2025 12:37:56 thyrotrop in, QN, serum or plasma 2024 [facility], [address], [address], [place], [address], 04/09/2025 13:14:16 Referral None recorded. Procedures None recorded. Surgeries None recorded. Imaging None recorded. Medication Orders Macrobid 100 mg capsule 2024 [facility], [address], [place], [address], 06/18/2025 05:00:57 azithromy los 250 mg tablet 2024 [facility], [address], [place], [address], 04/09/2025 11:25:45 prednison e 20 mg tablet 2024 025 [facility], [address], [place], [address], 03/21/2025 05:01:28 albuterol sulfate HFA 90 mcg/actua tion aerosol inhaler 2024 025 [facility], [address], [place], [address], 03/08/2025 09:41:05 Patient TargetsNo targets recorded. Patient Instructions Encounter Date Encounter Id Patient Instructions Last Modified By Organization Details Last Modified Time 04/09/2025 [id number] Call or return for questions or concerns. Not available 04/09/2025 11:47:30 06/04/2025 [id number] Call or return for questions or concerns. Not available 06/06/2025 09:36:55 Reason for Referral None Reported. Results Created Date Observation Date Name Description Value Unit Range Abnormal Flag Note LastModifiedBy Organization Detail LastModifiedTime 04/09/2004/09/2025 CBC WBC 6.7 x10 4.5-10 .5 Not Available [facility] [address], [place], [address], 04/09/2025 12:24:32 04/09/2004/09/2025 CBC RBC 4.73 x10 4.30-5 .90 Not Available [facility] [address] [facility] [address] [address], [place], [address], 04/09/2025 12:24:32 04/09/2004/09/2025 CBC HGB 15.0 g/dL 13.5-1 8.0 Not Available [facility] [address] [address], [place], [address], 04/09/2025 12:24:32 04/09/2004/09/2025 CBC HCT 45.7 % 35.0-6 0.0 Not Available [facility] [address] [facility] [address] [address], [place], [address], 04/09/2025 12:24:32 04/09/2004/09/2025 CBC MCV 96.6 fL 80.0-9 9.9 Not Available [facility] [address] [facility] [address] [address], [place], [address], 04/09/2025 12:24:32 04/09/20 25 04/09/2025 CBC MCH 31.6 pg 27.0-3 2.0 Not Available [facility] [address] [facility] [address], [place], [address], 04/09/2025 12:24:32 04/09/20 25 04/09/2025 CBC MCHC 32.7 g/dL 32.0-3 6.0 Not Available [facility] [address] [facility] [facility] [address] [facility] 1, [place], [address], 04/09/2025 12:24:32 04/09/20 25 04/09/2025 CBC RDW 15.0 % 11.5-1 4.5 high Not Available [facility] [address] [facility] [address] 1, [place], [address], 04/09/2025 12:24:32 04/09/2004/09/2025 CBC plt 203.0 x10 150.0- 451.0 Not Available [facility] [address] [facility], [place], [address], 04/09/2025 12:24:32 04/09/20 25 04/09/2025 CBC lymphocytes % 17.9 % 20.0-5 0.0 low Not Available [facility] [address] [facility], [place], [address], 04/09/2025 12:24:32 04/09/20 25 04/09/2025 CBC granulcytes % 67.2 % 30.0-7 0.0 Not Available [facility] [address] [facility], [place], [address], 04/09/2025 12:24:32 04/09/20 25 04/09/2025 CBC monocytes % 11.9 % 2.0-16 .0 Not Available [facility] [address] [facility] 1, [place], [address], 04/09/2025 12:24:32 04/09/20 25 04/09/2025 CBC granulcytes# 4.5 x10 Not Viridiana ilable [facility] [address] [facility] 1, [place], [address], 04/09/2025 12:24:32 04/09/20 25 04/09/2025 CBC lymphocytes # 1.2 x10 Not Available [facility] [address] [facility] [address], [place], [address], 04/09/2025 12:24:32 04/09/20 25 04/09/2025 CBC monocytes # 0.8 x10 Not Avai lable [facility] [address] [address], [place], [address], 04/09/2025 12:24:32 04/09/20 25 04/09/2025 CMP (MALE ) glucose 104.0 mg/dL 60.0-9 9.0 high Not Available [facility] [address] [address], [place], [address], 04/09/2025 12:37:53 04/09/20 25 04/09/2025 CMP (MALE ) BUN (blood urea nitrogen) 19.0 mg/dL 10.0-2 6.0 Not Available [address] [address], [place], [address], 04/09/2025 12:37:53 04/09/20 25 04/09/2025 CMP (MALE ) creatinine (serum) 1.8 mg/dL 0.4-1. 5 high Not Available [facility] [address] [address], [place], [address], 04/09/2025 12:37:53 04/09/20 25 04/09/2025 CMP (MALE ) BUN/creatini ne ratio 10.56 ratio Not Available [facility] [address] [address], [place], [address], 04/09/2025 12:37:53 04/09/20 25 04/09/2025 CMP (MALE ) eGFR calculated 39.6 Not Available [facility] [address] [facility] [address] 1, [place], [address], 04/09/2025 12:37:53 04/09/2004/09/2025 CMP (MALE ) total protein 7.3 g/dL 6.0-8. 5 Not Available [facility] [address] [facility] [address], [place], [address], 04/09/2025 12:37:53 04/09/20 25 04/09/2025 CMP (MALE ) total bilirubin 0.7 mg/dL 0.2-1. 3 Not Available [facility] [address] [facility], [place], [address], 04/09/2025 12:37:53 04/09/20 25 04/09/2025 CMP (MALE ) albumin 4.2 g/dL 3.5-5. 5 Not Available [facility] [address] [facility] 1, [place], [address], 04/09/2025 12:37:53 04/09/2004/09/2025 CMP (MALE ) globulin 3.1 calc Not Available [facility] [address] [facility] [address], [place], [address], 04/09/2025 12:37:53 04/09/20 25 04/09/2025 CMP (MALE ) AST (SGOT) 24.0 U/L 0.0-46 .0 Not Available [facility] [address] [facility], [place], [address], 04/09/2025 12:37:53 04/09/20 25 04/09/2025 CMP (MALE ) altv (SGPT) 18.0 U/L 13.0-6 9.0 normal Not Available [facility] [address] [facility], [place], [address], 04/09/2025 12:37:53 04/09/20 25 04/09/2025 CMP (MALE ) A/G ratio 1.4 ratio Not Available [facility] [address] [facility] 1, [place], [address], 04/09/2025 12:37:53 04/09/20 25 04/09/2025 CMP (MALE ) ALP phos 86.0 U/L 30.0-1 40.0 normal Not Available [facility] [address] [facility] 1, [place], [address], 04/09/2025 12:37:53 04/09/20 25 04/09/2025 CMP (MALE ) calcium 9.3 mg/dL 8.4-10 .5 Not Available [facility] [address] [facility] [address], [place], [address], 04/09/2025 12:37:53 04/09/20 25 04/09/2025 CMP (MALE ) sodium 138.0 mmol/ L 136.0- 145.0 Not Available [facility] [address] [facility] [address], [place], [address], 04/09/2025 12:37:53 04/09/20 25 04/09/2025 CMP (MALE ) potassium 4.5 mmol/ L 3.5-5. 1 Not Available [facility] [address] [facility] [address], [place], [address], 04/09/2025 12:37:53 04/09/20 25 04/09/2025 CMP (MALE ) chloride 104.0 mmol/ L 98.0-1 10.0 normal Not Available [facility] [address] [facility] [address], [place], [address], 04/09/2025 12:37:53 04/09/20 25 04/09/2025 CMP (MALE ) C02 27.0 mmol/ L 22.0-3 1.0 Not Available [facility] [address] [facility], [place], [address], 04/09/2025 12:37:53 04/09/2004/09/2025 CMP (MALE ) anion gap 7.0 calc Not Available [facility] [address] [facility], [place], [address], 04/09/2025 12:37:53 04/09/20 25 04/09/2025 CMP (MALE ) osmolality 287.5 calc Not Available [facility] [address] [facility], [place], [address], 04/09/2025 12:37:53 04/09/20 25 04/09/2025 LIPID PROFI LE (MALE ) cholesterol 176.0 mg/dL 0.0-20 0.0 Not Available [facility] [address] [facility], [place], [address], 04/09/2025 12:37:56 04/09/20 25 04/09/2025 LIPID PROFI LE (MALE ) trig 139.0 mg/dL 0.0-15 0.0 Not Available [facility] [address] [facility], [place], [address], 04/09/2025 12:37:56 04/09/20 25 04/09/2025 LIPID PROFI LE (MALE ) HDL - direct 53.0 mg/dL >40.0 Not Available [facility] [address] [facility] 1, [place], [address], 04/09/2025 12:37:56 04/09/20 25 04/09/2025 LIPID PROFI LE (MALE ) VLDL - direct 27.8 mg/dL Not Available [facility] [address] [facility] [address], [place], [address], 04/09/2025 12:37:56 04/09/20 25 04/09/2025 LIPID PROFI JULIANA (MALE ) LDL - direct 95.2 mg/dL 0.0-13 0.0 Not Available [facility] [address] [facility] [address] [facility] 1, [place], [address], 04/09/2025 12:37:56 04/09/20 25 04/09/2025 TSH TSH 0.35 uIU/m L 0.49-3 .82 low Not Available [facility] [address] [facility] [address] 1, [place], [address], 04/09/2025 13:14:16 05/02/20 25 05/02/2025 HBA1C hemaglobin A1C 5.4 4.2-6. 5 Not Available [facility] [address] [facility] Megan [facility] 1, [place], [address], 05/02/2025 11:12:20 06/04/20 25 06/04/2025 CBC WBC 8.1 x10 4.5-10 .5 Not Available [facility] [address] [facility] Megan [facility] 1, [place], [address], 06/04/2025 11:25:48 06/04/20 25 06/04/2025 CBC RBC 5.22 x10 4.30-5 .90 Not Available [facility] [address] [facility] 1, [place], [address], 06/04/2025 11:25:48 06/04/20 25 06/04/2025 CBC HGB 16.8 g/dL 13.5-1 8.0 Not Available [facility] [address] [facility] 1, [place], [address], 06/04/2025 11:25:48 06/04/20 25 06/04/2025 CBC HCT 50.5 % 35.0-6 0.0 Not Available [facility] [address] [facility] 1, [place], [address], 06/04/2025 11:25:48 06/04/20 25 06/04/2025 CBC MCV 96.7 fL 80.0-9 9.9 Not Available [facility] [address] [facility] 1, [place], [address], 06/04/2025 11:25:48 06/04/20 25 06/04/2025 CBC MCH 32.1 pg 27.0-3 2.0 high Not Available [facility] [address] [facility], [place], [address], 06/04/2025 11:25:48 06/04/20 25 06/04/2025 CBC MCHC 33.2 g/dL 32.0-3 6.0 Not Available [facility] [address] [facility] [address], [place], [address], 06/04/2025 11:25:48 06/04/20 25 06/04/2025 CBC RDW 12.8 % 11.5-1 4.5 Not Available [facility] [address] [facility], [place], [address], 06/04/2025 11:25:48 06/04/20 25 06/04/2025 CBC plt 207.0 x10 150.0- 451.0 Not Available [facility] [address] [facility], [place], [address], 06/04/2025 11:25:48 06/04/20 25 06/04/2025 CBC lymphocytes % 13.6 % 20.0-5 0.0 low Not Available [facility] [address] [facility] 1, [place], [address], 06/04/2025 11:25:48 06/04/20 25 06/04/2025 CBC granulcytes % 76.1 % 30.0-7 0.0 high Not Available [facility] [address] [address], [place], [address], 06/04/2025 11:25:48 06/04/20 25 06/04/2025 CBC monocytes % 8.9 % 2.0-16 .0 Not Available [facility] [address] [address], [place], [address], 06/04/2025 11:25:48 06/04/20 25 06/04/2025 CBC granulcytes# 6.2 x10 Not Viridiana ilable [facility] [address] [address], [place], [address], 06/04/2025 11:25:48 06/04/20 25 06/04/2025 CBC lymphocytes # 1.1 x10 Not Available [facility] [address] [address], [place], [address], 06/04/2025 11:25:48 06/04/20 25 06/04/2025 CBC monocytes # 0.7 x10 Not Avai lable [facility] [address] [address], [place], [address], 06/04/2025 11:25:48 06/04/20 25 06/04/2025 URINA LYSIS WITH MICRO color YELLOW Not Available [facility] [address] [address], [place], [address], 06/04/2025 11:39:19 06/04/20 25 06/04/2025 URINA LYSIS WITH MICRO clarity CLOUDY abnormal Not Available [facility] [address] [address], [place], [address], 06/04/2025 11:39:19 06/04/20 25 06/04/2025 URINA LYSIS WITH MICRO glu TRACE abnormal Not Available [facility] [address], [place], [address], 06/04/2025 11:39:19 06/04/20 25 06/04/2025 URINA LYSIS WITH MICRO bili NEGATI VE Not Available [facility] [address] [facility], [place], [address], 06/04/2025 11:39:19 06/04/2006/04/2025 URINA LYSIS WITH MICRO ket 1+ abnormal Not Available [facility] [address] [facility], [place], [address], 06/04/2025 11:39:19 06/04/2006/04/2025 URINA LYSIS WITH MICRO S.g 1.025 1.005- 1.025 Not Available [facility] [address] [facility] 1, [place], [address], 06/04/2025 11:39:19 06/04/20 25 06/04/2025 URINA LYSIS WITH MICRO pH 7.5 5.0-7. 0 high Not Available [facility] [address] [facility], [place], [address], 06/04/2025 11:39:19 06/04/2006/04/2025 URINA LYSIS WITH MICRO pro 1+ abnormal Not Available [facility] [address] [facility] 1, [place], [address], 06/04/2025 11:39:19 06/04/20 25 06/04/2025 URINA LYSIS WITH MICRO uro 0.2 Not Available [facility] [address] [facility] 1, [place], [address], 06/04/2025 11:39:19 06/04/20 25 06/04/2025 URINA LYSIS WITH MICRO nit POSITI VE abnormal Not Available [facility] [address] [facility] [address], [place], [address], 06/04/2025 11:39:19 06/04/2006/04/2025 URINA LYSIS WITH MICRO blo 3+ abnormal Not Available [facility] [address], [place], [address], 06/04/2025 11:39:19 06/04/2006/04/2025 URINA LYSIS WITH MICRO cuong 3+ abnormal Not Available [facility] [address], [place], [address], 06/04/2025 11:39:19 06/04/2006/04/2025 URINA LYSIS WITH MICRO WBC 100 PACKED abnormal > Not Available [facility] [address], [place], [address], 06/04/2025 11:39:19 06/04/20 25 06/04/2025 URINA LYSIS WITH MICRO RBC NEGATI VE Not Available [facility] [address], [place], [address], 06/04/2025 11:39:19 06/04/20 25 06/04/2025 URINA LYSIS WITH MICRO epi cells NEGATI VE Not Available [facility] [address], [place], [address], 06/04/2025 11:39:19 06/04/20 25 06/04/2025 URINA LYSIS WITH MICRO bacteria NEGATI VE Not Available [facility] [address], [place], [address], 06/04/2025 11:39:19 06/04/20 25 06/04/2025 URINA LYSIS WITH MICRO other NG Not Available [facility] [address], [place], [address], 06/04/2025 11:39:19 06/04/20 25 06/04/2025 CMP (MALE ) glucose 179.0 mg/dL 60.0-9 9.0 high Not Available [facility] [address] [facility], [place], [address], 06/04/2025 11:41:49 06/04/20 25 06/04/2025 CMP (MALE ) BUN (blood urea nitrogen) 23.0 mg/dL 10.0-2 6.0 Not Available [facility] [address] [facility] [address], [place], [address], 06/04/2025 11:41:49 06/04/20 25 06/04/2025 CMP (MALE ) creatinine (serum) 2.0 mg/dL 0.4-1. 5 high Not Available [facility] [address] [facility] [address], [place], [address], 06/04/2025 11:41:49 06/04/20 25 06/04/2025 CMP (MALE ) BUN/creatini ne ratio 11.50 ratio Not Available [facility] [address] [facility] 1, [place], [address], 06/04/2025 11:41:49 06/04/20 25 06/04/2025 CMP (MALE ) eGFR calculated 35.1 Not Available [facility] [address] [facility] 1, [place], [address], 06/04/2025 11:41:49 06/04/20 25 06/04/2025 CMP (MALE ) total protein 7.5 g/dL 6.0-8. 5 Not Available [facility] [address] [facility] 1, [place], [address], 06/04/2025 11:41:49 06/04/20 25 06/04/2025 CMP (MALE ) total bilirubin 0.8 mg/dL 0.2-1. 3 Not Available [facility] [address] [facility] 1, [place], [address], 06/04/2025 11:41:49 06/04/20 25 06/04/2025 CMP (MALE ) albumin 4.5 g/dL 3.5-5. 5 Not Available [facility] [address] [facility] [address], [place], [address], 06/04/2025 11:41:49 06/04/20 25 06/04/2025 CMP (MALE ) globulin 3.0 calc Not Available [facility] [address] [address], [place], [address], 06/04/2025 11:41:49 06/04/20 25 06/04/2025 CMP (MALE ) AST (SGOT) 35.0 U/L 0.0-46 .0 Not Available [facility] [address] [address], [place], [address], 06/04/2025 11:41:49 06/04/20 25 06/04/2025 CMP (MALE ) altv (SGPT) 18.0 U/L 13.0-6 9.0 normal Not Available [facility] [address] [address], [place], [address], 06/04/2025 11:41:49 06/04/20 25 06/04/2025 CMP (MALE ) A/G ratio 1.5 ratio Not Available [facility] [address] [address], [place], [address], 06/04/2025 11:41:49 06/04/20 25 06/04/2025 CMP (MALE ) ALP phos 83.0 U/L 30.0-1 40.0 normal Not Available [facility] [address] [place], [address], 06/04/2025 11:41:49 06/04/2006/04/2025 CMP (MALE ) calcium 9.4 mg/dL 8.4-10 .5 Not Available [facility] [address] [facility], [place], [address], 06/04/2025 11:41:49 06/04/20 25 06/04/2025 CMP (MALE ) sodium 139.0 mmol/ L 136.0- 145.0 Not Available [facility] [address] [facility] 1, [place], [address], 06/04/2025 11:41:49 06/04/2006/04/2025 CMP (MALE ) potassium 4.0 mmol/ L 3.5-5. 1 Not Available [facility] [address] [facility] 1, [place], [address], 06/04/2025 11:41:49 06/04/20 25 06/04/2025 CMP (MALE ) chloride 104.0 mmol/ L 98.0-1 10.0 normal Not Available [facility] [address] [facility], [place], [address], 06/04/2025 11:41:49 06/04/20 25 06/04/2025 CMP (MALE ) C02 24.0 mmol/ L 22.0-3 1.0 Not Available [facility] [address] [facility], [place], [address], 06/04/2025 11:41:49 06/04/2006/04/2025 CMP (MALE ) anion gap 11.0 calc Not Available [facility] [address] [facility], [place], [address], 06/04/2025 11:41:49 11/18/06/04/2025 CMP (MALE ) osmolality 294.6 calc Not Available [facility] [address] [facility] 1, [place], [address], 06/04/2025 11:41:49 06/04/2006/08/2025 ALBUM IN, RANDO M URINE W/CRE ATINI NE creatinine, random urine 170 mg/dL 20-320 normal Not Available [address] [address] [place], [address], 06/08/2025 13:51:13 06/04/2006/08/2025 ALBUM IN, RANDO M URINE W/CRE ATINI NE albumin, urine 10.3 mg/dL see note: normal Refer ence Range : Refer ence Range Not estab lishe d Not Available [address] [address] [place], [address], 06/08/2025 13:51:13 06/04/2006/08/2025 ALBUM IN, RANDO M URINE W/CRE ATINI NE albumin/crea tinine ratio, random urine 61 mg/g_ creat <30 high The ADA defin es abnor malit ies in album in excre tion as follo ws: Album inuri a Categ ory Resul t (mg/g creat inine ) Angie l to Mildl y incre ased <30 Moder ately incre ased 30-29 9 Sever nghia incre ased > OR = 300 The ADA recom mends that at least two of three speci mens colle cted withi n a 3-6 month perio d be abnor mal befor e consi ambreen g a patie nt to be withi n a diagn ostic categ ory. Not Available [address], [address], 06/08/2025 13:51:13 06/04/20 25 06/08/2025 CULTU RE, URINE , ROUTI NE culture, urine, routine SEE NOTE abnormal CULTU RE, URINE , ROUTI NE Micro Numbe r: [id number] Test Statu s: Final Speci men Sourc e: Urine Speci men Quali ty: Adequ ate Resul t: Great er than 100,0 00 CFU/m L of Enter obact er horma echei E.hor maech ei ----- ----- ----- - INT ZANA AMOX/ CLAVU LANAT E R >=32 CEFAZ DIA R >=32 1 CEFEP DAVID S <=0.1 2 CEFTA ZIDIM E S <=0.5 CIPRO FLOXA LOS S <=0.0 6 GENTA MICIN S <=1 IMIPE NEM S 1 LEVOF LOXAC IN S <=0.1 2 MEROP ENEM S <=0.2 5 NITRO FURAN TOIN S <=16 PIP/T AZOBA CTAM R 64 TRIME THOPR IM/ANN LFA S <=20 S = Susce ptibl e I = Inter media te R = Resis tant NS = Not susce ptibl e SDD = Susce ptibl e Dose Depen dent * = Not Teste d NR = Not Repor julianna NN = See Thera py Comme nts THERA PY COMME NTS Note 1: For uncom plica julianna UTI cause d by E. coli, K. pneum oniae or P. mirab ilis: Cefaz dai is susce ptibl e if ZANA <32 mcg/m L and predi cts susce ptibl e to the oral agent s cefac urban, cefdi dedrick, cefpo doxim e, cefpr ozil, cefur oxime , cepha lexin and lorac arbef . Not Available [facility] [address] [place], [address], 06/08/2025 13:51:14 02/07/20 25 02/12/2025 XR, chest , 2 view No observ ation record ed. [address] ([facility]) [address] [place], [address], 02/12/2025 16:02:12 02/07/20 25 02/06/2025 XR, chest , 2 view No observ ation record ed. [email or web address] [address] [place], [address], 02/12/2025 15:20:34 02/14/2002/12/2025 US, cecilio x, ana s, lower extre mity, compl ete No observ ation record ed. [facility] [address] [place], [address], 02/14/2025 07:33:49 02/26/2002/25/2025 NM, bone scan, 3-pha se No observ ation record ed. [email or web address] [facility] [address] [place], [address], 02/27/2025 17:45:25 Result Notes None recorded. Problems Name Problem SNOMED Code Status Onset Date Resolution Date Notes Provider Name and Address Organization Details Recorded Time Pain of knee region [id number] Completed 09/12/2024 JYOTI GARZA, [facility] [address] [place], [address], [facility] L.L.CMary Ann 09:55:52 Atypical chest pain 689591902 Completed 09/12/2024 JYOTI GARZA, [facility] [address] [place] [address], [address], [facility] 5 09:55:52 Leukocyto sis 762602693 Completed 09/12/2024 JYOTI GARZA, [facility] [address] [place], [address], [facility] 5 09:55:52 Chronic neck pain 392601890772 7 Completed 09/12/2024 JYOTI GARZA, [facility] [address] [place], [address], [facility] 5 09:55:53 History of total knee arthropla sty 766440089498 5 Active JYOTI GARZA, [address], [address], [facility] 09:56:29 Neoplasm of spinal cord 181577084 Active JYOTILelo CAPUTOKAYLA, [address], [address] [place] [address] 5, [facility] 09:56:29 Acute kidney injury 70247940 Completed 09/12/2024 JYOTI GARZA, [address], [address] [place] [address] 5, [facility] 09:55:53 Backache 421636436 Completed 09/12/2024 JYOTI GARZA, [address], [address] [place] [address] 5, [facility] 09:55:53 Postopera tive visit 200909686 Completed 09/12/2024 JYOTI GARZA [address], [address] [place] [address] 5, [facility] 09:55:53 Onofre hematuria 935340221 Completed 09/12/2024 JYOTI GARZA, [address], [address], [facility] 09:55:53 Cervical disc disorder with radiculop athy 975734257 Active JYOTI CAPUTOTES, [address], [address], [facility] 09:56:29 Prolapse of cervical intervert ebral disc without radiculop athy 093360884476 04 Completed 09/12/2024 JYOTI GARZA, [address], [address], [facility] 09:55:53 Sciatica 70198694 Completed 09/12/2024 JYOTI KAYLA, [address], [address] [place] [address] 5, [facility] 09:55:53 Closed fracture of upper end of tibia 46628460 Completed 09/12/2024 JYOTI GARZA, [address], [address] [place] [address] 5, [facility] 09:55:53 Gastro-es ophageal reflux disease with esophagit is 917846849 Completed 09/12/2024 JYOTI GARZA, [address], [address] [place] [address], [facility] 09:55:53 Gastroeso phageal reflux disease without esophagit is 237940163 Active JYOTILelo CAPUTOKAYLA, [address], [address] [place] [address], [facility] 09:56:30 Mixed hyperlipi demia 779175016 Completed 09/12/2024 JYOTI GARZA, [place] [address], [facility] 09:55:53 Syncope 967279109 Completed 09/12/2024 JYOTI GARZA, [place] [address], [facility] 09:55:53 Anemia 058034648 Completed 09/12/2024 JYOTI GARZA, [employer] [address] [place] [address], [address], [facility] 09:55:53 Periphera l edema 127731358 Completed 09/12/2024 JYOTI GARZA, [address], [address], [facility] 09:55:53 Thoracic back pain 252524865 Completed 09/12/2024 JYOTI GARZA, [address], [address], [facility] 09:55:53 Tapia's neuroma of left foot 805765876434 105 Completed 09/12/2024 JYOTI GARZA, [address], [address], [facility] 09:55:53 Chest pain 90080991 Completed 09/12/2024 JYOTI GARZA, [address], [address], [facility] 09:55:53 Numbness of upper limb 391898339 Completed 09/12/2024 JYOTI GARZA [address], [address], [facility] 09:55:53 Periphera l nerve disease 754469754 Completed 09/12/2024 JYOTI GARZA, [address] [address], [facility] 09:55:53 Fracture of rib 01710867 Completed 09/12/2024 JYOTI GARZA, [address] [address], [facility] 09:55:53 Blood in urine 16178476 Completed 09/12/2024 JYOTI GARZA, [address], [address] [place] [address] 5, [facility] 09:55:53 Dyslipide josue 731155420 Completed 09/12/2024 JYOTI GARZA, [address], [address] [place] [address] 5, [facility] 09:55:53 Neuropath y 515921891 Completed 09/12/2024 JYOTI GARZA, [address], [address] [place] [address] 5, [facility] 09:55:53 Foreign body in left forearm Completed 09/12/2024 JYOTI GARZA, [address], [address] [place] [address] 5, [facility] 09:55:53 Carotid bruit 235575023 Active JYOTILelo GARZA, [address], [address], [facility] 09:56:30 Cervical disc disorder 982837796 Completed 09/12/2024 JYOTI GARZA, [address], [address], [facility] 09:55:53 Mass of urinary bladder 988156915 Active JYOTI GARZA, [address], [address] [place] [address], [facility] 11:47:40 History of placement of stent for coronary artery disease 689833796 Active JYOTI GARZA [address], [address], [facility] 09:56:30 Coronary atheroscl erosis 532413554 Active JYOTI GARZA, [address], [address], [facility] 11:47:40 Ependymom a 580897207 Completed 09/12/2024 JYOTI CAPUTOTES, [address], [address], [facility] 09:55:53 Gastritis 9728065 Completed 09/12/2024 JYOTI GARZA, [address], [address], [facility] 09:55:53 Foot pain 49918303 Completed 09/12/2024 JYOTI GARZA, [address], [address], [facility] 09:55:53 Diarrhea 41038975 Completed 09/12/2024 JYOTI GARZA, [address], [address], [facility] 09:55:53 Chondroma lacia 78720915 Completed 09/12/2024 JYOTI GARZA, [address], [address], [facility] 09:55:53 Acute cystitis 06527398 Completed 09/12/2024 JYOTI GARZA, [address], [address], [facility] 09:55:53 Urinary tract infectiou s disease 54470059 Completed 09/12/2024 JYOTI GARZA, [address], [address], [facility] 09:55:54 Long-term current use of anticoagu lant 238625547 Completed 09/12/2024 JYOTI GARZA, [address], [address], [facility] 09:55:54 Intervert ebral disc disorder of cervical region with myelopath y 83990417 Completed 09/12/2024 JYOTI GARZA, [address], [address], [facility] 09:55:54 Cold sweat 07361891 Completed 09/12/2024 JYOTI GARZA, [address], [address], [facility] 09:55:54 Constipat ion 78639659 Completed 09/12/2024 JYOTI GARZA [address], [address], [facility] 09:55:53 Indigesti on 970585612 Completed 09/12/2024 JYOTI GARZA [address], [address], [facility] 09:55:53 Acute retention of urine 498225206 Completed 09/12/2024 JYOTI GARZA, [address], [address], [facility] 5 09:55:53 Benign prostatic hyperplas ia 385356821 Active JYOTI GARZA, [address], [address] [place] [address] 5, [facility] 5 09:56:30 Hydrouret eronephro sis 15441660 Active JYOTI GARZA, [address], [address] [place] [address] 5, [facility] 5 09:56:30 Obstructi on of urinary bladder outlet 416743529 Completed 09/12/2024 JYOTI GARZA, [address], [address] [place] [address] 5, [facility] 5 09:55:53 Acute urinary tract infection 460945604 Completed 09/12/2024 JYOTI GARZA, [address], [address] [place] [address] 5, [facility] 5 09:55:53 Preinfarc tion syndrome 6761326 Completed 09/12/2024 JYOTI GARZA, [address], [address], [facility] 5 09:55:53 Urinary tract obstructi on 7581120 Completed 09/12/2024 JYOTI GARZA, [address], [address], [facility] 5 09:55:54 Pruritus caused by drug 785205811 Completed 09/12/2024 JYOTI GARZA, [address], [address], [facility] 5 09:55:54 Pain of knee region 5482174690 Donta GARZA, [address], [address], [facility] 5 11:38:20 Atypical chest pain 187122906 Donta GARZA, [address], [address], [facility] 5 11:38:20 Leukocyto sis 236050237 Donta GARZA, [address], [address], [facility] 5 11:38:20 Chronic neck pain 929815338943 7 Donta GARZA, [address], [address], [facility] 5 11:38:20 Acute kidney injury 84936095 Donta GARZA, [address], [address], [facility] 5 11:38:20 Backache 427611292 Donta GARZA, [address], [address], [facility] 5 11:38:20 Postopera tive visit 680812939 Donta GARZA, [address], [address], [facility] 5 11:38:20 Onofre hematuria 108023003 Donta GARZA, [address], [address], [facility] 5 11:38:20 Prolapse of cervical intervert ebral disc without radiculop athy 871668960736 04 Active JYOTI GARZA, [address], [address] [place] [address] 5, [facility] 5 11:38:20 Sciatica 66002562 Active JYOTI GARZA, [address], [address] [place] [address] 5, [facility] 5 11:38:20 Gastroeso phageal reflux disease 022192869 Active JYOTI GARZA, [address], [address] [place] [address] 5, [facility] 5 11:38:20 Closed fracture of upper end of tibia 57822215 Active JYOTI GARZA, [address], [address] [place] [address], [facility] 5 11:38:20 Gastro-es ophageal reflux disease with esophagit is 845621542 Donta GARZA, [address], [address] [place] [address], [facility] 5 11:38:20 Mixed hyperlipi demia 101944830 Active JYOTI GARZA, [address], [address] [place] [address] 5, [facility] 5 11:38:20 Syncope [id number] Donta GARZA, [address], [address] [place] [address], [facility] 5 11:38:20 Anemia 998693071 Donta GARZA, [address], [address] [place] [address], [facility] 5 11:38:20 Periphera l edema 683195543 Active JYOTI GARZA, [address], [address] [place] [address], [facility] 5 11:38:20 Thoracic back pain 048898759 Active JYOTI GARZA, [place] [address], [facility] 5 11:38:20 Tapia's neuroma of left foot 462803357729 105 Active JYOTI GARZA, [address], [address] [place] [address], [facility] 5 11:38:20 Chest pain [id number] Donta GARZA, [address], [address] [place] [address], [facility] 5 11:47:40 Numbness of upper limb 596443590 Donta GARZA, [address], [address] [place] [address], [facility] 5 11:38:20 Periphera l nerve disease 532296743 Donta GARZA[address], [address] [place] [address] 5, [facility] 5 11:38:20 Fracture of rib 17214346 [place] [address], [facility] 5 11:38:20 Blood in urine 80555328 Active [place] [address], [facility] 11:47:40 Dyslipide joseu 109979378 Active JYOTI GARZA, [address], [address] [place] [address] 5, [facility] 11:38:20 Neuropath y 675945704 Active JYOTI GARZA, [address], [address] [place] [address] 5, [facility] 11:38:20 Cervical spondylos is 253809592 Active JYOTI GARZA, [address], [address] [place] [address] 5, [facility] 5 11:47:40 Foreign body in left forearm Active JYOTI GARZA, [address], [address] [place] [address] 5, [facility] 11:38:20 Cervical disc disorder 692782281 Active JYOTI GARZA, [address], [address] [place] [address] 5, [facility] 11:47:40 Ependymom a 074491886 Active JYOTI GARZA, [address], [address] [place] [address] 5, [facility] 5 11:38:20 Gastritis 0773199 Active JYOTI GARZA, [address], [address] [place] [address] 5, [facility] 11:38:20 Foot pain 17715508 Active JYOTI GARZA, [address], [address] [place] [address] 5, [facility] 5 11:38:20 Coronary arteriosc lerosis [id number] [facility] JYOTI GARZA, [address], [address] [place] [address], [facility] 5 11:38:20 Diarrhea [id number] [facility] JYOTI GARZA, [address], [address] [place] [address], [facility] 5 11:47:40 Chondroma lacia [id number] [facility] JYOTI GARZA[address], [address] [place] [address], [facility] 5 11:38:20 Acute cystitis [id number] [facility] JYOTI GARZA[address], [address] [place] [address], [facility] 5 11:38:20 Urinary tract infectiou s disease [id number] [facility] [place] [address], [facility] 5 11:47:40 Long-term current use of anticoagu lant [id number] Donta GARZA[address], [address] [place] [address], [facility] 5 11:38:20 Diabetes mellitus [id number] [facility] [place] [address], [facility] 5 11:38:20 Intervert ebral disc disorder of cervical region with myelopath y [id number] [facility] [place] [address], [facility] 5 11:38:20 Cold sweat [id number] Donta GARZA, [address], [address], [facility] 5 11:38:20 Obstructi on of urinary bladder outlet [id number] Donta GARZA, [address], [address] [place] [address] 5, [facility] 5 11:40:19 Urinary tract obstructi on 2329588 Donta GARZA, [address], [address] [place] [address], [facility] 5 11:40:19 Constipat ion 91664085 Donta GARZA, [address], [address] [place] [address], [facility] 5 11:40:43 Preinfarc tion syndrome [id number] Donta GARZA, [address], [address] [place] [address], [facility] 5 11:40:44 Indigesti on [id number] Donta GARZA, [address], [address] [place] [address], [facility] 5 11:42:08 Pruritus caused by drug [id number] Donta GARZA, [address], [address] [place] [address], [facility] 5 11:42:08 Traumatic arthropat hy-knee [id number] Donta GARZA, [address] 5, [facility] 5 11:42:45 Acute retention of urine [id number] Donta GARZA, [address], [address] [place] [address] 5, [facility] 5 11:47:40 Pain associate d with prosthesi s of knee joint 867617684 Active JYOTI GARZA, [address], [address] [place] [address] 5, [facility] 12:05:06 Hydroneph rosis [id number] Donta GARZA, [address], [address] [place] [address] 5, [facility] 5 11:42:45 Acute urinary tract infection 656378177 Donta GARZA, [address], [address] [place] [address] 5, [facility] 5 11:42:45 Enteritis of small intestine [id number] Donta GARZA, [address], [address] [place] [address] 5, [facility] 5 11:42:45 Upper respirato ry infection [id number] Donta GARZA, [address], [address] [place] [address] 5, [facility] 11:45:05 Complicat ion of urinary catheter [id number] Donta GARZA, [address], [address] [place] [address], [facility] 5 11:45:27 Myocardia l infarctio n 19298455 Active 2016 MARÍA wallace [facility] 4 13:16:36 Acute exacerbat ion of chronic obstructi ve pulmonary disease 968615514 Active 2023 MARÍALOAN wallace [facility] 4 13:15:45 Chronic obstructi ve pulmonary disease 87661178 Active 2023 MARÍA wallace [facility] 4 13:15:48 Essential hypertens ion 72230987 Active 2023 JYOTI GARZA, [facility] [address] [place] [address], [address], [facility] 5 12:05:09 Primary malignant neoplasm of colon 13736295 Active 2023 Dx age 48-Amilcar ated with Surger y/chem o and radiat ion. MARÍALOAN wallace [facility] 4 13:19:13 Statin declined 812586415 Active 2023 MARÍA wallace [facility] 5 22:45:03 Hyperlipi demia 02854458 Active 2024 JYOTI GARZA, [address], [address], [facility] 5 12:05:11 Chronic kidney disease stage 3B 835496990 Active 2024 JYOTI GARZA, [facility] [address] [place] [address], [address], [facility] 5 12:04:56 Prostate specific antigen above reference range 146117241 Active 2024 JYOTI GARZA, [facility] [address] [place] [address], [address], [facility], [place] 12:04:57 Tobacco dependenc e caused by cigarette s 741203857802 91373 Active 2024 JYOTI KAYLA, [facility] [address] [place], [address], [facility], [place] 12:05:00 Problem Notes None recorded. Procedures Surgical History Date Name Laterality Status Provider Name and Address Organization Details Recorded Time 02/26/20 25 radioisotope scan of bone completed [facility], [place] 02/27/2025 17:45:02 02/13/20 25 Doppler ultrasonography of vein completed [facility], [place] 02/13/2025 19:33:55 02/07/20 25 [facility] 17:09:43 09/20/19 25 plain X-ray of chest completed [facility], [place] 09/19/2024 19:27:51 08/11/19 25 plain X-ray of chest completed [facility], [place] 08/11/2024 22:47:22 08/11/19 25 [facility] 22:55:51 08/10/[address] of abdomen completed [facility], [place] 08/11/2024 23:02:04 08/08/[address] of abdomen completed [facility], [place] 08/11/2024 22:56:34 07/13/20 24 radionuclide three[facility] 10:24:40 07/01/20 23 total knee replacement completed [facility] 09/19/2024 19:26:53 12/31/19 17 angiography completed [facility] [place] 05/08/2024 13:14:52 Imaging Results None recorded. Procedure Notes None recorded. Medical Equipment None Reported. Allergies Allergen ID Allergen Name Allergen Category Reaction Reaction Severity Criticality Documentation Date Start Date Code Code System Note Provider Name and Address Organization Details Recorded Time 78652 No known allergy (situatio n) Not available Not available Not available Not available 09/12/2024 [id number], [address], [address], [facility], [place] 09:51:15 No known drug allergies Medications Name Sig Start Date Stop Date Status Note LastModified by Organization Details LastModified Time cyclobenzap rine 10 mg tablet TAKE 1 TABLET BY MOUTH THREE TIMES DAILY NEEDED FOR SPASM 05/08 completed Not Available Not Available Not Available atorvastati n 40 mg tablet Take 1 tablet by mouth once daily 2024 active Not Available Not Available Not Avai lable doxycycline hyclate 100 mg capsule TAKE 1 CAPSULE BY MOUTH TWICE DAILY FOR 10 DAYS 05/08 completed Not Available Not Available Not Available cefuroxime axetil 250 mg tablet TAKE 1 TABLET BY MOUTH TWICE DAILY FOR 10 DAYS 09/12 completed Not Available Not Available Not Available loperamide 2 mg capsule TAKE 1 CAPSULE BY MOUTH 4 TIMES DAILY NEEDED FOR LOOSE STOOL active Not Available Not Available No t Available azithromyci n 250 mg tablet TAKE 2 TABLETS BY MOUTH ON DAY 1, AND THEN TAKE 1 TABLET BY MOUTH ONCE A DAY ON DAY 2 THROUGH DAY 5 04/09 completed Not Available Not Available Not Available ibuprofen 800 mg tablet TAKE 1 TABLET BY MOUTH EVERY 8 HOURS NEEDED FOR PAIN FOR FEVER 05/08 completed Not Available Not Available Not Available hydrocodone 5 mg-acetamin ophen 325 mg tablet TAKE 1 TABLET BY MOUTH EVERY 6 HOURS NEEDED FOR PAIN active Not Available Not Available No t Available sucralfate 1 gram tablet TAKE 1 TABLET BY MOUTH THREE TIMES DAILY NEEDED active Not Available Not Available No t Available prednisone 20 mg tablet Take 2 tablets every day by oral route for 6 days. 03/21 completed Not Available Not Available Not Available clopidogrel 75 mg tablet TAKE 1 TABLET BY MOUTH ONCE DAILY active Not Available Not Available No t Available ciprofloxac in 500 mg tablet TAKE 1 TABLET BY MOUTH EVERY 12 HOURS FOR 5 DAYS 02/12 completed Not Available Not Available Not Available sulfamethox azole 800 mg-trimetho prim 160 mg tablet TAKE 1 TABLET BY MOUTH TWICE DAILY FOR 7 DAYS 02/12 completed Not Available Not Available Not Available aspirin 81 mg tablet,ayaka yed release Take 1 tablet every day by oral route. active Not Available Not Available No t Available tramadol 50 mg tablet TAKE 1 TABLET BY MOUTH EVERY 8 HOURS NEEDED FOR PAIN 02/12 completed Not Available Not Available Not Available pantoprazol e 20 mg tablet,ayaka yed release TAKE 1 TABLET BY MOUTH TWICE DAILY active Not Available Not Available No t Available Macrobid 100 mg capsule Take 1 capsule every 12 hours by oral route for 7 days, for infection . 06/18 completed Not Available Not Available Not Available famotidine 20 mg tablet TAKE 1 TABLET BY MOUTH TWICE DAILY active Not Available Not Available No t Available tamsulosin 0.4 mg capsule TAKE 1 CAPSULE BY MOUTH ONCE DAILY active Not Available Not Available No t Available cephalexin 500 mg capsule take 1 capsule BY MOUTH TWICE DAILY for 5 days 05/08 completed Not Available Not Available Not Available pantoprazol e 40 mg tablet,ayaka yed release TAKE 1 TABLET BY MOUTH ONCE DAILY 11/06 completed Not Available Not Available Not Available lisinopril 10 mg tablet TAKE 1 TABLET BY MOUTH EVERY DAY active Not Available Not Available No t Available lansoprazol e 30 mg capsule,del ayed release TAKE 1 CAPSULE BY MOUTH TWICE DAILY 09/12 completed Not Available Not Available Not Available nitroglycer in 0.4 mg sublingual tablet DISSOLVE ONE TABLET UNDER THE TONGUE EVERY 5 MINUTES NEEDED FOR CHEST PAIN. DO NOT EXCEED A TOTAL OF 3 DOSES PER EPISODE active Not Available Not Available No t Available gabapentin 300 mg capsule TAKE 1 CAPSULE BY MOUTH THREE TIMES DAILY active Not Available Not Available No t Available metoprolol succinate ER 25 mg tablet,exte nded release 24 hr TAKE 1 TABLET BY MOUTH IN THE MORNING active Not Available Not Available No t Available polyethylen e glycol 3350 17 gram/dose oral powder MIX 4 GRAMS OF POWDER IN LIQUID AND DRINK BY MOUTH TWICE DAILY NEEDED FOR CONSTIPAT ION 02/12 completed Not Available Not Available Not Available levofloxaci n 750 mg tablet TAKE 1 TABLET EVERY 48 HOURS FOR 3 DAYS STARTING 08/13/202408/16 completed Not Available Not Available Not Available albuterol sulfate HFA 90 mcg/actuati on aerosol inhaler INHALE 2 PUFFS BY MOUTH EVERY 4 HOURS NEEDED FOR SHORTNESS OF BREATH AND FOR WHEEZING AND COUGH active Not Available Not Available No t Available cefdinir 300 mg capsule TAKE 1 CAPSULE BY MOUTH TWICE DAILY FOR 7 DAYS 11/06 completed Not Available Not Available Not Available dicyclomine 10 mg capsule TAKE 1 CAPSULE BY MOUTH THREE TIMES DAILY active Not Available Not Available No t Available amoxicillin 875 mg-potassiu m clavulanate 125 mg tablet Take 1 tablet every 12 hours by oral route for 7 days. 04/30 completed Not Available Not Available Not Available aspirin 05/08 completed Not Available Not Available Not Available Pepcid 05/08 completed Not Available Not Available Not Available Flomax 05/08 completed Not Available Not Available Not Available sucralfate 05/08 completed Not Available Not Available Not Available Plavix 05/08 completed Not Available Not Available Not Available lisinopril 05/08 completed Not Available Not Available Not Available albuterol sulfate 90 mcg/actuati on breath activated powder inhaler Inhale 2 puffs every 4 hours by inhalatio n route as needed for breathing . 05/08 completed Not Available Not Available Not Available Vitals Date Recorded Body height Body mass index (BMI) Body weight Body temperature Heart rate Oxygen saturation Systolic And Diastolic Provider Name and Address Organization Details Last Updated DateTime 5 175.26 cm 31.5 kg/m2 77386.9 7 g 98.4 [degF] 73 /min 98 % 158/82 mm[Hg] Cassie Shipley [facility] 09:34:00 Date Recorded Body height Body mass index (BMI) Body weight Heart rate Respiratory rate Oxygen saturation Systolic And Diastolic Provider Name and Address Organization Details Last Updated DateTime 5 175.26 cm 31.7 kg/m2 61858.3 6 g 99 /min 20 /min 99 % 124/80 mm[Hg] MARÍA TOLBERT [facility] 5 11:09:20 Date Recorded Body height Body mass index (BMI) Body weight Oxygen saturation Heart rate Heart rate Respiratory rate Systolic And Diastolic Systolic And Diastolic Provider Name and Address Organization Details Last Updated DateTime 5 175.26 cm 31.9 kg/m2 24872.9 5 g 94 % 134 /min 114 /min 22 /min 148/100 mm[Hg] 124/80 mm[Hg] MAR[facility]A [facility] 5 12:15:10 Social History Question Answer Notes LastModified by Movigo ion Details LastModified Time Tobacco Smoking Status Former Smoker JYOTI GARZA, [address], [address], [facility] 05/08/2024 13:42:58 What Is Your Level Of Caffeine Consumption? Moderate [email or web address] Information not available 05/08/2024 When Did You Quit Smoking? 1-5yearssince lastcigarette Information not available 05/08/2024 What Was The Date Of Your Most Recent Tobacco Screening? 05/08/2024 Information not available 05/08/2024 What Is Your Current Pack Years? [email or web address] Information not available 05/08/2024 What Is Your Relationship Status? [email or web address] Information not available 05/08/2024 At What Age Did You Start Smoking Tobacco? 17 Information not available 05/08/2024 How Much Tobacco Do You Smoke? No Information not available 05/08/2024 Have You Recently Traveled Abroad? No Information not available 05/08/2024 How Many Years Have You Used Smokeless Tobacco? 30 Information not available 05/08/2024 Sex: Unknown Functional Status Question Answer Note LastModified by Organizat ion Details LastModified Time Do you use any illicit or recreational drugs? No Information not available 05/08/2024 Do you or have you ever used any other forms of tobacco or nicotine? Yes Information not available 05/08/2024 What is your level of alcohol consumption? None [email or web address] Information not available 05/08/2024 Do you or have you ever used smokeless tobacco? 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 Yes [email or web address] Information not available 05/08/2024 Do you or have you ever used e-cigarettes or vape? Never used electronic cigarettes Information not available 05/08/2024 Do you or have you ever used any nicotine-free cigarettes, vape, or chewing tobacco? No Information not available 05/08/2024 Mental Status None recorded. Family History Relationship Description Onset Age of this Age Resolved Age Notes LastModified by Organization Details LastModified Time Father Essential hypertension [email or web address] Not available 13:17:16 Father Natural in his 80's [email or web address] Not available 05/08/2024 13:17:44 Mother Essential hypertension [email or web address] Not available 13:17:16 Mother Natural in her 80's [email or web address] Not available 05/08/2024 13:17:44 Medical History Condition Response Coronary Artery Disease Y Constipation Y Reflux/GERD Y High Cholesterol Y Heart Disease Y Hypertension Y Immunizations Vaccine Type Date Status Note Provider Nam e and Address Organization Details Recorded Time Influenza, adjuvanted, trivalent, PF 05/21/2025 completed MARÍA wallace [facility] 05/21/2025 11:03:46 Influenza, high-dose, quadrivalent, PF 05/17/2022 completed JYOTI GARZA, [facility] [address] [place], [address], [facility] 09/12/2024 09:51:38 COVID-19, mRNA, LNP-S, PF, 100 mcg/0.5mL dose or 50 mcg/0.25mL dose 09/09/2020 completed JYOTI GARZA, [address], [address], [facility] 05/08/2024 13:35:12 COVID-19, mRNA, LNP-S, PF, 100 mcg/0.5mL dose or 50 mcg/0.25mL dose 10/07/2020 completed JYOTI GARZA, [address], [address], [facility] 05/08/2024 13:35:12 Tdap 04/04/2024 completed JYOTI GARZA, [address] [address], [facility] 09/12/2024 09:51:38 Influenza, high-dose, trivalent, PF 04/14/2018 completed JYOTI GARZA, [place] [id number], [facility] 05/08/2024 13:35:12 Influenza, high-dose, trivalent, PF 05/24/2019 completed JYOTI GARZA, [address], [address], [facility] 05/08/2024 13:35:12 Influenza, split virus, quadrivalent, PF 04/17/2021 completed JYOTI GARZA, [address] [address], [facility] 09/12/2024 09:51:38 Influenza, adjuvanted, trivalent, PF 05/08/2024 [facility] 14:20:07 Past Encounters Encounter ID Performer Location Encounter Start Date Encounter Closed Date Diagnosis/Indication Diagnosis SNOMED-CT Code Diagnosis ICD10 Code Diagnosis IMO Codes Diagnosis Note [id number] KEVIN VASQUEZ [facility] ([facility]) [address] [place] [address] 5 01/21/2024 10:21:42 01/21/2024 11:12:50 Pain in left foot 6973812419 89925 M79.672 will send x ray to radiology for overread. RICE. Patient will be placed in post op shoe for support. Follow up with PCP this week. [id number] KEVIN VASQUEZ [facility] ([facility]) [address] [place] [address] 02/05/2024 14:18:29 02/05/2024 15:35:01 Abdominal pain 99911541 R10.9 LLQ tenderness . Advised to take lansoprazo le BID. Follow up with PCP this week. [id number] Yon Streeter DO [facility] ([facility]) [address] [place] [address] 5 04/30/2024 15:21:27 04/30/2024 16:34:03 Chronic obstructive pulmonary disease 68989793 J44.9 presumed. not confirmed. counseled on dx, smoking, need for workup to confirm. Acute exac erbation of chronic obstructive pulmonary disease 872058528 J44.1 I counseled pt on diagnosis of acute copd flair up. will start antibiotic s and steroids. Pt to continue to use inhalers/n ebs as prescribed . if worsening or no improvemen t in 2-3 days, pt is to f/u or go to ER. Essential hypertension 24704187 I10 stable. continue lisinopril Smoker 06935704 F17.200 I counseled patient on smoking risks, hazards, complicati ons, and associated illnesses. We discussed smoking cessation options. The patient will work on cutting back but is not ready to quit. We spent 4 minutes discussing this. All questions were addressed. [id number] KEVIN VALDIVIA [facility] ([facility]) [address] [place] [address] 05/08/2024 12:53:48 05/08/2024 14:18:46 Essential hypertension 09669032 I[address] Box tomorrow. Coronary atherosclerosis 501405365 I25.[address] Box. Stent placement x 1 in 2017. Administra tion of influenza vaccine 36983826 Z23 Tinnitus of left ear 723 6641840 106 H93.12 Pain of le ft knee joint 7495614077 84660 M25.562 He will contact his surgeon. Statin declined 52604594 0 Z53.20 He reports his cholestero l is good. 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 Box. Stent placement x 1 in 2018 Bilateral hydronephrosis 58798846 N13.30 Large prostate 304629940 N40.0 Acute kidney injury 1466 9001 N17.9 Cholelithi asis without obstruction 92275937 K80.[address]. Chronic ob structive pulmonary disease 16907226 J44.9 No currently troubles, former smoker. [id number] JYOTI GARZA [employer] [facility] ([facility]) [address] [place] [address] 5 09/12/2024 09:30:55 09/12/2024 10:05:38 Abdominal pain 22105836 R10.9 Gastroesop hageal reflux disease without esophagitis 553730274 K21.9 Meds have not been very helpful. Occasional stomach burning. Coronary atherosclerosis 373867468 I25.[address] Box. Stent placement x 1 in 2018 Anemia 604165483 D64.9 Pain of le ft knee joint 9875991910 [address] Baker. Will see her again following appt with neurosurge ry regarding his spine. Recurrent urinary tract infection 063869581 N39.0 [id number] KEVIN CHOU [facility] ([facility]) [address] [place] [address] 5 11/03/2024 14:33:19 11/03/2024 23:36:18 Urinary catheter in situ 285230945 Z97.8 4979750676 Flushed catheter and checked balloon size with no issues. Pt will wait next couple hours to ensure it continues to drain correctly. 03134QLE code please for martinez irrigation . [id number] KEVIN VALDIVIA [facility] ([facility]) [address] [place], [place] [address] 11/06/2024 09:24:00 11/06/2024 10:04:21 Heartburn 45256141 R12 817855 Discussed with him a EGD scope. He has never had one and doesn't want to have one right now. [id number] KEVIN VALDIVIA [facility] ([facility]) [address] [place] [id number] 5 02/06/2025 10:13:33 02/06/2025 11:16:25 Right sided chest pain 042838762 R07.9 95530216 Pain of le ft knee joint 9171573350 29098 M25.562 421433 [id number] KEVIN VALDIVIA [facility] ([facility]) [address] [place] [address] 5 02/12/2025 15:21:44 02/12/2025 16:46:04 History of total knee arthroplasty 8138807536 105 Z96.652 M25.562 M25.462 03502854 Swelling o f left lower limb 464035411 M79.89 [id number] [facility] ([facility]) [address] [place] [address] 5 02/12/2025 17:05:41 02/13/2025 09:53:34 [id number] KEVIN CHOU [facility] ([facility]) [address] [place] [address] 5 03/08/2025 09:24:40 03/08/2025 09:50:06 Acute bacterial bronchitis 323537993 J20.8 B96.89 [id number] Reviewed xray result from January. 2 rib fx's noted. Pt has breath sounds in all lobes today. VSS. No signs of pneumo. Will start on z-dougie, prednisone , and inhaler. discussed use of inhaler and deep breathing exercises. If you develop sob, fever, or worsening symptoms then f/u. Closed fra cture of multiple ribs 77437059 S22.41XD 02856503 [id number] KEVIN VALDIVIA [facility] ([facility]) [address] [place] [address] 5 04/09/2025 10:41:45 04/09/2025 12:35:28 Hyperlipidemia 81876359 E78.5 Essential hypertension 57963113 I10 Prostate s pecific antigen above reference range 503977196 R97.20 56503 Follows [place]rology [place] next month. Pain assoc iated with prosthesis of knee joint 325198660 Z96.652 M25.562 M25.462 Left knee Tobacco de pendence caused by cigarettes 6068424532 5852608 F17.488 [id number] No current struggles. Recently stopped smoking. Chronic ki dney disease stage 3B 749926082 N18.32 8446747229 Ultrasound scheduled on kidneys next month. [id number] KEVIN VALDIVIA [facility] ([facility]) [address] [place] [address] 5 05/02/2025 10:45:24 05/03/2025 12:47:47 Hyperglycemia 96756392 R73.9 [id number] KEVIN VALDIVIA [facility] ([facility]) [address] [place] [address] 5 05/21/2025 09:56:48 05/21/2025 11:13:16 Administration of influenza vaccine 80606631 Z23 [id number] JYOTI GARZA [employer] [facility] ([facility]) [address] [place] [address] 5 06/04/2025 10:55:29 06/04/2025 13:55:08 Lower abdominal pain 61077352 R10.30 [id number] Hyperglycemia 16705186 R 73.9 18709 Acute cystitis 43408841 N30.01 5242040 Health Concerns Section Related Observation LastModified by Organization Detai ls LastModified Time None Recorded Concern Status LastModified by Organization Details LastModified Time None Recorded Advance Directives Directive None Recorded Payers Insurance Date Sequence Insurance Name Policy Number Policy Connors Covered Member ID Connors Member ID Guarantor Name 02/06/2025 1 [facility] (MEDICARE REPLACEMENT/A DVANTAGE - PPO) [id number] [place] [id number] [place] 06/04/2025 1 [facility] (MEDICARE REPLACEMENT/A DVANTAGE - PPO) [id number] [place] [id number] [place] Notes Date Note Type Note Provider Name and Address Organization Details Recorded Time 5 text/html CoughReported by PatientROS as noted in the HPI walk in ptPt has had wheezing for 2 days. Denies cough, fever, or sob, Had a fall about 3-4 weeks ago and dx'd with some rib fx's on the right side. Remains active for him. No hx of asthma/copd. tried taking mucinex a couple times with no change in wheezing. JUSTICE MASSEY, [facility] [address] [place] [address], [phone], [facility] [place] 03/08/2025 09:46:34 5 text/html HyperlipidemiaReported by PatientHPIFor duration, patient reportschronic. For control, patient reportsusually well controlled. For adherence to treatment plan, patient reportstakes medications as prescribed. Hypertension IM/FMReported by PatientHPIFor quality, patient reportshere for check-up. For severity, patient reportsnormal (<120/<80 mmhg). For duration, patient reportshtn present for ___ years. For alleviating factors, patient reportsmedication. JYOTI GARZA, [facility] [address] [place], [address], [facility] 04/09/2025 12:06:33 5 text/html Abdominal PainReported by PatientAbdominal PainFor quality, patient reportsachinganddull. For location, patient reportsrlq,llq, andsuprapubic. For severity, patient reportsmoderate. For duration, patient reportsintermittent. For onset/timing, patient reportsacute. For associated symptoms, patient reportsno nauseaandno vomiting. For previous tests, treatment and/or diagnostic procedures, patient reportsnone. JYOTI GARZA, [address], [address], [facility] 06/06/2025 09:38:14
--- OUTSIDE RECORDS SUMMARY | 2025-06-19 12:29 | XMS_ITS | Continuity of Care Document ---
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 Name Role Phone JYOTI GARZA Primary Care Provider Unavailabl e Assessment Encounter Date Assessment Date Assessment LastModified by Organization Details LastModified Time 06/04/2025 06/04/2025 Patient reports he has been [...] Organization Details Last Modified Time Details Appointments [id number] 2025 08:20A M KEVIN VALDIVIA Not available Not available Not available Lab hemoglobi n A1C/hemog lobin total, QN, blood 2024 025 [email or web address] [facility], [address] [facility], [facility] 1, [place], [address], 06/11/2025 09:21:07 urinalysi s, complete 2024 025 [facility], [address] [facility], [facility] 1, [place], [address], 06/04/2025 11:39:19 culture, urine 2024 025 [facility], [address] [place] [address] 248, [address], [place], [address], 06/08/2025 13:51:14 CMP, serum or plasma 2024 025 [facility], [address], [address], [place], [address], 06/04/2025 11:41:49 CBC 2024 025 [facility], [address], [address], [place], [address], 06/04/2025 11:25:48 Referral None recorded. Procedures None recorded. Surgeries None recorded. Imaging None recorded. Medication Orders Macrobid 100 mg capsule 2024 025 [facility], [address], [place], [address], 06/18/2025 05:00:57 Patient TargetsNo targets recorded. Patient Instructions Encounter Date Encounter Id Patient Instructions Last Modified By Organization Details Last Modified Time 06/04/2025 [id number] Call or return for questions or concerns. Not available 06/06/2025 09:36:55 Reason for Referral None Reported. Results Created Date Observation Date Name Description Value Unit Range Abnormal Flag Note LastModifiedBy Organization Detail LastModifiedTime 06/04/2006/04/2025 CBC WBC 8.1 x10 4.5-10 .5 Not Available [facility] [address], [place], [address], 06/04/2025 11:25:48 06/04/20 25 06/04/2025 CBC RBC 5.22 x10 4.30-5 .90 Not Available [facility] [address] [facility] [address] [address], [place], [address], 06/04/2025 11:25:48 06/04/20 25 06/04/2025 CBC HGB 16.8 g/dL 13.5-1 8.0 Not Available [facility] [address] [facility] 1, [place], [address], 06/04/2025 11:25:48 06/04/20 25 06/04/2025 CBC HCT 50.5 % 35.0-6 0.0 Not Available [facility] [address] [facility] [address] 1, [place], [address], 06/04/2025 11:25:48 06/04/20 25 06/04/2025 CBC MCV 96.7 fL 80.0-9 9.9 Not Available [facility] [address] [facility] 1, [place], [address], 06/04/2025 11:25:48 06/04/20 25 06/04/2025 CBC MCH 32.1 pg 27.0-3 2.0 high Not Available [facility] [address] [facility] 1, [place], [address], 06/04/2025 11:25:48 06/04/20 25 06/04/2025 CBC MCHC 33.2 g/dL 32.0-3 6.0 Not Available [facility] [address] [facility] 1, [place], [address], 06/04/2025 11:25:48 06/04/20 25 06/04/2025 CBC RDW 12.8 % 11.5-1 4.5 Not Available [facility] [address] [facility] 1, [place], [address], 06/04/2025 11:25:48 06/04/20 25 06/04/2025 CBC plt 207.0 x10 150.0- 451.0 Not Available [facility] [address] [facility] 1, [place], [address], 06/04/2025 11:25:48 06/04/20 25 06/04/2025 CBC lymphocytes % 13.6 % 20.0-5 0.0 low Not Available [facility] [address] [facility] 1, [place], [address], 06/04/2025 11:25:48 06/04/20 25 06/04/2025 CBC granulcytes % 76.1 % 30.0-7 0.0 high Not Available [facility] [address] [address], [place], [address], 06/04/2025 11:25:48 06/04/20 25 06/04/2025 CBC monocytes % 8.9 % 2.0-16 .0 Not Available [facility] [address] [address], [place], [address], 06/04/2025 11:25:48 06/04/20 25 06/04/2025 CBC granulcytes# 6.2 x10 Not Viridiana ilable [facility] [address] [address], [place], [address], 06/04/2025 11:25:48 06/04/20 25 06/04/2025 CBC lymphocytes # 1.1 x10 Not Available [facility] [address] [address], [place], [address], 06/04/2025 11:25:48 06/04/20 25 06/04/2025 CBC monocytes # 0.7 x10 Not Avai lable [facility] [address] [address], [place], [address], 06/04/2025 11:25:48 06/04/20 25 06/04/2025 URINA LYSIS WITH MICRO color YELLOW Not Available [facility] [address] [address], [place], [address], 06/04/2025 11:39:19 06/04/20 25 06/04/2025 URINA LYSIS WITH MICRO clarity CLOUDY abnormal Not Available [facility] [address], [place], [address], 06/04/2025 11:39:19 06/04/20 25 06/04/2025 URINA LYSIS WITH MICRO glu TRACE abnormal Not Available [facility] [address], [place], [address], 06/04/2025 11:39:19 06/04/20 25 06/04/2025 URINA LYSIS WITH MICRO bili NEGATI VE Not Available [facility] [address], [place], [address], 06/04/2025 11:39:19 06/04/20 25 06/04/2025 URINA LYSIS WITH MICRO ket 1+ abnormal Not Available [facility] [address] [facility], [place], [address], 06/04/2025 11:39:19 06/04/20 25 06/04/2025 URINA LYSIS WITH MICRO S.g 1.025 1.005- 1.025 Not Available [facility] [address] [facility] 1, [place], [address], 06/04/2025 11:39:19 06/04/20 25 06/04/2025 URINA LYSIS WITH MICRO pH 7.5 5.0-7. 0 high Not Available [facility] [address] [facility] 1, [place], [address], 06/04/2025 11:39:19 06/04/20 25 06/04/2025 URINA LYSIS WITH MICRO pro 1+ abnormal Not Available [facility] [address], [place], [address], 06/04/2025 11:39:19 06/04/20 25 06/04/2025 URINA LYSIS WITH MICRO uro 0.2 Not Available [facility] [address], [place], [address], 06/04/2025 11:39:19 06/04/2006/04/2025 URINA LYSIS WITH MICRO nit POSITI VE abnormal Not Available [facility]ne [facility] [address], [place], [address], 06/04/2025 11:39:19 06/04/20 25 06/04/2025 URINA LYSIS WITH MICRO blo 3+ abnormal Not Available [facility] [address] [facility] 1, [place], [address], 06/04/2025 11:39:19 06/04/2006/04/2025 URINA LYSIS WITH MICRO cuong 3+ abnormal Not Available [facility] [address] [facility] 1, [place], [address], 06/04/2025 11:39:19 06/04/20 25 06/04/2025 URINA LYSIS WITH MICRO WBC 100 PACKED abnormal > Not Available [facility] Brianne k [facility] [address] [facility] 1, [place], [address], 06/04/2025 11:39:19 06/04/20 25 06/04/2025 URINA LYSIS WITH MICRO RBC NEGATI VE Not Available [facility] Brianne k [facility] [address] [facility] 1, [place], [address], 06/04/2025 11:39:19 06/04/20 25 06/04/2025 URINA LYSIS WITH MICRO epi cells NEGATI VE Not Available [facility] Brianne k [facility] [address] [facility] 1, [place], [address], 06/04/2025 11:39:19 06/04/20 25 06/04/2025 URINA LYSIS WITH MICRO bacteria NEGATI VE Not Available [facility] Brianne k [facility] [address] [facility] 1, [place], [address], 06/04/2025 11:39:19 06/04/20 25 06/04/2025 URINA LYSIS WITH MICRO other NG Not Available [facility] [address] [facility], [place], [address], 06/04/2025 11:39:19 06/04/20 25 06/04/2025 CMP (MALE ) glucose 179.0 mg/dL 60.0-9 9.0 high Not Available [facility] [address] [facility] 1, [place], [address], 06/04/2025 11:41:49 06/04/20 25 06/04/2025 CMP (MALE ) BUN (blood urea nitrogen) 23.0 mg/dL 10.0-2 6.0 Not Available [facility] [address] [facility] 1, [place], [address], 06/04/2025 11:41:49 06/04/20 25 06/04/2025 CMP (MALE ) creatinine (serum) 2.0 mg/dL 0.4-1. 5 high Not Available [facility] [address] [facility] 1, [place], [address], 06/04/2025 11:41:49 06/04/20 25 06/04/2025 CMP (MALE ) BUN/creatini ne ratio 11.50 ratio Not Available [facility] [address] [facility] 1, [place], [address], 06/04/2025 11:41:49 06/04/20 25 06/04/2025 CMP (MALE ) eGFR calculated 35.1 Not Available [facility] [address] [facility] 1, [place], [address], 06/04/2025 11:41:49 06/04/20 25 06/04/2025 CMP (MALE ) total protein 7.5 g/dL 6.0-8. 5 Not Available [facility] [address] [facility] 1, [place], [address], 06/04/2025 11:41:49 06/04/20 25 06/04/2025 CMP (MALE ) total bilirubin 0.8 mg/dL 0.2-1. 3 Not Available [facility] [address] [address], [place], [address], 06/04/2025 11:41:49 06/04/20 25 06/04/2025 CMP (MALE ) albumin 4.5 g/dL 3.5-5. 5 Not Available [facility] [address] [address], [place], [address], 06/04/2025 11:41:49 06/04/20 25 06/04/2025 CMP (MALE ) globulin 3.0 calc Not Available [facility] [address] [address], [place], [address], 06/04/2025 11:41:49 06/04/20 25 06/04/2025 CMP (MALE ) AST (SGOT) 35.0 U/L 0.0-46 .0 Not Available [facility] [address] [address], [place], [address], 06/04/2025 11:41:49 06/04/20 25 06/04/2025 CMP (MALE ) altv (SGPT) 18.0 U/L 13.0-6 9.0 normal Not Available [facility] [address] [address], [place], [address], 06/04/2025 11:41:49 06/04/20 25 06/04/2025 CMP (MALE ) A/G ratio 1.5 ratio Not Available [facility] [address] [address], [place], [address], 06/04/2025 11:41:49 06/04/20 25 06/04/2025 CMP (MALE ) ALP phos 83.0 U/L 30.0-1 40.0 normal Not Available [facility] [address] [facility] 1, [place], [address], 06/04/2025 11:41:49 06/04/20 25 06/04/2025 CMP (MALE ) calcium 9.4 mg/dL 8.4-10 .5 Not Available [facility] [address] [facility] 1, [place], [address], 06/04/2025 11:41:49 06/04/20 25 06/04/2025 CMP (MALE ) sodium 139.0 mmol/ L 136.0- 145.0 Not Available [facility] [address] [facility] 1, [place], [address], 06/04/2025 11:41:49 06/04/20 25 06/04/2025 CMP (MALE ) potassium 4.0 mmol/ L 3.5-5. 1 Not Available [facility] [address] [facility] 1, [place], [address], 06/04/2025 11:41:49 06/04/20 25 06/04/2025 CMP (MALE ) chloride 104.0 mmol/ L 98.0-1 10.0 normal Not Available [facility] [address] [facility] 1, [place], [address], 06/04/2025 11:41:49 06/04/20 25 06/04/2025 CMP (MALE ) C02 24.0 mmol/ L 22.0-3 1.0 Not Available [facility] [address] [facility] 1, [place], [address], 06/04/2025 11:41:49 06/04/20 25 06/04/2025 CMP (MALE ) anion gap 11.0 calc Not Available [facility] [address], [place], [address], 06/04/2025 11:41:49 06/04/20 25 06/04/2025 CMP (MALE ) osmolality 294.6 calc Not Available [facility] [address], [place], [address], 06/04/2025 11:41:49 06/04/20 25 06/08/2025 ALBUM IN, RANDO M URINE W/CRE ATINI NE creatinine, random urine 170 mg/dL 20-320 normal Not Available [address] [address] [place], [address], 06/08/2025 13:51:13 06/04/20 25 06/08/2025 ALBUM IN, RANDO M URINE W/CRE ATINI NE albumin, urine 10.3 mg/dL see note: normal Refer ence Range : Refer ence Range Not estab lishe d Not Available [address] [address] [place], [address], 06/08/2025 13:51:13 06/04/20 25 06/08/2025 ALBUM IN, RANDO M URINE W/CRE ATINI [...] a diagn ostic categ ory. Not Available [facility] [address] [place], [address], 06/08/2025 13:51:13 06/04/20 25 06/08/2025 CULTU RE, URINE , ROUTI NE culture, urine, routine SEE NOTE abnormal CULTU RE, URINE , ROUTI NE Micro Numbe r: [id number] Test Statu s: Final Speci men Sourc e: Urine Speci men Quali ty: Adequ ate Resul t: Great er than 100,0 00 CFU/m L of Enter obact er horma echei E.hor maech ei ----- ----- ----- - INT ZANA AMOX/ CLAVU LANAT E R >=32 CEFAZ DIA R >=32 1 CEFEP DAVID S <=0.1 2 CEFTA ZIDIM E S <=0.5 CIPRO FLOXA DAMON S <=0.0 6 GENTA MICIN S <=1 [...] pneum oniae or P. mirab ilis: Cefaz dia is susce ptibl e if ZANA <32 mcg/m L and predi cts susce ptibl e to the oral agent s cefac urban, cefdi dedrick, cefpo doxim e, cefpr ozil, cefur oxime , cepha lexin and lorac arbef . Not Available [facility] [address] [place], [address], 06/08/2025 13:51:14 Result Notes None recorded. Problems Name Problem SNOMED Code Status Onset Date Resolution Date Notes Provider Name and Address Organization Details Recorded Time Pain of knee region 0755463221 Completed 09/12/2024 JYOTI KAYLA, [address], [address], [facility] 5 09:55:52 Atypical chest pain 281956081 Completed 09/12/2024 JYOTI CAPUTOTES, [address], [address], [facility] 5 09:55:52 Leukocyto sis 558015499 Completed 09/12/2024 JYOTI CAPUTOTES, [address], [address], [facility] 5 09:55:52 Chronic neck pain 975791338222 7 Completed 09/12/2024 JYOTI GARZA [address] [address], [facility] 5 09:55:53 History of total knee arthropla sty 729641139471 5 Active JYOTI CAPUTOTES, [address], [address], [facility] 5 09:56:29 Neoplasm of spinal cord 622586512 Active JYOTI CAPUTOTES, [address], [address], [facility] 5 09:56:29 Acute kidney injury 42002952 Completed 09/12/2024 JYOTI GARZA, [address] [address], [facility] 09:55:53 Backache 192792662 Completed 09/12/2024 JYOTI GARZA, [address] [place] [address] 5, [facility] 09:55:53 Postopera tive visit 031847066 Completed 09/12/2024 JYOTI GARZA, [address], [address], [facility] 09:55:53 Onofre hematuria 136994196 Completed 09/12/2024 JYOTI GARZA, [address], [address], [facility] 09:55:53 Cervical disc disorder with radiculop athy 478442718 Active JYOTI GARZA, [address], [address], [facility] 09:56:29 Prolapse of cervical intervert ebral disc without radiculop athy 138816331309 04 Completed 09/12/2024 JYOTI GARZA, [address], [address] [place] [address], [facility] 09:55:53 Sciatica 46843894 Completed 09/12/2024 JYOTI GARZA, [address], [address] , [facility] 09:55:53 Closed fracture of upper end of tibia 37410334 Completed 09/12/2024 JYOTI GARZA, [address] [address], [facility] 09:55:53 Gastro-es ophageal reflux disease with esophagit is 980054285 Completed 09/12/2024 JYOTI GARZA [address] [address], [facility] 09:55:53 Gastroeso phageal reflux disease without esophagit is 713109720 Active JYOTI GARZA, [address], [address], [facility] 09:56:30 Mixed hyperlipi demia 496955470 Completed 09/12/2024 JYOTI GARZA, [address], [address], [facility] 09:55:53 Syncope 458226747 Completed 09/12/2024 JYOTI GARZA, [address], [address], [facility] 09:55:53 Anemia 842394617 Completed 09/12/2024 JYOTI GARZA, [address], [address], [facility] 09:55:53 Periphera l edema 804418095 Completed 09/12/2024 JYOTI GARZA, [address], [address], [facility] 09:55:53 Thoracic back pain 150125892 Completed 09/12/2024 JYOTI GARZA, [address], [address], [facility] 09:55:53 Tapia's neuroma of left foot 744576028490 105 Completed 09/12/2024 JYOTI GARZA, [address], [address], [facility] 09:55:53 Chest pain 45810303 Completed 09/12/2024 JYOTI GARZA, [address] [address], [facility] 09:55:53 Numbness of upper limb 889320913 Completed 09/12/2024 JYOTI GARZA, [address], [address] [place] [address], [facility] 09:55:53 Periphera l nerve disease 349326319 Completed 09/12/2024 JYOTI GARZA, [address] [address], [facility] 09:55:53 Fracture of rib 48818910 Completed 09/12/2024 JYOTI GARZA, [address] [address], [facility] 09:55:53 Blood in urine 94439107 Completed 09/12/2024 JYOTI GARZA, [address], [address] [place] [address], [facility] 09:55:53 Dyslipide josue 773069421 Completed 09/12/2024 JYOTI GARZA, [address], [address] [place] [address], [facility] 09:55:53 Neuropath y 397156171 Completed 09/12/2024 JYOTI GARZA, [address] [address], [facility] 09:55:53 Foreign body in left forearm Completed 09/12/2024 JYOTI GARZA, [address], [address], [facility] 09:55:53 Carotid bruit 073889419 Active JYOTI GARZA, [address], [address] [place] [address] 5, [facility] 09:56:30 Cervical disc disorder 586480925 Completed 09/12/2024 JYOTI GARZA, [address], [address] [place] [address] 5, [facility] 09:55:53 Mass of urinary bladder 224122522 Active JYOTI GARZA, [address], [address] [place] [address], [facility] 11:47:40 History of placement of stent for coronary artery disease 987665911 Active JYOTI GARZA, [address], [address] [place] [address], [facility] 09:56:30 Coronary atheroscl erosis 102092080 Active JYOTI GARZA, [address], [address] [place] [address] 5, [facility] 11:47:40 Ependymom a 482994760 Completed 09/12/2024 JYOTI GARZA, [address], [address], [facility] 09:55:53 Gastritis 8978297 Completed 09/12/2024 JYOTI KAYLA, [address], [address], [facility] 5 09:55:53 Foot pain 62307241 Completed 09/12/2024 JYOTI GARZA, [address], [address], [facility] 5 09:55:53 Diarrhea 62164050 Completed 09/12/2024 JYOTI GARZA, [address], [address] [place] [address] 5, [facility] 5 09:55:53 Chondroma lacia 05362010 Completed 09/12/2024 JYOTI GARZA, [address], [address] [place] [address] 5, [facility] 5 09:55:53 Acute cystitis 63375430 Completed 09/12/2024 JYOTI GARZA, [address], [address], [facility] 5 09:55:53 Urinary tract infectiou s disease 77897937 Completed 09/12/2024 JYOTI GARZA, [address], [address], [facility] 5 09:55:54 Long-term current use of anticoagu lant 936823817 Completed 09/12/2024 JYOTI GARZA, [address], [address], [facility] 5 09:55:54 Intervert ebral disc disorder of cervical region with myelopath y 76226411 Completed 09/12/2024 JYOTI GARZA [address] [address], [facility] 5 09:55:54 Cold sweat 05945950 Completed 09/12/2024 JYOTI GARZA, [address], [address] [place] [address], [facility] 09:55:54 Constipat ion 18114284 Completed 09/12/2024 JYOTI GARZA [address] [address], [facility] 09:55:53 Indigesti on 195945243 Completed 09/12/2024 JYOTI GARZA [address] [address], [facility] 09:55:53 Acute retention of urine 814259079 Completed 09/12/2024 JYOTI GARZA [address] [address], [facility] 09:55:53 Benign prostatic hyperplas ia 871586154 Active JYOTI GARZA [address], [address] [place] [address], [facility] 09:56:30 Hydrouret eronephro sis 47298404 Active JYOTI GARZA [address] [address], [facility] 5 09:56:30 Obstructi on of urinary bladder outlet 361839744 Completed 09/12/2024 JYOTI GARZA [address] [address], [facility] 5 09:55:53 Acute urinary tract infection 567520205 Completed 09/12/2024 JYOTI GARZA [address], [address], [facility] 5 09:55:53 Preinfarc tion syndrome 6690113 Completed 09/12/2024 JYOTI GARZA, [address], [address], [facility] 5 09:55:53 Urinary tract obstructi on 9623797 Completed 09/12/2024 JYOTI GARZA, [address], [address], [facility] 5 09:55:54 Pruritus caused by drug 519576295 Completed 09/12/2024 JYOTI GARZA, [address], [address], [facility] 5 09:55:54 Pain of knee region 4379828260 Active JYOTI GARZA, [address], [address], [facility] 5 11:38:20 Atypical chest pain 135565223 Active JYOTI GARZA, [address], [address], [facility] 5 11:38:20 Leukocyto sis 157340319 Active JYOTI GARZA, [address], [address], [facility] 5 11:38:20 Chronic neck pain 651344952268 7 Active JYOTI GARZA, [address], [address], [facility] 5 11:38:20 Acute kidney injury 66037836 Donta GARZA, [address], [address] [place] [address] 5, [facility] 5 11:38:20 Backache 494094855 Donta GARZA, [address], [address] [place] [address], [facility] 5 11:38:20 Postopera tive visit 467204708 Donta GARZA, [address], [address] [place] [address], [facility] 5 11:38:20 Onofre hematuria 968599792 Donta GARZA, [address], [address] [place] [address], [facility] 5 11:38:20 Prolapse of cervical intervert ebral disc without radiculop athy 125527589322 04 Donta GARZA, [address], [address] [place] [address], [facility] 5 11:38:20 Sciatica 50057998 Donta GARZA, [address], [address] [place] [address], [facility] 5 11:38:20 Gastroeso phageal reflux disease 321539564 Donta GARZA, [address], [address] [place] [address], [facility] 5 11:38:20 Closed fracture of upper end of tibia 75246849 Donta GARZA, [address], [address] [place] [address], [facility] 5 11:38:20 Gastro-es ophageal reflux disease with esophagit is [id number] Active JYOTI GARZA, [address], [address], [facility] 5 11:38:20 Mixed hyperlipi demia [id number] Active JYOTI GARZA, [address], [address], [facility] 5 11:38:20 Syncope [id number] Active JYOTI GARZA, [address], [address], [facility] 5 11:38:20 Anemia [id number] Donta GARZA, [address], [address], [facility] 5 11:38:20 Periphera l edema [id number] Donta GARZA, [address], [address], [facility] 5 11:38:20 Thoracic back pain [id number] Donta GARZA, [address], [address], [facility] 5 11:38:20 Tapia's neuroma of left foot [id number] 105 Active JYOTI GARZA, [address], [address], [facility] 5 11:38:20 Chest pain [id number] Donta GARZA, [address], [address] [place] [address] 5, [facility] 5 11:47:40 Numbness of upper limb [id number] Donta GARZA, [address], [address] [place] [address] 5, [facility] 5 11:38:20 Periphera l nerve disease [id number] Donta GARZA, [address], [address] [place] [address] 5, [facility] 5 11:38:20 Fracture of rib [id number] Donta GARZA, [address], [address] [place] [address] 5, [facility] 5 11:38:20 Blood in urine [id number] Donta GARZA, [address], [address] [place] [address] 5, [facility] 5 11:47:40 Dyslipide josue [id number] Donta GARZA, [address], [address] [place] [address] 5, [facility] 5 11:38:20 Neuropath y [id number] Donta GARZA, [address], [address] [place] [address] 5, [facility] 5 11:38:20 Cervical spondylos is [id number] Donta GARZA, [address], [address] [place] [address], [facility] 5 11:47:40 Foreign body in left forearm Donta GARZA [address] [address], [facility] 5 11:38:20 Cervical disc disorder 384048606 Active JYOTI GARZA, [address], [address], [facility] 5 11:47:40 Ependymom a 406368906 Active JYOTI GARZA, [address], [address] [place] [address] 5, [facility] 5 11:38:20 Gastritis [id number] Donta GARZA, [address], [address] [place] [address] 5, [facility] 5 11:38:20 Foot pain [id number] Donta GARZA, [address], [address] [place] [address], [facility] 5 11:38:20 Coronary arteriosc lerosis 19068938 Active JYOTI GARZA, [address], [address] , [facility] 5 11:38:20 Diarrhea [id number] Donta GARZA, [address], [address] [place] [address] 5, [facility] 5 11:47:40 Chondroma lacia 04707429 Active JYOTI GARZA, [address], [address] [place] [address], [facility] 5 11:38:20 Acute cystitis [id number] Donta GARZA, [place] [address], [facility] 5 11:38:20 Urinary tract infectiou s disease [id number] Donta GARZA, [address], [address] [place] [address] 5, [facility] 5 11:47:40 Long-term current use of anticoagu lant [id number] Donta GARZA, [address], [address] [place] [address] 5, [facility] 5 11:38:20 Diabetes mellitus [id number] Donta GARZA, [address], [address] [place] [address], [facility] 5 11:38:20 Intervert ebral disc disorder of cervical region with myelopath y [id number] Donta GARZA, [address], [address] [place] [address] 5, [facility] 5 11:38:20 Cold sweat [id number] Donta GARZA, [address], [address] [place] [address] 5, [facility] 5 11:38:20 Obstructi on of urinary bladder outlet [id number] Donta GARZA, [address], [address] [place] [address] 5, [facility] 5 11:40:19 Urinary tract obstructi on [id number] Donta GARZA, [address], [address] [place] [address], [facility] 5 11:40:19 Constipat ion [id number] Donta GARZA, [employer], [address], [facility] 11:40:43 Preinfarc tion syndrome [id number] Donta GARZA, [address], [address], [facility] 5 11:40:44 Indigesti on [id number] Donta GARZA, [address], [address], [facility] 11:42:08 Pruritus caused by drug [id number] Donta GARZA, [address], [address], [facility] 11:42:08 Traumatic arthropat hy-knee [id number] Donta GARZA, [address], [address], [facility] 11:42:45 Acute retention of urine [id number] Donta GARZA, [address], [address], [facility] 11:47:40 Pain associate d with prosthesi s of knee joint [id number] Donta GARZA, [address], [address], [facility] 12:05:06 Hydroneph rosis [id number] Donta GARZA, [address], [address], [facility] 5 11:42:45 Acute urinary tract infection [id number] Donta GARZA [address], [address], [facility] 5 11:42:45 Enteritis of small intestine 75769813 Active JYOTI GARZA, [address], [address], [facility] 5 11:42:45 Upper respirato ry infection 84887816 Active JYOTI GARZA, [address], [address], [facility] 5 11:45:05 Complicat ion of urinary catheter 318360690 Active JYOTI GARZA, [address], [address], [facility] 5 11:45:27 Myocardia l infarctio n 35461041 Active 2016 MARÍA wallace [facility] 4 13:16:36 Acute exacerbat ion of chronic obstructi ve pulmonary disease 953010354 Active 2023 MARÍA wallace [facility] 4 13:15:45 Chronic obstructi ve pulmonary disease 83383124 Active 2023 MARÍA wallace [facility] 4 13:15:48 Essential hypertens ion 15858513 Active 2023 JYOTI GARZA, [address], [address], [facility] 5 12:05:09 Primary malignant neoplasm of colon 94774592 Active 2023 Dx age 48-Amilcar ated with Surger y/chem o and radiat ion. [facility] 13:19:13 Statin declined 112353456 Active 2023 [facility] 5 22:45:03 Hyperlipi demia 69741218 Active 2024 JYOTI KAYLA, [address], [address] [place] [address] 5, [facility] 5 12:05:11 Chronic kidney disease stage 3B 252248936 Active 2024 JYOTILelo CAPUTOKAYLA, [address], [address] [place] [address] 5, [facility] 5 12:04:56 Prostate specific antigen above reference range 633171319 Active 2024 JYOTI GARZA, [address], [address] [place] [address] 5, [facility] 5 12:04:57 Tobacco dependenc e caused by cigarette s 270297314869 28360 Active [address], [address], [facility] 5 12:05:00 Problem Notes None recorded. Procedures Surgical History Date Name Laterality Status Provider Name and Address Organization Details Recorded Time 02/26/20 25 radioisotope scan of bone completed MARÍA TOLBERT [facility], LMary AnnL.CMary Ann 02/27/2025 17:45:02 02/13/20 25 Doppler ultrasonography of vein completed MARÍA TOLBERT [facility], LMary AnnL.CMary Ann 02/13/2025 19:33:55 02/07/20 25 plain X-ray of chest completed MARÍA TOLBERT [facility], PariLMary AnnCMary Ann 02/06/2025 17:09:43 03/05/20 25 plain X-ray of chest completed [facility], Tera.L.CMary Ann 09/19/2024 19:27:51 08/11/19 25 plain X-ray of chest completed [facility] 08/11/2024 22:47:22 08/11/19 25 ultrasonography of bilateral kidneys completed [facility], LMary AnnL.CMary Ann 08/11/2024 22:55:51 08/10/[address] of abdomen completed [facility], PariL.CMary Ann 08/11/2024 23:02:04 08/08/[address] of abdomen completed [facility], LMary AnnL.CMary Ann 08/11/2024 22:56:34 07/13/20 24 radionuclide three-phase bone study completed [facility], PariL.CMary Ann 07/17/2024 10:24:40 07/01/20 23 total knee replacement completed [facility], L.L.CMary Ann 09/19/2024 19:26:53 12/31/19 17 angiography completed [facility] 05/08/2024 13:14:52 Imaging Results None recorded. Procedure Notes None recorded. Medical Equipment None Reported. Allergies Allergen ID Allergen Name Allergen Category Reaction Reaction Severity Criticality Documentation Date Start Date Code Code System Note Provider Name and Address Organization Details Recorded Time 31353 No known allergy (situatio n) Not available Not available Not available Not available 09/12/2024 [id number] SNHANNAH GARZA, [address], [address], [facility] PariL.CMary Ann 09:51:15 No known drug allergies Medications Name [...] and Address Organization Details Last Updated DateTime 175.26 cm 31.9 kg/m2 31803.9 5 g 94 % 134 /min 114 /min 22 /min 148/100 mm[Hg] 124/80 mm[Hg] MARÍA TOLBERT [facility] 12:15:10 Social History Question Answer Notes LastModified by Organizat ion Details LastModified Time Tobacco Smoking Status Former Smoker JYOTI GARZA, [address], [address], [facility] 05/08/2024 13:42:58 What Is Your Level Of Caffeine Consumption? Moderate [email or web address] Information not available 05/08/2024 When Did You Quit Smoking? 1-5yearssince lastcigarette Information not available 05/08/2024 What Was The Date Of Your Most Recent Tobacco Screening? 05/08/2024 Information not available 05/08/2024 What Is Your Current Pack Years? 30ormorepacky [email or web address] Information not available 05/08/2024 What Is Your Relationship Status? [email or web address] Information not available 05/08/2024 At What Age Did You Start Smoking Tobacco? 17 Information not available 05/08/2024 How Much Tobacco Do You Smoke? No Information not available 05/08/2024 Have You Recently Traveled Abroad? No [email or web address] Information not available 05/08/2024 How Many Years Have You Used Smokeless Tobacco? 30 Information not available 05/08/2024 Sex: Unknown Functional Status Question Answer Note LastModified by Organizat ion Details LastModified Time Do you use any illicit or recreational drugs? No [email or web address] Information not available 05/08/2024 Do you or have you ever used any other forms of tobacco or nicotine? Yes Information not available 05/08/2024 What is your level of alcohol consumption? None [email or web address] Information not available 05/08/2024 Do you or have you ever used smokeless tobacco? 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 Yes [email or web address] Information not available 05/08/2024 Do you or [...] Organization Details LastModified Time Father Essential hypertension [email or web address] Not available 13:17:16 Father Natural in his 80's Not available 05/08/2024 13:17:44 Mother Essential hypertension [email or web address] Not available 13:17:16 Mother Natural in her 80's [email or web address] Not available 05/08/2024 13:17:44 Medical History Condition Response Coronary Artery Disease Y Constipation Y Reflux/GERD Y High Cholesterol Y Heart Disease Y Hypertension Y Immunizations Vaccine Type Date Status Note Provider Nam e and Address Organization Details Recorded Time Influenza, adjuvanted, trivalent, PF 05/21/2025 [facility] 05/21/2025 11:03:46 Influenza, high-dose, quadrivalent, PF 05/17/2022 completed JYOTI GARZA, [address], [address], [facility] 09/12/2024 09:51:38 COVID-19, mRNA, LNP-S, PF, 100 mcg/0.5mL dose or 50 mcg/0.25mL dose 09/09/2020 completed JYOTI GARZA, [address], [address], [facility] 05/08/2024 13:35:12 COVID-19, mRNA, LNP-S, PF, 100 mcg/0.5mL dose or 50 mcg/0.25mL dose 10/07/2020 completed JYOTI GARZA, [address], [address], [facility] 05/08/2024 13:35:12 Tdap 04/04/2024 completed JYOTI GARZA, [address], [address], [facility] 09/12/2024 09:51:38 Influenza, high-dose, trivalent, PF 04/14/2018 completed JYOTI GARZA, [address], [address], [facility] 05/08/2024 13:35:12 Influenza, high-dose, trivalent, PF 05/24/2019 completed JYOTI GARZA, [address] [address], [facility] 05/08/2024 13:35:12 Influenza, split virus, quadrivalent, PF 04/17/2021 completed JYOTI GARZA, [address] [address], [facility] 09/12/2024 09:51:38 Influenza, adjuvanted, trivalent, PF 05/08/2024 completed MARÍA wallace [facility] 05/08/2024 14:20:07 Past Encounters Encounter ID Performer Location Encounter Start Date Encounter Closed Date Diagnosis/Indication Diagnosis SNOMED-CT Code Diagnosis ICD10 Code Diagnosis IMO Codes Diagnosis Note [id number] KEVIN VALDIVIA [facility] ([facility]) [address] [place] [address] 05/21/2025 09:56:48 05/21/2025 11:13:16 Administration of influenza vaccine 19305907 Z23 [id number] KEVIN VALDIVIA [facility] ([facility]) [address] [place] [address] 06/04/2025 10:55:29 06/04/2025 13:55:08 Lower abdominal pain 94105876 R10.30 716414 Hyperglycemia 09206772 R 73.9 21497 Acute cystitis 15211269 N30.01 [id number] Health Concerns Section Related Observation LastModified by Organization Detai ls LastModified Time None Recorded Concern Status LastModified by Organization Details LastModified Time None Recorded Payers Encounter Date Sequence Insurance Name Policy Number Policy Connors Covered Member ID Connors Member ID Guarantor Name 06/04/2025 1 [facility] (MEDICARE REPLACEMENT/A DVANTAGE - PPO) [id number] Holden Artie [id number] Holden Artie Notes Date Note Type Note Provider Name and Address Organization Details Recorded Time 5 text/html Abdominal PainReported by PatientAbdominal PainFor quality, patient reportsachinganddull. For location, patient reportsrlq,llq, andsuprapubic. For severity, patient reportsmoderate. For duration, patient reportsintermittent. For onset/timing, patient reportsacute. For associated symptoms, patient reportsno nauseaandno vomiting. For previous tests, treatment and/or diagnostic procedures, patient reportsnone. KEVIN VALDIVIA [address] [place] [address], [phone], [facility] 06/06/2025 09:38:14
--- OUTSIDE RECORDS SUMMARY | 2025-06-19 12:29 | XMS_ITS | Continuity of Care Document ---
Author Organization [facility] Nelson Medley, [facility] ([facility]) Address [address] [place] [address] Care Team Providers Care Staker Surveying Name Role Phone JYOTI GARZA Primary Care Provider Unavailabl e Assessment No assessment recorded. Plan of Treatment Reminders Order Date Submit Date Provider Last Modified By Organization Details Last Modified Time Details Appointments ANNUAL 20 026 08:20AM KEVIN VALDIVIA Not available Not available Not available Lab None record ed. Referral None record ed. Procedures None record ed. Surgeries None record ed. Imaging None record ed. Medication Orders None record ed. Patient TargetsNo targets recorded. Patient InstructionsNo instructions recorded. Reason for Referral None Reported. Results Created Date Observation Date Name Description Value Unit Range Abnormal Flag Note LastModifiedBy Organization Detail LastModifiedTime 05/02/2005/02/2025 HBA1C hemaglobin A1C 5.4 4.2-6. 5 Not Available [facility] [address] [facility] [address], [place], [address], 05/02/2025 11:12:20 Result Notes None recorded. Problems Name Problem SNOMED Code Status Onset Date Resolution Date Notes Provider Name and Address Organization Details Recorded Time Pain of knee region 5224867738 Completed 09/12/2024 KEVIN VALDIVIA [address] [place], [address], [facility] Nelson Medley 09:55:52 Atypical chest pain 497283297 Completed 09/12/2024 KEVIN VALIDVIA [address] [place], [address], [facility] 5 09:55:52 Leukocyto sis 114159718 Completed 09/12/2024 JYOTI KAYLA, [address], [address] [place] [address] 5, [facility] 5 09:55:52 Chronic neck pain 068587008923 7 Completed 09/12/2024 JYOTI CAPUTOTES, [address], [address] [place] [address] 5, [facility] 09:55:53 History of total knee arthropla sty 797515998125 5 Active JYOTI GARZA, [address], [address] [place] [address] 5, [facility] 5 09:56:29 Neoplasm of spinal cord 090409964 Active JYOTI GARZA, [address], [address] [place] [address] 5, [facility] 5 09:56:29 Acute kidney injury 47435379 Completed 09/12/2024 JYOTI KAYLA, [address], [address] [place] [address] 5, [facility] 5 09:55:53 Backache 333824054 Completed 09/12/2024 JYOTI KAYLA, [address], [address] [place] [address] 5, [facility] 09:55:53 Postopera tive visit 629015100 Completed 09/12/2024 JYOTI KAYLA, [address], [address] [place] [address] 5, [facility] 5 09:55:53 Onofre hematuria 138083525 Completed 09/12/2024 JYOTI GARZA, [address], [address], [facility] 09:55:53 Cervical disc disorder with radiculop athy 889230845 Active JYOTI GARZA, [address], [address], [facility] 09:56:29 Prolapse of cervical intervert ebral disc without radiculop athy 015457290471 04 Completed 09/12/2024 JYOTI KAYLA, [address], [address] [place] [address] 5, [facility] 09:55:53 Sciatica 30857969 Completed 09/12/2024 JYOTI CAPUTOTES, [address], [address] [place] [address] 5, [facility] 09:55:53 Closed fracture of upper end of tibia 70765350 Completed 09/12/2024 JYOTI GARZA, [address], [address] [place] [address], [facility] 09:55:53 Gastro-es ophageal reflux disease with esophagit is 173329930 Completed 09/12/2024 JYOTI GARZA, [address], [address], [facility] 09:55:53 Gastroeso phageal reflux disease without esophagit is 584125150 Active JYOTI GARZA, [address], [address], [facility] 09:56:30 Mixed hyperlipi demia 494114676 Completed 09/12/2024 JYOTI GARZA, [address], [address] , [facility] 09:55:53 Syncope 406560757 Completed 09/12/2024 JYOTI CAPUTOTES, [place] [address], [facility] 09:55:53 Anemia 934812068 Completed 09/12/2024 JYOTI GARZA, [address] , [facility] 09:55:53 Periphera l edema 063573547 Completed 09/12/2024 JYOTI GARZA, [address] , [facility] 09:55:53 Thoracic back pain 658382802 Completed 09/12/2024 JYOTI GARZA, [address] , [facility] 09:55:53 Tapia's neuroma of left foot 778130660623 105 Completed 09/12/2024 JYOTI GARZA, [address] , [facility] 09:55:53 Chest pain 85359313 Completed 09/12/2024 JYOTI GARZA, [place] [address], [facility] 09:55:53 Numbness of upper limb 292156124 Completed 09/12/2024 JYOTI GARZA, [address], [address], [facility] 09:55:53 Periphera l nerve disease 486575486 Completed 09/12/2024 JYOTI KAYLA, [address], [address], [facility] 09:55:53 Fracture of rib 58088679 Completed 09/12/2024 JYOTI GARZA, [address], [address], [facility] 09:55:53 Blood in urine 50305292 Completed 09/12/2024 JYOTI GARZA, [address], [address], [facility] 09:55:53 Dyslipide josue 505102983 Completed 09/12/2024 JYOTI GARZA, [address], [address], [facility] 09:55:53 Neuropath y 853356143 Completed 09/12/2024 JYOTI GARZA, [address], [address], [facility] 09:55:53 Foreign body in left forearm Completed 09/12/2024 JYOTI GARZA, [address], [address], [facility] 09:55:53 Carotid bruit 658544765 Active JYOTILelo GARZA, [address], [address], [facility] 09:56:30 Cervical disc disorder 864245525 Completed 09/12/2024 JYOTI GARZA, [place] [address], [facility] 09:55:53 Mass of urinary bladder 011361259 Active JYOTI GARZA, [place] [address], [facility] 11:47:40 History of placement of stent for coronary artery disease 817750143 Active JYOTI GARZA, [place] [address], [facility] 09:56:30 Coronary atheroscl erosis 908138474 [place] [address], [facility] 11:47:40 Ependymom a 700049331 Completed 09/12/2024 JYOTI GARZA [place] [address], [facility] 09:55:53 Gastritis 3023234 Completed 09/12/2024 [place] [address], [facility] 09:55:53 Foot pain 63625849 Completed 09/12/2024 JYOTI GARZA [place] [address], [facility] 09:55:53 Diarrhea 24301898 Completed 09/12/2024 JYOTI GARZA [address] [place], [address], [facility] 5 09:55:53 Chondroma lacia 42579385 Completed 09/12/2024 JYOTI GARZA, [address], [address], [facility] 09:55:53 Acute cystitis 44627453 Completed 09/12/2024 JYOTI GARZA, [address], [address], [facility] 09:55:53 Urinary tract infectiou s disease 62985019 Completed 09/12/2024 JYOTI GARZA, [address], [address], [facility] 5 09:55:54 Long-term current use of anticoagu lant 632874117 Completed 09/12/2024 JYOTI GARZA, [address], [address] [place] [address], [facility] 09:55:54 Intervert ebral disc disorder of cervical region with myelopath y 42108484 Completed 09/12/2024 JYOTI GARZA, [address], [address], [facility] 09:55:54 Cold sweat 09611897 Completed 09/12/2024 JYOTI GARZA, [address], [address], [facility] 09:55:54 Constipat ion 34070563 Completed 09/12/2024 JYOTI GARZA, [address], [address], [facility] 09:55:53 Indigesti on 290356835 Completed 09/12/2024 JYOTI GARZA, [address], [address], [facility] 09:55:53 Acute retention of urine 010781221 Completed 09/12/2024 JYOTI GARZA, [address], [address], [facility] 09:55:53 Benign prostatic hyperplas ia 018109521 Active JYOTI GARZA, [address], [address], [facility] 09:56:30 Hydrouret eronephro sis 69225145 Active JYOTI GARZA, [address], [address], [facility] 09:56:30 Obstructi on of urinary bladder outlet 635934142 Completed 09/12/2024 JYOTI GARZA, [address], [address], [facility] 09:55:53 Acute urinary tract infection 584432932 Completed 09/12/2024 JYOTI GARZA, [address], [address], [facility] 09:55:53 Preinfarc tion syndrome 7450658 Completed 09/12/2024 JYOTI GARZA, [address], [address], [facility] 5 09:55:53 Urinary tract obstructi on 3425183 Completed 09/12/2024 JYOTI GARZA, [address], [address] [place] [address] 5, [facility] 5 09:55:54 Pruritus caused by drug 525329532 Completed 09/12/2024 JYOTI GARZA, [address], [address] [place] [address] 5, [facility] 5 09:55:54 Pain of knee region 3852437026 Active JYOTI GARZA, [address], [address] [place] [address] 5, [facility] 5 11:38:20 Atypical chest pain 283400445 Donta GARZA, [address], [address] [place] [address] 5, [facility] 5 11:38:20 Leukocyto sis 105286983 Active JYOTI GARZA, [address], [address] [place] [address] 5, [facility] 5 11:38:20 Chronic neck pain 144315866191 7 Active JYOTI GARZA, [address], [address] [place] [address] 5, [facility] 5 11:38:20 Acute kidney injury 51294620 Donta GARZA, [address], [address] [place] [address] 5, [facility] 5 11:38:20 Backache 363267682 Donta GARZA, [address], [address] [place] [address] 5, [facility] 5 11:38:20 Postopera tive visit 150649136 Donta GARZA, [address], [address] [place] [address] 5, [facility] 5 11:38:20 Onofre hematuria 515828793 Active JYOTI GARZA, [address], [address] [place] [address] 5, [facility] 5 11:38:20 Prolapse of cervical intervert ebral disc without radiculop athy 989054283042 04 Donta GARZA, [address], [address] [place] [address] 5, [facility] 5 11:38:20 Sciatica 37086941 Donta GARZA, [address], [address] [place] [address] 5, [facility] 5 11:38:20 Gastroeso phageal reflux disease 912093870 Donta GARZA, [address], [address] [place] [address] 5, [facility] 5 11:38:20 Closed fracture of upper end of tibia 20948782 Donta GARZA, [address], [address] [place] [address] 5, [facility] 5 11:38:20 Gastro-es ophageal reflux disease with esophagit is 992359440 Donta GARZA, [address], [address] [place] [address] 5, [facility] 5 11:38:20 Mixed hyperlipi demia 642351813 Donta CAPUTOTES, [address], [address], [facility] 5 11:38:20 Syncope 826550301 Donta GARZA, [address], [address], [facility] 5 11:38:20 Anemia 254502295 Donta GARZA, [address], [address], [facility] 5 11:38:20 Periphera l edema 196390472 Donta GARZA, [address], [address], [facility] 5 11:38:20 Thoracic back pain 891185216 Donta GARZA, [address], [address], [facility] 5 11:38:20 Tapia's neuroma of left foot 075531421417 105 Donta GARZA, [address], [address], [facility] 5 11:38:20 Chest pain 17199055 Donta GARZA, [address], [address], [facility] 5 11:47:40 Numbness of upper limb 338308259 Donta GARZA, [address], [address], [facility] 5 11:38:20 Periphera l nerve disease 229471013 Active JYOTI GARZA, [address], [address], [facility] 5 11:38:20 Fracture of rib 90372119 Active JYOTI GARZA, [address], [address] [place] [address] 5, [facility] 5 11:38:20 Blood in urine 58181885 Donta GARZA, [address], [address] [place] [address] 5, [facility] 5 11:47:40 Dyslipide josue 921533168 Donta GARZA, [address], [address] [place] [address] 5, [facility] 5 11:38:20 Neuropath y 542149265 Donta GARZA, [address], [address] [place] [address] 5, [facility] 5 11:38:20 Cervical spondylos is 791515669 Donta GARZA, [address], [address] [place] [address] 5, [facility] 5 11:47:40 Foreign body in left forearm Donta GARZA, [address], [address] [place] [address] 5, [facility] 5 11:38:20 Cervical disc disorder 722532228 Donta GARZA, [address], [address] [place] [address] 5, [facility] 5 11:47:40 Ependymom a 963795293 Donta GARZA, [address], [address] [place] [address] 5, [facility] 5 11:38:20 Gastritis 1329698 Active JYOTI GARZA, [address], [address] [place] [address] 5, [facility] 5 11:38:20 Foot pain 02628490 Active JYOTI GARZA, [address], [address] [place] [address] 5, [facility] 5 11:38:20 Coronary arteriosc lerosis 53920326 Active JYOTI GARZA, [address], [address] [place] [address] 5, [facility] 5 11:38:20 Diarrhea 75949032 Donta GARZA, [address], [address] [place] [address] 5, [facility] 5 11:47:40 Chondroma lacia 24716040 Active JYOTI GARZA, [address], [address] [place] [address] 5, [facility] 5 11:38:20 Acute cystitis 75713044 Donta GARZA, [address], [address] [place] [address] 5, [facility] 5 11:38:20 Urinary tract infectiou s disease 08818954 Donta GARZA, [address], [address] [place] [address] 5, [facility] 5 11:47:40 Long-term current use of anticoagu lant 118804723 Donta GARZA, [address], [address], [facility] 5 11:38:20 Diabetes mellitus 43191663 Active JYOTI GARZA, [address], [address], [facility] 5 11:38:20 Intervert ebral disc disorder of cervical region with myelopath y 53680079 Active JYOTI GARZA, [address], [address], [facility] 11:38:20 Cold sweat 15762314 Donta GARZA, [address], [address], [facility] 5 11:38:20 Obstructi on of urinary bladder outlet 220958798 Donta GARZA, [address], [address], [facility] 11:40:19 Urinary tract obstructi on 8734496 Donta GARZA, [address], [address], [facility] 11:40:19 Constipat ion 73201177 Donta GARZA, [address], [address], [facility] 11:40:43 Preinfarc tion syndrome 1323678 Donta GARZA, [address], [address], [facility] 5 11:40:44 Indigesti on 932207950 Active JYOTI GARZA, [address], [address], [facility] 11:42:08 Pruritus caused by drug 285331457 Donta GARZA, [address], [address], [facility] 11:42:08 Traumatic arthropat hy-knee 831671265 Donta GARZA, [address], [address], [facility] 11:42:45 Acute retention of urine 633370841 Donta GARZA, [address], [address], [facility] 11:47:40 Pain associate d with prosthesi s of knee joint 742021852 Donta GARZA, [address], [address], [facility] 12:05:06 Hydroneph rosis 92050073 Donta GARZA, [address], [address], [facility] 11:42:45 Acute urinary tract infection 273689955 Donta GARZA, [address], [address], [facility] 11:42:45 Enteritis of small intestine 04989643 Donta GARZA, [address], [address], [facility] 5 11:42:45 Upper respirato ry infection 07918577 Active JYOTI GARZA, [address], [address], [facility] 5 11:45:05 Complicat ion of urinary catheter 804425464 Active JYOTI GARZA, [address], [address], [facility] 5 11:45:27 Myocardia l infarctio n 79817808 Active 2016 MARÍA wallace [facility] 4 13:16:36 Acute exacerbat ion of chronic obstructi ve pulmonary disease 247446938 Active 2023 MARÍA wallace [facility] 4 13:15:45 Chronic obstructi ve pulmonary disease 22895740 Active 2023 MARÍA wallace [facility] 4 13:15:48 Essential hypertens ion 48541462 Active 2023 JYOTI GARZA, [address], [address], [facility], [facility].L[facility]ary Ann 5 12:05:09 Primary malignant neoplasm of colon 69414003 Active 2023 Dx age 48-Amilcar ated with Surger y/chem o and radiat ion. MARÍA wallace [facility] Ann 4 13:19:13 Statin declined 960670159 Active 2023 MARÍA wallace [facility] 5 22:45:03 Hyperlipi demia 34768961 Active 2024 JYOTI GARZA, [address], [address], [facility], Nelson 5 12:05:11 Chronic kidney disease stage 3B 870604427 Active 2024 JYOTI GARZA, [facility] [address] [place], [address], [facility], Nelson 12:04:56 Prostate specific antigen above reference range 480118854 Active 2024 JYOTI GARZA, [facility] [address] [place] [address], [address], [facility], Nelson 12:04:57 Tobacco dependenc e caused by cigarette s 874262221681 43415 Active 2024 JYOTI GARZA, [address], [address], [facility], Nelson 12:05:00 Problem Notes None recorded. Procedures Surgical History Date Name Laterality Status Provider Name and Address Organization Details Recorded Time 02/26/20 25 [facility] 17:45:02 02/13/20 25 [facility]25 19:33:55 02/07/20 25 [facility] 17:09:43 09/20/19 25 [facility] 19:27:51 08/11/19 25 [facility]11[facility] 22:47:22 08/11/19 25 ultrasonography of bilateral kidneys completed [facility] 08/11/2024 22:55:51 08/10/[address] of abdomen completed [facility], [facility] Ann 08/11/2024 23:02:04 08/08/[address] of abdomen completed [facility], [facility] Ann 08/11/2024 22:56:34 07/13/20 24 radionuclide three-phase bone study completed [facility] Ann 07/17/2024 10:24:40 07/01/20 23 total knee replacement completed [facility], PariLM[facility] AnnCMary Ann 09/19/2024 19:26:53 12/31/19 17 angiography completed [facility], [facility] Ann 05/08/2024 13:14:52 Imaging Results None recorded. Procedure Notes None recorded. Medical Equipment None Reported. Allergies Allergen ID Allergen Name Allergen Category Reaction Reaction Severity Criticality Documentation Date Start Date Code Code System Note Provider Name and Address Organization Details Recorded Time 24866 No known allergy (situatio n) Not available Not available Not available Not available 09/12/2024 [id number] OREN GARZA, [address], [address] [place] [address], PariL.CMary Ann 09:51:15 No known drug allergies [...] Not Available Not Available Not Available Vitals None Recorded Social History Question Answer Notes LastModified by Organizat ion Details LastModified Time Tobacco Smoking Status Former Smoker JYOTI GARZA, [employer] [address] [place], [address], [facility], [facility] 05/08/2024 13:42:58 What Is Your Level Of Caffeine Consumption? Moderate [email or web address] Information not available 05/08/2024 When Did You Quit Smoking? 1-5yearssince lastcigarette Information not available 05/08/2024 What Was The Date Of Your Most Recent Tobacco Screening? 05/08/2024 Information not available 05/08/2024 What Is Your Current Pack Years? 30ormorepacky ears Information not available 05/08/2024 What Is Your Relationship Status? [email or web address] Information not available 05/08/2024 At What Age Did You Start Smoking Tobacco? 17 Information not available 05/08/2024 How Much Tobacco Do You Smoke? No Information not available 05/08/2024 Have You Recently Traveled Abroad? No [email or web address] Information not available 05/08/2024 How Many Years Have You Used Smokeless Tobacco? 30 Information not available 05/08/2024 Sex: Unknown Functional Status Question Answer Note LastModified by Organizat ion Details LastModified Time Do you use any illicit or recreational drugs? No [email or web address] Information not available 05/08/2024 Do you or have you ever used any other forms of tobacco or nicotine? Yes Information not available 05/08/2024 What is your level of alcohol consumption? None Information not available 05/08/2024 Do you or have you ever used smokeless tobacco? 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 Yes [email or web address] Information not available 05/08/2024 Do you or [...] Organization Details LastModified Time Father Essential hypertension [email or web address] Not available 13:17:16 Father Natural in his 80's [email or web address] Not available 05/08/2024 13:17:44 Mother Essential hypertension [email or web address] Not available 13:17:16 Mother Natural in her 80's Not available 05/08/2024 13:17:44 Medical History Condition Response Coronary Artery Disease Y Constipation Y Reflux/GERD Y High Cholesterol Y Heart Disease Y Hypertension Y Immunizations Vaccine Type Date Status Note Provider Nam e and Address Organization Details Recorded Time Influenza, adjuvanted, trivalent, PF 05/21/2025 completed MARÍA wallace [facility] 05/21/2025 11:03:46 Influenza, high-dose, quadrivalent, PF 05/17/2022 completed JYOTI GARZA [address], [phone], [facility] 09/12/2024 09:51:38 COVID-19, mRNA, LNP-S, PF, 100 mcg/0.5mL dose or 50 mcg/0.25mL dose 09/09/2020 completed JYOTI GARZA [facility] [address] [place] [address], [phone], [facility] 05/08/2024 13:35:12 COVID-19, mRNA, LNP-S, PF, 100 mcg/0.5mL dose or 50 mcg/0.25mL dose 10/07/2020 completed JYOTI GARZA [facility] [address] [place], [phone], [facility] 05/08/2024 13:35:12 Tdap 04/04/2024 completed JYOTI GARZA, [facility] [address] [place], [phone], [facility] 09/12/2024 09:51:38 Influenza, high-dose, trivalent, PF 04/14/2018 completed JYOTI GARZA, [address], [phone], [facility] 05/08/2024 13:35:12 Influenza, high-dose, trivalent, PF 05/24/2019 completed JYOTI GARZA, [address], [phone], [facility] 05/08/2024 13:35:12 Influenza, split virus, quadrivalent, PF 04/17/2021 completed JYOTI GARZA, [address], [phone], [facility] 09/12/2024 09:51:38 Influenza, adjuvanted, trivalent, PF 05/08/2024 [facility]/08/2024 14:20:07 Past Encounters Encounter ID Performer Location Encounter Start Date Encounter Closed Date Diagnosis/Indication Diagnosis SNOMED-CT Code Diagnosis ICD10 Code Diagnosis IMO Codes Diagnosis Note [id number] JYOTI GARZA [facility] ([facility]) [address] [place] [phone] 05/02/2025 10:45:24 05/03/2025 12:47:47 Hyperglycemia 51215869 R73.9 [id number] JYOTI GARZA [facility] ([facility]) [address] [place] [phone] 05/21/2025 09:56:48 05/21/2025 11:13:16 Administration of influenza vaccine [id number] Health Concerns Section Related Observation LastModified by Organization Detai ls LastModified Time None Recorded Concern Status LastModified by Organization Details LastModified Time None Recorded Payers Encounter Date Sequence Insurance Name Policy Number Policy Connors Covered Member ID Connors Member ID Guarantor Name 05/21/2025 1 [facility] (MEDICARE REPLACEMENT/A DVANTAGE - PPO) [id number] Aram Alva [id number] Aram Alva
--- OUTSIDE RECORDS SUMMARY | 2025-06-19 12:30 | XMS_ITS | Continuity of Care Document ---
Author Organization YASMIN - [facility] Gal[place], [place], [facility] ([facility]) Address [address] [facility] [place] [address] Care Team Providers Care Astronomy Teacher Name Role Phone JYOTI GARZA Primary Care Provider Unavailabl e Assessment No assessment recorded. Plan of Treatment Reminders Order Date Submit Date Provider Last Modified By Organization Details Last Modified Time Details Appointments [id number] 2025 08:20A M JYOTI GARZA, SALES REPRESENTATIVES Not available Not available Not available Lab microalbu min/creat inine, mass ratio, urine 2024 025 [id number] [facility], [address] [place] [address], [address] [place], [address], 05/09/2025 10:33:24 hemoglobi n A1C/hemog lobin total, QN, blood 2024 025 ASA [facility], [address] [facility], [address], [place], [address], 05/02/2025 11:12:20 Referral None recorded. Procedures None recorded. Surgeries None recorded. Imaging None recorded. Medication Orders None recorded. Patient TargetsNo targets recorded. Patient InstructionsNo instructions recorded. Reason for Referral None Reported. Results Created Date Observation Date Name Description Value Unit Range Abnormal Flag Note LastModifiedBy Organization Detail LastModifiedTime 04/09/2004/09/2025 CBC WBC 6.7 x10 4.5-10 .5 Not Available [facility] [address] [facility] [address], [place], [address], 04/09/2025 12:24:32 09/23/20 25 04/09/2025 CBC RBC 4.73 x10 4.30-5 .90 Not Available [facility] [address] Mar[address] Guzman [facility], [place], [address], 04/09/2025 12:24:32 04/09/20 25 04/09/2025 CBC HGB 15.0 g/dL 13.5-1 8.0 Not Available [facility] [address] [facility], [place], [address], 04/09/2025 12:24:32 04/09/2004/09/2025 CBC HCT 45.7 % 35.0-6 0.0 Not Available [facility] [address] [facility]man [facility], [place], [address], 04/09/2025 12:24:32 04/09/20 25 04/09/2025 CBC MCV 96.6 fL 80.0-9 9.9 Not Available [facility] [address] [facility] Gu[facility]man [facility], [place], [address], 04/09/2025 12:24:32 04/09/20 25 04/09/2025 CBC MCH 31.6 pg 27.0-3 2.0 Not Available [facility] [address] [facility], [place], [address], 04/09/2025 12:24:32 04/09/20 25 04/09/2025 CBC MCHC 32.7 g/dL 32.0-3 6.0 Not Available [facility] [address] [facility], [place], [address], 04/09/2025 12:24:32 04/09/20 25 04/09/2025 CBC RDW 15.0 % 11.5-1 4.5 high Not Available [facility] [address] [facility] Guzman [facility], [place], [address], 04/09/2025 12:24:32 04/09/20 25 04/09/2025 CBC plt 203.0 x10 150.0- 451.0 Not Available [facility] [address] [facility], [place], [address], 04/09/2025 12:24:32 04/09/20 25 04/09/2025 CBC lymphocytes % 17.9 % 20.0-5 0.0 low Not Available [facility] [address] [place] [address] [facility], [place], [address], 04/09/2025 12:24:32 04/09/20 25 04/09/2025 CBC granulcytes % 67.2 % 30.0-7 0.0 Not Available [facility] [address] [place] [address] [facility], [place], [address], 04/09/2025 12:24:32 04/09/20 25 04/09/2025 CBC monocytes % 11.9 % 2.0-16 .0 Not Available [facility] [address] [place] [address] [facility], [place], [address], 04/09/2025 12:24:32 04/09/20 25 04/09/2025 CBC granulcytes# 4.5 x10 Not Viridiana ilable [facility] [address] [place] [address] [facility], [place], [address], 04/09/2025 12:24:32 04/09/20 25 04/09/2025 CBC lymphocytes # 1.2 x10 Not Available [facility] [address] [place] [address] [facility], [place], [address], 04/09/2025 12:24:32 04/09/20 25 04/09/2025 CBC monocytes # 0.8 x10 Not Avai lable [facility] [address] [facility], [place], [address], 04/09/2025 12:24:32 04/09/20 25 04/09/2025 CMP (MALE ) glucose 104.0 mg/dL 60.0-9 9.0 high Not Available [facility] [address] [facility], [place], [address], 04/09/2025 12:37:53 04/09/20 25 04/09/2025 CMP (MALE ) BUN (blood urea nitrogen) 19.0 mg/dL 10.0-2 6.0 Not Available [facility] [address] [facility], [place], [address], 04/09/2025 12:37:53 04/09/20 25 04/09/2025 CMP (MALE ) creatinine (serum) 1.8 mg/dL 0.4-1. 5 high Not Available [facility] [address] [facility], [place], [address], 04/09/2025 12:37:53 04/09/20 25 04/09/2025 CMP (MALE ) BUN/creatini ne ratio 10.56 ratio Not Available [facility] [address] [facility], [place], [address], 04/09/2025 12:37:53 04/09/20 25 04/09/2025 CMP (MALE ) eGFR calculated 39.[address] [facility] [address] [facility] Megan [facility], [place], [address], 04/09/2025 12:37:53 04/09/20 25 04/09/2025 CMP (MALE ) total protein 7.3 g/dL 6.0-8. 5 Not Available [facility] [address] [facility], [place], [address], 04/09/2025 12:37:53 04/09/20 25 04/09/2025 CMP (MALE ) total bilirubin 0.7 mg/dL 0.2-1. 3 Not Available [facility] [address] [facility], [place], [address], 04/09/2025 12:37:53 04/09/20 25 04/09/2025 CMP (MALE ) albumin 4.2 g/dL 3.5-5. 5 Not Available [facility] [address] [facility] 1, [place], [address], 04/09/2025 12:37:53 04/09/20 25 04/09/2025 CMP (MALE ) globulin 3.1 calc Not Available [facility] [address] [address], [place], [address], 04/09/2025 12:37:53 04/09/20 25 04/09/2025 CMP (MALE ) AST (SGOT) 24.0 U/L 0.0-46 .0 Not Available [facility] [address] [facility] 1, [place], [address], 04/09/2025 12:37:53 04/09/20 25 04/09/2025 CMP (MALE ) altv (SGPT) 18.0 U/L 13.0-6 9.0 normal Not Available [facility] [address] [address], [place], [address], 04/09/2025 12:37:53 04/09/20 25 04/09/2025 CMP (MALE ) A/G ratio 1.4 ratio Not Available [facility] [address] [facility] 1, [place], [address], 04/09/2025 12:37:53 04/09/20 25 04/09/2025 CMP (MALE ) ALP phos 86.0 U/L 30.0-1 40.0 normal Not Available [facility] [address] [facility] 1, [place], [address], 04/09/2025 12:37:53 04/09/20 25 04/09/2025 CMP (MALE ) calcium 9.3 mg/dL 8.4-10 .5 Not Available [facility] [address] [facility], [place], [address], 04/09/2025 12:37:53 04/09/20 25 04/09/2025 CMP (MALE ) sodium 138.0 mmol/ L 136.0- 145.0 Not Available [facility] [address] [place] [facility], [place], [address], 04/09/2025 12:37:53 04/09/20 25 04/09/2025 CMP (MALE ) potassium 4.5 mmol/ L 3.5-5. 1 Not Available [facility] [address] [place] [facility], [place], [address], 04/09/2025 12:37:53 04/09/20 25 04/09/2025 CMP (MALE ) chloride 104.0 mmol/ L 98.0-1 10.0 normal Not Available [facility] [address] [place] [address] [facility], [place], [address], 04/09/2025 12:37:53 04/09/20 25 04/09/2025 CMP (MALE ) C02 27.0 mmol/ L 22.0-3 1.0 Not Available [facility] [address] [place] [address] [facility] 1, [place], [address], 04/09/2025 12:37:53 04/09/20 25 04/09/2025 CMP (MALE ) anion gap 7.0 calc Not Available [facility] [address] [place] [address] [facility] 1, [place], [address], 04/09/2025 12:37:53 04/09/20 25 04/09/2025 CMP (MALE ) osmolality 287.5 calc Not Available [facility] [address] [facility] Gu[facility]man [facility], [place], [address], 04/09/2025 12:37:53 04/09/20 25 04/09/2025 LIPID PROFI LE (MALE ) cholesterol 176.0 mg/dL 0.0-20 0.0 Not Available [facility] [address] [facility], [place], [address], 04/09/2025 12:37:56 04/09/20 25 04/09/2025 LIPID PROFI LE (MALE ) trig 139.0 mg/dL 0.0-15 0.0 Not Available [facility] [address] [facility] Port[facility]oe [facility] 1, [place], [address], 04/09/2025 12:37:56 04/09/20 25 04/09/2025 LIPID PROFI LE (MALE ) HDL - direct 53.0 mg/dL >40.[address] [facility] [address] [place] [facility], [place], [address], 04/09/2025 12:37:56 04/09/20 25 04/09/2025 LIPID PROFI LE (MALE ) VLDL - direct 27.8 mg/dL Not Available [facility] [address] [facility] 1, [place], [address], 04/09/2025 12:37:56 04/09/20 25 04/09/2025 LIPID PROFI LE (MALE ) LDL - direct 95.2 mg/dL 0.0-13 0.0 Not Available [facility] [address] [facility], [place], [address], 04/09/2025 12:37:56 04/09/20 25 04/09/2025 TSH TSH 0.35 uIU/m L 0.49-3 .82 low Not Available [facility] [address], [place], [address], 04/09/2025 13:14:16 05/02/2005/02/2025 HBA1C hemaglobin A1C 5.4 4.2-6. 5 Not Available [facility] [address], [place], [address], 05/02/2025 11:12:20 06/04/2006/08/2025 ALBUM IN, RANDO M URINE W/CRE ATINI NE creatinine, random urine 170 mg/dL 20-320 normal Not Available [facility] [address] [place], [address], 06/08/2025 13:51:13 06/04/20 25 06/08/2025 ALBUM IN, RANDO M URINE W/CRE ATINI NE albumin, urine 10.3 mg/dL see note: normal Refer ence Range : Refer ence Range Not estab lishe d Not Available [facility] [address] [place], [address], 06/08/2025 13:51:13 06/04/2006/08/2025 ALBUM IN, RANDO M [...] a diagn ostic categ ory. Not Available [facility] [address] [place], [address], 06/08/2025 13:51:13 Result Notes None recorded. Problems Name Problem SNOMED Code Status Onset Date Resolution Date Notes Provider Name and Address Organization Details Recorded Time Pain of knee region 3703915340 Completed 09/12/2024 JYOTI GARZA, [address], [address], [facility] 5 09:55:52 Atypical chest pain 271390678 Completed 09/12/2024 JYOTI CAPUTOTES, [address], [address], [facility] 5 09:55:52 Leukocyto sis 492927013 Completed 09/12/2024 JYOTILelo CAPUTOKAYLA, [address], [address], [facility] 5 09:55:52 Chronic neck pain 420082834789 7 Completed 09/12/2024 JYOTI GARZA, [address], [address], [facility] 5 09:55:53 History of total knee arthropla sty 715128165060 5 Active JYOTILelo CAPUTOKAYLA, [address], [address], [facility] 5 09:56:29 Neoplasm of spinal cord 764363330 Active JYOTI CAPUTOTES, [address], [address], [facility] 5 09:56:29 Acute kidney injury 55157779 Completed 09/12/2024 JYOTI GARZA, [address], [address], [facility] 5 09:55:53 Backache 665848104 Completed 09/12/2024 JYOTI GARZA, [address], [address] [place] [address] 5, [facility] 09:55:53 Postopera tive visit 073239925 Completed 09/12/2024 JYOTI GARZA, [address], [address] [place] [address] 5, [facility] 09:55:53 Onofre hematuria 439447892 Completed 09/12/2024 JYOTI GARZA, [address], [address] [place] [address] 5, [facility] 09:55:53 Cervical disc disorder with radiculop athy 491657514 Active JYOTI GARZA, [address], [address] [place] [address], [facility] 09:56:29 Prolapse of cervical intervert ebral disc without radiculop athy 016050270497 04 Completed 09/12/2024 JYOTI GARZA, [address], [address] [place] [address], [facility] 09:55:53 Sciatica 84447711 Completed 09/12/2024 JYOTI GARZA, [address], [address] [place] [address] 5, [facility] 09:55:53 Closed fracture of upper end of tibia 50556907 Completed 09/12/2024 JYOTI GARZA, [address], [address], [facility] 09:55:53 Gastro-es ophageal reflux disease with esophagit is 813005059 Completed 09/12/2024 JYOTI KAYLA, [address], [address] [place] [address], [facility] 09:55:53 Gastroeso phageal reflux disease without esophagit is 947891826 Active JYOTI GARZA, [address], [address] [place] [address] 5, [facility] 09:56:30 Mixed hyperlipi demia 118391506 Completed 09/12/2024 JYOTI CAPUTOTES, [address], [address] [place] [address], [facility] 09:55:53 Syncope 075658280 Completed 09/12/2024 JYOTI GARZA, [address], [address] [place] [address], [facility] 09:55:53 Anemia 451457618 Completed 09/12/2024 JYOTI GARZA, [address], [address] [place] [address], [facility] 09:55:53 Periphera l edema 267649171 Completed 09/12/2024 JYOTI KAYLA, [address], [address] [place] [address], [facility] 09:55:53 Thoracic back pain 760401421 Completed 09/12/2024 JYOTI KAYLA, [address] [address], [facility] 09:55:53 Tapia's neuroma of left foot 550977511838 105 Completed 09/12/2024 JYOTI GARZA, [address], [address], [facility] 09:55:53 Chest pain 73700736 Completed 09/12/2024 JYOTI GARZA, [address], [address], [facility] 09:55:53 Numbness of upper limb 549071993 Completed 09/12/2024 JYOTI GARZA, [address], [address], [facility] 09:55:53 Periphera l nerve disease 928571599 Completed 09/12/2024 JYOTI GARZA [address] [address], [facility] 09:55:53 Fracture of rib 40029110 Completed 09/12/2024 JYOTI GARZA, [address] [address], [facility] 09:55:53 Blood in urine 62640129 Completed 09/12/2024 JYOTI GARZA [address], [address], [facility] 09:55:53 Dyslipide josue 878365483 Completed 09/12/2024 JYOTI GARZA [address] [address] , [facility] 09:55:53 Neuropath y 249801843 Completed 09/12/2024 JYOTI GARZA, [address] [place] [address], [facility] 09:55:53 Foreign body in left forearm Completed 09/12/2024 JYOTI GARZA, [address], [address] [place] [address] 5, [facility] 09:55:53 Carotid bruit 835490642 Active JYOTI GARZA, [address], [address] [place] [address], [facility] 09:56:30 Cervical disc disorder 984241975 Completed 09/12/2024 JYOTI GARZA, [address], [address] [place] [address], [facility] 09:55:53 Mass of urinary bladder 497735801 Active JYOTI GARZA, [address], [address] [place] [address], [facility] 11:47:40 History of placement of stent for coronary artery disease 251307138 Active JYOTI GARZA, [address], [address] [place] [address] 5, [facility] 09:56:30 Coronary atheroscl erosis 571843607 Active JYOTI GARZA, [address], [address] [place] [address], [facility] 11:47:40 Ependymom a 992300754 Completed 09/12/2024 JYOTI GARZA, [address], [address] [place] [address], [facility] 09:55:53 Gastritis 0098469 Completed 09/12/2024 JYOTI GARZA, [address], [address], [facility] 09:55:53 Foot pain 31870794 Completed 09/12/2024 JYOTI GARZA, [address], [address], [facility] 09:55:53 Diarrhea 10198313 Completed 09/12/2024 JYOTI GARZA, [address], [address], [facility] 09:55:53 Chondroma lacia 13650163 Completed 09/12/2024 JYOTI GARZA, [address], [address], [facility] 09:55:53 Acute cystitis 20614859 Completed 09/12/2024 JYOTI GARZA, [address], [address], [facility] 09:55:53 Urinary tract infectiou s disease 00786802 Completed 09/12/2024 JYOTI GARZA [address], [address], [facility] 09:55:54 Long-term current use of anticoagu lant 207874696 Completed 09/12/2024 JYOTI GARZA [address], [address], [facility] 09:55:54 Intervert ebral disc disorder of cervical region with myelopath y 23504382 Completed 09/12/2024 JYOTI GARZA, [address], [address], [facility] 09:55:54 Cold sweat 15567473 Completed 09/12/2024 JYOTI CAPUTOTES, [address], [address], [facility] 09:55:54 Constipat ion 73402273 Completed 09/12/2024 JYOTI GARZA, [address], [address], [facility] 09:55:53 Indigesti on 846776363 Completed 09/12/2024 JYOTI GARZA, [address], [address], [facility] 09:55:53 Acute retention of urine 585463624 Completed 09/12/2024 JYOTI GARZA, [address], [address], [facility] 09:55:53 Benign prostatic hyperplas ia 651850494 Active JYOTI GARZA, [address], [address], [facility] 09:56:30 Hydrouret eronephro sis 78596456 Active JYOTI GARZA, [address], [address], [facility] 09:56:30 Obstructi on of urinary bladder outlet 193316270 Completed 09/12/2024 JYOTI GARZA, [address] [address], [facility] 5 09:55:53 Acute urinary tract infection 449688558 Completed 09/12/2024 JYOTI GARZA, [address], [address], [facility] 5 09:55:53 Preinfarc tion syndrome 0494031 Completed 09/12/2024 JYOTI GARZA, [address], [address], [facility] 5 09:55:53 Urinary tract obstructi on 6945958 Completed 09/12/2024 JYOTI GARZA, [address], [address], [facility] 5 09:55:54 Pruritus caused by drug 149875548 Completed 09/12/2024 JYOTI GARZA, [address], [address], [facility] 5 09:55:54 Pain of knee region 4963580018 Active JYOTI GARZA, [address], [address], [facility] 5 11:38:20 Atypical chest pain 134067157 Active JYOTI GARZA, [address], [address], [facility] 5 11:38:20 Leukocyto sis 119142612 Active JYOTI GARZA, [address], [address], [facility] 5 11:38:20 Chronic neck pain 962284107444 7 Donta GARZA, [address], [address], [facility] 5 11:38:20 Acute kidney injury 68962072 Donta GARZA, [address], [address], [facility] 5 11:38:20 Backache 596778122 Donta GARZA, [address], [address], [facility] 5 11:38:20 Postopera tive visit 870888290 Donta GARZA, [address], [address], [facility] 5 11:38:20 Onofre hematuria 932196158 Donta GARZA, [address], [address], [facility] 5 11:38:20 Prolapse of cervical intervert ebral disc without radiculop athy 010812080469 04 Donta GARZA, [address], [address], [facility] 5 11:38:20 Sciatica 45693266 Donta GARZA, [address], [address], [facility] 5 11:38:20 Gastroeso phageal reflux disease 987842746 Donta GARZA, [address], [address], [facility] 5 11:38:20 Closed fracture of upper end of tibia 06784940 Active JYOTI GARZA, [address], [address] [place] [address] 5, [facility] 11:38:20 Gastro-es ophageal reflux disease with esophagit is 628438583 Active JYOTI GARZA, [address] 5, [facility] 11:38:20 Mixed hyperlipi demia 008068469 Active JYOTI GARZA, [address] 5, [facility] 11:38:20 Syncope 740255239 Active JYOTI GARZA, [address], [address] [place] [address], [facility] 11:38:20 Anemia 289587129 Active JYOTI GARZA, [address], [address] [place] [address], [facility] 11:38:20 Periphera l edema 005761471 Active JYOTI GARZA, [address], [address] , [facility] 11:38:20 Thoracic back pain 705296697 Active JYOTI GARZA, [address] [place] [address], [facility] 11:38:20 Tapia's neuroma of left foot 252910111671 105 Active JYOTI GARZA, [address] [address], [facility] 11:38:20 Chest pain 19975290 Donta GARZA, [address], [address] [place] [address] 5, [facility] 5 11:47:40 Numbness of upper limb 710974113 Active JYOTI GARZA, [address], [address] [place] [address] 5, [facility] 5 11:38:20 Periphera l nerve disease 174223657 Donta GARZA, [address], [address] [place] [address], [facility] 5 11:38:20 Fracture of rib 65234782 Donta GARZA, [address], [address] [place] [address], [facility] 5 11:38:20 Blood in urine [id number] Donta GARZA, [address], [address] [place] [address], [facility] 5 11:47:40 Dyslipide josue 267764768 Donta GARZA, [address], [address] [place] [address] 5, [facility] 5 11:38:20 Neuropath y 067255222 Donta GARZA, [address], [address] [place] [address] 5, [facility] 11:38:20 Cervical spondylos is 158206093 Donta GARZA, [address], [address] [place] [address], [facility] 11:47:40 Foreign body in left forearm Active JYOTI GARZA, [address], [address] [place] [address] 5, [facility] 11:38:20 Cervical disc disorder 971045008 Active JYOTI GARZA, [address], [address] [place] [address] 5, [facility] 11:47:40 Ependymom a 642409113 Active JYOTI GARZA, [address], [address] [place] [address] 5, [facility] 11:38:20 Gastritis 4418897 Active JYOTI GARZA, [address], [address] [place] [address] 5, [facility] 11:38:20 Foot pain [id number] Active JYOTI GARZA, [address], [address] [place] [address] 5, [facility] 11:38:20 Coronary arteriosc lerosis [id number] Active JYOTI GARZA, [address], [address] [place] [address] 5, [facility] 11:38:20 Diarrhea [id number] Active JYOTI GARZA, [address], [address] [place] [address] 5, [facility] 11:47:40 Chondroma lacia [id number] Active JYOTI GARZA, [address], [address] [place] [address] 5, [facility] 09/23/202 5 11:38:20 Acute cystitis [id number] Donta GARZA, [address], [address], [facility] 5 11:38:20 Urinary tract infectiou s disease [id number] Donta GARZA, [address], [address], [facility] 5 11:47:40 Long-term current use of anticoagu lant [id number] [facility] JYOTI GARZA, [address], [address], [facility] 5 11:38:20 Diabetes mellitus [id number] Donta GARZA, [address], [address], [facility] 5 11:38:20 Intervert ebral disc disorder of cervical region with myelopath y [id number] Donta GARZA, [address], [address], [facility] 5 11:38:20 Cold sweat [id number] Donta GARZA, [address], [address], [facility] 5 11:38:20 Obstructi on of urinary bladder outlet [id number] Donta GARZA, [address], [address], [facility] 5 11:40:19 Urinary tract obstructi on [id number] Donta GARZA[address], [address], [facility] 11:40:19 Constipat ion [id number] Donta GARZA, [address], [address], [facility] 11:40:43 Preinfarc tion syndrome [id number] Donta GARZA, [address], [address], [facility] 11:40:44 Indigesti on [id number] Donta GARZA, [address], [address], [facility] 11:42:08 Pruritus caused by drug [id number] Donta GARZA, [address], [address] , [facility] 11:42:08 Traumatic arthropat hy-knee [id number] Donta GARZA, [address], [address] , [facility] 11:42:45 Acute retention of urine [id number] Donta GARZA, [address], [address] , [facility] 11:47:40 Pain associate d with prosthesi s of knee joint [id number] Donta GARZA, [address], [address] , [facility] 12:05:06 Hydroneph rosis [id number] Donta GARZA, [address]204 5, [facility] 5 11:42:45 Acute urinary tract infection 469266270 Active JYOTI GARZA, [address], [address], [facility] 5 11:42:45 Enteritis of small intestine 77242070 Active JYOTI GARZA, [address], [address], [facility] 5 11:42:45 Upper respirato ry infection 50738216 Active JYOTI GARZA[address], [address], [facility] 5 11:45:05 Complicat ion of urinary catheter 958765846 Active JYOTI GARZA, [address], [address], [facility] 5 11:45:27 Myocardia l infarctio n 99210243 Active 2016 MARÍA wallace [facility] 4 13:16:36 Acute exacerbat ion of chronic obstructi ve pulmonary disease 209336565 Active 2023 MARÍA wallace [facility] 4 13:15:45 Chronic obstructi ve pulmonary disease 85498803 Active 2023 MARÍA wallace [facility] 4 13:15:48 Essential hypertens ion 62053400 Active [address], [address], [facility] 5 12:05:09 Primary malignant neoplasm of colon 20426722 Active 2023 Dx age 48-Amilcar ated with Surger y/chem o and radiat ion. MARÍA wallace [facility] 4 13:19:13 Statin declined 280527004 Active 2023 MARÍA wallace [facility] 5 22:45:03 Hyperlipi demia 85170151 Active 2024 JYOTI GARZA, [address], [address], [facility] 5 12:05:11 Chronic kidney disease stage 3B 010789286 Active 2024 JYOTI GARZA, [address], [address], [facility] 5 12:04:56 Prostate specific antigen above reference range 933773111 Active 2024 JYOTI GARZA, [address], [address], [facility] 5 12:04:57 Tobacco dependenc e caused by cigarette s [id number] 92343 Active 2024 JYOTI GARZA, [address], [address], [facility] 5 12:05:00 Problem Notes None recorded. Procedures Surgical History Date Name Laterality Status Provider Name and Address Organization Details Recorded Time 02/26/20 25 radioisotope scan of bone completed MARÍA TOLBERT [facility] Ann 02/27/2025 17:45:02 02/13/20 Doppler ultrasonography of vein completed MARÍA TOLBERT [facility] L.L[facility]CMary Ann 02/13/2025 19:33:55 02/07/20 25 plain X-ray of chest completed [facility], [place] 02/06/2025 17:09:43 09/20/19 25 plain X-ray of chest completed [facility], PariL.CMary Ann 09/19/2024 19:27:51 08/11/19 25 plain X-ray of chest completed [facility], Leigh AnnCMary Ann 08/11/2024 22:47:22 08/11/19 25 ultrasonography of bilateral kidneys completed [facility], Leigh AnnCMary Ann 08/11/2024 22:55:51 08/10/[address] of abdomen completed [facility], [place] 08/11/2024 23:02:04 08/08/[address] of abdomen completed [facility], Leigh AnnCMary Ann 08/11/2024 22:56:34 07/13/20 24 radionuclide three-phase bone study completed [facility], PariLLilia 07/17/2024 10:24:40 07/01/20 23 total knee replacement completed [facility], PariLMary AnnCMary Ann 09/19/2024 19:26:53 12/31/19 17 angiography completed [facility], LMary AnnLMary AnnCMary Ann 05/08/2024 13:14:52 Imaging Results None recorded. Procedure Notes None recorded. Medical Equipment None Reported. Allergies Allergen ID Allergen Name Allergen Category Reaction Reaction Severity Criticality Documentation Date Start Date Code Code System Note Provider Name and Address Organization Details Recorded Time 05276 No known allergy (situatio n) Not available Not available Not available Not available 09/12/2024 [id number] OREN GARZA, [facility] [address] [place] [address], [address] [place] [address], [place] 09:51:15 No known drug allergies Medications Name [...] Tobacco Smoking Status Former Smoker JYOTI GARZA, [address], [address], [facility] 05/08/2024 13:42:58 What Is Your Level Of Caffeine Consumption? Moderate [email or web address] Information not available 05/08/2024 When Did You Quit Smoking? 1-5yearssince lastcigarette Information not available 05/08/2024 What Was The Date Of Your Most Recent Tobacco Screening? 05/08/2024 Information not available 05/08/2024 What Is Your Current Pack Years? 30ormorepacky ears Information not available 05/08/2024 What Is Your Relationship Status? [email or web address] Information not available 05/08/2024 At What Age Did You Start Smoking Tobacco? 17 Information not available 05/08/2024 How Much Tobacco Do You Smoke? No Information not available 05/08/2024 Have You Recently Traveled Abroad? No [email or web address] Information not available 05/08/2024 How Many Years Have You Used Smokeless Tobacco? 30 Information not available 05/08/2024 Sex: Unknown Functional Status Question Answer Note LastModified by Organizat ion Details LastModified Time Do you use any illicit or recreational drugs? No [email or web address] Information not available 05/08/2024 Do you or have you ever used any other forms of tobacco or nicotine? Yes Information not available 05/08/2024 What is your level of alcohol consumption? None [email or web address] Information not available 05/08/2024 Do you or have you ever used smokeless tobacco? 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 Yes Information not available 05/08/2024 Do you or [...] Organization Details LastModified Time Father Essential hypertension [email or web address] Not available 13:17:16 Father Natural in his 80's [email or web address] Not available 05/08/2024 13:17:44 Mother Essential hypertension [email or web address] Not available 13:17:16 Mother Natural in her 80's [email or web address] Not available 05/08/2024 13:17:44 Medical History Condition Response Coronary Artery Disease Y Constipation Y Reflux/GERD Y High Cholesterol Y Heart Disease Y Hypertension Y Immunizations Vaccine Type Date Status Note Provider Nam e and Address Organization Details Recorded Time Influenza, adjuvanted, trivalent, PF 05/21/2025 completed MARÍA wallace [facility] 05/21/2025 11:03:46 Influenza, high-dose, quadrivalent, PF 05/17/2022 completed JYOTI GARZA, [facility] [address] [place], [address], [facility] 09/12/2024 09:51:38 COVID-19, mRNA, LNP-S, PF, 100 mcg/0.5mL dose or 50 mcg/0.25mL dose 09/09/2020 completed JYOTI GARZA, [address], [address], [facility] 05/08/2024 13:35:12 COVID-19, mRNA, LNP-S, PF, 100 mcg/0.5mL dose or 50 mcg/0.25mL dose 10/07/2020 completed JYOTI GARZA, [address], [address], [facility] 05/08/2024 13:35:12 Tdap 04/04/2024 completed JYTOI GARZA, [address], [address], [facility] 09/12/2024 09:51:38 Influenza, high-dose, trivalent, PF 04/14/2018 completed JYOTI GARZA, [address], [address], [facility] 05/08/2024 13:35:12 Influenza, high-dose, trivalent, PF 05/24/2019 completed JYOTI GARZA, [address], [address], [facility] 05/08/2024 13:35:12 Influenza, split virus, quadrivalent, PF 04/17/2021 completed JYOTI GARZA, [address], [address], [facility] 09/12/2024 09:51:38 Influenza, adjuvanted, trivalent, PF 05/08/2024 completed MARÍA wallace, [facility] 05/08/2024 14:20:07 Past Encounters Encounter ID Performer Location Encounter Start Date Encounter Closed Date Diagnosis/Indication Diagnosis SNOMED-CT Code Diagnosis ICD10 Code Diagnosis IMO Codes Diagnosis Note [id number] [facility] ([facility]) [address] [place] [address] 04/09/2025 10:41:45 04/09/2025 12:35:28 Hyperlipidemia 25450408 E78.5 Essential hypertension 22173713 I10 Prostate s pecific antigen above reference range 049784566 R97.20 96657 Follows with urology in [facility] [place] next month. Pain assoc iated with prosthesis of knee joint 411104905 Z96.652 M25.562 M25.462 Left knee Tobacco de pendence caused by cigarettes 3745048287 9508034 F17.391 [id number] No current struggles. Recently stopped smoking. Chronic ki dney disease stage 3B 586515080 N18.32 [id number] Ultrasound scheduled on kidneys next month. [id number] [facility] ([facility]) [address] [place] [address] 05/02/2025 10:45:24 05/03/2025 12:47:47 Hyperglycemia 12658912 R73.9 Health Concerns Section Related Observation LastModified by Organization Detai ls LastModified Time None Recorded Concern Status LastModified by Organization Details LastModified Time None Recorded Payers Encounter Date Sequence Insurance Name Policy Number Policy Connors Covered Member ID Connors Member ID Guarantor Name 05/02/2025 1 [facility] (MEDICARE REPLACEMENT/A DVANTAGE - PPO) [id number] [place] [address] [id number] Aram Alva
--- OUTSIDE RECORDS SUMMARY | 2025-06-19 12:30 | XMS_ITS | Encounter Summary ---
Author Organization [facility] Address [address] [place] [address] Care Team Providers Care Administrative Resources Associate Name Role Phone Unavailable Primary Care Provider Unavailabl e Encounter Details Date Type Department Care Team (Latest Contact Info) Description 03/28/2002 Outpatient Historical [facility] Laura, Kyle Neely MD [address] [facility] [address] [place] [address] Benign jaime scalp/skin neck (Primary Dx); SCREENING MAL NEOP-COLON Social History Tobacco Use Types Packs/Day Years Used Date Smoking Tobacco: Never Assessed Sex and Gender Information Value Date Recorded Sex Assigned at Not on file 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
--- OUTSIDE RECORDS SUMMARY | 2025-06-19 12:30 | XMS_ITS | Continuity of Care Document ---
Author Organization YASMIN Heron [facility] Nelson Medley, [facility] ([facility]) Address [address] [place] [address] Care Team Providers Care Php Software Engineer Name Role Phone JYOTI GARZA Primary Care Provider Unavailabl e Assessment Encounter Date Assessment Date Assessment LastModified by Organization Details LastModified Time 04/09/2025 04/09/2025 Next month he has an ultrasound on his kidneys and bladder scheduled in [facility]. He is trying to get in to see ortho in [facility] but they need his records from [facility]. He will see about trying to get them down to them. CCA form completed at today's visit. Not available 04/09/2025 12:06:24 Plan of Treatment Reminders Order Date Submit Date Provider Last Modified By Organization Details Last Modified Time Details Appointments [id number] 2025 08:20A KEVIN HERBERT Not available Not available Not available Lab CMP, serum or plasma 2024 025 [facility], [address], [address], [place], [address], 04/09/2025 12:37:53 CBC 2024 025 [facility], [address], [address], [place], [address], 04/09/2025 12:24:32 lipid panel, blood 2024 025 [facility] [address], [address], [place], [address], 04/09/2025 12:37:56 thyrotro pin, QN, serum or plasma 2024 025 [facility], [address], [facility], [place], [address], 04/09/2025 13:14:16 Referral None recorded . Procedures None recorded . Surgeries None recorded . Imaging None recorded . Medication Orders None recorded . Patient TargetsNo targets recorded. Patient Instructions Encounter Date Encounter Id Patient Instructions Last Modified By Organization Details Last Modified Time 04/09/2025 [id number] Call or return for questions or concerns. Not available 04/09/2025 11:47:30 Reason for Referral None Reported. Results Created Date Observation Date Name Description Value Unit Range Abnormal Flag Note LastModifiedBy Organization Detail LastModifiedTime 04/09/2004/09/2025 CBC WBC 6.7 x10 4.5-10 .5 Not Available [facility] [address] [facility], [place], [address], 04/09/2025 12:24:32 04/09/2004/09/2025 CBC RBC 4.73 x10 4.30-5 .90 Not Available [facility] [address] [facility], [place], [address], 04/09/2025 12:24:32 04/09/20 25 04/09/2025 CBC HGB 15.0 g/dL 13.5-1 8.0 Not Available [facility] [address] [facility], [place], [address], 04/09/2025 12:24:32 04/09/20 25 04/09/2025 CBC HCT 45.7 % 35.0-6 0.0 Not Available [facility] [address] [facility], [place], [address], 04/09/2025 12:24:32 04/09/20 25 04/09/2025 CBC MCV 96.6 fL 80.0-9 9.9 Not Available [facility] [address] [facility] [address] [facility], [place], [address], 04/09/2025 12:24:32 04/09/2004/09/2025 CBC MCH 31.6 pg 27.0-3 2.0 Not Available [facility] [address] [facility] [address] [facility], [place], [address], 04/09/2025 12:24:32 04/09/20 25 04/09/2025 CBC MCHC 32.7 g/dL 32.0-3 6.0 Not Available [facility] [address] [facility] [address] [facility], [place], [address], 04/09/2025 12:24:32 04/09/20 25 04/09/2025 CBC RDW 15.0 % 11.5-1 4.5 high Not Available [facility] [address] [facility] [facility], [place], [address], 04/09/2025 12:24:32 04/09/2004/09/2025 CBC plt 203.0 x10 150.0- 451.0 Not Available [facility] [address] [facility] [address] [facility], [place], [address], 04/09/2025 12:24:32 04/09/2004/09/2025 CBC lymphocytes % 17.9 % 20.0-5 0.0 low Not Available [facility] [address] [facility] [address] [facility], [place], [address], 04/09/2025 12:24:32 04/09/20 25 04/09/2025 CBC granulcytes % 67.2 % 30.0-7 0.0 Not Available [facility] [address] [facility] [address] [facility], [place], [address], 04/09/2025 12:24:32 04/09/20 25 04/09/2025 CBC monocytes % 11.9 % 2.0-16 .0 Not Available [facility] [address] [address], [place], [address], 04/09/2025 12:24:32 04/09/20 25 04/09/2025 CBC granulcytes# 4.5 x10 Not Viridiana ilable [facility] [address] [address], [place], [address], 04/09/2025 12:24:32 04/09/20 25 04/09/2025 CBC lymphocytes # 1.2 x10 Not Available [facility] [address] [address], [place], [address], 04/09/2025 12:24:32 04/09/20 25 04/09/2025 CBC monocytes # 0.8 x10 Not Avai lable [facility] [address] [address], [place], [address], 04/09/2025 12:24:32 04/09/20 25 04/09/2025 CMP (MALE ) glucose 104.0 mg/dL 60.0-9 9.0 high Not Available [facility] [address] [address], [place], [address], 04/09/2025 12:37:53 04/09/20 25 04/09/2025 CMP (MALE ) BUN (blood urea nitrogen) 19.0 mg/dL 10.0-2 6.0 Not Available [facility] [address] [address], [place], [address], 04/09/2025 12:37:53 04/09/20 25 04/09/2025 CMP (MALE ) creatinine (serum) 1.8 mg/dL 0.4-1. 5 high Not Available [facility] [address] [address], [place], [address], 04/09/2025 12:37:53 04/09/20 25 04/09/2025 CMP (MALE ) BUN/creatini ne ratio 10.56 ratio Not Available [facility] [address] [facility], [place], [address], 04/09/2025 12:37:53 04/09/20 25 04/09/2025 CMP (MALE ) eGFR calculated 39.6 Not Available [facility] [address] [facility], [place], [address], 04/09/2025 12:37:53 04/09/20 25 04/09/2025 CMP (MALE ) total protein 7.3 g/dL 6.0-8. 5 Not Available [facility] [address] [facility] 1, [place], [address], 04/09/2025 12:37:53 04/09/20 25 04/09/2025 CMP (MALE ) total bilirubin 0.7 mg/dL 0.2-1. 3 Not Available [facility] [address] [facility], [place], [address], 04/09/2025 12:37:53 04/09/20 25 04/09/2025 CMP (MALE ) albumin 4.2 g/dL 3.5-5. 5 Not Available [facility] [address] [facility], [place], [address], 04/09/2025 12:37:53 04/09/20 25 04/09/2025 CMP (MALE ) globulin 3.1 calc Not Available [facility] [address] [facility], [place], [address], 04/09/2025 12:37:53 04/09/20 25 04/09/2025 CMP (MALE ) AST (SGOT) 24.0 U/L 0.0-46 .0 Not Available [facility] [address] [facility], [place], [address], 04/09/2025 12:37:53 04/09/20 25 04/09/2025 CMP (MALE ) altv (SGPT) 18.0 U/L 13.0-6 9.0 normal Not Available [facility] [address] [facility] [facility], [place], [address], 04/09/2025 12:37:53 04/09/20 25 04/09/2025 CMP (MALE ) A/G ratio 1.4 ratio Not Available [facility] [address] [facility], [place], [address], 04/09/2025 12:37:53 04/09/20 25 04/09/2025 CMP (MALE ) ALP phos 86.0 U/L 30.0-1 40.0 normal Not Available [facility] [address] [facility] [facility], [place], [address], 04/09/2025 12:37:53 04/09/20 25 04/09/2025 CMP (MALE ) calcium 9.3 mg/dL 8.4-10 .5 Not Available [facility] [address] [facility], [place], [address], 04/09/2025 12:37:53 04/09/20 25 04/09/2025 CMP (MALE ) sodium 138.0 mmol/ L 136.0- 145.0 Not Available [facility] [address] [facility], [place], [address], 04/09/2025 12:37:53 04/09/20 25 04/09/2025 CMP (MALE ) potassium 4.5 mmol/ L 3.5-5. 1 Not Available [facility] [address] [facility] 1, [place], [address], 04/09/2025 12:37:53 04/09/20 25 04/09/2025 CMP (MALE ) chloride 104.0 mmol/ L 98.0-1 10.0 normal Not Available [facility] [address] [facility] [address] [facility], [place], [address], 04/09/2025 12:37:53 04/09/20 25 04/09/2025 CMP (MALE ) C02 27.0 mmol/ L 22.0-3 1.0 Not Available [facility] [address] [facility], [place], [address], 04/09/2025 12:37:53 04/09/20 25 04/09/2025 CMP (MALE ) anion gap 7.0 calc Not Available [facility] [address] [facility], [place], [address], 04/09/2025 12:37:53 04/09/20 25 04/09/2025 CMP (MALE ) osmolality 287.5 calc Not Available [facility] [address] [facility], [place], [address], 04/09/2025 12:37:53 04/09/20 25 04/09/2025 LIPID PROFI LE (MALE ) cholesterol 176.0 mg/dL 0.0-20 0.0 Not Available [facility] [address] [facility], [place], [address], 04/09/2025 12:37:56 04/09/20 25 04/09/2025 LIPID PROFI LE (MALE ) trig 139.0 mg/dL 0.0-15 0.0 Not Available [facility] [address] [facility] [facility], [place], [address], 04/09/2025 12:37:56 04/09/20 25 04/09/2025 LIPID PROFI LE (MALE ) HDL - direct 53.0 mg/dL >40.0 Not Available [facility] [address] [facility] 1, [place], [address], 04/09/2025 12:37:56 04/09/20 25 04/09/2025 LIPID PROFI LE (MALE ) VLDL - direct 27.8 mg/dL Not Available [facility] [address] [facility] 1, [place], [address], 04/09/2025 12:37:56 04/09/20 25 04/09/2025 LIPID PROFI LE (MALE ) LDL - direct 95.2 mg/dL 0.0-13 0.0 Not Available [facility] [address] [facility], [place], [address], 04/09/2025 12:37:56 04/09/2004/09/2025 TSH TSH 0.35 uIU/m L 0.49-3 .82 low Not Available [facility] [address] [facility], [place], [address], 04/09/2025 13:14:16 Result Notes None recorded. Problems Name Problem SNOMED Code Status Onset Date Resolution Date Notes Provider Name and Address Organization Details Recorded Time Pain of knee region 4288372673 Completed 09/12/2024 JYOTI GARZA [address], [address], [facility] 09:55:52 Atypical chest pain 242931309 Completed 09/12/2024 JYOTI GARZA [address], [address], [facility] 09:55:52 Leukocyto sis 544935803 Completed 09/12/2024 JYOTI GARZA [address], [address], [facility] 5 09:55:52 Chronic neck pain 796798956879 7 Completed 09/12/2024 JYOTI KAYLA, [address], [address], [facility] 5 09:55:53 History of total knee arthropla sty 405905401232 5 Active JYOTI KAYLA, [address], [address], [facility] 5 09:56:29 Neoplasm of spinal cord 804606502 Active JYOTI KAYLA, [address], [address], [facility] 5 09:56:29 Acute kidney injury 17931669 Completed 09/12/2024 JYOTI GARZA, [address], [address], [facility] 5 09:55:53 Backache 494934255 Completed 09/12/2024 JYOTI CAPUTOTES, [address], [address], [facility] 5 09:55:53 Postopera tive visit 015403162 Completed 09/12/2024 JYOTI GARZA, [address], [address], [facility] 5 09:55:53 Onofre hematuria 057581040 Completed 09/12/2024 JYOTI CAPUTOTES, [address], [address], [facility] 5 09:55:53 Cervical disc disorder with radiculop ath682673169 Active JYOTI GARZA, [address], [address] [place] [address] 5, [facility] 5 09:56:29 Prolapse of cervical intervert ebral disc without radiculop athy 179889725575 04 Completed 09/12/2024 JYOTI GARZA, [address], [address] [place] [address] 5, [facility] 09:55:53 Sciatica 82111619 Completed 09/12/2024 JYOTI GARZA, [address], [address] [place] [address] 5, [facility] 09:55:53 Closed fracture of upper end of tibia 57406495 Completed 09/12/2024 JYOTI GARZA, [address], [address] [place] [address] 5, [facility] 5 09:55:53 Gastro-es ophageal reflux disease with esophagit is 261378280 Completed 09/12/2024 JYOTI GARZA, [address], [address] [place] [address] 5, [facility] 5 09:55:53 Gastroeso phageal reflux disease without esophagit is 757322442 Active JYOTI GARZA, [address], [address] [place] [address] 5, [facility] 09:56:30 Mixed hyperlipi demia 346529190 Completed 09/12/2024 JYOTI GARZA, [address], [address] [place] [address] 5, [facility] 09:55:53 Syncope 807081810 Completed 09/12/2024 JYOTI GARZA, [address], [address], [facility] 09:55:53 Anemia 178962614 Completed 09/12/2024 JYOTI GARZA, [address], [address], [facility] 09:55:53 Periphera l edema 449121858 Completed 09/12/2024 JYOTI GARZA, [address] [address], [facility] 09:55:53 Thoracic back pain 309022764 Completed 09/12/2024 JYOTI GARZA [address] [address], [facility] 09:55:53 Tapia's neuroma of left foot 987620452691 105 Completed 09/12/2024 JYOTI GARZA, [address] [address], [facility] 09:55:53 Chest pain 18194330 Completed 09/12/2024 JYOTI GARZA, [address] [address], [facility] 5 09:55:53 Numbness of upper limb 844354407 Completed 09/12/2024 JYOTI GARZA, [address] [address], [facility] 09:55:53 Periphera l nerve disease 617100956 Completed 09/12/2024 JYOTI GARZA, [address], [address], [facility] 09:55:53 Fracture of rib 39926218 Completed 09/12/2024 JYOTI GARZA, [address], [address], [facility] 09:55:53 Blood in urine 91956292 Completed 09/12/2024 JYOTI GARZA, [address], [address], [facility] 09:55:53 Dyslipide josue 386264769 Completed 09/12/2024 JYOTI GARZA, [address], [address], [facility] 09:55:53 Neuropath y 999954177 Completed 09/12/2024 JYOTI CAPUTOTES, [address], [address], [facility] 09:55:53 Foreign body in left forearm Completed 09/12/2024 JYOTI GARZA, [address], [address], [facility] 09:55:53 Carotid bruit 507316507 Active JYOTI KAYLA, [address], [address], [facility] 09:56:30 Cervical disc disorder 623191884 Completed 09/12/2024 JYOTI GARZA, [address], [address], [facility] 09:55:53 Mass of urinary bladder 107052002 Active JYOTILelo GARZA, [address] [address], [facility] 11:47:40 History of placement of stent for coronary artery disease 882946694 Active JYOTI GARZA, [address] [address], [facility] 09:56:30 Coronary atheroscl erosis 748739263 Active JYOTI GARZA, [address] [address], [facility] 11:47:40 Ependymom a 398309282 Completed 09/12/2024 JYOTI GARZA, [address] [address], [facility] 09:55:53 Gastritis 0530118 Completed 09/12/[address] [address], [facility] 09:55:53 Foot pain 31368595 Completed 09/12/2024 JYOTI GARZA, [address] [address], [facility] 09:55:53 Diarrhea 13471244 Completed 09/12/2024 JYOTI GARZA [address] [address], [facility] 09:55:53 Chondroma lacia 85341146 Completed 09/12/2024 JYOTI GARZA [employer], [address], [facility] 09:55:53 Acute cystitis 20932768 Completed 09/12/2024 JYOTI GARZA, [address], [address], [facility] 09:55:53 Urinary tract infectiou s disease 27324235 Completed 09/12/2024 JYOTI GARZA, [address], [address], [facility] 09:55:54 Long-term current use of anticoagu lant 342580346 Completed 09/12/2024 JYOTI GARZA, [address], [address], [facility] 09:55:54 Intervert ebral disc disorder of cervical region with myelopath y 82863315 Completed 09/12/2024 JYOTI GARZA [address], [address], [facility] 09:55:54 Cold sweat 12119408 Completed 09/12/2024 JYOTI GARZA [address], [address], [facility] 09:55:54 Constipat ion 63248905 Completed 09/12/2024 JYOTI GARZA [address], [address], [facility] 09:55:53 Indigesti on 934205291 Completed 09/12/2024 JYOTI GARZA [address], [address], [facility] 09:55:53 Acute retention of urine 341514954 Completed 09/12/2024 JYOTI CAPUTOTES, [address], [address], [facility] 09:55:53 Benign prostatic hyperplas ia 189443373 Active JYOTILelo CAPUTOKAYLA, [address], [address], [facility] 09:56:30 Hydrouret eronephro sis 40586175 Active JYOTILelo CAPUTOKAYLA, [address], [address], [facility] 09:56:30 Obstructi on of urinary bladder outlet 024439482 Completed 09/12/2024 JYOTI GARZA, [address], [address], [facility] 09:55:53 Acute urinary tract infection 323862447 Completed 09/12/2024 JYOTI GARZA, [address], [address], [facility] 09:55:53 Preinfarc tion syndrome 6102007 Completed 09/12/2024 JYOTI GARZA, [address], [address], [facility] 09:55:53 Urinary tract obstructi on 3961890 Completed 09/12/2024 JYOTI GARZA, [address], [address], [facility] 5 09:55:54 Pruritus caused by drug 838409560 Completed 09/12/2024 JYOTI GARZA, [address] [address] 5, [facility] 5 09:55:54 Pain of knee region 2186103859 Active JYOTI GARZA, [address], [address] [place] [address] 5, [facility] 5 11:38:20 Atypical chest pain 718453969 Active JYOTI GARZA, [address], [address] [place] [address] 5, [facility] 5 11:38:20 Leukocyto sis 535993534 Active JYOTI GARZA, [address], [address] [place] [address] 5, [facility] 5 11:38:20 Chronic neck pain 249311046136 7 Donta GARZA, [address], [address] [place] [address] 5, [facility] 5 11:38:20 Acute kidney injury 92455909 Donta GARZA, [address], [address] [place] [address] 5, [facility] 5 11:38:20 Backache 537984941 Donta GARZA, [address] [address], [facility] 5 11:38:20 Postopera tive visit 857847320 Donta GARZA, [address] [address], [facility] 5 11:38:20 Onofre hematuria 651073768 Active JYOTI GARZA, [address], [address] [place] [address] 5, [facility] 5 11:38:20 Prolapse of cervical intervert ebral disc without radiculop athy 914347184308 04 Active JYOTI GARZA, [address], [address] [place] [address] 5, [facility] 5 11:38:20 Sciatica 22722464 Donta GARZA, [address], [address] [place] [address] 5, [facility] 5 11:38:20 Gastroeso phageal reflux disease 626144412 Donta GARZA, [address], [address] [place] [address] 5, [facility] 5 11:38:20 Closed fracture of upper end of tibia 88633365 Donta GARZA, [address], [address] [place] [address] 5, [facility] 5 11:38:20 Gastro-es ophageal reflux disease with esophagit is 141158830 Donta GARZA, [address], [address] [place] [address] 5, [facility] 5 11:38:20 Mixed hyperlipi demia 338728408 Donta GARZA, [address], [address] [place] [address] 5, [facility] 5 11:38:20 Syncope 164541818 Donta GARZA, [address], [address], [facility] Ann 5 11:38:20 Anemia 548989711 Active JYOTI AGRZA, [address], [address] [place] [address] 5, [facility], LMary AnnL.C. 5 11:38:20 Periphera l edema 804153893 Active JYOTI GARZA, [address], [address] [place] [address] 5, [facility] 5 11:38:20 Thoracic back pain 457324218 Donta GARZA, [address], [address] [place] [address] 5, [facility], LMilvia.CMary Ann 5 11:38:20 Tapia's neuroma of left foot 704970610756 105 Active JYOTI GARZA, [address], [address] [place] [address] 5, [facility] 5 11:38:20 Chest pain 31424080 Donta GARZA, [address], [address] [place] [address] 5, [facility] 5 11:47:40 Numbness of upper limb 916841392 Donta GARZA, [address], [address] [place] [address] 5, [facility] 5 11:38:20 Periphera l nerve disease 836374023 Donta GARZA, [address], [address] [place] [address] 5, [facility] 5 11:38:20 Fracture of rib 12555720 Donta GARZA, [address], [address] [place] [address] 5, [facility] 5 11:38:20 Blood in urine 29485767 Active JYOTI GARZA, [address], [address] [place] [address] 5, [facility] 5 11:47:40 Dyslipide josue 806668297 Active JYOTI GARZA, [address], [address] [place] [address] 5, [facility] 5 11:38:20 Neuropath y [id number] Donta GARZA, [address], [address] [place] [address] 5, [facility] 5 11:38:20 Cervical spondylos is [id number] Active JYOTI GARZA, [address], [address] [place] [address] 5, [facility] 5 11:47:40 Foreign body in left forearm Donta GARZA, [address], [address] [place] [address] 5, [facility] 5 11:38:20 Cervical disc disorder [id number] Donta GARZA, [address], [address] [place] [address] 5, [facility] 5 11:47:40 Ependymom a 606030727 Active JYOTI GARZA, [address], [address] [place] [address] 5, [facility] 5 11:38:20 Gastritis [id number] Donta GARZA, [address] [place], [address], [facility] 5 11:38:20 Foot pain [id number] Donta GARZA, [address], [address], [facility] 5 11:38:20 Coronary arteriosc lerosis [id number] Donta GARZA, [address], [address], [facility] 5 11:38:20 Diarrhea [id number] Donta GARZA, [address], [address] 5, [facility] 5 11:47:40 Chondroma lacia [id number] Donta GARZA, [address], [address], [facility] 5 11:38:20 Acute cystitis [id number] Donta GARZA, [address], [address] 5, [facility] 5 11:38:20 Urinary tract infectiou s disease [id number] Donta GARZA, [address], [address], [facility] 5 11:47:40 Long-term current use of anticoagu lant [id number] Donta GARZA, [address], [address], [facility] 5 11:38:20 Diabetes mellitus [id number] Donta GARZA, [address], [address] 5, [facility] 5 11:38:20 Intervert ebral disc disorder of cervical region with myelopath y [id number] Donta GARZA, [address], [address], [facility] 5 11:38:20 Cold sweat [id number] Donta GARZA, [address], [address] 5, [facility] 5 11:38:20 Obstructi on of urinary bladder outlet [id number] Donta GARZA, [address], [address] 5, [facility] 5 11:40:19 Urinary tract obstructi on [id number] Donta GARZA, [address], [address], [facility] 11:40:19 Constipat ion [id number] Donta GARZA, [address], [address] 5, [facility] 5 11:40:43 Preinfarc tion syndrome [id number] Donta GARZA, [address], [address] 5, [facility] 5 11:40:44 Indigesti on [id number] Donta GARZA, [address], [address], [facility] 5 11:42:08 Pruritus caused by drug [id number] Donta GARZA, [address], [address], [facility] 11:42:08 Traumatic arthropat hy-knee [id number] Donta GARZA, [address], [address], [facility] 5 11:42:45 Acute retention of urine [id number] Donta GARZA, [address], [address], [facility] 11:47:40 Pain associate d with prosthesi s of knee joint [id number] Donta GARZA, [address], [address] 5, [facility] 12:05:06 Hydroneph rosis [id number] Donta GARZA, [address], [address], [facility] 11:42:45 Acute urinary tract infection [id number] Donta GARZA, [address], [address] 5, [facility] 5 11:42:45 Enteritis of small intestine [id number] Donta GARZA, [address], [address], [facility] 5 11:42:45 Upper respirato ry infection [id number] Donta GARZA, [address], [address] 5, [facility] 5 11:45:05 Complicat ion of urinary catheter 580367827 Active JYOTI GARZA, [address], [address], [facility], Liegh AnnCMary Ann 5 11:45:27 Myocardia l infarctio n 99541026 Active 2016 MARÍA wallace [facility], LMary AnnL.CMary Ann 4 13:16:36 Acute exacerbat ion of chronic obstructi ve pulmonary disease 863285300 Active 2023 MARÍA wallace [facility], PariLMary AnnCMary Ann 4 13:15:45 Chronic obstructi ve pulmonary disease 06601372 Active 2023 MARÍA wallace [facility], PariL.CMary Ann 4 13:15:48 Essential hypertens ion 59646299 Active 2023 JYOTI GARZA, [address], [address], [facility], PariL.CMary Ann 5 12:05:09 Primary malignant neoplasm of colon 43202714 Active 2023 Dx age 48-Amilcar ated with Surger y/chem o and radiat ion. MARÍA wallace [facility], PariL.CMary Ann 4 13:19:13 Statin declined 669366224 Active 2023 MARÍA wallace [facility] 5 22:45:03 Hyperlipi demia 59014362 Active 2024 JYOTI GARZA, [address], [address], [facility], L.L.CMary Ann 5 12:05:11 Chronic kidney disease stage 3B 050900792 Active 2024 JYOTI GARZA [address] [place], [address], [facility], [place] 5 12:04:56 Prostate specific antigen above reference range 821747566 Active 2024 JYOTI GARZA, [facility] [address] [place], [address], [facility], [place] 12:04:57 Tobacco dependenc e caused by cigarette s 809722498202 86607 Active 2024 JYOTI GARZA, [facility] [address] [place], [address], [facility], [place] 12:05:00 Problem Notes None recorded. Procedures Surgical History Date Name Laterality Status Provider Name and Address Organization Details Recorded Time 02/26/20 25 [facility]27[facility]25 17:45:02 02/13/20 25 [facility] 02/13/2025 19:33:55 02/07/20 25 [facility]/06/2025 17:09:43 09/20/19 25 plain X-ray of chest completed [facility], [place] 09/19/2024 19:27:51 08/11/19 25 plain X-ray of chest completed [facility], [place] 08/11/2024 22:47:22 08/11/19 25 ultrasonography of bilateral kidneys completed [facility], [place] 08/11/2024 22:55:51 08/10/[address] [facility]11[facility]2024 23:02:04 08/08/[address] of abdomen completed [facility] 08/11/2024 22:56:34 07/13/20 24 radionuclide three-phase bone study completed [facility] 07/17/2024 10:24:40 07/01/20 23 total knee replacement completed [facility], L.L.CMary Ann 09/19/2024 19:26:53 12/31/19 17 angiography completed [facility], L.L.CMary Ann 05/08/2024 13:14:52 Imaging Results None recorded. Procedure Notes None recorded. Medical Equipment None Reported. Allergies Allergen ID Allergen Name Allergen Category Reaction Reaction Severity Criticality Documentation Date Start Date Code Code System Note Provider Name and Address Organization Details Recorded Time 02099 No known allergy (situatio n) Not available Not available Not available Not available 09/12/[id number] [facility] JYOTI GARZA, [address], [address] [place] [address], L.L.CMary Ann 09:51:15 No known drug allergies Medications [...] Updated DateTime 5 175.26 cm 31.7 kg/m2 35305.3 6 g 99 /min 20 /min 99 % 124/80 mm[Hg] MARÍA DIDI [facility] 11:09:20 Social History Question Answer Notes LastModified by Organizat ion Details LastModified Time Tobacco Smoking Status Former Smoker JYOTI GARZA, [facility] [address] [place], [address], [facility] 05/08/2024 13:42:58 What Is Your Level Of Caffeine Consumption? Moderate [email or web address] Information not available 05/08/2024 When Did You Quit Smoking? 1-5yearssince lastcigarette Information not available 05/08/2024 What Was The Date Of Your Most Recent Tobacco Screening? 05/08/2024 Information not available 05/08/2024 What Is Your Current Pack Years? [email or web address] ears Information not available 05/08/2024 What Is Your Relationship Status? [email or web address] Information not available 05/08/2024 At What Age Did You Start Smoking Tobacco? 17 Information not available 05/08/2024 How Much Tobacco Do You Smoke? No Information not available 05/08/2024 Have You Recently Traveled Abroad? No [email or web address] Information not available 05/08/2024 How Many Years Have You Used Smokeless Tobacco? 30 Information not available 05/08/2024 Sex: Unknown Functional Status Question Answer Note LastModified by Organizat ion Details LastModified Time Do you use any illicit or recreational drugs? No [email or web address] Information not available 05/08/2024 Do you or have you ever used any other forms of tobacco or nicotine? Yes Information not available 05/08/2024 What is your level of alcohol consumption? None [email or web address] Information not available 05/08/2024 Do you or have you ever used smokeless tobacco? 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 Yes [email or web address] Information not available 05/08/2024 Do you or [...] Organization Details LastModified Time Father Essential hypertension [email or web address] Not available 13:17:16 Father Natural in his 80's Not available 05/08/2024 13:17:44 Mother Essential hypertension [email or web address] Not available 13:17:16 Mother Natural in her 80's [email or web address] Not available 05/08/2024 13:17:44 Medical History Condition Response Coronary Artery Disease Y Constipation Y Reflux/GERD Y High Cholesterol Y Heart Disease Y Hypertension Y Immunizations Vaccine Type Date Status Note Provider Nam e and Address Organization Details Recorded Time Influenza, adjuvanted, trivalent, PF 05/21/2025 completed MARÍA TOLBERT [facility] 05/21/2025 11:03:46 Influenza, high-dose, quadrivalent, PF 05/17/2022 completed JYOTI GARZA [address], [address], [facility] 09/12/2024 09:51:38 COVID-19, mRNA, LNP-S, PF, 100 mcg/0.5mL dose or 50 mcg/0.25mL dose 09/09/2020 completed JYOTI GARZA [facility] [address] [place] [address], [address], [facility] 05/08/2024 13:35:12 COVID-19, mRNA, LNP-S, PF, 100 mcg/0.5mL dose or 50 mcg/0.25mL dose 10/07/2020 completed JYOTI GARZA, [facility] [address] [place], [address], [facility] 05/08/2024 13:35:12 Tdap 04/04/2024 completed JYOTI GARZA, [facility] [place], [address], [facility] 09/12/2024 09:51:38 Influenza, high-dose, trivalent, PF 04/14/2018 completed JYOTI GARZA, [address], [address] [place] [address], [facility] 05/08/2024 13:35:12 Influenza, high-dose, trivalent, PF 05/24/2019 completed JYOTI GARZA [address], [address], [facility] 05/08/2024 13:35:12 Influenza, split virus, quadrivalent, PF 04/17/2021 completed JYOTI GARZA, [facility] [address] [place] [address], [address], [facility] 09/12/2024 09:51:38 Influenza, adjuvanted, trivalent, PF 05/08/2024 [facility] 05/08/2024 14:20:07 Past Encounters Encounter ID Performer Location Encounter Start Date Encounter Closed Date Diagnosis/Indication Diagnosis SNOMED-CT Code Diagnosis ICD10 Code Diagnosis IMO Codes Diagnosis Note [id number] JYOTI GARZA [facility] ([facility]) [address] [address] 04/09/2025 10:41:45 04/09/2025 12:35:28 Hyperlipidemia 32912107 E78.5 Essential hypertension 13627077 I10 Prostate s pecific antigen above reference range 585688175 R97.20 54964 Follows with urology [place] next month. Pain assoc iated with prosthesis of knee joint 203358893 Z96.652 M25.562 M25.462 Left knee Tobacco de pendence caused by cigarettes 0001752802 3345049 F17.331 9979139 No current struggles. Recently stopped smoking. Chronic ki dney disease stage 3B 427757130 N18.32 3822640713 Ultrasound scheduled on kidneys next month. Health Concerns Section Related Observation LastModified by Organization Detai ls LastModified Time None Recorded Concern Status LastModified by Organization Details LastModified Time None Recorded Payers Encounter Date Sequence Insurance Name Policy Number Policy Connors Covered Member ID Connors Member ID Guarantor Name 04/09/2025 1 [facility] (MEDICARE REPLACEMENT/A DVANTAGE - PPO) [id number] [address] [id number] [employer] Notes Date Note Type Note Provider Name and Address Organization Details Recorded Time 5 text/html HyperlipidemiaReported by PatientHPIFor duration, patient reportschronic. For control, patient reportsusually well controlled. For adherence to treatment plan, patient reportstakes medications as prescribed. Hypertension IM/FMReported by PatientHPIFor quality, patient reportshere for check-up. For severity, patient reportsnormal (<120/<80 mmhg). For duration, patient reportshtn present for ___ years. For alleviating factors, patient reportsmedication. JYOTI GARZA, [employer]Y [employer] HEALTH CONSULTANT [address] [place], [address], [facility] 04/09/2025 12:06:33
--- OUTSIDE RECORDS SUMMARY | 2025-06-19 12:30 | XMS_ITS | Encounter Summary ---
Author Organization [facility] Address [address] [place] [address] Care Team Providers Care Poker Dealer Name Role Phone Unavailable Primary Care Provider Unavailabl e Encounter Details Date Type Department Care Team (Latest Contact Info) Description 06/06/2000 Outpatient Historical 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
--- OUTSIDE RECORDS SUMMARY | 2025-06-19 12:30 | XMS_ITS | Clinical Summary ---
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
--- OUTSIDE RECORDS SUMMARY | 2025-06-19 12:30 | XMS_ITS | Clinical Summary ---
Author Organization [facility] Address [address] [place] [address] Care Team Providers Care Thermal Molder Name Role Phone Jaquelin Cee MD Primary Care Provider [phone] Allergies No known active allergies Medications clopidogreL (PLAVIX) 75 mg Tablet Take 75 mg by mouth daily. Active metoprolol succinate (TOPROL XL) 25 mg Extended Release 24 hour tablet Take 25 mg by mouth daily. Active aspirin (ECOTRIN EC) 81 mg Tablet, Delayed Release (E.C.) Take 81 mg by mouth daily. Active ranitidine HCl (ZANTAC ORAL) Take 1 Tablet by mouth 1 time daily as needed. Active OTHER Wears night splint to L. Knee Active lisinopriL (PRINIVIL) 20 mg tablet 4 Active tamsulosin (Flomax) 0.4 mg capsuleIndicatio ns:Bladder mass Take 2 Capsules (0.8 mg) by mouth daily. 60 Capsule 11 4 Active omeprazole magnesium (PRILOSEC ORAL) Take 30 mg by mouth daily. Active sucralfate (CARAFATE ORAL) Take 1 mg by mouth 3 times daily with meals. Active atorvastatin (LIPITOR) 40 mg tablet Take 40 mg by mouth daily. Active azithromycin (ZITHROMAX) 250 mg tablet Take 250 mg by mouth daily. Active ferrous sulfate 325 mg (65 mg iron) tablet Take 325 mg by mouth daily. Active famotidine (PEPCID) 20 mg tablet Take 20 mg by mouth 2 times daily. Active lansoprazole (PREVACID) 30 mg Capsule, Delayed Release(E.C.) Take 30 mg by mouth daily. Active metoprolol tartrate (LOPRESSOR) 25 mg tablet Take 25 mg by mouth 2 times daily. Active nitroglycerin (NITROSTAT) 0.4 mg Tablet, Sublingual Place 0.4 mg under tongue Continuous as needed. Active traMADol (ULTRAM) 50 mg tablet Take 50 mg by mouth every 8 hours as needed for Pain. Active gabapentin (NEURONTIN) 300 mg capsuleIndicatio ns:S/P total knee arthroplasty, left,Hip pain, unspecified laterality Take 1 Capsule (300 mg) by mouth 3 times daily. 90 Capsule 3 5 Active Active Problems Problem Noted Date Diagnosed Date Preoperative general physical examination 2022 Primary osteoarthritis of left knee 06/14/2023 CAD (coronary atherosclerotic disease) 3 GERD (gastroesophageal reflux disease) 3 History of colon cancer 06/14/2023 Prediabetes 06/14/2023 History of tobacco use 06/14/2023 Obesity (BMI 30.0-34.9) 06/14/2023 Elevated serum creatinine 06/14/2023 Encounters Date Type Department Care Team Description 05/28/2025 External Device Data STL ABSTRACTION Provider, Abstract 04/02/2025 External Device Data STL ABSTRACTION Provider, Abstract from Last 3 Months Immunizations Immunization Administration Dates Next Due INFLUENZA VACCINE HIGH DOSE QUADRIVALENT 65 YR UP PF IM 05/08/2024,05/17/2022 INFLUENZA VACCINE QUADRIVALE NT 6 MOS UP PF IM 04/17/2021 Influenza Seasonal Unspecifi ed Formulation IM 04/17/2021,05/24/2019,04/14/2018 Td(adult) Unspecified Formulation 04/04/2024 Social History Tobacco Use Types Packs/Day Years Used Date Smoking Tobacco: Every Day Cigarettes 2 58 Started: 05/24/1963; Last attempted to quit: 05/24/2023 Smokeless Tobacco: Never Tobacco Cessation:Ready to Q uit: Not Asked; Counseling Given: Not Answered Alcohol Use Standard Drinks/Week Comments Never 0 (1 standard drink = 0.6 oz pur e alcohol) Feeling Safe Answer Date Recorded Are you in a relationship wi th someone who hurts you emotionally and/or physically? 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 Gender Identity Not on file Sexual Orientation Not on file Last Filed Vital Signs Vital Sign Reading Time Taken Comments Blood Pressure 116/68 01/03/2025 1:49 PM CDT Pulse 66 10/11/2023 10:40 AM CDT Temperature 35.9 C (96.6 F) 10/11/2023 10:10 AM CDT Respiratory Rate 18 10/11/2023 10:4 0 AM CDT Oxygen Saturation 99% 10/11/2023 10: 40 AM CDT Inhaled Oxygen Concentration - - Weight 83.4 kg (183 lb 12.8 oz) 025 1:49 PM CDT Height 170.2 cm (5' 7 ) 01/03/2025 1:49 PM CDT Body Mass Index 28.79 01/03/2025 1:49 PM CDT Plan of Treatment Health Maintenance Due Date Last Done Comments PNEUMOCOCCAL VACCINE 50+ YEA RS (1 of 2 - PCV) 1971 Lung Cancer Screening 2002 RSV VACCINE (60+ or ) (1 - Risk 50-74 years 1-dose series) 2002 ZOSTER VACCINE (1 of 2) 2002 Abdominal Aortic Aneurysm (A AA) Screening 2017 DTAP/TDAP/TD VACCINES (1 - Tdap) 04/05/2024 04/04/20 24, 04/04/2024 INFLUENZA VACCINE (#1) 2025 , 05/08/2024, 05/17/2022, Additional history exists COVID-19 Vaccine (3 - 2024-2 6 season) 2025 10/07/2020, 09/09/2020 Medical Devices Implanted Type Area Planning Consultant Device Identifier Shelf Expiration Date Model / Serial / Lot Cement Palacos Mv Pro 80 Hip Knee Antimicrob [id number] - [id number] Implanted:Qty: 1 on 07/01/2023 by Anna Swanson MD at [facility] Cement Left: Knee [employer] [id number] 07/17/2025 [id number] / / [id number] Comp Tib Attune Rev 95a99dt 1512-14-050 - [id number] Implanted:Qty: 1 on 07/01/2023 by Anna Swanson MD at [facility] Knee Left: Knee [employer] [id number] 01/14/2033 [id number] / / [id number] Comp Fem Attune Ps Sz 8 Lt Cmntd 1504-10-108 - [id number] Implanted:Qty: 1 on 07/01/2023 by Anna Swanson MD at [facility] Knee Left: Knee [employer] [id number] 10/15/2032 [id number] / / [id number] Insert Attune Fb Ps Sz8 5mm 1516-40-805 - [id number] Implanted:Qty: 1 on 07/01/2023 by Anna Swanson MD at [facility] Knee Left: Knee [employer] [id number] 02/15/2028 [id number] / / [id number] Patella Attune Avani 32mm 1518-10-032 - [id number] Implanted:Qty: 1 on 07/01/2023 by Anna Swanson MD at [facility] Knee Left: Knee [employer] [id number] 11/15/2027 [id number] / / [id number] Comp Tib Attune Rev Sz7 1506-40-007 - [id number] Implanted:Qty: 1 on 07/01/2023 by Anna Swanson MD at [facility] Stent Left: Knee [employer] [id number] 11/14/2030 [id number] / / [id number] Additional Health Concerns Infection Onset Date Last Indicated CAN SEALER Comment:04/18/24: Urine (Enterobacter cloacae 04/18/[address] [facility] [id number] RX [facility] Medicare Part D Advance Directives For more information, please contact: [phone] * Default Full Code - Needs Discussion (Latest Code Status on File) Date Activated Date Inactivated Comments 07/01/2023 4:13 PM 07/02/2023 4:44 PM * Full Code Date Activated Date Inactivated Comments 07/01/2023 11:38 AM 07/01/2023 4:13 PM * Full Code Date Activated Date Inactivated Comments 07/01/2023 11:14 AM 07/01/2023 11:38 AM Care Teams Thermal Molder Relationship Specialty Start Date End Date Jaquelin Cee MD [address] [phone] PCP - General Family Practice 06/14/23
--- OUTSIDE RECORDS SUMMARY | 2025-06-19 12:30 | XMS_ITS | Encounter Summary ---
Author Organization [facility] Address [address] [place] [address] Care Team Providers Care Business Process Associate Name Role Phone Unavailable Primary Care Provider Unavailabl e Encounter Details Date Type Department Care Team (Latest Contact Info) Description 07/04/2000 Outpatient Historical [facility] Kyle Sanchez MD [address] [facility] [address] [place] [phone] Follow-up examination following surgery (Primary Dx) Social History Tobacco Use Types Packs/Day Years Used Date Smoking Tobacco: Never Assessed Sex and Gender Information Value Date Recorded Sex Assigned at Not on file 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
[2025-06-19 13:52] LABS: Hematocrit 45.8 % (37-53); Hemoglobin 15.60 g/dL (11.27-16.99); Mean Corpuscular HGB Conc 34.1 g/dL (30-55); Mean Corpuscular Hemoglobin 31.3 pg (27-33); Mean Corpuscular Volume 91.8 fl (82-101); Nucleated Red Blood Cells % 0 %; Platelet Count 225 10^3/cmm (157-399); Red Blood Count 4.99 10^6/uL (3.85-5.65); White Blood Count 9.10 10^3/uL (3.29-11.43)
[2025-06-19 14:14] LABS: Alanine Aminotransferase 22 U/L (0-41); Albumin Level 4.3 g/dL (3.5-5.2); Alkaline Phosphatase 106 U/L (40-130); Anion Gap 16.0 (5-19); Aspartate Amino Transferase 17 U/L (0-40); Blood Urea Nitrogen 20 mg/dL (8-23); Calcium 9.4 mg/dL (8.5-10.5); Carbon Dioxide 25 mmol/L (22-29); Chloride 103 mmol/L (98-107); Globulin 3.4 g/dL (1.3-4.6); Glucose 110 mg/dL (65-115); Osmolality Calculated 293 mOsm/kg (285-295); Potassium 4.0 mmol/L (3.5-5.1); Sodium 140 mmol/L (136-145); Total Protein 7.7 g/dL (6.6-8.7)
[2025-06-19 14:49] VITALS: BP 174/89; PULSE 88; RESP 18; TEMP 36.4; O2SAT 96
--- NOTE | 2025-06-19 15:37 | W.ED.MALEGU ---
HPI - Male Genitourinary General: Chief complaint: Urogenital-Male Stated complaint: blood in urine Time Seen by Provider: 06/19/25 15:05 History of Present Illness: 74-year-old male presents to the emergency room with hematuria. Patient states he has a history of prostate disease he recently seen his urologist things have been going well and this morning he began having j luis hematuria difficult time emptying his bladder denies any fever sweats or chills he has some discomfort with urination. No flank pain. Denies any recent trauma. Associated symptoms: Reports hematuria; Deny dysuria Related Data Home Medications ?Medication ?Instructions ?Recorded ?Confirmed aspirin 81 mg tablet,delayed 81 mg PO QAM 07/25/19 06/19/25 release clopidogrel 75 mg tablet 75 mg PO QAM 10/04/23 06/19/25 atorvastatin 40 mg tablet 40 mg PO DAILY 10/31/24 06/19/25 polyethylene glycol 3350 17 See Rx Instructions .Route .COMPLEX 10/31/24 06/19/25 gram/dose oral powder albuterol sulfate 90 mcg/actuation 2 puff inhalation Q4H PRN 06/19/25 06/19/25 aerosol inhaler Shortness Of Breath famotidine 20 mg tablet 20 mg PO BID 06/19/25 06/19/25 gabapentin 300 mg capsule 300 mg PO TID PRN nerve pain 06/19/25 06/19/25 pantoprazole 40 mg tablet,delayed 40 mg PO DAILY PRN Acid Reflux 06/19/25 06/19/25 release sucralfate 1 gram tablet 1 g PO TID PRN stomach acid 06/19/25 06/19/25 Previous Rx's ?Medication ?Instructions ?Recorded tamsulosin 0.4 mg capsule (Flomax) 0.4 mg PO Q24H #20 caps 04/04/23 metoprolol succinate 25 mg 25 mg PO QAM #90 tabs 11/08/24 tablet,extended release 24 hr Allergies Allergy/AdvReac Type Severity Reaction Status Date / Time No Known Allergies Allergy Verified 06/19/25 12:12 Review of Systems Const: Denies: fever(s) or chills Card: Denies: chest pain Resp: Denies: dyspnea GI: Denies: abdominal pain : Reports: difficulty urinating, urinary dribbling, difficulty starting urination and hematuria; Denies: flank pain, dysuria, urinary frequency or urinary urgency Musc: Denies: neck pain or back pain Skin/Breast: Denies: rash PFSH ED PFSH: Medical History Carotid bruit present Atherosclerotic heart disease of [place] coronary artery with other forms of angina pectoris Atypical chest pain The EKG done in the emergency room revealed normal sinus rhythm with a normal ST-T's. Migraine-cluster headache syndrome History of small bowel obstruction Hyperglycemia Castillo angioma GERD (gastroesophageal reflux disease) Cervical spondylosis Syncope CAD (coronary artery disease) Essential hypertension Mixed hyperlipidemia Diabetes mellitus History of colon cancer Surgical History History of heart artery stent History of angioplasty Family History Father CAD (coronary artery disease) Cancer Mother CAD (coronary artery disease) Cancer Brother Cancer Sister Cancer Other Heart disease Denies family history of Diabetes Clotting disorder Dementia Chronic kidney disease (CKD) Suicide Anesthesia complication Bleeding disorder Lung disease Stroke Social History Smoking and tobacco/nicotine status: current some day tobacco/nicotine user cigarettes Years cigarettes smoked: 53 Alcohol intake: never Substance/Drug Use: never Household members: spouse Marital status: Current occupational status: unemployed Physical Exam Const: COMMON NORMALS: no acute distress GENERAL APPEARANCE: cooperative and comfortable ORIENTATION/CONSCIOUSNESS: Yes awake, Yes oriented to person, Yes oriented to place and Yes oriented to time HENMT: COMMON NORMALS: normocephalic, atraumatic and hearing grossly normal bilaterally HEAD & SCALP: normocephalic and atraumatic Resp: COMMON NORMALS: normal respiratory effort, No retractions, No use of accessory muscles and clear to auscultation bilaterally AUSCULTATION: clear to auscultation bilaterally Cardio: COMMON NORMALS: regular rate, regular rhythm and No murmurs present (Cardio) RATE: regular rate RHYTHM: regular rhythm GI: COMMON NORMALS: No hepatosplenomegaly present AUSCULTATION: Yes normoactive bowel sounds PALPATION: Yes Tenderness to palpation present (GI) (Suprapubic bladder palpable), No Guarding due to palpation present (GI) and Yes No hepatosplenomegaly present : COMMON NORMALS: Yes no CVA tenderness BLADDER/KIDNEY EXAM: Yes no CVA tenderness Back/Pelvis: COMMON NORMALS: no CVA tenderness Extremity: COMMON NORMALS: normal to inspection, capillary refill normal, no clubbing, cyanosis or edema, no calf tenderness and no pedal edema Neuro: SENSORIUM/ORIENTATION: Yes oriented to person, Yes oriented to place and Yes oriented to time Skin: COMMON NORMALS: no rashes or lesions noted GENERAL SKIN EXAM: no rashes or lesions noted Course Vital Signs: Vital signs: Vital Signs Temperature 97.6 F 06/19/25 14:49 Pulse Rate 73 06/19/25 19:54 Respiratory Rate 18 06/19/25 14:49 Blood Pressure 150/84 06/19/25 19:54 Pulse Oximetry 95 06/19/25 19:54 Oxygen Delivery Me thod Room Air 06/19/25 18:55 MDM - Male Medical Decision Making Medical decision making Social determinants: None patient has assistance from his . I reviewed the patient's medical record. I reviewed the patient's current home meds. Alternate historians: Differential diagnosis: Bladder outlet obstruction, cystitis, BPH Lab Review: Labs show large number red blood cells per high-power field on urine. No leukocytosis platelet count normal no left shift. Chemistries show creatinine of 1.6 objective slight improvement from earlier this year and appears to be his recent baseline. Imaging: CT of the pelvis shows moderately distended bladder with enlarged prostate. Assessment of risk Level of risk: Moderate Hospitalization considerations: Pending lab results could need hospitalization if has cystitis with retained urine Reexamination: After placement of Baron patient is much improved Baron was irrigated and has very slight pink-tinged output Assessment and plan: No signs of infection at this time. Patient previously seen urology will culture urine and discharge patient home with a Baron and have him follow-up with Dr. Negro within the next few days if develops fever return to the emergency room Lab Data 06/19/25 13:30 06/19/25 13:30 Radiology Impressions Abdomen/Pelvis CT 06/19/25 17:32 IMPRESSION: 1. Acute nondisplaced fractures of the left anterolateral 8th and 9th ribs. 2. 4 mm right middle lobe nodule. For patients at low risk (minimal or absent history of smoking and of other known risk factors), no routine follow-up is indicated. For patients at high risk (history of smoking or of other known risk factors), consider optional CT Chest at 12 months. (Reference: Pieter) COMMENTS: Consistent with the [employer]'s Incidental Findings Committee white paper (J Am Vega Radiol 2018): Any incidental renal lesion less than 1 cm or classified as too small to characterize, or any incidental cystic renal lesion characterized as simple-appearing, is likely benign. No follow-up imaging is recommended for these lesions per consensus recommendations based on imaging criteria. REFERENCES: Pieter Arce et al. Guidelines for Management of Incidental Pulmonary Nodules Detected on CT Images: From the Fleischner Society 2017. Radiology. 2017;284(1):228-243. Laboratory Results WBC 9.10 10^3/uL (3.29-11.43) 06/19/25 13:30 RBC 4.99 10^6/uL (3.85-5.65) 06/19/25 13:30 Hgb 15.60 g/dL (11.27-16.99) 06/19/25 13:30 Hct 45.8 % (37-53) 06/19/25 13:30 MCV 91.8 fl (82-101) 06/19/25 13:30 MCH 31.3 pg (27-33) 06/19/25 13:30 MCHC 34.1 g/dL (30-55) 06/19/25 13:30 RDW 11.9 % (12.1-15.1) L 06/19/25 13:30 Plt Count 225 10^3/cmm (157-399) 06/19/25 13:30 MPV 10.8 fL (7.4-10.4) H 06/19/25 13:30 Neut % (Auto) 74.7 % 06/19/25 13:30 Lymph % (Auto) 12.5 % 06/19/25 13:30 [place] % (Auto) 7.8 % 06/19/25 13:30 Eos % (Auto) 3.0 % 06/19/25 13:30 Baso % (Auto) 1.3 % 06/19/25 13:30 Neut # (Auto) 6.80 10^3/uL (1.8-7.7) 06/19/25 13:30 Lymph # (Auto) 1.1 10^3/uL (0.8-4.8) 06/19/25 13:30 [place] # (Auto) 0.7 10^3/uL (0.2-0.9) 06/19/25 13:30 Eos # (Auto) 0.3 10^3/uL (0.0-0.8) 06/19/25 13:30 Baso # (Auto) 0.1 10^3/uL (0.0-0.1) 06/19/25 13:30 Nucleated RBC % (auto) 0 % 06/19/25 13:30 Nucleated RBCs # 0.0 /100WBC 06/19/25 13:30 Sodium 140 mmol/L (136-145) 06/19/25 13:30 Potassium 4.0 mmol/L (3.5-5.1) 06/19/25 13:30 Chloride 103 mmol/L (98-107) 06/19/25 13:30 Carbon Dioxide 25 mmol/L (22-29) 06/19/25 13:30 Anion Gap 16.0 (5-19) 06/19/25 13:30 BUN 20 mg/dL (8-23) 06/19/25 13:30 Creatinine 1.6 mg/dL (0.7-1.2) H 06/19/25 13:30 GFR Calculation Not Reportable 06/19/25 13:30 Glucose 110 mg/dL (65-115) 06/19/25 13:30 Calculated Osmolality 293 mOsm/kg (285-295) 06/19/25 13:30 Calcium 9.4 mg/dL (8.5-10.5) 06/19/25 13:30 Total Bilirubin 0.3 mg/dL (0.15-1.2) 06/19/25 13:30 AST 17 U/L (0-40) 06/19/25 13:30 ALT 22 U/L (0-41) 06/19/25 13:30 Alkaline Phosphatase 106 U/L (40-130) 06/19/25 13:30 Total Protein 7.7 g/dL (6.6-8.7) 06/19/25 13:30 Albumin 4.3 g/dL (3.5-5.2) 06/19/25 13:30 Globulin 3.4 g/dL (1.3-4.6) 06/19/25 13:30 Urine Color Red (Yellow) A 06/19/25 17:01 Urine Appearance Turbid (CLEAR) A 06/19/25 17:01 Urine pH TNP 06/19/25 17:01 Ur Specific [place] Line TNP 06/19/25 17:01 Urine Protein TNP 06/19/25 17:01 Urine Glucose (UA) TNP 06/19/25 17:01 Urine Ketones TNP 06/19/25 17:01 Urine Blood TNP 06/19/25 17:01 Urine Nitrate TNP 06/19/25 17:01 Urine Bilirubin TNP 06/19/25 17:01 Urine Urobilinogen TNP 06/19/25 17:01 Ur Leukocyte Esterase TNP 06/19/25 17:01 Urine RBC Too numerous to cnt /hpf (0-2) H 06/19/25 17:01 Urine WBC None /hpf (0-5) 06/19/25 17:01 Ur Squamous Epith Cells None /hpf (0-5) 06/19/25 17:01 Amorphous Sediment Not Reportable 06/19/25 17:01 Urine Bacteria 1+ /hpf (NONE) H 06/19/25 17:01 All radiology interpretation(s) finalized by discharge Discharge Plan Discharge Patient Disposition: Home Clinical Impression: Acute urinary retention, BPH w urinary obs/LUTS Condition: Stable Prescriptions: No Action aspirin 81 mg tablet,delayed release (DR/EC) 81 mg PO QAM tamsulosin [Flomax] 0.4 mg capsule 0.4 mg PO Q24H Qty: 20 0RF metoprolol succinate 25 mg tablet extended release 24 hr 25 mg PO QAM Qty: 90 3RF clopidogrel 75 mg tablet 75 mg PO QAM atorvastatin 40 mg tablet 40 mg PO DAILY polyethylene glycol 3350 17 gram/dose powder See Rx Instructions .ROUTE .COMPLEX Rx Instructions: MIX 4 GRAMS OF POWDER IN LIQUID AND DRINK BY MOUTH TWICE DAILY NEEDED FOR CONSTIPATION. sucralfate 1 gram tablet 1 g PO TID PRN (Reason: stomach acid) famotidine 20 mg tablet 20 mg PO BID gabapentin 300 mg capsule 300 mg PO TID PRN (Reason: nerve pain) albuterol sulfate 90 mcg/actuation HFA aerosol inhaler 2 puff INHALATION Q4H PRN (Reason: Shortness Of Breath) pantoprazole 40 mg tablet,delayed release (DR/EC) 40 mg PO DAILY PRN (Reason: Acid Reflux) Discharge Orders: Discharge ED (Routine); Ordered 06/19/25 Ordered By: Guille Lopez Referrals: Clarissa Stearns FNP [Primary Care Provider, Unknown] Discharge Diet: Usual diet Discharge Activity: Increase activity as tolerated Patient Instructions: Opioid Safety, Pain Management, Patient Portal & Joselito Instructions Activity Restrictions/Additional Instructions: [facility]. It is very important that you follow up as instructed or that you return to the Emergency Department should you have concerns or if your condition changes or worsens in any way. Emergency department visits are focused on emergent conditions, in some cases you may require further evaluation on an outpatient basis. You are seen in the emergency room with difficulty with urination. Your bladder was retaining urine due to your prostate. There is also significant blood a Baron catheter was placed to relieve the obstruction. You should follow-up with Dr. Negro soon as you are able there is no signs of infection in the urine. If the catheter does not drain regularly return to the emergency room. (Please note that included in your discharge packet is information concerning opioid safety and pain management. This information is given to all patients were discharged from the ER regardless of their discharge diagnosis or the medicines they usually take or are prescribed.) Print Language: Senegalese Coding Level of Care Code ED [employer] Anchor for Lance Tavarez
[2025-06-19 17:18] LABS: Add Urine Microscopic? YES; UA Manual Slide Review YES; UA Slide Review UA Slide Review Perf
--- NOTE | 2025-06-19 17:32 | CTR_ITS ---
PROCEDURE INFORMATION: Exam: CT Abdomen And Pelvis Without Contrast Exam date and time: 06/19/2025 6:17 PM Age: 74 years old Clinical indication: Abdominal pain; Additional info: Flank pain TECHNIQUE: Imaging protocol: Computed tomography of the abdomen and pelvis without contrast. Radiation optimization: All CT scans at this facility use at least one of these dose optimization techniques: automated exposure control; mA and/or kV adjustment per patient size (includes targeted exams where dose is matched to clinical indication); or iterative reconstruction. COMPARISON: CT abdomen pelvis wo/w [id number] 09/28/2024 9:42 AM RADIATION DOSE METRICS: Total DLP (mGy-cm): 886.41 FINDINGS: Lungs: Linear atelectasis/scarring at the lung bases. 4 mm right middle lobe nodule. Heart: Trace dependent pericardial fluid. Diaphragm: Small hiatal hernia. Liver: The unenhanced liver is grossly unremarkable. Gallbladder and biliary ducts: Cholelithiasis. No biliary ductal dilatation. Pancreas: Unremarkable. No pancreatic ductal dilatation. Spleen: Unremarkable. Adrenal glands: The adrenal glands are unremarkable. Kidneys and ureters: No hydronephrosis. No radiopaque urinary tract stones. 2.1 cm simple right renal cyst. Additional bilateral hypoattenuating foci too small to characterize. Nonspecific bilateral perinephric fat stranding similar to prior CT on 09/28/2024. Stomach and bowel: The stomach is unremarkable. No bowel obstruction. Right hemicolectomy. Appendix: No evidence of appendicitis. Intraperitoneal space: No ascites or intraperitoneal free air. Vasculature: Atherosclerotic aortoiliac intimal calcifications. Lymph nodes: Unremarkable. No enlarged lymph nodes. Urinary bladder: The urinary bladder is mildly distended with mild circumferential mural thickening, likely related to chronic bladder outlet obstruction. Multiple bladder diverticula. There is mass effect on the posterior aspect of the urinary bladder. Reproductive: The prostate gland is enlarged measuring up to 5.4 cm in maximum transverse dimension. Bones/joints: Acute nondisplaced fractures of the left anterolateral 8th and 9th ribs near the costochondral junctions. Degenerative changes of the spine. Soft tissues: Small bilateral fat containing inguinal hernias, [id number]. CT/CT kidney stone [id number] IMPRESSION: 1. Acute nondisplaced fractures of the left anterolateral 8th and 9th ribs. 2. 4 mm right middle lobe nodule. For patients at low risk (minimal or absent history of smoking and of other known risk factors), no routine follow-up is indicated. For patients at high risk (history of smoking or of other known risk factors), consider optional CT Chest at 12 months. (Reference: Pieter) COMMENTS: Consistent with the [place] [employer]'s Incidental Findings Committee white paper (J Am Vega Radiol 2018): Any incidental renal lesion less than 1 cm or classified as too small to characterize, or any incidental cystic renal lesion characterized as simple-appearing, is likely benign. No follow-up imaging is recommended for these lesions per consensus recommendations based on imaging criteria. REFERENCES: Pieter Arce, et al. Guidelines for Management of Incidental Pulmonary Nodules Detected on CT Images: From the Fleischner Society 2017. Radiology. 2017;284(1):228-243.
--- NOTE | 2025-06-19 18:30 | PC.NURSE ---
PATIENT REFUSED CHILDS UNTIL ABLE TO SPEAK WITH PROVIDER.
[2025-06-19 18:55] VITALS: BP 178/115; PULSE 95; O2SAT 92
--- NOTE | 2025-06-19 19:12 | PC.NURSE ---
shift report given to campbell bowser RN. nurse does not have pin for worklist handoff
[2025-06-19 19:54] VITALS: BP 150/84; PULSE 73; O2SAT 95
== END 2025-06-19 19:55 | disposition home or self-care (01) ==
PROVIDERS: Emergency Provider Family Medicine; PCP Nurse Practitioner Family
DX: N40.1 Benign prostatic hyperplasia with lower urinary tract symptoms (principal); R33.8 Other retention of urine; Z79.02 Long term (current) use of antithrombotics/antiplatelets; Z79.82 Long term (current) use of aspirin; F17.210 Nicotine dependence, cigarettes, uncomplicated; I25.118 Atherosclerotic heart disease of native coronary artery with other forms of angina pectoris; I10 Essential (primary) hypertension; E78.2 Mixed hyperlipidemia; E11.9 Type 2 diabetes mellitus without complications; Z85.038 Personal history of other malignant neoplasm of large intestine
CPT/HCPCS: 36415; 51702; 51798; 74176; 80053; 81001; 85025; 87077; 87086; 87186; 99284